=== PATIENT | female | born 1940 | race Caucasian/White ===

== ENCOUNTER → 2018-04-01 11:15 | Outpatient (CLI) | payer MEDICARE, BC, SELFPAY ==
--- NOTE | 2018-04-01 11:30 | MRI_ITS ---
STUDY: MRI LUMBAR SPINE WITHOUT CONTRAST REASON FOR EXAM: Female, 77 years old. LOW BACK AND BILAT LEG PAIN -- for years, fall 09/2017 , hx breast cancer. TECHNIQUE: Standardized fat and water weighted pulse sequences were obtained in the sagittal and axial planes. COMPARISON: X-ray dated October 12, 2017 FINDINGS: T11/T12: There is a moderate compression fracture at T12 with retropulsion resulting in mild central canal stenosis and minimal indentation of the ventral spinal cord. There is no foraminal stenosis. T12-L1: Normal endplates. Normal disc height, hydration and morphology. Normal bilateral facet joints. Normal central canal and bilateral lateral recesses. Normal bilateral intervertebral neural foramina. Normal lumbar lordosis. There is no substantial scoliosis. Normal conus medullaris that terminates at the L1 L1-2: Normal endplates. Normal disc height, hydration and morphology. Normal bilateral facet joints. Normal central canal and bilateral lateral recesses. Normal bilateral intervertebral neural foramina. L2-3: There is mild disc space narrowing and endplate spondylosis. There is mild disc bulge and facet arthropathy with mild central canal and mild bilateral foraminal stenosis. L3-4: There is moderate disc space narrowing and endplate spondylosis. There is extensive facet arthropathy with grade 1 anterolisthesis and disc uncovering with moderate central canal stenosis. There is mild right and moderate left foraminal stenosis. L4-5: There is mild disc space narrowing and anterior spondylosis. There is a minimal disc bulge and moderate facet arthropathy with mild central canal and mild bilateral foraminal stenosis. L5-S1: Normal endplates. Normal disc height, hydration and morphology. Normal central canal and bilateral lateral recesses. Normal bilateral intervertebral neural foramina. There is mild bilateral facet arthropathy Normal visualized sacral ala. Normal visualized paraspinous soft tissue structures. MRI/Spine Lumbar (Routine) IMPRESSION: Chronic moderate compression fracture at T12 with retropulsion and mild central canal stenosis. L3/L4: Degenerative grade 1 anterolisthesis with moderate central canal stenosis. Moderate left foraminal stenosis. Multilevel degenerative changes. Electronically Signed: Karen Evans MD at 8:53 EDT Tel , Service support ,
== END ==
PROVIDERS: Family Provider Internal Medicine; PCP Internal Medicine; Visit Provider Anesthesiology Pain Medicine
DX: M54.9 Dorsalgia, unspecified (principal); M79.604 Pain in right leg
CPT/HCPCS: 72148

== ENCOUNTER → 2018-06-01 09:25 | Outpatient (CLI) | payer MEDICARE, BC, SELFPAY ==
--- NOTE | 2018-06-01 09:29 | RAD_ITS ---
STUDY: X-RAY - THORACIC SPINE REASON FOR EXAM: Female, 77 years old. Mid back pain. History of fall September 2017 with T12 fracture and subsequent kyphoplasty TECHNIQUE: 2 view(s) of the thoracic spine were obtained. COMPARISON: 3 views of the thoracic spine October 12, 2017. FINDINGS: Normal kyphosis of the thoracic spine. There is no substantial scoliosis. Prior cement augmentation/kyphoplasty of the T12 vertebra is identified. There is minor contrast extension into left paravertebral venous structures. Otherwise, normal thoracic vertebrae and endplates. Normal disc space heights. There is no demonstrated acute fracture. The soft tissue structures are unremarkable. The patient has undergone prior median sternotomy. RAD/Thoracic Spine 2 Views IMPRESSION: Patient has undergone cement augmentation/kyphoplasty at T12 since previous exam. No demonstrated acute osseous abnormality of the thoracic spine. Electronically Signed: Eb Oneill MD at 19:13 EDT , Service support ,
== END ==
PROVIDERS: Family Provider Internal Medicine; PCP Internal Medicine; Visit Provider Anesthesiology Pain Medicine
DX: M54.6 Pain in thoracic spine (principal)
CPT/HCPCS: 72070

== ENCOUNTER 2018-12-25 17:18 | Inpatient (IN) | payer MEDICARE, BC, SELFPAY ==
[2018-12-25] VITALS (13 sets, daily range): BP systolic 125–211; BP diastolic 52–71; PULSE 60–96; RESP 13–26; TEMP 36.6–36.9; O2SAT 94–100; BMI 24.3; BMI 23.3
--- NOTE | 2018-12-25 17:27 | RAD_ITS ---
STUDY: X-RAY CHEST REASON FOR EXAM: Female, 78 years old. Altered mental status, stroke TECHNIQUE: AP COMPARISON: None. FINDINGS: Two lead cardiac conduction device is seen via the right subclavian vein with lead tips projecting over the right atrium and right ventricle, respectively. The lungs are clear and expanded. There is no demonstrated pleural abnormality. There is mild cardiac enlargement. Sternal wires and mediastinal surgical clips compatible with prior CABG. Normal visualized pulmonary arteries. Normal visualized aortic arch and descending thoracic aorta. Prior vertebral augmentation at T12. Normal visualized ribs, clavicles, and shoulders. There is no demonstrated abnormality of the visualized soft tissue structures of the upper abdomen. RAD/Chest 1 View IMPRESSION: Nonacute portable x-ray examination of the chest. Mild cardiomegaly. Electronically Signed: Rocky Lopez MD at 18:09 EST , Service support ,
--- NOTE | 2018-12-25 17:27 | EKG12_ITS ---
Test Reason : CVA Blood Pressure : / mmHG Vent. Rate : 060 BPM Atrial Rate : 060 BPM P-R Int : 204 ms QRS Dur : 148 ms QT Int : 478 ms P-R-T Axes : -25 -31 052 degrees QTc Int : 478 ms Atrial-paced rhythm Left axis deviation Left bundle branch block Abnormal ECG Confirmed by JEREMIAH MONTES, MEGAN ([id number]), visual effects editor CAMERON BANKS ([id number]) on 12/28/2018 2:16:05 PM Referred By: HARI Confirmed By:MEGAN DANIELS MD
--- NOTE | 2018-12-25 17:27 | CT_ITS ---
STUDY: CT BRAIN WITHOUT CONTRAST REASON FOR EXAM: Female, 78 years old. Weakness RADIATION DOSAGE (If Supplied By Facility): CTDIvol = ( 44.99 ) mGy, DLP = ( 745.49 ) mGycm TECHNIQUE: Transaxial CT imaging of the brain was performed without administration of intravenous contrast material. Individualized dose optimization techniques were used for this CT. COMPARISON: None. FINDINGS: Normal soft tissue structures. Normal calvarium. There is mild cerebral atrophy with widening of the extra-axial spaces and ventricular dilatation. There are areas of decreased attenuation within the white matter tracts of the supratentorial brain, consistent with microvascular disease changes. Normal basal ganglia and thalami. Normal brainstem. Normal cerebellum. There is no intracranial hemorrhage. There are no findings of an acute ischemic infarction. Normal visualized paranasal sinuses. CT/Brain/Head without Contrast IMPRESSION: 1. No acute intracranial hemorrhage or mass effect. 2. Central parenchymal volume loss. White matter changes that are nonspecific but most commonly associated with chronic small vessel ischemic disease. N.B. : The above information has been verbally conveyed by Rocky Lopez MD to Alejandro Shaw on 12/25/2018 17:42:19 (ET). Electronically Signed: Rocky Lopez MD at 17:47 EST , Service support ,
--- NOTE | 2018-12-25 17:31 | NURSING ---
[id number] STROKE ALERT CALLED
--- NOTE | 2018-12-25 17:32 | CT_ITS ---
STUDY: CTA OF THE BRAIN REASON FOR EXAM: Female, 78 years old. Altered mental status, stroke RADIATION DOSAGE (If Supplied By Facility): CTDIvol = ( 18.81 ) mGy, DLP = ( 1107.49 ) mGycm TECHNIQUE: CT angiography was performed with a multi-detector CT scanner. Data acquisition was obtained from the skull base through the vertex following intravenous administration of 100 ml of Isovue-370. MIP images were reconstructed from the axial data set. Post-processing of the angiographic images was performed, with multiplanar reformation and 3D reconstruction. Individualized dose optimization techniques were used for this CT. COMPARISON: None. FINDINGS: Normal bilateral petrous carotid arteries. Normal right cavernous carotid artery with a normal supraclinoid bifurcation. Normal left cavernous carotid artery with a normal supraclinoid bifurcation. Normal right A1 segments of the anterior cerebral artery. Normal left A1 segments of the anterior cerebral artery. Normal intact anterior communicating artery (ACOM). Normal bilateral A2 segments of the anterior cerebral arteries. Normal right M1 and M2 segments of the middle cerebral arteries, with a normal M1 bifurcation. Normal left M1 and M2 segments of the middle cerebral arteries, with a normal M1 bifurcation. There is non-visualization of the right posterior communicating artery (PCOM). There is non-visualization of the left posterior communicating artery (PCOM). Normal bilateral vertebral arteries. Normal basilar artery with a normal basilar bifurcation. The visualized bilateral superior cerebellar (SCA) arteries are normal. Normal bilateral P1, P2 and visualized P3 segments of the posterior cerebral arteries. There is no demonstrated aneurysm of the [place]. There is no demonstrated abnormality of the visualized brain. CT/CTA Head W/WO Contrast IMPRESSION: 1. No large vessel arterial occlusion. No aneurysm seen. Electronically Signed: Rocky Lopez MD at 18:33 EST , Service support ,
--- NOTE | 2018-12-25 17:32 | CT_ITS ---
STUDY: CTA NECK WITH CONTRAST REASON FOR EXAM: Female, 78 years old. Weakness, stroke protocol RADIATION DOSAGE (If Supplied By Facility): CTDIvol = ( ) mGy, DLP = ( ) mGycm TECHNIQUE: CT angiography with multi-detector data acquisition was performed from the aortic arch to the skull base following intravenous administration of 100ML ml of Isovue 370 contrast. MIP images were reconstructed from the axial data set. Post-processing of the angiographic images was performed, with multiplanar reformation and 3D reconstruction. Individualized dose optimization techniques were used for this CT. COMPARISON: None. FINDINGS: Exam is significantly degraded in the neck due to patient motion. Sternal wires are noted. AORTIC ARCH: Normal visualized aortic arch. Normal origins of the brachiocephalic, left common carotid, and left subclavian arteries. RIGHT CAROTID ARTERIES: Normal right common carotid artery (CCA). There is mild atherosclerotic plaque formation with minimal narrowing of the right carotid bulb. Normal visualized origin of the right internal carotid (ICA) artery without a hemodynamically significant stenosis. Normal visualized cervical portion of the right internal carotid artery. Normal origin of the right external carotid artery (ECA). LEFT CAROTID ARTERIES: Normal left common carotid artery (CCA). There is mild atherosclerotic plaque formation with minimal narrowing of the left carotid bulb. Normal visualized origin of the left internal carotid (ICA) artery without a hemodynamically significant stenosis. Normal visualized cervical portion of the left internal carotid artery. Normal origin of the left external carotid artery (ECA). VERTEBRAL ARTERIES: Normal bilateral vertebral arteries. CT/CTA Neck W/WO Contrast IMPRESSION: 1. Significantly limited exam due to patient motion artifact. 2. No hemodynamically significant carotid stenosis identified. Mild bilateral carotid bulb atherosclerosis (15% stenosis or less). N.B. : The above information has been verbally conveyed by Rocky Lopez MD to Alejandro Shaw on 12/25/2018 17:59:48 (ET). Electronically Signed: Rocky Lopez MD at 18:04 EST , Service support ,
[2018-12-25 18:02] LABS: Absolute Lymphocyte Count 1.33 X10^3/ul (0.83-4.51); Absolute Neutrophil Count 5.4 X10^3/uL (2.0-7.7); Basophil# 0.01 X10^3/uL; Basophil% 0.1 % (0-1); Eosinophil# 0.02 X10^3/uL; Eosinophils% 0.3 % (0-5); Hematocrit 36.3 % (37-47); Lymphocyte # 1.33 X10^3/ul (4.0); Lymphocyte % 17.9 % (19-41); Mean Corp Hgb Conc 35.8 g/gl (32-36); Mean Corpuscular Hgb 32.3 pg (27.0-32.0); Mean Corpuscular Volume 90.3 fL (81-99); Mean Platelet Vol. 9.5 fl (6.2-12.0); Monocyte# 0.65 X10^3/uL; Monocyte% 8.8 % (0-10); Neutrophil # 5.39 X10^3/uL (2.7-7.7); Neutrophil % 72.6 % (47-70); Platelet Count 213 K/mm3 (150-450); RBC Distribution Width CV 12.6 % (11.6-14.6); RBC Distribution Width SD 41.6 fl (35.1-43.9); Red Blood Count 4.02 M/mm3 (4.2-5.4); White Blood Count 7.4 K/mm3 (4.4-11.0)
[2018-12-25 18:03] LABS: POSITIVE COUNT NO; POSITIVE DIFFERENTIAL NO; POSITIVE MORPHOLOGY NO
[2018-12-25 18:07] LABS: International Normalized Ratio 1.1; Prothrombin Time (Protime)PT. 13.8 SECONDS (11.7-14.9)
[2018-12-25 18:08] LABS: Partial Thromboplast Time 31.5 Seconds (24.1-36.2)
[2018-12-25 18:22] LABS: Anion Gap 8 (5-15); BUN 18 mg/dL (7-18); BUN/Creat Ratio 23.9 RATIO (10-20); Chloride 98 mmol/L (98-107); Creatinine, Serum 0.75 mg/dL (0.55-1.02); EST Glomerular Filtration Rate 79 mL/min (>60); Est Glom Filt Rate - Afr Amer 95 mL/min (>60); Estimated Creatinine Clearance 46.89 ml/min; Glucose 106 mg/dL (74-106); Potassium 3.9 mmol/L (3.5-5.1); Sodium Level 131 mmol/L (136-145)
[2018-12-25 18:31] LABS: Bedside Glucose 101 mg/dL (70-110)
--- NOTE | 2018-12-25 19:56 | PCM.HP.STD ---
Problem List (1) Hyperlipidemia Status: Chronic (2) Status post placement of cardiac pacemaker Status: Chronic (3) Atrial fibrillation Status: Chronic (4) Status post aortic valve replacement Status: Chronic (5) Type 2 diabetes mellitus Status: Chronic (6) Migraine Status: Chronic (7) GERD (gastroesophageal reflux disease) Status: Chronic (8) HTN (hypertension) Status: Chronic History of Present Illness Date of Admission: 12/25/18 Chief Complaint: Headache, blurry vision, right upper extremity numbness, tingling and weakness. The patient is a 78 year old F with past medical history as mentioned above including history of chronic migraine presented to the emergency room because of headache, blurry vision, right upper extremity numbness, tingling and weakness. Her symptoms started all of a sudden around 2:53 PM today with sudden onset headache, on the right side, looked similar to the previous attacks of acute migraine, throbbing headache, associated with visual aura, blurry vision, relieved by Imitrex and without aggravating factors. Shortly after she had the attack of the migraine, she started complaining of right upper extremity numbness, tingling, involving the right forearm and right hand, associated with heavy sensation of the right upper extremity with minimal weakness. At this time, she denies any more headache or blurry vision apart from chronic blurry vision on the right eye but she mentioned that the heaviness and tingling of the right upper extremity is still there but slightly improved. Couple of days ago, her dose of fentanyl was increased from 25 mg p.o. daily to 50 mg p.o. daily because of hypotension. In the emergency department, her blood pressure slightly elevated, other vital signs were stable. Her routine blood work was remarkable for mild hyponatremia which is chronic, otherwise normal. His EKG revealed paced rhythm with LBBB which is chronic. Her troponin is negative. Chest x-ray showed no acute findings. CT scan brain showed no acute findings, official report is pending at this time. CTA of the head and neck revealed no evidence of hemodynamically significant vascular disease or stenosis. She is being admitted for right upper extremity paresthesia/weakness for probable TIA versus acute stroke or could be due to complex migraine. Past Medical History Past Medical History (Chronic Problems): Chronic Problems (Last Updated 04/05/18 @ 12:13 by Romana Ortiz MD) Hyperlipidemia (Chronic) Status post placement of cardiac pacemaker (Chronic) Atrial fibrillation (Chronic) Status post aortic valve replacement (Chronic) Type 2 diabetes mellitus (Chronic) Migraine (Chronic) GERD (gastroesophageal reflux disease) (Chronic) HTN (hypertension) (Chronic) Medical History: Medical History (Last Updated 04/05/18 @ 12:13 by Romana Ortiz MD) Ascending aortic aneurysm I71.2 Breast cancer C50.919 1983 Diabetes E11.9 Hypertension I10 Allergies procaine HCl [From Novocain] Allergy (Verified 12/25/18 17:19) Anaphylaxis passed out, throat swelling cetirizine Adverse Reaction (Verified 12/25/18 17:19) Other mental status change codeine Adverse Reaction (Verified 12/25/18 17:19) Vomiting gabapentin Adverse Reaction (Verified 12/25/18 17:19) Other hydrochlorothiazide Adverse Reaction (Verified 12/25/18 17:19) Other lisinopril Adverse Reaction (Verified 12/25/18 17:19) Other morphine Adverse Reaction (Verified 12/25/18 17:19) Vomiting pregabalin Adverse Reaction (Verified 12/25/18 17:19) Other dizzy Sulfa (Sulfonamide Antibiotics) Adverse Reaction (Verified 12/25/18 17:19) Other headache Home Medications: Ambulatory Orders Medication Instructions Recorded Alendronate Sodium [Fosamax] 70 mg PO Q7D@0700 10/03/17 Aspirin [Aspirin, Baby] 81 mg PO DAILY@0800 10/03/17 Atenolol [Tenormin (beta Ad)] 50 mg PO DAILY 10/03/17 Dicyclomine HCl [Bentyl] 10 mg PO 4X/DAY PRN PRN 10/03/17 Estradiol [Estrace Vaginal Cream] 1 dose VAGINAL PRN PRN 10/03/17 Losartan Potassium [Cozaar] 100 mg PO DAILY 10/03/17 Magnesium Oxide [Mag-Ox 400] 400 mg PO DAILY 10/03/17 Metformin HCl [Metformin HCl ER] 500 mg PO DAILY 10/03/17 Metoprolol Succinate 25 mg PO Q6H PRN PRN 10/03/17 Multivitamins,Therapeutic 1 tab PO DAILY 10/03/17 [Multivitamin] Nateglinide [Starlix] 60 mg PO TID 10/03/17 [place]-3 Fatty Acids [[place]-3] 1,000 mg PO BID 10/03/17 Oxybutynin [Ditropan] 5 mg PO DAILY 10/03/17 Pravastatin [Pravachol] 10 mg PO QHS 10/03/17 Sumatriptan Succinate [Imitrex] 50 mg PO .X1 PRN PRN 10/03/17 traMADol [Ultram (G)] 50 mg PO Q4H PRN PRN 10/03/17 amitriptyline 10 mg tablet 10 mg PO QDAY 04/05/18 Sotalol HCl [Sotalol] 120 mg PO 12/25/18 Surgical History: Surgical History (Last Updated 04/05/18 @ 11:16 by Jennifer Anderson) H/O aortic valve replacement Z95.2 H/O elbow surgery Z98.890 H/O left mastectomy Z90.12 breast cancer 1982 History of open heart surgery Z98.890 Hx of appendectomy Z90.49 S/P CODIE (total abdominal hysterectomy) Z90.710 femoral hernia repair Surgical History: hysterectomy - 1980, pacemaker implantation, - - Aortic valve replacement with bioprosthetic valve. Psychiatric History: No pertinent psych hx IT ARCHITECT History: No pertinent IT ARCHITECT history Lives: Spouse/ Significant Other Smoking Status: Never smoker Alcohol: None Drugs: None - *Family History Maternal Family History: Family History (Last Updated 04/05/18 @ 11:17 by Jennifer Anderson) Mother Diabetes Ovarian cancer Father Cancer Colon cancer Hypertension History Items: No pertinent history Paternal Family History: Family History (Last Updated 04/05/18 @ 11:17 by Jennifer Anderson) Mother Diabetes Ovarian cancer Father Cancer Colon cancer Hypertension History Items: No pertinent history Review of Systems Constitutional: Denies: Anorexia, Chills, Fever, Weakness Eyes: Reports: Blurred vision. Denies: Double vision, Drainage, Redness HEENT: Denies: Difficulty Hearing, Ear Pain, Eye Pain, Nasal Congestion, Sore Throat Cardiovascular: Denies: Chest Pain, Chest Pressure, Edema, Heaviness, Orthopnea, Paroxysmal Noc. Dyspnea, Syncope Respiratory: Denies: Cough, Pleuritic Pain, Shortness of Breath, Sputum production, Wheezing Gastrointestinal: Denies: Abdominal Pain, Constipation, Diarrhea, Nausea, Vomiting Genitourinary: Denies: Dysuria, Frequency, Hematuria Musculoskeletal: Denies: Arm Pain, Back Pain, Foot Pain Skin: Denies: Dryness, Rash Neurological: Reports: Blurred vision, Focal weakness, Headaches, Numbness, Tingling. Denies: Balance problems, Change in Speech, Slurred speech, Confusion Psychiatric: Denies: Anxiety, Depression Endocrine: Denies: Change in Body Habitus, Polydipsia VTE Information - Inpt Only VTE Present on Admission: No VTE Mechan Device Prophylaxis: None VTE Pharm Prophylaxis ordered?: Yes - Physical Exam General: Alert, Oriented x3, Cooperative, No apparent distress HEENT: Atraumatic, PERRLA, EOMI, Normocephalic Oral: Moist Mucosa, No Gingival or Mucosal Lesions/ Ulcerations Neck: Supple, No JVD, Negative Carotid Bruits, Trachea Midline, Thyroid Normal Size and Texture Lungs: Clear to auscultation, No rhonchi, No wheeze, No rales, Diminished Cardiovascular: Regular rate, Regular Rhythm, Normal S1, Normal S2, PMI Normal Abdomen: Bowel Sounds Present, Soft, Non Tender, Non-Distended, No Hepato-splenomegaly Extremities: No clubbing, No cyanosis, No edema Skin: No rashes, No breakdown Lymphatic: No Cervical, Supraclavicular, or Inguinal Adenopathy Neurological: Cranial nerves II-XII grossly intact, Motor Exam 5/5 strength throughout Psych/Mental Status: Normal Affect, Appropriate, Alert and oriented to time, place, person, mood and affect Vital Signs Temp Pulse Resp BP Pulse Ox 98.2 F 60 16 165/52 H 100 12/25/18 17:20 12/25/18 19:30 12/25/18 19:30 12/25/18 19:30 12/25/18 19:30 Oxygen Flow Rate (L/min) 2 Oxygen Delivery Method Room Air Weight: 165 lb Body Mass Index (BMI) 24.3 Finger Stick Blood Glucose 101 Laboratory Tests Past 24 Hrs 12/25/18 12/25/18 12/25/18 17:52 17:52 17:52 WBC 7.4 RBC 4.02 L Hgb 13.0 Hct 36.3 L MCV 90.3 MCH 32.3 H MCHC 35.8 RDW 12.6 RDW Differential 41.6 Plt Count 213 MPV 9.5 Immature Gran % (Auto) 0.300 Neut % (Auto) 72.6 H Lymph % (Auto) 17.9 L [place] % (Auto) 8.8 Eos % (Auto) 0.3 Baso % (Auto) 0.1 Absolute Neuts (auto) 5.4 Absolute Lymphs (auto) 1.33 Total Counted Not Reportable PT 13.8 INR 1.1 APTT 31.5 Sodium 131 L Potassium 3.9 Chloride 98 Carbon Dioxide 25.0 Anion Gap 8 BUN 18 Creatinine 0.75 Estim Creat Clear Calc 46.89 Est GFR (MDRD) Af Amer 95 Est GFR (MDRD) Non-Af 79 BUN/Creatinine Ratio 23.9 H Glucose 106 Calcium 8.0 L Troponin I < 0.015 POC Glucose 12/25/18 18:23 POC Glucose 101 Clinical Impression(s) from Imaging Studies Brain CT 12/25/18 17:27 IMPRESSION: 1. No acute intracranial hemorrhage or mass effect. 2. Central parenchymal volume loss. White matter changes that are nonspecific but most commonly associated with chronic small vessel ischemic disease. N.B. : The above information has been verbally conveyed by Rocky Lopez MD to Alejandro Shaw on 12/25/2018 17:42:19 (ET). Electronically Signed: Rocky Lopez MD at 17:47 EST , Service support , Chest X-Ray 12/25/18 17:27 IMPRESSION: Nonacute portable x-ray examination of the chest. Mild cardiomegaly. Electronically Signed: Rocky Lopez MD at 18:09 EST , Service support , Head CTA 12/25/18 17:32 IMPRESSION: 1. No large vessel arterial occlusion. No aneurysm seen. Electronically Signed: Rocky Lopez MD at 18:33 EST , Service support , Neck CTA 12/25/18 17:32 IMPRESSION: 1. Significantly limited exam due to patient motion artifact. 2. No hemodynamically significant carotid stenosis identified. Mild bilateral carotid bulb atherosclerosis (15% stenosis or less). N.B. : The above information has been verbally conveyed by Rocky Lopez MD to Alejadnro Shaw on 12/25/2018 17:59:48 (ET). Electronically Signed: Rocky Lopez MD at 18:04 EST , Service support , ADDENDUM: 12/25/18 181 IMPRESSION: 1. Significantly limited exam due to patient motion artifact. 2. No hemodynamically significant carotid stenosis identified. Mild bilateral carotid bulb atherosclerosis (15% stenosis or less). N.B. : The above information has been verbally conveyed by Rocky Lopez MD to Alejandro Shaw on 12/25/2018 17:59:48 (ET). Electronically Signed: Rocky Lopez MD at 18:04 EST , Service support , Assessment/Plan This is an 78 years old female patient presented to the emergency room because of headache with blurred vision in context of history of chronic migraine, followed by right upper extremity numbness, tingling and weakness and she is being admitted for evaluation. #1 right upper extremity paresthesia/weakness: Upon arrival to ER, her NIH stroke was 3 according to ER physician. When I saw the patient, she still have tingling of the right upper extremity but improved and her NIH stroke scale came down to 1. She has no focal deficit on exam. CT scan brain, CTA of the neck reviewed as above. EKG revealed paced rhythm. Blood pressure slightly elevated, other vital signs are stable. Plan: Admit to PCU for observation, cardiac monitoring, NIH stroke scale, MRI brain, 2D echocardiogram, continue aspirin and statins, neurology consult, IV fluids, Tylenol as needed, PT OT evaluation and treatment. 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 We would need to verify with her food service hotel [employer] office as well as with the company if we can do the MRI with the type of pacemaker that she has. #2 migraine/chronic: Patient states that she took Imitrex at home and her headache significantly improved. Plan to continue Imitrex as needed. #3 hypertension: Blood pressure elevated, dose of atenolol adjusted couple of days ago. Plan to continue atenolol, losartan, and sotalol. #4 chronic atrial fibrillation status post pacemaker: Rate is controlled, continue atenolol and sotalol for rate control, she is not on anticoagulation. #5 type 2 diabetes mellitus: ADA diet, Accu-Cheks, insulin sliding scale, hold metformin for now. #6 hyperlipidemia: Continue statins. #7 status post aortic valve replacement with bioprosthetic valve: Stable, 2D echocardiogram ordered. #8 DVT prophylaxis: Subcu Lovenox. This note was generated with [employer] dictation software. It may contain incorrect words, spelling, and punctuation that were not noted in checking the note before signing. Code Visit OBSV E&M: 32918 Initial observation care L3
--- NOTE | 2018-12-25 20:01 | HP.PCM_ITS ---
Problem List (1) Hyperlipidemia Status: Chronic (2) Status post placement of cardiac pacemaker Status: Chronic (3) Atrial fibrillation Status: Chronic (4) Status post aortic valve replacement Status: Chronic (5) Type 2 diabetes mellitus Status: Chronic (6) Migraine Status: Chronic (7) GERD (gastroesophageal reflux disease) Status: Chronic (8) HTN (hypertension) Status: Chronic History of Present Illness Date of Admission: 12/25/18 Chief Complaint: Headache, blurry vision, right upper extremity numbness, tingling and weakness. The patient is a 78 year old F with past medical history as mentioned above including history of chronic migraine presented to the emergency room because of headache, blurry vision, right upper extremity numbness, tingling and weakness. Her symptoms started all of a sudden around 2:53 PM today with sudden onset headache, on the right side, looked similar to the previous attacks of acute migraine, throbbing headache, associated with visual aura, blurry vision, relieved by Imitrex and without aggravating factors. Shortly after she had the attack of the migraine, she started complaining of right upper extremity numbness, tingling, involving the right forearm and right hand, associated with heavy sensation of the right upper extremity with minimal weakness. At this time, she denies any more headache or blurry vision apart from chronic blurry vision on the right eye but she mentioned that the heaviness and tingling of the right upper extremity is still there but slightly improved. Couple of days ago, her dose of fentanyl was increased from 25 mg p.o. daily to 50 mg p.o. daily because of hypotension. In the emergency department, her blood pressure slightly elevated, other vital signs were stable. Her routine blood work was remarkable for mild hyponatremia which is chronic, otherwise normal. His EKG revealed paced rhythm with LBBB which is chronic. Her troponin is negative. Chest x-ray showed no acute findings. CT scan brain showed no acute findings, official report is pending at this time. CTA of the head and neck revealed no evidence of hemodynamically significant vascular disease or stenosis. She is being admitted for right upper extremity paresthesia/weakness for probable TIA versus acute stroke or could be due to complex migraine. Past Medical History Past Medical History (Chronic Problems): Chronic Problems (Last Updated 04/05/18 @ 12:13 by Romana Ortiz MD) Hyperlipidemia (Chronic) Status post placement of cardiac pacemaker (Chronic) Atrial fibrillation (Chronic) Status post aortic valve replacement (Chronic) Type 2 diabetes mellitus (Chronic) Migraine (Chronic) GERD (gastroesophageal reflux disease) (Chronic) HTN (hypertension) (Chronic) Medical History: Medical History (Last Updated 04/05/18 @ 12:13 by Romana Ortiz MD) Ascending aortic aneurysm I71.2 Breast cancer C50.919 1983 Diabetes E11.9 Hypertension I10 Allergies procaine HCl [From Novocain] Allergy (Verified 12/25/18 17:19) Anaphylaxis passed out, throat swelling cetirizine Adverse Reaction (Verified 12/25/18 17:19) Other mental status change codeine Adverse Reaction (Verified 12/25/18 17:19) Vomiting gabapentin Adverse Reaction (Verified 12/25/18 17:19) Other hydrochlorothiazide Adverse Reaction (Verified 12/25/18 17:19) Other lisinopril Adverse Reaction (Verified 12/25/18 17:19) Other morphine Adverse Reaction (Verified 12/25/18 17:19) Vomiting pregabalin Adverse Reaction (Verified 12/25/18 17:19) Other dizzy Sulfa (Sulfonamide Antibiotics) Adverse Reaction (Verified 12/25/18 17:19) Other headache Home Medications: Ambulatory Orders Medication Instructions Recorded Alendronate Sodium [Fosamax] 70 mg PO Q7D@0700 10/03/17 Aspirin [Aspirin, Baby] 81 mg PO DAILY@0800 10/03/17 Atenolol [Tenormin (beta Ad)] 50 mg PO DAILY 10/03/17 Dicyclomine HCl [Bentyl] 10 mg PO 4X/DAY PRN PRN 10/03/17 Estradiol [Estrace Vaginal Cream] 1 dose VAGINAL PRN PRN 10/03/17 Losartan Potassium [Cozaar] 100 mg PO DAILY 10/03/17 Magnesium Oxide [Mag-Ox 400] 400 mg PO DAILY 10/03/17 Metformin HCl [Metformin HCl ER] 500 mg PO DAILY 10/03/17 Metoprolol Succinate 25 mg PO Q6H PRN PRN 10/03/17 Multivitamins,Therapeutic 1 tab PO DAILY 10/03/17 [Multivitamin] Nateglinide [Starlix] 60 mg PO TID 10/03/17 [place]-3 Fatty Acids [[place]-3] 1,000 mg PO BID 10/03/17 Oxybutynin [Ditropan] 5 mg PO DAILY 10/03/17 Pravastatin [Pravachol] 10 mg PO QHS 10/03/17 Sumatriptan Succinate [Imitrex] 50 mg PO .X1 PRN PRN 10/03/17 traMADol [Ultram (G)] 50 mg PO Q4H PRN PRN 10/03/17 amitriptyline 10 mg tablet 10 mg PO QDAY 04/05/18 Sotalol HCl [Sotalol] 120 mg PO 12/25/18 Surgical History: Surgical History (Last Updated 04/05/18 @ 11:16 by Jennifer Anderson) H/O aortic valve replacement Z95.2 H/O elbow surgery Z98.890 H/O left mastectomy Z90.12 breast cancer 1982 History of open heart surgery Z98.890 Hx of appendectomy Z90.49 S/P CODIE (total abdominal hysterectomy) Z90.710 femoral hernia repair Surgical History: hysterectomy - 1980, pacemaker implantation, - - Aortic valve replacement with bioprosthetic valve. Psychiatric History: No pertinent psych hx ASSESSMENT COUNSELOR History: No pertinent ASSESSMENT COUNSELOR history Lives: Spouse/ Significant Other Smoking Status: Never smoker Alcohol: None Drugs: None - *Family History Maternal Family History: Family History (Last Updated 04/05/18 @ 11:17 by Jennifer Anderson) Mother Diabetes Ovarian cancer Father Cancer Colon cancer Hypertension History Items: No pertinent history Paternal Family History: Family History (Last Updated 04/05/18 @ 11:17 by Jennifer Anderson) Mother Diabetes Ovarian cancer Father Cancer Colon cancer Hypertension History Items: No pertinent history Review of Systems Constitutional: Denies: Anorexia, Chills, Fever, Weakness Eyes: Reports: Blurred vision. Denies: Double vision, Drainage, Redness HEENT: Denies: Difficulty Hearing, Ear Pain, Eye Pain, Nasal Congestion, Sore Throat Cardiovascular: Denies: Chest Pain, Chest Pressure, Edema, Heaviness, Orthopnea, Paroxysmal Noc. Dyspnea, Syncope Respiratory: Denies: Cough, Pleuritic Pain, Shortness of Breath, Sputum production, Wheezing Gastrointestinal: Denies: Abdominal Pain, Constipation, Diarrhea, Nausea, Vomiting Genitourinary: Denies: Dysuria, Frequency, Hematuria Musculoskeletal: Denies: Arm Pain, Back Pain, Foot Pain Skin: Denies: Dryness, Rash Neurological: Reports: Blurred vision, Focal weakness, Headaches, Numbness, Tingling. Denies: Balance problems, Change in Speech, Slurred speech, Confusion Psychiatric: Denies: Anxiety, Depression Endocrine: Denies: Change in Body Habitus, Polydipsia VTE Information - Inpt Only VTE Present on Admission: No VTE Mechan Device Prophylaxis: None VTE Pharm Prophylaxis ordered?: Yes - Physical Exam General: Alert, Oriented x3, Cooperative, No apparent distress HEENT: Atraumatic, PERRLA, EOMI, Normocephalic Oral: Moist Mucosa, No Gingival or Mucosal Lesions/ Ulcerations Neck: Supple, No JVD, Negative Carotid Bruits, Trachea Midline, Thyroid Normal Size and Texture Lungs: Clear to auscultation, No rhonchi, No wheeze, No rales, Diminished Cardiovascular: Regular rate, Regular Rhythm, Normal S1, Normal S2, PMI Normal Abdomen: Bowel Sounds Present, Soft, Non Tender, Non-Distended, No Hepato- splenomegaly Extremities: No clubbing, No cyanosis, No edema Skin: No rashes, No breakdown Lymphatic: No Cervical, Supraclavicular, or Inguinal Adenopathy Neurological: Cranial nerves II-XII grossly intact, Motor Exam 5/5 strength throughout Psych/Mental Status: Normal Affect, Appropriate, Alert and oriented to time, place, person, mood and affect Vital Signs Temp Pulse Resp BP Pulse Ox 98.2 F 60 16 165/52 H 100 12/25/18 17:20 12/25/18 19:30 12/25/18 19:30 12/25/18 19:30 12/25/18 19:30 Oxygen Flow Rate (L/min) 2 Oxygen Delivery Method Room Air Weight: 165 lb Body Mass Index (BMI) 24.3 Finger Stick Blood Glucose 101 Laboratory Tests Past 24 Hrs 12/25/18 12/25/18 12/25/18 17:52 17:52 17:52 WBC 7.4 RBC 4.02 L Hgb 13.0 Hct 36.3 L MCV 90.3 MCH 32.3 H MCHC 35.8 RDW 12.6 RDW Differential 41.6 Plt Count 213 MPV 9.5 Immature Gran % (Auto) 0.300 Neut % (Auto) 72.6 H Lymph % (Auto) 17.9 L Grundy % (Auto) 8.8 Eos % (Auto) 0.3 Baso % (Auto) 0.1 Absolute Neuts (auto) 5.4 Absolute Lymphs (auto) 1.33 Total Counted Not Reportable PT 13.8 INR 1.1 APTT 31.5 Sodium 131 L Potassium 3.9 Chloride 98 Carbon Dioxide 25.0 Anion Gap 8 BUN 18 Creatinine 0.75 Estim Creat Clear Calc 46.89 Est GFR (MDRD) Af Amer 95 Est GFR (MDRD) Non-Af 79 BUN/Creatinine Ratio 23.9 H Glucose 106 Calcium 8.0 L Troponin I < 0.015 POC Glucose 12/25/18 18:23 POC Glucose 101 Clinical Impression(s) from Imaging Studies Brain CT 12/25/18 17:27 IMPRESSION: 1. No acute intracranial hemorrhage or mass effect. 2. Central parenchymal volume loss. White matter changes that are nonspecific but most commonly associated with chronic small vessel ischemic disease. N.B. : The above information has been verbally conveyed by Rocky Lopez MD to Alejandro Shaw on 12/25/2018 17:42:19 (ET). Electronically Signed: Rocky Lopez MD at 17:47 EST , Service support , Chest X-Ray 12/25/18 17:27 IMPRESSION: Nonacute portable x-ray examination of the chest. Mild cardiomegaly. Electronically Signed: Rocky Lopez MD at 18:09 EST , Service support , Head CTA 12/25/18 17:32 IMPRESSION: 1. No large vessel arterial occlusion. No aneurysm seen. Electronically Signed: Rocky Lopez MD at 18:33 EST , Service support , Neck CTA 12/25/18 17:32 IMPRESSION: 1. Significantly limited exam due to patient motion artifact. 2. No hemodynamically significant carotid stenosis identified. Mild bilateral carotid bulb atherosclerosis (15% stenosis or less). N.B. : The above information has been verbally conveyed by Rocky Lopez MD to Alejandro Shaw on 12/25/2018 17:59:48 (ET). Electronically Signed: Rocky Lopez MD at 18:04 EST , Service support , ADDENDUM: 12/25/18 181 IMPRESSION: 1. Significantly limited exam due to patient motion artifact. 2. No hemodynamically significant carotid stenosis identified. Mild bilateral carotid bulb atherosclerosis (15% stenosis or less). N.B. : The above information has been verbally conveyed by Rocky Lopez MD to Alejandro Shaw on 12/25/2018 17:59:48 (ET). Electronically Signed: Rocky Lopez MD at 18:04 EST , Service support , Assessment/Plan This is an 78 years old female patient presented to the emergency room because of headache with blurred vision in context of history of chronic migraine, followed by right upper extremity numbness, tingling and weakness and she is being admitted for evaluation. #1 right upper extremity paresthesia/weakness: Upon arrival to ER, her NIH stroke was 3 according to ER physician. When I saw the patient, she still have tingling of the right upper extremity but improved and her NIH stroke scale came down to 1. She has no focal deficit on exam. CT scan brain, CTA of the neck reviewed as above. EKG revealed paced rhythm. Blood pressure slightly elevated, other vital signs are stable. Plan: Admit to PCU for observation, cardiac monitoring, NIH stroke scale, MRI brain, 2D echocardiogram, continue aspirin and statins, neurology consult, IV fluids, Tylenol as needed, PT OT evaluation and treatment. Although patient does have pacemaker but she was told by her [employer] staff officer office that she can have MRI done. We would need to verify with her [employer] staff officer office as well as with the company if we can do the MRI with the type of pacemaker that she has. #2 migraine/chronic: Patient states that she took Imitrex at home and her headache significantly improved. Plan to continue Imitrex as needed. #3 hypertension: Blood pressure elevated, dose of atenolol adjusted couple of days ago. Plan to continue atenolol, losartan, and sotalol. #4 chronic atrial fibrillation status post pacemaker: Rate is controlled, continue atenolol and sotalol for rate control, she is not on anticoagulation. #5 type 2 diabetes mellitus: ADA diet, Accu-Cheks, insulin sliding scale, hold metformin for now. #6 hyperlipidemia: Continue statins. #7 status post aortic valve replacement with bioprosthetic valve: Stable, 2D echocardiogram ordered. #8 DVT prophylaxis: Subcu Lovenox. This note was generated with [employer] dictation software. It may contain incorrect words, spelling, and punctuation that were not noted in checking the note before signing. Code Visit OBSV E&M: 93154 Initial observation care L3
--- NOTE | 2018-12-25 20:53 | ECHOD_ITS ---
Reason For Study: TIA/CVA Procedure This was a 2D Doppler, Color Flow transthoracic echocardiogram. Exam performed portable in patient room. Left Ventricle Normal LV size. Mild concentric left ventricular hypertrophy. The estimated ejection fraction is 50 %. Stage 1 diastolic dysfunction. No regional wall motion abnormalities noted. Right Ventricle Normal RV size. ICD or pacer leads identified within the right ventricle. Normal systolic function. Atria Normal left atrium. Normal right atrium. Mitral Valve Normal mitral valve. Mild (1+) eccentric mitral valve insufficiency. Tricuspid Valve Normal tricuspid valve. Mild tricuspid valve insufficiency. Pulmonary artery systolic pressure is 30 mmHg. Aortic Valve Peak aortic valve gradient 48 mmHg. Mean aortic valve gradient 24 mmHg. Mild aortic stenosis. Mild (1+) eccentric aortic valve insufficiency. Bioprosthetic aortic valve. Pulmonic Valve Normal pulmonic valve. Great Vessels Mild to moderately dilated aortic root. The pulmonary artery is normal size. Normal inferior vena cava. Pericardium/Pleural No pericardial effusion. Medication Performed a rapid injection of agitated mix of 9 cc saline and 1cc air to assess for atrial septal defect. MMode/2D Measurements & Calculations LVIDd: 4.3 cm IVSd: 1.4 cm LVOT diam: 2.0 cm LVIDs: 3.0 cm LVPWd: 1.4 cm RVDd: 3.5 cm FS: 30.3 % LVOT area: 3.2 cm2 Ao root diam: 4.4 cm LAV(MOD-sp4): 39.4 ml EDV(MOD-sp4): 90.9 ml ESV(MOD-sp4): 52.2 ml EF(MOD-sp4): 42.5 % SV(MOD-sp4): 38.7 ml LA A4 area: 14.7 cm2 LA dimension(2D): 4.0 cm RA A4 area: 13.2 cm2 Time Measurements MV dec time: 0.28 sec Doppler Measurements & Calculations MV E max thad: 47.9 cm/sec Lat Peak E' Thad: 5.4 cm/sec Med Peak E' Thad: 3.5 cm/sec MV A max thad: 88.1 cm/sec E/E' lat: 9.0 E/E' med: 13.8 MV E/A: 0.54 Ao V2 max: 345.8 cm/sec AI max thad: 448.3 cm/sec LV V1 max: 119.4 cm/sec Ao max P.7 mmHg AI max P.6 mmHg LV V1 max P.7 mmHg Ao V2 mean: 228.9 cm/sec AI dec slope: 335.0 cm/sec2 LV V1 mean P.6 mmHg Ao mean P.9 mmHg AI P1/2t: 391.9 msec LV V1 mean: 90.7 cm/sec Ao V2 VTI: 69.7 cm LV V1 VTI: 25.7 cm FADY(I,D): 1.2 cm2 FADY(V,D): 1.1 cm2 SV(LVOT): 83.6 ml PA V2 max: 78.8 cm/sec TR max thad: 248.7 cm/sec TR max P.0 mmHg Interpretation Summary Normal LV size. Mild concentric left ventricular hypertrophy. The estimated ejection fraction is 50 %. Stage 1 diastolic dysfunction. Mild (1+) eccentric mitral valve insufficiency. Mild tricuspid valve insufficiency. Mean aortic valve gradient 24 mmHg. Mild (1+) eccentric aortic valve insufficiency. Ordering Physician: Rona Hickman Referring Physician: Terence Kaur M.D. Performed By: Precious Jamison, JAIRO, RVT
[2018-12-25] MEDS: Pravastatin 20 MG Tablet 10 MG PO (23:56)
--- NOTE | 2018-12-25 23:57 | ED.VISSUMM ---
- ER Visit Summary Date of Service: 12/25/18 Chief Complaint: Strokelike symptoms History of Present Illness: The patient is a 78 F presenting due to concern for strokelike symptoms. Patient has an underlying history of diabetes and hypertension and migraine headaches. Patient reports that she typically gets auras with her migraine headaches, they typically come on gradually but she had a more sudden onset of the visual aura today. It was not associated with a headache, but rather was associated with numbness of the right side of her face, right arm, and some weakness of the right arm. Patient denies any other associated symptoms such as speech difficulty or changes in her vision. She has chronically decreased vision in the right eye. Review of systems otherwise negative. Physical Examination: Vital signs notable blood pressure 211/62. Well-nourished female moist mucous membranes. Heart regular lungs clear. Abdomen soft. NIH stroke scale was 3. A score of 1 was given for visual, a score of 1 was given for the right arm, a score of 1 was given for right sided sensory deficit Test Results: CT brain unremarkable, CT angiogram head and neck was negative. EKG shows a paced rhythm with bundle-branch block and a rate of 60. CBC chemistry and coags and troponin found to be unremarkable. Emergency Department Course and Treatment: Patient presented due to strokelike symptoms. Nursing staff activated a stroke team upon the patient's arrival. Patient's NIH is only 3, and her symptoms actually seem more consistent with an atypical migraine and they do stroke. I do not feel that she is a candidate for TPA. However she was profoundly hypertensive she was given labetalol and had improvement of her hypertension. Patient's workup was negative as noted above, discussed with neurology who wishes to admit the patient for rule out stroke. Disposition: Admission Impression: 1. Right-sided paresthesia This note was generated with [employer] dictation software. It may contain incorrect words, spelling, and punctuation that were not noted in review of the chart prior to signing ED Disposition - Plan for ED Patient: Disposition: Acute Care [facility] Chief Complaint: Neuro S/Sx
[2018-12-25] MEDS: 0.9% Normal Saline 1,000 ML 75 ML IV (23:59)
[2018-12-25] MEDS: 0.9% NaCl Peripheral Flush Adult/Peds IV (23:59)
[2018-12-26] VITALS (14 sets, daily range): BP systolic 135–171; BP diastolic 56–77; PULSE 55–66; RESP 16–18; TEMP 36.3–37; O2SAT 94–99; BMI 23.3
--- NOTE | 2018-12-26 | ED.DCSUM_ITS ---
- ER Visit Summary Date of Service: 12/25/18 Chief Complaint: Strokelike symptoms History of Present Illness: The patient is a 78 F presenting due to concern for strokelike symptoms. Patient has an underlying history of diabetes and hypertension and migraine headaches. Patient reports that she typically gets auras with her migraine headaches, they typically come on gradually but she had a more sudden onset of the visual aura today. It was not associated with a headache, but rather was associated with numbness of the right side of her face, right arm, and some weakness of the right arm. Patient denies any other associated symptoms such as speech difficulty or changes in her vision. She has chronically decreased vision in the right eye. Review of systems otherwise negative. Physical Examination: Vital signs notable blood pressure 211/62. Well-nourished female moist mucous membranes. Heart regular lungs clear. Abdomen soft. NIH stroke scale was 3. A score of 1 was given for visual, a score of 1 was given for the right arm, a score of 1 was given for right sided sensory deficit Test Results: CT brain unremarkable, CT angiogram head and neck was negative. EKG shows a paced rhythm with bundle-branch block and a rate of 60. CBC chemistry and coags and troponin found to be unremarkable. Emergency Department Course and Treatment: Patient presented due to strokelike symptoms. Nursing staff activated a stroke team upon the patient's arrival. Patient's NIH is only 3, and her symptoms actually seem more consistent with an atypical migraine and they do stroke. I do not feel that she is a candidate for TPA. However she was profoundly hypertensive she was given labetalol and had improvement of her hypertension. Patient's workup was negative as noted above, discussed with neurology who wishes to admit the patient for rule out stroke. Disposition: Admission Impression: 1. Right-sided paresthesia This note was generated with [employer] dictation software. It may contain incorrect words, spelling, and punctuation that were not noted in review of the chart prior to signing ED Disposition - Plan for ED Patient: Disposition: Acute Care [facility] Chief Complaint: Neuro S/Sx
[2018-12-26 00:51] LABS: Bedside Glucose 143 mg/dL (70-110)
[2018-12-26] MEDS: Sotalol Hydrochloride 80 MG Tablet 120 MG PO ×3 (02:51→22:46)
[2018-12-26 06:57] LABS: Cholesterol 141 mg/dL (200); High Density Lipoprotein 64 mg/dL; Triglycerides 86 mg/dL; Very Low Density Lipoprotein 17 mg/dL (5-40)
[2018-12-26 07:21] LABS: Bedside Glucose 149 mg/dL (70-110)
[2018-12-26] MEDS: Tolterodine Tartrate 2 MG CAP.SA PO (09:30)
[2018-12-26] MEDS: Losartan Potassium 100 MG Tablet PO (09:30)
[2018-12-26] MEDS: Atenolol 50 MG Tablet PO (09:30)
[2018-12-26] MEDS: Magnesium Oxide 400 MG Tablet PO (09:30)
[2018-12-26] MEDS: Aspirin 81 MG TAB.CHEW PO (09:30)
[2018-12-26] MEDS: Enoxaparin 40 MG/0.4 ML Syringe SC (09:30)
[2018-12-26 11:36] LABS: Bedside Glucose 151 mg/dL (70-110)
--- NOTE | 2018-12-26 11:40 | PCM.CONS.GEN ---
Reason for Consult Date of Consultation: 12/26/18 Reason for Consultation: right hand weakness History of Present Illness: 78 yo female with history of migraine with aura yesterday had atypical visual aura resolved after 20minutes, then noted speech abnormality, right hand discoordination and right facial paresthesias. went to ems, who brought her to hospital. now she feels improved but not normal. migraines since 1962. reports she has felt dizzy intermittently over the past week. diagnosed remotely in [place] with migraine variant improved after menopause. reports migraine had been rare until 3 months ago, has had 6 for unclear reasons. imitrex helps. reports significant health issues over past 3 months including pacer. reports pacer mri compatible. day prior to headache had atenolol increased due to sbp 170. imitrex yesterday helped vision, no headache, but had language abnormality. Per admit note: The patient is a 78 year old F with past medical history as mentioned above including history of chronic migraine presented to the emergency room because of headache, blurry vision, right upper extremity numbness, tingling and weakness. Her symptoms started all of a sudden around 2:53 PM today with sudden onset headache, on the right side, looked similar to the previous attacks of acute migraine, throbbing headache, associated with visual aura, blurry vision, relieved by Imitrex and without aggravating factors. Shortly after she had the attack of the migraine, she started complaining of right upper extremity numbness, tingling, involving the right forearm and right hand, associated with heavy sensation of the right upper extremity with minimal weakness. At this time, she denies any more headache or blurry vision apart from chronic blurry vision on the right eye but she mentioned that the heaviness and tingling of the right upper extremity is still there but slightly improved. Couple of days ago, her dose of fentanyl was increased from 25 mg p.o. daily to 50 mg p.o. daily because of hypotension. In the emergency department, her blood pressure slightly elevated, other vital signs were stable. Her routine blood work was remarkable for mild hyponatremia which is chronic, otherwise normal. His EKG revealed paced rhythm with LBBB which is chronic. Her troponin is negative. Chest x-ray showed no acute findings. CT scan brain showed no acute findings, official report is pending at this time. CTA of the head and neck revealed no evidence of hemodynamically significant vascular disease or stenosis. She is being admitted for right upper extremity paresthesia/weakness for probable TIA versus acute stroke or could be due to complex migraine. Those Past Medical History Past Medical History (Chronic Problems): Chronic Problems (Last Updated 04/05/18 @ 12:13 by Romana Ortiz MD) Hyperlipidemia (Chronic) Status post placement of cardiac pacemaker (Chronic) Atrial fibrillation (Chronic) Status post aortic valve replacement (Chronic) Type 2 diabetes mellitus (Chronic) Migraine (Chronic) GERD (gastroesophageal reflux disease) (Chronic) HTN (hypertension) (Chronic) Medical History: Medical History (Last Updated 04/05/18 @ 12:13 by Romana Ortiz MD) Ascending aortic aneurysm I71.2 Breast cancer C50.919 1983 Diabetes E11.9 Hypertension I10 Allergies procaine HCl [From Novocain] Allergy (Verified 12/25/18 17:19) Anaphylaxis passed out, throat swelling cetirizine Adverse Reaction (Verified 12/25/18 17:19) Other mental status change codeine Adverse Reaction (Verified 12/25/18 17:19) Vomiting gabapentin Adverse Reaction (Verified 12/25/18 17:19) Other hydrochlorothiazide Adverse Reaction (Verified 12/25/18 17:19) Other lisinopril Adverse Reaction (Verified 12/25/18 17:19) Other morphine Adverse Reaction (Verified 12/25/18 17:19) Vomiting pregabalin Adverse Reaction (Verified 12/25/18 17:19) Other dizzy Sulfa (Sulfonamide Antibiotics) Adverse Reaction (Verified 12/25/18 17:19) Other headache Home Medications: Ambulatory Orders Medication Instructions Recorded Alendronate Sodium [Fosamax] 70 mg PO Q7D@0700 10/03/17 Aspirin [Aspirin, Baby] 81 mg PO DAILY@0800 10/03/17 Atenolol [Tenormin (beta Ad)] 50 mg PO BID 10/03/17 Dicyclomine HCl [Bentyl] 10 mg PO 4X/DAY PRN PRN 10/03/17 Estradiol [Estrace Vaginal Cream] 1 dose VAGINAL PRN PRN 10/03/17 Losartan Potassium [Cozaar] 100 mg PO DAILY 10/03/17 Magnesium Oxide [Mag-Ox 400] 400 mg PO DAILY 10/03/17 Metformin HCl [Metformin HCl ER] 500 mg PO DAILY 10/03/17 Multivitamins,Therapeutic 1 tab PO DAILY 10/03/17 [Multivitamin] Nateglinide [Starlix] 60 mg PO TID PRN 10/03/17 Deerfield-3 Fatty Acids [Deerfield-3] 1,000 mg PO BID 10/03/17 Oxybutynin [Ditropan] 5 mg PO DAILY 10/03/17 Pravastatin [Pravachol] 10 mg PO QHS 10/03/17 Sumatriptan Succinate [Imitrex] 50 mg PO .X1 PRN PRN 10/03/17 traMADol [Ultram (G)] 50 mg PO Q4H PRN PRN 10/03/17 amitriptyline 10 mg tablet 10 mg PO QDAY 04/05/18 Metoprolol Tartrate 25 mg PO PRN PRN 12/25/18 Sotalol HCl [Sotalol] 120 mg PO BID 12/25/18 Surgical History: Surgical History (Last Reviewed 12/26/18 @ 12:08 by Emery Burris MD) H/O aortic valve replacement Z95.2 H/O elbow surgery Z98.890 H/O left mastectomy Z90.12 breast cancer 1983 History of open heart surgery Z98.890 Hx of appendectomy Z90.49 S/P CODIE (total abdominal hysterectomy) Z90.710 femoral hernia repair Surgical History: hysterectomy - 1980, pacemaker implantation, - - Aortic valve replacement with bioprosthetic valve. 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 Lives: Spouse/ Significant Other Smoking Status: Never smoker Tobacco Use: Non-smoker Alcohol: None Drugs: None - *Family History Maternal Family History: Family History (Last Reviewed 12/26/18 @ 12:08 by Emery Burris MD) Mother Diabetes Ovarian cancer Father Cancer Colon cancer Hypertension History Items: No pertinent history Paternal Family History: Family History (Last Reviewed 12/26/18 @ 12:08 by Emery Burris MD) Mother Diabetes Ovarian cancer Father Cancer Colon cancer Hypertension History Items: No pertinent history Review of Systems Constitutional: Denies: Chills, Fever, Weight Change HEENT: Denies: Head Aches, Sinus Congestion, Sinus Drainage Cardiovascular: Denies: Chest Pain, Palpitations Respiratory: Denies: Cough, Shortness of breath at rest, Sputum production Gastrointestinal: Denies: Abdominal Pain, Nausea, Vomiting Genitourinary: Denies: Dysuria Musculoskeletal: Denies: Joint Pain, Joint Tenderness Skin: Denies: Rash, Wounds Neurological: Denies: Numbness, Tingling, Focal weakness Psychiatric: Denies: Anxiety, Depression, Homicidal Ideations, Suicidal Ideations Hematologic/ Lymphatic: Denies: Easy Bruising, Easy Bleeding - Physical Exam General: Alert, Oriented x3, Cooperative HEENT: Atraumatic, PERRLA, EOMI, Normocephalic Neck: Supple, No JVD, Negative Carotid Bruits Lungs: Clear to auscultation, Normal air movement Cardiovascular: Regular rate, No murmurs Abdomen: Bowel Sounds Present, Soft, Non Tender Extremities: No edema, Capillary Refill Less than 3 Seconds Skin: No rashes, No breakdown Musculoskeletal: No Tenderness to Palpation of Joints or Extremities Neurological: Cranial nerves II-XII grossly intact Psych/Mental Status: Normal Affect, Appropriate Vital Signs Temp Pulse Resp BP Pulse Ox 36.6 C 55 L 18 142/56 H 96 12/26/18 06:44 12/26/18 07:10 12/26/18 06:44 12/26/18 06:44 12/26/18 06:44 Oxygen Flow Rate (L/min) 2 Oxygen Delivery Method Room Air Weight: 59.7 kg Body Mass Index (BMI) 23.3 Finger Stick Blood Glucose 101 Intake and Output for Last 24 Hours 12/24/18 12/25/18 12/26/18 23:59 23:59 23:59 Intake Total 544 / 544 Balance 544 / 544 Laboratory Tests Past 24 Hrs 12/25/18 12/25/18 12/25/18 17:52 17:52 17:52 WBC 7.4 RBC 4.02 L Hgb 13.0 Hct 36.3 L MCV 90.3 MCH 32.3 H MCHC 35.8 RDW 12.6 RDW Differential 41.6 Plt Count 213 MPV 9.5 Immature Gran % (Auto) 0.300 Neut % (Auto) 72.6 H Lymph % (Auto) 17.9 L [place] % (Auto) 8.8 Eos % (Auto) 0.3 Baso % (Auto) 0.1 Absolute Neuts (auto) 5.4 Absolute Lymphs (auto) 1.33 Total Counted Not Reportable PT 13.8 INR 1.1 APTT 31.5 Sodium 131 L Potassium 3.9 Chloride 98 Carbon Dioxide 25.0 Anion Gap 8 BUN 18 Creatinine 0.75 Estim Creat Clear Calc 46.89 Est GFR (MDRD) Af Amer 95 Est GFR (MDRD) Non-Af 79 BUN/Creatinine Ratio 23.9 H Glucose 106 Calcium 8.0 L Troponin I < 0.015 Triglycerides Cholesterol LDL Cholesterol VLDL Cholesterol HDL Cholesterol 12/26/18 06:05 WBC RBC Hgb Hct MCV MCH MCHC RDW RDW Differential Plt Count MPV Immature Gran % (Auto) Neut % (Auto) Lymph % (Auto) [place] % (Auto) Eos % (Auto) Baso % (Auto) Absolute Neuts (auto) Absolute Lymphs (auto) Total Counted PT INR APTT Sodium Potassium Chloride Carbon Dioxide Anion Gap BUN Creatinine Estim Creat Clear Calc Est GFR (MDRD) Af Amer Est GFR (MDRD) Non-Af BUN/Creatinine Ratio Glucose Calcium Troponin I Triglycerides 86 Cholesterol 141 LDL Cholesterol 60 VLDL Cholesterol 17 HDL Cholesterol 64 POC Glucose 12/26/18 12/26/18 12/25/18 11:07 07:08 23:46 POC Glucose 151 H 149 H 143 H 12/25/18 18:[address] and CTA reviewed. No acute. There is movement artifact on the CTA but there does not appear to be any underlying significant hemodynamic stenosis Current Home Med List Medication Instructions Recorded Confirmed Type Alendronate Sodium [Fosamax] 70 mg PO Q7D@0700 10/03/17 12/25/18 History Aspirin [Aspirin, Baby] 81 mg PO DAILY@0800 10/03/17 12/25/18 History Atenolol [Tenormin (beta Ad)] 50 mg PO BID 10/03/17 12/25/18 History Dicyclomine HCl [Bentyl] 10 mg PO 4X/DAY PRN PRN 10/03/17 12/25/18 History Estradiol [Estrace Vaginal Cream] 1 dose VAGINAL PRN PRN 10/03/17 12/25/18 History Losartan Potassium [Cozaar] 100 mg PO DAILY 10/03/17 12/25/18 History Magnesium Oxide [Mag-Ox 400] 400 mg PO DAILY 10/03/17 12/25/18 History Metformin HCl [Metformin HCl ER] 500 mg PO DAILY 10/03/17 12/25/18 History Multivitamins,Therapeutic 1 tab PO DAILY 10/03/17 12/25/18 History [Multivitamin] Nateglinide [Starlix] 60 mg PO TID PRN 10/03/17 12/25/18 History Deerfield-3 Fatty Acids [Deerfield-3] 1,000 mg PO BID 10/03/17 12/25/18 History Oxybutynin [Ditropan] 5 mg PO DAILY 10/03/17 12/25/18 History Pravastatin [Pravachol] 10 mg PO QHS 10/03/17 12/25/18 History Sumatriptan Succinate [Imitrex] 50 mg PO .X1 PRN PRN 10/03/17 12/25/18 History traMADol [Ultram (G)] 50 mg PO Q4H PRN PRN 10/03/17 12/25/18 History amitriptyline 10 mg tablet 10 mg PO QDAY 04/05/18 12/25/18 History Metoprolol Tartrate 25 mg PO PRN PRN 12/25/18 12/25/18 History Sotalol HCl [Sotalol] 120 mg PO BID 12/25/18 12/25/18 History Current Medications Acetaminophen 1,000 mg 12/26/18 07:35 Tylenol PO Q8H PRN PRN HEADACHE Amitriptyline HCl 10 mg 12/26/18 22:00 Elavil PO DAILY@2200 [facility] Aspirin 81 mg 12/26/18 08:00 12/26/18 09:30 Aspirin, Baby PO 81 mg DAILY@0800 [facility] Administration Atenolol 50 mg 12/26/18 10:00 12/26/18 09:30 Tenormin (Beta Ad) PO 50 mg DAILY [facility] Administration Dicyclomine HCl 10 mg 12/25/18 20:53 Bentyl PO 4X/DAY PRN PRN Irritable Bowel Syndrome Enoxaparin Sodium 40 mg 12/26/18 10:00 12/26/18 09:30 Lovenox SC 40 mg DAILY@1000 [facility] Administration Insulin Human Lispro 0 unit 12/25/18 22:00 12/26/18 12:01 Humalog Kwikpen (Bkc) SC Not Given ACHS [facility] Protocol Losartan Potassium 100 mg 12/26/18 10:00 12/26/18 09:30 Cozaar PO 100 mg DAILY [facility] Administration Magnesium Oxide 400 mg 12/26/18 10:00 12/26/18 09:30 Mag-Ox 400 PO 400 mg DAILY [facility] Administration Metoprolol Tartrate 25 mg 12/25/18 20:53 Lopressor (Beta Ad) PO Q6H PRN PRN palpitations Nateglinide 60 mg 12/25/18 22:00 Starlix PO TID [facility] Pravastatin Sodium 10 mg 12/25/18 22:00 12/25/18 23:56 Pravachol PO 10 mg QHS [facility] Administration Sodium Chloride 5 - 15 ml 12/25/18 21:50 12/25/18 23:59 IV 10 ml UD PRN Administration SALINE FLUSH Sotalol HCl 120 mg 12/26/18 01:41 12/26/18 09:30 Betapace (G) PO 120 mg BID [facility] Administration Tolterodine Tartrate 2 mg 12/26/18 10:00 12/26/18 09:30 Detrol La PO 2 mg DAILY [facility] Administration Assessment/Plan suspect migraine, continue imitrex await mri continue imitrex prn elavil 10mg qhs dc if mri neg
--- NOTE | 2018-12-26 12:41 | PCM.PN.HOSP ---
Patient Problems: Active and Suspected Problems (Last Updated 04/05/18 @ 12:13 by Romana Ortiz MD) Migraine (Acute) Subjective: Headache resolved. Still with weakness on right. Vitals/I&O's: Vital Signs Temp Pulse Resp BP Pulse Ox 36.6 C 60 16 136/64 H 97 12/26/18 09:30 12/26/18 11:01 12/26/18 09:30 12/26/18 09:30 12/26/18 09:30 Oxygen Flow Rate (L/min) 2 Oxygen Delivery Method Room Air Weight: 59.7 kg Body Mass Index (BMI) 23.3 Finger Stick Blood Glucose 101 Intake and Output for Last 24 Hours 12/24/18 12/25/18 12/26/18 23:59 23:59 23:59 Intake Total 1049 / 1049 Balance 1049 / 1049 General: Alert, No apparent distress HEENT: Atraumatic, EOMI, Normocephalic Oral: Moist Mucosa, No Gingival or Mucosal Lesions/ Ulcerations Neck: No Nodes, Thyroid Normal Size and Texture Lungs: Clear to auscultation, Normal air movement, No rhonchi, No wheeze Cardiovascular: Regular rate, Regular Rhythm, Normal S1, Normal S2 Abdomen: Bowel Sounds Present, Soft, Non Tender, Non-Distended, No Hepato-splenomegaly Extremities: No edema, No Calf Tenderness Skin: No rashes, No breakdown Musculoskeletal: No Tenderness to Palpation of Joints or Extremities, No Muscle Wasting Neurological: Cranial nerves II-XII grossly intact, - - MS 5/5, but slightly diminshed on right as compared to left (pt right-handed) Psych/Mental Status: Normal Affect, Appropriate Laboratory Results 12/25/18 17:52: WBC 7.4, RBC 4.02 L, Hgb 13.0, Hct 36.3 L, MCV 90.3, MCH 32.3 H, MCHC 35.8, RDW 12.6, RDW Differential 41.6, Plt Count 213, MPV 9.5, Immature Gran % (Auto) 0.300, Neut % (Auto) 72.6 H, Lymph % (Auto) 17.9 L, [place] % (Auto) 8.8, Eos % (Auto) 0.3, Baso % (Auto) 0.1, Absolute Neuts (auto) 5.4, Absolute Lymphs (auto) 1.33, Total Counted Not Reportable 12/25/18 17:52: PT 13.8, INR 1.1, APTT 31.5 12/25/18 17:52: Sodium 131 L, Potassium 3.9, Chloride 98, Carbon Dioxide 25.0, Anion Gap 8, BUN 18, Creatinine 0.75, Estim Creat Clear Calc 46.89, Est GFR (MDRD) Af Amer 95, Est GFR (MDRD) Non-Af 79, BUN/Creatinine Ratio 23.9 H, Glucose 106, Calcium 8.0 L, Troponin I < 0.015 12/25/18 18:23: POC Glucose 101 12/25/18 23:46: POC Glucose 143 H 12/26/18 06:05: Triglycerides 86, Cholesterol 141, LDL Cholesterol 60, VLDL Cholesterol 17, HDL Cholesterol 64 12/26/18 07:08: POC Glucose 149 H 12/26/18 11:07: POC Glucose 151 H Current Medications Acetaminophen (Tylenol) 1,000 mg PO Q8H PRN PRN PRN Reason: HEADACHE Amitriptyline HCl (Elavil) 10 mg PO DAILY@2200 [facility] Aspirin (Aspirin, Baby) 81 mg PO DAILY@0800 [facility] Last Admin: 12/26/18 09:30 Dose: 81 mg Atenolol (Tenormin (Beta Ad)) 50 mg PO DAILY [facility] Last Admin: 12/26/18 09:30 Dose: 50 mg Dicyclomine HCl (Bentyl) 10 mg PO 4X/DAY PRN PRN PRN Reason: Irritable Bowel Syndrome Enoxaparin Sodium (Lovenox) 40 mg SC DAILY@1000 [facility] Last Admin: 12/26/18 09:30 Dose: 40 mg Insulin Human Lispro (Humalog Kwikpen (Bkc)) 0 unit SC [facility]; Protocol Last Admin: 12/26/18 12:01 Dose: Not Given Losartan Potassium (Cozaar) 100 mg PO DAILY [facility] Last Admin: 12/26/18 09:30 Dose: 100 mg Magnesium Oxide (Mag-Ox 400) 400 mg PO DAILY [facility] Last Admin: 12/26/18 09:30 Dose: 400 mg Metoprolol Tartrate (Lopressor (Beta Ad)) 25 mg PO Q6H PRN PRN PRN Reason: palpitations Nateglinide (Starlix) 60 mg PO TID [facility] Pravastatin Sodium (Pravachol) 10 mg PO QHS [facility] Last Admin: 12/25/18 23:56 Dose: 10 mg Sodium Chloride () 5 - 15 ml IV UD PRN PRN Reason: SALINE FLUSH Last Admin: 12/25/18 23:59 Dose: 10 ml Sotalol HCl (Betapace (G)) 120 mg PO BID [facility] Last Admin: 12/26/18 12:22 Dose: 120 mg Tolterodine Tartrate (Detrol La) 2 mg PO DAILY [facility] Last Admin: 12/26/18 09:30 Dose: 2 mg Medical Necessity - Tobacco Use Smoking Status: Never smoker Tobacco Use: Non-smoker Assessment/Plan All Active Problems (Last Updated 04/05/18 @ 12:13 by Romana Ortiz MD) Migraine (Acute) 1. Atypical migraine Patient, back in the 1960s was noted to have neurologic complaints with paresthesias and weakness but on the left side of her body. With the creation of Imitrex that seem to [place] there is neurologic symptoms but once patient went into menopause she stopped having migraines for period of time. Subsequently migraines came back but she was having more visual scotomata. This event had right-sided weakness and slurred speech which was atypical from previous migraines. Patient does have a pacemaker, which I reviewed it which is a [employer] L311, which is MRI approved. Discussed with charge nurse and a wrap will have to come to the hospital and put a specific settings in for the MRI for her to have that with her pacemaker. Given that there could be a possible stroke I am get a hold her Imitrex. If patient does have recurrent headache then would recommend Decadron. Neurology following. Continue amitriptyline 2. DVT prophylaxis with Lovenox Greater than 45 minutes of which greater than 50% of time was [id number], discussing with patient about the migraine even though they are different from the past. Though did state that we are going to rule out stroke with the MRI. Also reviewed the pacemaker with the patient and verify that it is MRI compatible. Code Visit Inpatient E&M: 79942 Subs Hosp L3
--- NOTE | 2018-12-26 12:45 | PN_ITS ---
Patient Problems: Active and Suspected Problems (Last Updated 04/05/18 @ 12:13 by Romana Ortiz MD) Migraine (Acute) Subjective: Headache resolved. Still with weakness on right. Vitals/I&O's: Vital Signs Temp Pulse Resp BP Pulse Ox 36.6 C 60 16 136/64 H 97 12/26/18 09:30 12/26/18 11:01 12/26/18 09:30 12/26/18 09:30 12/26/18 09:30 Oxygen Flow Rate (L/min) 2 Oxygen Delivery Method Room Air Weight: 59.7 kg Body Mass Index (BMI) 23.3 Finger Stick Blood Glucose 101 Intake and Output for Last 24 Hours 12/24/18 12/25/18 12/26/18 23:59 23:59 23:59 Intake Total 1049 / 1049 Balance 1049 / 1049 General: Alert, No apparent distress HEENT: Atraumatic, EOMI, Normocephalic Oral: Moist Mucosa, No Gingival or Mucosal Lesions/ Ulcerations Neck: No Nodes, Thyroid Normal Size and Texture Lungs: Clear to auscultation, Normal air movement, No rhonchi, No wheeze Cardiovascular: Regular rate, Regular Rhythm, Normal S1, Normal S2 Abdomen: Bowel Sounds Present, Soft, Non Tender, Non-Distended, No Hepato- splenomegaly Extremities: No edema, No Calf Tenderness Skin: No rashes, No breakdown Musculoskeletal: No Tenderness to Palpation of Joints or Extremities, No Muscle Wasting Neurological: Cranial nerves II-XII grossly intact, - - MS 5/5, but slightly diminshed on right as compared to left (pt right-handed) Psych/Mental Status: Normal Affect, Appropriate Laboratory Results 12/25/18 17:52: WBC 7.4, RBC 4.02 L, Hgb 13.0, Hct 36.3 L, MCV 90.3, MCH 32.3 H, MCHC 35.8, RDW 12.6, RDW Differential 41.6, Plt Count 213, MPV 9.5, Immature Gran % (Auto) 0.300, Neut % (Auto) 72.6 H, Lymph % (Auto) 17.9 L, [place] % (Auto) 8.8, Eos % (Auto) 0.3, Baso % (Auto) 0.1, Absolute Neuts (auto) 5.4, Absolute Lymphs (auto) 1.33, Total Counted Not Reportable 12/25/18 17:52: PT 13.8, INR 1.1, APTT 31.5 12/25/18 17:52: Sodium 131 L, Potassium 3.9, Chloride 98, Carbon Dioxide 25.0, Anion Gap 8, BUN 18, Creatinine 0.75, Estim Creat Clear Calc 46.89, Est GFR (MDRD) Af Amer 95, Est GFR (MDRD) Non-Af 79, BUN/Creatinine Ratio 23.9 H, Glucose 106, Calcium 8.0 L, Troponin I < 0.015 12/25/18 18:23: POC Glucose 101 12/25/18 23:46: POC Glucose 143 H 12/26/18 06:05: Triglycerides 86, Cholesterol 141, LDL Cholesterol 60, VLDL Cholesterol 17, HDL Cholesterol 64 12/26/18 07:08: POC Glucose 149 H 12/26/18 11:07: POC Glucose 151 H Current Medications Acetaminophen (Tylenol) 1,000 mg PO Q8H PRN PRN PRN Reason: HEADACHE Amitriptyline HCl (Elavil) 10 mg PO DAILY@2200 [facility] Aspirin (Aspirin, Baby) 81 mg PO DAILY@0800 [facility] Last Admin: 12/26/18 09:30 Dose: 81 mg Atenolol (Tenormin (Beta Ad)) 50 mg PO DAILY [facility] Last Admin: 12/26/18 09:30 Dose: 50 mg Dicyclomine HCl (Bentyl) 10 mg PO 4X/DAY PRN PRN PRN Reason: Irritable Bowel Syndrome Enoxaparin Sodium (Lovenox) 40 mg SC DAILY@1000 [facility] Last Admin: 12/26/18 09:30 Dose: 40 mg Insulin Human Lispro (Humalog Kwikpen (Bkc)) 0 unit SC [facility]; Protocol Last Admin: 12/26/18 12:01 Dose: Not Given Losartan Potassium (Cozaar) 100 mg PO DAILY [facility] Last Admin: 12/26/18 09:30 Dose: 100 mg Magnesium Oxide (Mag-Ox 400) 400 mg PO DAILY [facility] Last Admin: 12/26/18 09:30 Dose: 400 mg Metoprolol Tartrate (Lopressor (Beta Ad)) 25 mg PO Q6H PRN PRN PRN Reason: palpitations Nateglinide (Starlix) 60 mg PO TID [facility] Pravastatin Sodium (Pravachol) 10 mg PO QHS [facility] Last Admin: 12/25/18 23:56 Dose: 10 mg Sodium Chloride () 5 - 15 ml IV UD PRN PRN Reason: SALINE FLUSH Last Admin: 12/25/18 23:59 Dose: 10 ml Sotalol HCl (Betapace (G)) 120 mg PO BID [facility] Last Admin: 12/26/18 12:22 Dose: 120 mg Tolterodine Tartrate (Detrol La) 2 mg PO DAILY [facility] Last Admin: 12/26/18 09:30 Dose: 2 mg Medical Necessity - Tobacco Use Smoking Status: Never smoker Tobacco Use: Non-smoker Assessment/Plan All Active Problems (Last Updated 04/05/18 @ 12:13 by Romana Ortiz MD) Migraine (Acute) 1. Atypical migraine Patient, back in the 1960s was noted to have neurologic complaints with paresthesias and weakness but on the left side of her body. With the creation of Imitrex that seem to [place] there is neurologic symptoms but once patient went into menopause she stopped having migraines for period of time. Subsequently migraines came back but she was having more visual scotomata. This event had right-sided weakness and slurred speech which was atypical from previous migraines. Patient does have a pacemaker, which I reviewed it which is a [employer] L311, which is MRI approved. Discussed with charge nurse and a wrap will have to come to the hospital and put a specific settings in for the MRI for her to have that with her pacemaker. Given that there could be a possible stroke I am get a hold her Imitrex. If patient does have recurrent headache then would recommend Decadron. Neurology following. Continue amitriptyline 2. DVT prophylaxis with Lovenox Greater than 45 minutes of which greater than 50% of time was [id number], discussing with patient about the migraine even though they are different from the past. Though did state that we are going to rule out stroke with the MRI. Also reviewed the pacemaker with the patient and verify that it is MRI compatible. Code Visit Inpatient E&M: 51709 Subs Hosp L3
[2018-12-26 17:01] LABS: Bedside Glucose 173 mg/dL (70-110)
[2018-12-26 17:05] LABS: Bedside Glucose 141 mg/dL (70-110)
[2018-12-26] MEDS: Amitriptyline 10 MG Tablet PO (22:49)
[2018-12-26] MEDS: Pravastatin 20 MG Tablet 10 MG PO (22:52)
[2018-12-26 23:06] LABS: Bedside Glucose 109 mg/dL (70-110)
[2018-12-27] VITALS (8 sets, daily range): BP systolic 140–179; BP diastolic 57–88; PULSE 60–72; RESP 16; TEMP 36.4–37.1; O2SAT 95–98; BMI 23.3
[2018-12-27 07:15] LABS: Bedside Glucose 132 mg/dL (70-110)
[2018-12-27] MEDS: Aspirin 81 MG TAB.CHEW PO (08:12)
[2018-12-27] MEDS: Sotalol Hydrochloride 80 MG Tablet 120 MG PO (09:32)
[2018-12-27] MEDS: Losartan Potassium 100 MG Tablet PO (09:34)
[2018-12-27] MEDS: Tolterodine Tartrate 2 MG CAP.SA PO (09:34)
[2018-12-27] MEDS: Atenolol 50 MG Tablet PO (09:35)
[2018-12-27] MEDS: Enoxaparin 40 MG/0.4 ML Syringe SC (09:35)
[2018-12-27] MEDS: Magnesium Oxide 400 MG Tablet PO (09:35)
--- NOTE | 2018-12-27 10:55 | PN_ITS ---
Patient Problems: Active and Suspected Problems (Last Updated 04/05/18 @ 12:13 by Romana Ortiz MD) Migraine (Acute) Subjective: Patient with no acute events overnight per self and per nursing report. Patient headache has since resolved and no further right-sided paresthesias and weakness. Patient notes remote history of migraines in the past and states that this headache was similarly severe. Patient understands that plan is to obtain MRI of the brain following clearance per pacemaker interrogation as she does have an MRI compatible pacemaker. Allergy noted that if MRI is negative given resolution and suspected complex migraine with plan discharge to home on PRN Imitrex and initiation of Elavil nightly with follow-up with neurology outpatient. Patient denies fevers, chills, nausea, emesis, abdominal pain, chest pain or dyspnea. Objective: Physical Examination: General: awake, alert, oriented x 3 and cooperative, seated upright in bed in no apparent distress. Skin: normal color, turgor, no icterus, cyanosis. HEENT: AT/NC, EOMI, PERRLA with noted chronic decreased right eye vision with mild pupillary differences with the right eye approximately 1-2 mm larger than left eye, MMM. Lungs: CTA bilaterally, moderate effort, mild decrease BL bases, no rales, ronchi or wheezing. Heart: Regular rate and rhythm; no gallop, rub audible. Abdomen: soft, NTTP, ND, normal BS. Extremities: no cyanosis, clubbing, or edema. Neurological: patient awake, alert, oriented x 3; cognitive function intact; pupils equally reactive to light and accomodation noted chronic decreased right eye vision with mild pupillary differences with the right eye approximately 1-2 mm larger than left eye; cranial nerves II-XII grossly normal septum noted vision changes, moving all 4 extremities, no focal deficits, strength preserved, sensation intact resolution of right-sided paresthesias, negative Babinski, headache resolved with no phonophobia or photophobia. Psychiatric: affect appears normal, no acute evidence of depressive or anxiety feelings. Vitals/I&O's: Vital Signs Temp Pulse Resp BP Pulse Ox 98.2 F 72 16 179/88 H 96 12/27/18 09:42 12/27/18 10:41 12/27/18 09:42 12/27/18 09:42 12/27/18 09:42 Oxygen Flow Rate (L/min) 2 Oxygen Delivery Method Room Air Weight: 131 lb 9.855 oz Body Mass Index (BMI) 23.3 Finger Stick Blood Glucose 101 Intake and Output for Last 24 Hours 12/25/18 12/26/18 12/27/18 23:59 23:59 23:59 Intake Total 3899 / 5729 240 / 240 Balance 2729 / 2729 240 / 240 Laboratory Results 12/26/18 11:07: POC Glucose 151 H 12/26/18 16:07: POC Glucose 173 H 12/26/18 17:00: POC Glucose 141 H 12/26/18 22:40: POC Glucose 109 12/27/18 06:44: POC Glucose 132 H Current Medications Acetaminophen (Tylenol) 1,000 mg PO Q8H PRN PRN PRN Reason: HEADACHE Amitriptyline HCl (Elavil) 10 mg PO DAILY@2200 [facility] Last Admin: 12/26/18 22:49 Dose: 10 mg Aspirin (Aspirin, Baby) 81 mg PO DAILY@0800 [facility] Last Admin: 12/27/18 08:12 Dose: 81 mg Atenolol (Tenormin (Beta Ad)) 50 mg PO DAILY [facility] Last Admin: 12/27/18 09:35 Dose: 50 mg Dicyclomine HCl (Bentyl) 10 mg PO 4X/DAY PRN PRN PRN Reason: Irritable Bowel Syndrome Enoxaparin Sodium (Lovenox) 40 mg SC DAILY@1000 [facility] Last Admin: 12/27/18 09:35 Dose: 40 mg Insulin Human Lispro (Humalog Kwikpen (Bkc)) 0 unit SC [facility]; Protocol Last Admin: 12/27/18 08:10 Dose: Not Given Losartan Potassium (Cozaar) 100 mg PO DAILY [facility] Last Admin: 12/27/18 09:34 Dose: 100 mg Magnesium Oxide (Mag-Ox 400) 400 mg PO DAILY [facility] Last Admin: 12/27/18 09:35 Dose: 400 mg Metoprolol Tartrate (Lopressor (Beta Ad)) 25 mg PO Q6H PRN PRN PRN Reason: palpitations Pravastatin Sodium (Pravachol) 10 mg PO QHS [facility] Last Admin: 12/26/18 22:52 Dose: 10 mg Sodium Chloride () 5 - 15 ml IV UD PRN PRN Reason: SALINE FLUSH Last Admin: 12/25/18 23:59 Dose: 10 ml Sotalol HCl (Betapace (G)) 120 mg PO BID [facility] Last Admin: 12/27/18 09:32 Dose: 120 mg Tolterodine Tartrate (Detrol La) 2 mg PO DAILY [facility] Last Admin: 12/27/18 09:34 Dose: 2 mg Medical Necessity - Tobacco Use Smoking Status: Never smoker Tobacco Use: Non-smoker Assessment/Plan All Active Problems (Last Updated 04/05/18 @ 12:13 by Romana Ortiz MD) Migraine (Acute) The patient is an 78 y/o F w/ PMHx: Legally Blind R Eye, HTN, HLD, Chronic migraines, Valvular Heart Disease s/p AVR, Diabetes mellitus type II, Chronic Atrial Fibrillation s/p pacemaker, GERD who presents to the [facility] ED on 12/25/18 with history of severe right sided throbbing headache with associated visual aura, blurry vision with right-sided paresthesias as well as subjective weakness. (1) Acute Complex Migraine w/ R sided headache, Aura, R sided Paresthesias, Weakness: Admitted to PCU, CT head with no acute intracranial hemorrhage or mass-effect, central parenchymal volume loss, white matter changes nonspecific but commonly associate with chronic small vessel ischemic disease, CTA head with no large vessel arterial occlusion or aneurysm, CTA neck with no hemodynamically significant carotid stenosis identified with mild bilateral carotid bulb atherosclerosis although limited secondary to motion artifact, CXR with mild cardiomegaly with no acute cardia pulmonary findings. Neurology consulted, evaluated patient upon presentation with addition for MRI of the brain pending evaluation of patient pacemaker which is noted to be MRI compatible, if MRI is negative recommendation given clinical improvement for discharge to home on nightly Elavil and continued PRN Imitrex with follow-up outpatient with neurology. (2) Chronic atrial fibrillation: Status post pacemaker, continued on atenolol, metoprolol as needed, sotalol, not anticoagulated aside from aspirin therapy. (3) Hypertension: Continue home regimen including atenolol, losartan, PRN hy dralazine. (4) Hyperlipidemia: Continue home statin regimen. (5) Diabetes mellitus type II: Hold oral home regimen, ADA diet, accu checks w/ ISS. (6) Valvular heart disease: Status post AVR. (7) DVT prophylaxis: SCD, Lovenox. Code Visit Inpatient E&M: 64562 Subs Hosp L2
--- NOTE | 2018-12-27 11:33 | CASEMGMT ---
Face to Face with patient for initial transition planning/care coordination assessment. SID [place] introduced self and role at [facility], pt voices understanding and consents to assessment at this time. Pt is sitting up in bed in no distress at this time. Pt is A/Ox4 at this time and answers all questions appropriately at this time. Pt's is at bedside during assessment. Care providers, pharmacy, and demographics verified/updated at this time. PCP: Vincent Specialists: Angel, property assistant; Singh, cardio and Wilma EP, at [facility] vascular Preferred Pharmacy: [facility] Insurance: [facility] A/B, [place] Prescription Benefit: [place] Living Will/HPOA: Pt states does not have LW/HPOA but is interested in completing at this time. Corky SW aware and voices understanding. LNOK: Yousif Hui, ; Maddy Chauhan, daughter in law Living Arrangements: Pt states lives with in apt and has a flight of stairs to get to apartment. Pt states no concerns at home at this time. Pt states is independent with ADL's. Transportation: Pt states drives self and states no transportation concerns at this time. DME/HHC: Pt states has only has grab bars in shower and states no need for any further DME at this time. Pt states no hx of HHC or SNF in the past. Pt states no concerns with going home at time of discharge. Pt states she does not smoke or drink ETOH. Pt states no further concerns/needs at this time. CM to follow PT/OT evals and for any further discharge planning/needs. Advised pt to ask for CM if any further questions/concerns/needs arise, voices understanding. Plan: [place]
[2018-12-27 12:25] LABS: Bedside Glucose 207 mg/dL (70-110)
--- NOTE | 2018-12-27 14:39 | CASEMGMT ---
Completed Healthcare POA and Healthcare LW with patient. Copies made and given to patient as well as originals. A copy of each was also placed in patient's chart. Dahlia BAKER MSW
--- NOTE | 2018-12-27 15:32 | DCINST_ITS ---
- Discharge Diagnoses Current Active Problems: Current Active and Chronic Problems (Last Updated 04/05/18 @ 12:13 by Romana Ortiz MD) (1) Acute Complex Migraine w/ R sided headache, Aura, R sided Paresthesias, Weakness (2) Chronic atrial fibrillation (3) Hypertension (4) Hyperlipidemia (5) Diabetes mellitus type II (6) Valvular heart disease You will use the following diet at home:: Cardiac Your food should be the consistency of: Regular Your liquids should be the consistency of: Regular/Thin Discharge Activity: Return to Normal Activity May resume sexual activity in: No Restrictions Call your doctor if you observe: Fever of 101 or Higher, Inability to urinate, Inability to have a bowel movement, Shortness of breath, Dizziness, Fainting spells, Chest pain, Uncontrolled pain, - - Recurrent complex migraines Instructions: What Are Migraine and Tension Headaches?, Migraines and Cluster Headaches, Migraine Headache: Stages and Treatment, Preventing Migraine Headaches: Triggers, Preventing Migraine Headaches: Medications and Lifestyle Changes Allergies/Adverse Reactions: Allergies procaine HCl [From Novocain] Allergy (Verified 12/25/18 17:19) Anaphylaxis passed out, throat swelling cetirizine Adverse Reaction (Verified 12/25/18 17:19) Other mental status change codeine Adverse Reaction (Verified 12/25/18 17:19) Vomiting gabapentin Adverse Reaction (Verified 12/25/18 17:19) Other hydrochlorothiazide Adverse Reaction (Verified 12/25/18 17:19) Other lisinopril Adverse Reaction (Verified 12/25/18 17:19) Other morphine Adverse Reaction (Verified 12/25/18 17:19) Vomiting pregabalin Adverse Reaction (Verified 12/25/18 17:19) Other dizzy Sulfa (Sulfonamide Antibiotics) Adverse Reaction (Verified 12/25/18 17:19) Other headache Medications to take at Discharge Alendronate Sodium [Fosamax] 70 mg PO Q7D@0700 10/03/17 Aspirin [Aspirin, Baby] 81 mg PO DAILY@0800 10/03/17 Atenolol [Tenormin (beta wayne)] 50 mg PO BID 10/03/17 Dicyclomine HCl [Bentyl] 10 mg PO 4X/DAY PRN PRN 10/03/17 Estradiol [Estrace Vaginal Cream] 1 dose VAGINAL PRN PRN 10/03/17 Losartan Potassium [Cozaar] 100 mg PO DAILY 10/03/17 Magnesium Oxide [Mag-Ox 400] 400 mg PO DAILY 10/03/17 Metformin HCl [Metformin HCl ER] 500 mg PO DAILY 10/03/17 Multivitamins,Therapeutic [Multivitamin] 1 tab PO DAILY 10/03/17 Nateglinide [Starlix] 60 mg PO TID PRN 10/03/17 [place]-3 Fatty Acids [[place]-3] 1,000 mg PO BID 10/03/17 Oxybutynin [Ditropan] 5 mg PO DAILY 10/03/17 Pravastatin [Pravachol] 10 mg PO QHS 10/03/17 Sumatriptan Succinate [Imitrex] 50 mg PO .X1 PRN PRN 10/03/17 traMADol [Ultram] 50 mg PO Q4H PRN PRN 10/03/17 amitriptyline 10 mg tablet 10 mg PO QDAY 04/05/18 Metoprolol Tartrate 25 mg PO PRN PRN 12/25/18 Sotalol HCl [Sotalol] 120 mg PO BID 12/25/18 Primary Care Physician: Terence Kaur MD [Primary Care Provider] - Please follow up with your Primary Care Physician in: Follow-up within 3-5 days to review admission. Test Results: Test results from this visit will be discussed in further detail at your follow- up appointment, if applicable. Please Follow Up With: Bharat Mehta MD When: Follow-up within 2-4 weeks to establish, may see Neurology [employer]. Proposed Discharge Date: 12/27/18
--- NOTE | 2018-12-27 15:33 | DS.PCM_ITS ---
Discharge Date and Diagnosis - Problem List Patient Problems: Active and Suspected Problems (Last Updated 04/05/18 @ 12:13 by Romana Ortiz MD) Migraine (Acute) Date of Admission: 12/25/18 Date of Discharge: 12/27/18 - Primary Discharge Diagnosis Active and Suspected Problems (Last Updated 04/05/18 @ 12:13 by Romana Ortiz MD) (1) Acute Complex Migraine w/ R sided headache, Aura, R sided Paresthesias, Weakness (2) Chronic atrial fibrillation (3) Hypertension (4) Hyperlipidemia (5) Diabetes mellitus type II (6) Valvular heart disease - Secondary Discharge Diagnosis Chronic Problems (Last Updated 04/05/18 @ 12:13 by Romana Ortiz MD) Hyperlipidemia (Chronic) Status post placement of cardiac pacemaker (Chronic) Atrial fibrillation (Chronic) Status post aortic valve replacement (Chronic) Type 2 diabetes mellitus (Chronic) Migraine (Chronic) GERD (gastroesophageal reflux disease) (Chronic) HTN (hypertension) (Chronic) Hospital Course and Treatment Imaging Results: 12/27/18 20:53 Brain without Contrast [MRI] Urgent Neurology Dr. Burris, Dr. Mehta Operations: None Procedures: EKG Summary of Care Provided: The patient is an 78 y/o F w/ PMHx: Legally Blind R Eye, HTN, HLD, Chronic migraines, Valvular Heart Disease s/p AVR, Diabetes mellitus type II, Chronic Atrial Fibrillation s/p pacemaker, GERD who presented to the [facility] ED on 12/25/18 with history of severe right sided throbbing headache with associated visual aura, blurry vision with right-sided paresthesias as well as subjective weakness. Admitted to PCU, CT head with no acute intracranial hemorrhage or mass-effect, central parenchymal volume loss, white matter changes nonspecific but commonly associate with chronic small vessel ischemic disease, CTA head with no large vessel arterial occlusion or aneurysm, CTA neck with no hemodynamically significant carotid stenosis identified with mild bilateral carotid bulb atherosclerosis although limited secondary to motion artifact, CXR with mild cardiomegaly with no acute cardia pulmonary findings. Neurology consulted, evaluated patient upon presentation with addition for MRI of the brain pending evaluation of patient pacemaker which is noted to be MRI compatible. MRI brain obtained and negative for acute evidence of ischemia noted moderate atrophy and periventricular white matter ischemic changes only therefore patient given complete resolution of complex migraine discharged home on continue Elavil, PRN Imitrex with recommended PCP follow-up as well as follow-up with neurology outpatient. Patient Problems: Active and Suspected Problems (Last Updated 04/05/18 @ 12:13 by Romana Ortiz MD) Migraine (Acute) - Physical Exam Vital Signs Temp Pulse Resp BP Pulse Ox 98.2 F 72 16 179/88 H 96 12/27/18 09:42 12/27/18 10:41 12/27/18 09:42 12/27/18 09:42 12/27/18 09:42 Oxygen Flow Rate (L/min) 2 Oxygen Delivery Method Room Air Weight: 131 lb 9.855 oz Body Mass Index (BMI) 23.3 Finger Stick Blood Glucose 101 Intake and Output for Last 24 Hours 12/25/18 12/26/18 12/27/18 23:59 23:59 23:59 Intake Total 2729 / 2729 240 / 240 Balance 2729 / 2729 240 / 240 POC Glucose 12/27/18 12/27/18 12/26/18 11:41 06:44 22:40 POC Glucose 207 H 132 H 109 12/26/18 12/26/18 17:00 16:07 POC Glucose 141 H 173 H Discharge Activity: Return to Normal Activity May resume sexual activity in: No Restrictions Call your doctor if you observe: Fever of 101 or Higher, Inability to urinate, Inability to have a bowel movement, Shortness of breath, Dizziness, Fainting spells, Chest pain, Uncontrolled pain, - - Recurrent complex migraines Home Medications: Medications to take at Discharge Alendronate Sodium [Fosamax] 70 mg PO Q7D@0710/03/17 Aspirin [Aspirin, Baby] 81 mg PO DAILY@0800 10/03/17 Atenolol [Tenormin (beta wayne)] 50 mg PO BID 10/03/17 Dicyclomine HCl [Bentyl] 10 mg PO 4X/DAY PRN PRN 10/03/17 Estradiol [Estrace Vaginal Cream] 1 dose VAGINAL PRN PRN 10/03/17 Losartan Potassium [Cozaar] 100 mg PO DAILY 10/03/17 Magnesium Oxide [Mag-Ox 400] 400 mg PO DAILY 10/03/17 Metformin HCl [Metformin HCl ER] 500 mg PO DAILY 10/03/17 Multivitamins,Therapeutic [Multivitamin] 1 tab PO DAILY 10/03/17 Nateglinide [Starlix] 60 mg PO TID PRN 10/03/17 [place]-3 Fatty Acids [[place]-3] 1,000 mg PO BID 10/03/17 Oxybutynin [Ditropan] 5 mg PO DAILY 10/03/17 Pravastatin [Pravachol] 10 mg PO QHS 10/03/17 Sumatriptan Succinate [Imitrex] 50 mg PO .X1 PRN PRN 10/03/17 traMADol [Ultram] 50 mg PO Q4H PRN PRN 10/03/17 amitriptyline 10 mg tablet 10 mg PO QDAY 04/05/18 Metoprolol Tartrate 25 mg PO PRN PRN 12/25/18 Sotalol HCl [Sotalol] 120 mg PO BID 12/25/18 Primary Care Physician: Terence Kaur MD [Primary Care Provider] - Please follow up with your Primary Care Physician in: Follow-up within 3-5 days to review admission. Please Follow Up With: Bharat Mehta MD When: Follow-up within 2-4 weeks to establish, may see Neurology [facility] [employer]. Patient Instructions: What Are Migraine and Tension Headaches?, Migraines and Cluster Headaches, Migraine Headache: Stages and Treatment, Preventing Migraine Headaches: Triggers, Preventing Migraine Headaches: Medications and Lifestyle Changes Disposition: Home Minutes spent on discharge:: 35 Patient Condition:: Fair Medical Necessity - Tobacco Use Smoking Status: Never smoker Tobacco Use: Non-smoker Meaningful Use Info Meaningful Use Diagnoses (Choose all that apply): None applicable Code Visit Inpatient E&M: 62663 Disch Hosp
[2018-12-27 16:20] LABS: Bedside Glucose 185 mg/dL (70-110)
--- NOTE | 2018-12-27 20:53 | MRI_ITS ---
STUDY: MRI BRAIN WITHOUT CONTRAST REASON FOR EXAM: Female, 78 years old. Numbness and tingling TECHNIQUE: Standardized multiplanar fat and water weighted pulse sequences were obtained. COMPARISON: CT of the brain on December 25, 2018 FINDINGS: Moderate atrophy and periventricular white matter ischemic changes without evidence for acute infarct.. Chronic ischemic changes of the cerebellar hemispheres. Normal bilateral basal ganglia. Normal thalami. There is no extra-axial fluid accumulation. Normal flow voids within the major intracranial circulation suggesting patency by spin echo criteria. Normal sella turcica, pituitary gland, infundibular stalk, optic chiasm and hypothalamus. Normal tectal plate and pineal gland. Normal midbrain, and medulla. Normal cerebellum. Normal basal cisterns. Normal bilateral temporal bones. Normal bilateral internal auditory canals. Postsurgical changes of the orbits.. Normal visualized paranasal sinuses. Normal calvarium and skull base. Normal visualized soft tissue structures. Normal visualized upper cervical spine. MRI/Brain without Contrast IMPRESSION: Moderate atrophy and periventricular white matter ischemic change without evidence for acute infarct Electronically Signed: Vineet Carreno MD at 16:07 EST , Service support ,
--- NOTE | 2018-12-28 14:43 | CASEMGMT ---
[facility] [place] DC PHONE CALL DC DATE: 12/27/18 DC DISPOSITION: HOME LACE/STRATA: 08/02 Intro role of CM to patient via phone. Pt does not have questions re: prescriptions, f/u or instructions. Pt is well aware of her medications and has already spoken with her monkey trainer re: follow up and med changes. Pt stated she had excellent care and no care improvement suggestions were given. SID [place] did discuss keeping list of medications in her wallet as pt is on numerous medications. Pt states she does do this. Dawna PARKN RN ACM
== END 2018-12-27 15:34 | disposition home or self-care (01) | DRG 103 ==
LOC: ED 17:37 → PCU 20:24
PROVIDERS: Internal Medicine; Admitting Provider Hospitalist; Emergency Provider Emergency Medicine; Family Provider Internal Medicine; PCP Internal Medicine; Visit Provider Family Medicine
DX: G43.109 Migraine with aura, not intractable, without status migrainosus (principal); I48.2 Chronic atrial fibrillation; E78.5 Hyperlipidemia, unspecified; E11.9 Type 2 diabetes mellitus without complications; R20.2 Paresthesia of skin; R53.1 Weakness; K21.9 Gastro-esophageal reflux disease without esophagitis; Z95.0 Presence of cardiac pacemaker; Z95.2 Presence of prosthetic heart valve; Z79.84 Long term (current) use of oral hypoglycemic drugs
CPT/HCPCS: 36415; 70450; 70496; 70498; 70551; 71045; 80048; 80061; 82962; 84484; 85025; 85610; 85730; 93005; 93306; 97161; 97166; 97802; 99285; J7030; Q9967; A4216

== ENCOUNTER 2019-01-19 13:59 | Emergency (ER) | payer MEDICARE, BC, SELFPAY ==
[2019-01-19 13:59] VITALS: BMI 24.3
[2019-01-19 14:00] VITALS: BP 136/58; PULSE 60; RESP 16; TEMP 36.2; O2SAT 99; BMI 24.3
--- NOTE | 2019-01-19 14:19 | CT_ITS ---
STUDY: CT ABDOMEN AND PELVIS WITH CONTRAST REASON FOR EXAM: Female, 78 years old. 2 day history of mid abdominal pain. History of left breast carcinoma and mastectomy. RADIATION DOSAGE (If Supplied By Facility): CTDIvol = ( 15.45 ) mGy, DLP = ( 530.04 ) mGycm TECHNIQUE: Transaxial images were obtained from the dome of the diaphragm to the symphysis pubis without oral contrast. Isovue 300 100CC IV was administered. Sagittal and coronal images were reconstructed. Individualized dose optimization techniques were used for this CT. COMPARISON: Comparison is made with prior study dated January 06, 2014. FINDINGS: Mild degree of increased markings at the lung bases suggestive of scarring. Coronary artery calcification. Aortic valve replacement. There is decreased attenuation of the liver consistent with steatosis. Normal gallbladder and extrahepatic biliary system. Normal spleen. Normal pancreas. Normal bilateral adrenal glands. 1.2 cm cyst in the mid right pole. Stable left renal cyst. There is been no change. Normal visualized stomach. Normal small intestine. There is diverticulosis, with thickening of the colon wall, and pericolonic inflammation changes consistent with acute diverticulitis. The patient is status post appendectomy. There is diffuse atherosclerotic calcification of the abdominal aorta, without a demonstrated aneurysm. Normal inferior vena cava. Normal retroperitoneum. Normal urinary bladder. There is absence of the uterus consistent with a prior hysterectomy. Normal abdominal wall. Prior vertebroplasty and stable loss of height of the T12 vertebrae. CT/Abdomen/Pelvis W IV Cont ONLY IMPRESSION: Findings suggestive of mild degree of sigmoid diverticulitis with no evidence of a peridiverticular abscess. Stable bilateral renal cysts. Electronically Signed: Merlin Vallejo MD at 15:38 EST , Service support ,
--- NOTE | 2019-01-19 14:30 | ED.VISSUMM ---
- ER Visit Summary Date of Service: 01/19/19 Chief Complaint: Abdominal pain History of Present Illness: The patient is a 78 F who presents the emergency department for 24 hours of abdominal pain. The patient states that yesterday mid afternoon she began to have a generalized abdominal pain. States that she has developed some loose soft mucousy stools. She denies any bloating or blood in the stool. She saw her primary care physician today at 1300 hrs. and was referred to the emergency department. She notes any type of movement makes it worse. She denies any fevers. States she has a history of diverticulitis and had microperforation in the past and feels that this seems similar. She also has history of diabetes hypertension breast cancer and irritable bowel syndrome. She has had a cardiac ablation with pacemaker. He has also had a bioprosthetic aortic valve replacement that is due to be changed. Abdominal surgeries include appendectomy hysterectomy and femoral hernia. Physical Examination: Gen: Well-nourished well-developed Head: Normocephalic atraumatic Eyes: Perrl EOMI ENT: TMs clear no rhinorrhea moist mucous membranes Neck: Supple no lymphadenopathy no JVD nontender CVS: Regular rate rhythm no murmurs normal S1-S2 Respiratory: No distress clear to auscultation bilaterally chest nontender Abdomen: Soft usually tender to palpation with guarding and rebound. Normal bowel sounds no masses Back: Nontender Extremity: Nontender no edema Skin: Normal color no rash Neuro: alert orientated ?3 CN II-XII intact normal strength sensation reflexes gait cerebellar Psych: Normal affect normal mood Test Results: White count is normal. CT demonstrates sigmoid diverticulitis without perforation or abscess. Emergency Department Course and Treatment: Patient declined pain medication. I will write for Cipro and Flagyl. She is wishing to be treated as an outpatient. I gave return instructions and she notes understanding. Impression: 1. Acute sigmoid diverticulitis This note was generated with [employer] dictation software. It may contain incorrect words, spelling, and punctuation that were not noted in review of the chart prior to signing ED Disposition - Plan for ED Patient: Disposition: Home or Assisted Living Instructions: ED Diverticulitis Prescriptions: Metronidazole [Flagyl] 500 mg PO Q8H #21 tablet Ciprofloxacin [Cipro] 500 mg PO BID #14 tablet Referrals: Terence Kaur MD [Primary Care Provider] - 1 Week if not improving
[2019-01-19] MEDS: 0.9% Normal Saline 1,000 ML 125 ML IV (14:46)
[2019-01-19 14:53] LABS: Absolute Lymphocyte Count 1.54 X10^3/ul (0.83-4.51); Absolute Neutrophil Count 6.9 X10^3/uL (2.0-7.7); Basophil# 0.01 X10^3/uL; Basophil% 0.1 % (0-1); Eosinophil# 0.03 X10^3/uL; Eosinophils% 0.3 % (0-5); Hematocrit 42.2 % (37-47); Hemoglobin 14.7 g/dl (12.0-15.0); Lymphocyte # 1.54 X10^3/ul (4.0); Mean Corp Hgb Conc 34.8 g/gl (32-36); Mean Corpuscular Hgb 32.2 pg (27.0-32.0); Mean Corpuscular Volume 92.5 fL (81-99); Mean Platelet Vol. 9.2 fl (6.2-12.0); Monocyte# 1.18 X10^3/uL; Monocyte% 12.3 % (0-10); Neutrophil # 6.85 X10^3/uL (2.7-7.7); Neutrophil % 71.1 % (47-70); POSITIVE COUNT NO; POSITIVE DIFFERENTIAL NO; POSITIVE MORPHOLOGY NO; Platelet Count 232 K/mm3 (150-450); RBC Distribution Width CV 12.9 % (11.6-14.6); RBC Distribution Width SD 43.4 fl (35.1-43.9); Red Blood Count 4.56 M/mm3 (4.2-5.4); White Blood Count 9.6 K/mm3 (4.4-11.0)
[2019-01-19 15:06] LABS: AST(SGOT) 21 U/L (15-37); Alanine Aminotransfer ALT/SGPT 57 U/L (13-56); Albumin, Serum 3.7 g/dL (3.2-5.0); Alkaline Phosphatase 88 U/L (45-117); BUN 13 mg/dL (7-18); BUN/Creat Ratio 17.2 RATIO (10-20); Chloride 96 mmol/L (98-107); Creatinine, Serum 0.76 mg/dL (0.55-1.02); EST Glomerular Filtration Rate 78 mL/min (>60); Est Glom Filt Rate - Afr Amer 94 mL/min (>60); Estimated Creatinine Clearance 37.12 ml/min; Globulin 3.7 g/dL (2.2-4.2); Glucose 79 mg/dL (74-106); Lipase 120 U/L (73-393); Potassium 3.5 mmol/L (3.5-5.1); Protein, Total 7.4 g/dL (6.4-8.2); Sodium Level 130 mmol/L (136-145)
[2019-01-19 15:07] LABS: Anion Gap 8 (5-15)
[2019-01-19 15:17] LABS: Lactic Acid 0.8 mmol/L (0.4-2.0)
[2019-01-19 15:55] LABS: Mucous, Urine 0 SEEN /hpf (<or=2+); Red Blood Cells-Urine 0 SEEN /hpf (0-5)
[2019-01-19 15:59] LABS: Color, Urine Yellow (Yellow); Glucose, Dipstick Normal (Normal); Ketone-Dipstick Negative (Negative); Leukocyte Esterase-Dipstick 100 /ul (Negative); Nitrite-Dipstick Negative (Negative); Occult Blood-Urine Negative /ul (Negative); Protein-Dipstick Negative (Negative); Urine Bilirubin Dipstick Negative (Negative); Urine Clarity Clear (Clear); Urine Urobilinogen Normal (Normal)
[2019-01-19 16:02] VITALS: BP 140/54; PULSE 62; PULSE 67; RESP 18; O2SAT 97
[2019-01-19 16:06] LABS: Bacteria RARE /hpf (None Seen); Squamous Epithelial Cells - UA 0-5 SEEN /hpf (5-10); White Blood Cells 0-5 SEEN /hpf (0-5)
== END 2019-01-19 16:03 | disposition home or self-care (01) ==
PROVIDERS: Emergency Provider Emergency Medicine; Family Provider Internal Medicine; PCP Internal Medicine
DX: K57.32 Diverticulitis of large intestine without perforation or abscess without bleeding (principal); E11.9 Type 2 diabetes mellitus without complications; I10 Essential (primary) hypertension; Z85.3 Personal history of malignant neoplasm of breast; Z95.2 Presence of prosthetic heart valve; Z95.0 Presence of cardiac pacemaker; Z79.82 Long term (current) use of aspirin; Z79.891 Long term (current) use of opiate analgesic; Z79.899 Other long term (current) drug therapy
CPT/HCPCS: 74177; 80053; 81001; 83605; 83690; 85025; 96360; 99283; J7030; J7050; Q9967; A4216

== ENCOUNTER 2019-03-11 13:33 | Emergency (ER) | payer MEDICARE, BC, SELFPAY ==
[2019-03-11 13:33] VITALS: BP 149/72; PULSE 73; RESP 14; TEMP 36.7; O2SAT 97; BMI 23.9
--- NOTE | 2019-03-11 14:04 | CT_ITS ---
STUDY: CT ABDOMEN AND PELVIS WITH CONTRAST REASON FOR EXAM: Female, 78 years old. Pelvic pain, history of diverticulitis RADIATION DOSAGE (If Supplied By Facility): CTDIvol = ( 11.73 ) mGy, DLP = ( 654.83 ) mGycm TECHNIQUE: Transaxial images were obtained from the dome of the diaphragm to the symphysis pubis without oral contrast. 100ml IV/Oral Isovue 300 was administered. Sagittal and coronal images were reconstructed. Individualized dose optimization techniques were used for this CT. COMPARISON: CT abdomen and pelvis 01/19/2019. FINDINGS: The visualized lung bases are unremarkable. The heart is moderately enlarged.. Normal liver. Normal gallbladder and extrahepatic biliary system. Normal spleen. There are scattered pancreatic cysts measuring up to 8 mm the pancreatic body Normal bilateral adrenal glands. Normal right kidney. Normal left kidney. There is a very exophytic left renal lower pole cyst. Normal visualized stomach. Normal small intestine. There is sigmoid diverticulosis. There is a segment of sigmoid wall thickening and mild adjacent inflammation consistent with acute sigmoid diverticulitis. There is no definite perforation or abscess. No bowel obstruction. There is non-visualization of the appendix. There is diffuse atherosclerotic calcification of the abdominal aorta, without a demonstrated aneurysm. Normal inferior vena cava. Normal retroperitoneum. Normal urinary bladder. There is a stable, small right adnexal cyst measuring 2.1 cm. The uterus has been surgically removed. There are surgical clips in the right inguinal region. Normal osseous structures. CT/Abdomen/Pelvis WITH Contrast IMPRESSION: Sigmoid diverticulosis and sigmoid wall thickening with mild adjacent inflammation is consistent with acute sigmoid diverticulitis. No definite perforation or abscess. There are scattered pancreatic cysts measuring up to 8 mm. These may represent small pseudocysts, IPMN and/or cystic neoplasms. Moderate cardiomegaly. Electronically Signed: Alfredo Pritchett, at 16:20 EDT Tel , Service support ,
[2019-03-11 14:26] LABS: Absolute Lymphocyte Count 0.99 X10^3/ul (0.83-4.51); Absolute Neutrophil Count 6.9 X10^3/uL (2.0-7.7); Basophil# 0.02 X10^3/uL; Basophil% 0.2 % (0-1); Eosinophil# 0.07 X10^3/uL; Eosinophils% 0.8 % (0-5); Hematocrit 39.1 % (37-47); Hemoglobin 13.4 g/dl (12.0-15.0); Lymphocyte # 0.99 X10^3/ul (4.0); Lymphocyte % 11.3 % (19-41); Mean Corp Hgb Conc 34.3 g/gl (32-36); Mean Corpuscular Hgb 31.9 pg (27.0-32.0); Mean Corpuscular Volume 93.1 fL (81-99); Mean Platelet Vol. 9.6 fl (6.2-12.0); Monocyte# 0.76 X10^3/uL; Monocyte% 8.7 % (0-10); Neutrophil # 6.91 X10^3/uL (2.7-7.7); Neutrophil % 78.9 % (47-70); Platelet Count 159 K/mm3 (150-450); RBC Distribution Width CV 12.8 % (11.6-14.6); RBC Distribution Width SD 43.1 fl (35.1-43.9); White Blood Count 8.8 K/mm3 (4.4-11.0)
[2019-03-11 14:34] LABS: Anion Gap 5 (5-15); BUN 14 mg/dL (7-18); BUN/Creat Ratio 17.4 RATIO (10-20); Calcium,Total 8.5 mg/dL (8.5-10.1); Chloride 105 mmol/L (98-107); Creatinine, Serum 0.81 mg/dL (0.55-1.02); EST Glomerular Filtration Rate 73 mL/min (>60); Est Glom Filt Rate - Afr Amer 88 mL/min (>60); Estimated Creatinine Clearance 45.82 ml/min; Glucose 154 mg/dL (74-106); Potassium 3.9 mmol/L (3.5-5.1); Sodium Level 139 mmol/L (136-145)
[2019-03-11 14:48] LABS: POSITIVE COUNT NO; POSITIVE DIFFERENTIAL NO; POSITIVE MORPHOLOGY NO
[2019-03-11 15:32] LABS: Bacteria 0 SEEN /hpf (None Seen); Mucous, Urine 0 SEEN /hpf (<or=2+)
--- NOTE | 2019-03-11 15:37 | ED.VIS.GEN ---
History of Present Illness Chief Complaint: Abd Pain Narrative: 78-year-old female presents with lower abdominal pain that started gradually 2 days ago. She is nauseated but not vomiting. No diarrhea. Pain is moderate in severity. Worse with palpation. She describes it as an achy sensation. It feels similar to prior diverticulitis. Current severity is moderate. Her last episode was over 1 month ago. No recent antibiotics since then. - Past Medical History (1) Migraine Status: Acute (2) Atrial fibrillation Status: Chronic (3) GERD (gastroesophageal reflux disease) Status: Chronic (4) HTN (hypertension) Status: Chronic (5) Hyperlipidemia Status: Chronic (6) Migraine Status: Chronic (7) Status post aortic valve replacement Status: Chronic (8) Status post placement of cardiac pacemaker Status: Chronic (9) Type 2 diabetes mellitus Status: Chronic Past Medical History - Allergies and Home Meds Allergies/Adverse Reactions: Allergies procaine HCl [From Novocain] Allergy (Verified 03/11/19 13:36) Anaphylaxis passed out, throat swelling albuterol Adverse Reaction (Verified 03/11/19 13:36) Other TACHYCARDIA cetirizine Adverse Reaction (Verified 03/11/19 13:36) Other mental status change codeine Adverse Reaction (Verified 03/11/19 13:36) Vomiting gabapentin Adverse Reaction (Verified 03/11/19 13:36) Other hydrochlorothiazide Adverse Reaction (Verified 03/11/19 13:36) Other lisinopril Adverse Reaction (Verified 03/11/19 13:36) Other morphine Adverse Reaction (Verified 03/11/19 13:36) Vomiting pregabalin Adverse Reaction (Verified 03/11/19 13:36) Other dizzy Sulfa (Sulfonamide Antibiotics) Adverse Reaction (Verified 03/11/19 13:36) Other headache Primary Care Physician: Terence Kaur MD [Primary Care Provider] - Surgical History: hysterectomy - 1980, pacemaker implantation, - - Aortic valve replacement with bioprosthetic valve. Smoking Status: Never smoker - Family History Maternal Family History: Family History (Last Reviewed 12/26/18 @ 12:08 by Emery Burris MD) Mother Diabetes Ovarian cancer Father Cancer Colon cancer Hypertension Family History: Reports: No pertinent history Paternal Family History: Family History (Last Reviewed 12/26/18 @ 12:08 by Emery Burris MD) Mother Diabetes Ovarian cancer Father Cancer Colon cancer Hypertension Family History: Reports: No pertinent history Review of Systems All systems negative except as indicated General: Denies: Chills, Fever, Sweats Eyes: Denies: Visual changes - bilaterally, Diplopia ENT: Denies: Rhinorrhea, Sore throat Cardiovascular: Denies: Chest pain, Palpitations Respiratory: Denies: Dyspnea, Cough, Dyspnea on exertion Gastrointestinal: Reports: Abdominal pain. Denies: Nausea, Vomiting, Diarrhea, Melena, Hematochezia Genitourinary: Denies: Dysuria, Hematuria, Frequency Musculoskeletal: Denies: Back pain, Extremity Pain Skin: Denies: Rash, Wounds Neurological: Denies: Headache, Weakness, Numbness Physical Exam Vital Signs/Narrative: Vital Signs Temp Pulse Resp BP Pulse Ox 03/11/19 13:33 98.1 F 73 14 149/72 H 97 Inital Vital Signs reviewed: Yes General: Well nourished, Well developed, No Acute Distress Head: Normocephalic, Atraumatic Eyes: Perrl, EOMI ENT: Moist mucous membranes, No rhinorrhea Neck: Supple, Nontender Cardiovascular: Regular rate, Regular rhythm, No murmurs Respiratory: No distress, CTA bilaterally, Chest nontender Abdomen: Soft, Nontender, Nondistended, Normal bowel sounds Back: Nontender, Normal Inspection Extremities: Nontender, No edema Skin: Normal color, No rash Neurological: Alert, Oriented x3, Cranial nerves II-XII grossly intact, Normal Strength, Normal Sensation Psychological: Normal affect, Normal Mood Diagnostic/Tx/Re-eval - Medical Decision Making Labs are within normal limits. Urinalysis is pending. CT abdomen/pelvis was ordered and is still pending. Care will be turned over to the oncoming physician. ED Disposition - Plan for ED Patient: Referrals: Terence Kaur MD [Primary Care Provider] -
[2019-03-11 15:38] LABS: Color, Urine Yellow (Yellow); Glucose, Dipstick Normal (Normal); Ketone-Dipstick Negative (Negative); Leukocyte Esterase-Dipstick 25 /ul (Negative); Nitrite-Dipstick Negative (Negative); Occult Blood-Urine Negative /ul (Negative); Protein-Dipstick Negative (Negative); Urine Bilirubin Dipstick Negative (Negative); Urine Clarity Sl. Cloudy (Clear); Urine Urobilinogen Normal (Normal)
[2019-03-11 15:44] LABS: Transitional Epithelial - Ur 0-5 SEEN /hpf (0-5)
[2019-03-11 15:45] LABS: Red Blood Cells-Urine 0-5 SEEN /hpf (0-5)
[2019-03-11 15:46] LABS: Squamous Epithelial Cells - UA 5-10 SEEN /hpf (5-10); White Blood Cells 0-5 SEEN /hpf (0-5)
[2019-03-11 16:17] VITALS: BP 152/58; PULSE 57; RESP 17; O2SAT 97
--- NOTE | 2019-03-11 16:56 | ED.DCSUM_ITS ---
- ER Visit Summary Date of Service: 03/11/19 Chief Complaint: [] History of Present Illness: The patient is a 78 F [] Physical Examination: [] Test Results: [] Emergency Department Course and Treatment: [] Treatment Plan: [] Disposition: [] Impression: [] This note was generated with [employer] software. It may contain incorrect words, spelling, and punctuation that were not noted in review of the chart prior to signing ED Disposition - Plan for ED Patient: Disposition: Home or Assisted Living Diagnosis: Sigmoid diverticulitis Instructions: ED Diverticulitis Prescriptions: Ciprofloxacin [Cipro] 500 mg PO BID #20 tab Metronidazole [Flagyl] 500 mg PO Q6H #40 tab Referrals: Terence Kaur MD [Primary Care Provider] -
[2019-03-11 17:15] VITALS: BP 162/89; PULSE 70; RESP 15; O2SAT 100
== END 2019-03-11 17:16 | disposition home or self-care (01) ==
PROVIDERS: Emergency Provider Emergency Medicine; Family Provider Internal Medicine; PCP Internal Medicine
DX: K57.32 Diverticulitis of large intestine without perforation or abscess without bleeding (principal); K21.9 Gastro-esophageal reflux disease without esophagitis; I10 Essential (primary) hypertension; E11.9 Type 2 diabetes mellitus without complications; G43.909 Migraine, unspecified, not intractable, without status migrainosus; I48.91 Unspecified atrial fibrillation; E78.5 Hyperlipidemia, unspecified; Z95.0 Presence of cardiac pacemaker; Z79.84 Long term (current) use of oral hypoglycemic drugs; Z79.82 Long term (current) use of aspirin; Z79.899 Other long term (current) drug therapy
CPT/HCPCS: 74177; 80048; 81001; 85025; 87077; 87086; 87088; 96360; 96361; 99283; J7030; Q9967; A4216

== ENCOUNTER 2019-10-21 05:27 | Day surgery (SDC) | payer MEDICARE, BC, SELFPAY ==
--- NOTE | 2019-10-17 04:18 | HP_ITS ---
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 Is patient in pain?: No Allergies procaine HCl [From Novocain] Allergy (Verified 10/17/19 15:49) Anaphylaxis albuterol Adverse Reaction (Verified 10/17/19 15:49) Other cetirizine Adverse Reaction (Verified 10/17/19 15:49) Other codeine Adverse Reaction (Verified 10/17/19 15:49) Vomiting gabapentin Adverse Reaction (Verified 10/17/19 15:49) Other hydrochlorothiazide Adverse Reaction (Verified 10/17/19 15:49) Other lisinopril Adverse Reaction (Verified 10/17/19 15:49) Other morphine Adverse Reaction (Verified 10/17/19 15:49) Vomiting pregabalin Adverse Reaction (Verified 10/17/19 15:49) Other Sulfa (Sulfonamide Antibiotics) Adverse Reaction (Verified 10/17/19 15:49) Other Medications Alendronate Sodium [Fosamax] 70 mg PO SA 10/03/17 [History Confirmed 10/17/19] Aspirin [Aspirin, Baby] 81 mg PO DAILY@0800 10/03/17 [History Confirmed 10/17/19] Dicyclomine HCl [Bentyl] 10 mg PO 4X/DAY PRN PRN 10/03/17 [History Confirmed 10/17/19] Estradiol [Estrace Vaginal Cream] 1 dose VAGINAL LOVE PRN 10/03/17 [History Confirmed 10/17/19] Magnesium Oxide [Mag-Ox 400] 400 mg PO DAILY 10/03/17 [History Confirmed 10/17/19] Multivitamins,Therapeutic [Multivitamin] 1 tab PO DAILY 10/03/17 [History Confirmed 10/17/19] Nateglinide [Starlix] 60 mg PO TID PRN 10/03/17 [History Confirmed 10/17/19] Oxybutynin [Ditropan] 5 mg PO DAILY 10/03/17 [History Confirmed 10/17/19] Sumatriptan Succinate [Imitrex] 50 mg PO .X1 PRN PRN 10/03/17 [History Confirmed 10/17/19] traMADol [Ultram] 50 mg PO Q4H PRN PRN 10/03/17 [History Confirmed 10/17/19] amitriptyline 10 mg tablet 20 mg PO QHS 04/05/18 [History Confirmed 10/17/19] Sotalol HCl [Sotalol] 120 mg PO BID 12/25/18 [History Confirmed 10/17/19] Potassium Chloride [Klor-Con M20] 20 tab PO DAILY 01/19/19 [History Confirmed 10/17/19] Acetaminophen [Tylenol Extra Strength] 1,000 mg PO PRN PRN 03/11/19 [History Confirmed 10/17/19] Atenolol [Tenormin (beta wayne)] 100 mg PO DAILY 03/11/19 [History Confirmed 10/17/19] Losartan Potassium 100 mg PO DAILY 03/11/19 [History Confirmed 10/17/19] [place]-3 Fatty Acids/Fish Oil [Fish Oil 1,000 mg Capsule] 1,000 mg PO BID 03/11/19 [History Confirmed 10/17/19] Pravastatin Sodium 10 mg PO QHS 03/11/19 [History Confirmed 10/17/19] metFORMIN (XR) [Glucophage Xr] 500 mg PO DAILY 03/11/19 [History Confirmed 10/17/19] calcium carbonate 500 mg (1,250 mg)-vitamin D3 400 unit tablet 1 tab PO DAILY 10/17/19 [History Confirmed 10/17/19] furosemide 20 mg tablet 20 mg PO DAILY 10/17/19 [History Confirmed 10/17/19] pantoprazole 40 mg tablet,delayed release 40 mg PO DAILY 10/17/19 [History Confirmed 10/17/19] [facility] Medical History (Updated 10/17/19 @ 16:16 by Jorge Boudreaux MD) Diverticulitis large intestine (Acute) Family history of colon cancer in father (Acute) Ascending aortic aneurysm (Acute) Breast cancer (Acute) Diabetes (Acute) Hypertension (Chronic) Surgical History (Updated 10/17/19 @ 16:16 by Jorge Boudreaux MD) S/P TAVR (transcatheter aortic valve replacement) (Acute) H/O aortic valve replacement (Acute) H/O elbow surgery (Acute) H/O left mastectomy (Acute) History of open heart surgery (Acute) Hx of appendectomy (Acute) S/P CODIE (total abdominal hysterectomy) (Acute) femoral hernia repair (Acute) Family History (Updated 04/05/18 @ 11:17 by Jennifer Anderson) Mother Diabetes Ovarian cancer Father Cancer bladder thyroid Colon cancer Hypertension Social History (Updated 10/17/19 @ 16:18 by Jorge Boudreaux MD) Smoking Status: Never smoker alcohol intake: never substance use type: does not use caffeine: No what type of physical activity do you participate in: walking seatbelt use: always do you feel safe at home: Yes additional social history: Don- Retired Patient is retired HPI HPI HPI: TANISHA JULIAN, is a 79 F who presents to the office today for HPI HPI Surgical H&P: Yes HPI: TANISHA JULIAN is a 79 F who presents to the office today for surgical consultation regarding a surveillance colonoscopy. The patient has a family history with a father who of colon cancer. The patient's most recent colonoscopy was February 23, 2014 per myself. At that time she had a combined upper and lower endoscopy. The lower endoscopy showed sigmoid diverticulosis. Random colonic biopsies were unremarkable. The patient states that since 2013 she has had 3 separate episodes of diverticulitis. Her most recent CT of the abdomen and pelvis was done at the [facility] on March 11, 2019. There is a segment of sigmoid wall thickening and mild adjacent inflammation consistent with acute sigmoid W colitis. No perforation or abscess. The patient also at that time was shown to have scattered pancreatic cysts measuring up to 8 mm possibly small pseudocysts or IPM and this or cystic neoplasms. I will defer that particular finding to the patient's primary care physician Dr. Terence Kaur. Written copy of my note will be returned to him. Dating back to December 18, [address] scan of the chest abdomen and pelvis. 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 At that time she had diverticulosis without diverticulitis. She also had a CT scan done May 22, 2015 of the abdomen showing diverticulosis but no evidence of diverticulitis at that time. The patient currently underwent a course of antibiotics for her diverticulitis. April 2019 she had a successful TAVR at [facility] for valvular dysfunction. June 2019 her ejection fraction is 50 to 55% with a mean prosthetic valve gradient of 6 mm. She was on Plavix for 3 months that is been discontinued. ROS General General: Yes fatigue and breast cancer; no weight change, appetite, colon cancer or weakness HEENT HEENT: Yes eye surgery; no difficulty swallowing, eye injury, swollen glands or hoarseness Endo Endocrine: Yes diabetes mellitus; no thyroid disease, thyroid cancer, Hair loss, heat intolerance or cold intolerance Skin Skin: No rash or changing moles Breast Breast: No left breast lump, right breast lump, nipple discharge, breast pain, abnormal mammogram, abnormal US or breast enlargement Musc Musculoskeletal: Yes back problems and arthritis; no rheumatoid arthritis, gout or joint pain Cardio Cardiovascular: Yes murmur, pacemaker, heart disease, atrial fibrillation and high blood pressure; no heart attack, heart stent, palpitations, shortness of breat with exertion or chest pain Psych Psychiatric: No depression, anxiety or hearing voices Resp Respiratory: Yes shortness of breath, No sleep apnea, Yes cough, No COPD, Yes asthma, No emphysema, No wheezing Gastro Gastrointestinal: Yes abdominal pain, No nausea or vomiting, Yes diarrhea, Yes constipation, No blood in stool, No acid reflux, Yes hemorrhoids, No ulcers, No gallbladder problem, No black,tarry stools [place] Hematologic: No blood thinners, No blood disorders, No bleeding, No anemia, No blood clots Neuro Neurologic: No system reviewed and no additional complaints, except as docu, No as per HPI, No abnormal walking, No abnormal hearing, No abnormal movements, No abnormal speech, No behavioral changes, No burning sensations, No confusion, No seizure-like activity, No unsteadiness, No dizziness, No localized weakness, No frequent falls, No headache(s), No lack of coordination, No loss of vision, No memory loss, No numbness, No other visual disturbances, No radiating pain, No restless legs, No sensory deficit, No fainting, No tingling, No tremor(s), No weakness, No other Exam Const General: cooperative, comfortable, no acute distress Nutritional Appearance: underweight Orientation: alert, awake, oriented x3 HENMT Head: normal to inspection Chest Chest palpation & inspection: normal inspection of the chest Breast Palpation: No nipple discharge Resp Other: Slightly diminished breath sounds left base. Clear bilaterally. Cardio Rate: regular rate Rhythm: regular rhythm Heart Sounds: murmur Other: 2/6 systolic murmur with audible click GI Palpation: soft, no hepatosplenomegaly Auscultation: normal bowel sounds Skin General: no rashes or lesions noted Extrem General: no calf tenderness bilaterally Psych Affect: normal affect Assessment & Plan Problems 1. Family history of colon cancer in father Z80.0 2. Diverticulitis of large intestine without perforation or abscess without bleeding K57.32 3. S/P TAVR (transcatheter aortic valve replacement) Z95.2 Plan Recommended the patient that we proceed with a surveillance colonoscopy with possible biopsy or polypectomy as indicated. She is aware that she is at increased risk based upon her age and medical comorbidities. I will treat with IV ampicillin on the day of her procedure. We will utilize monitored anesthesia care. She has had an opportunity to ask and have questions answered. Regarding her previous CT findings of February 2019 regarding her pancreatic cyst she will follow-up with her primary care physician Dr. Terence Kaur. I appreciate the opportunity of assisting with her surgical care. We will schedule and proceed with endoscopy as noted. CC: Brenda Chaparro CNP and Dr. Terence Boudreaux M.D., F.A.C.S. Coding Level of Care Code Off vis,new,level 4 Diagnoses Family history of colon cancer in father Z80.0 Diverticulitis of large intestine without perforation or abscess without bleeding K57.32 ??Diverticulitis bleeding: without bleeding ??Diverticulitis complication: without perforation or abscess S/P TAVR (transcatheter aortic valve replacement) Z95.2 10/17/19 1618 <Electronically signed by Jorge persaud MD> Date _ Jorge Boudreaux MD I have re-examined the patient. There are no clinical changes since date of exam.
[2019-10-17 15:55] VITALS: BMI 23.9
[2019-10-21] VITALS (7 sets, daily range): BP systolic 116–147; BP diastolic 50–80; PULSE 60–84; RESP 16–18; TEMP 36.2–36.5; O2SAT 100; BMI 24.0
[2019-10-21] MEDS: Lactated Ringers 1,000 ML 100 ML IV (06:30)
[2019-10-21 06:31] LABS: Bedside Glucose 135 mg/dL (70-110)
--- NOTE | 2019-10-21 06:59 | OP.COLON_ITS ---
Patient Name: Sanaz Hui Procedure Date: 10/21/2019 6:12 AM Date of : 1940 Age: 79 Procedure: Colonoscopy Indications: Family history of colon cancer in a first-degree relative Providers: Jorge Boudreaux MD Referring MD: Terence Kaur Medicines: See the Anesthesia note for documentation of the administered medications Patient Profile: Last Colonoscopy: January 2014. Complications: No immediate complications. Procedure: Pre-Anesthesia Assessment: - Prior to the procedure, a History and Physical was performed, and patient medications and allergies were reviewed. The patient's tolerance of previous anesthesia was also reviewed. The risks and benefits of the procedure and the sedation options and risks were discussed with the patient. All questions were answered, and informed consent was obtained. Prior Anticoagulants: The patient has taken no previous anticoagulant or antiplatelet agents. ASA Grade Assessment: II - A patient with mild systemic disease. After reviewing the risks and benefits, the patient was deemed in satisfactory condition to undergo the procedure. After I obtained informed consent, the scope was passed under direct vision. Throughout the procedure, the patient's blood pressure, pulse, and oxygen saturations were monitored continuously. The Colonoscope was introduced through the anus and advanced to the cecum, identified by appendiceal orifice and ileocecal valve. The colonoscopy was performed without difficulty. The patient tolerated the procedure well. The quality of the bowel preparation was good. The ileocecal valve was photographed. Scope In: 6:37:16 AM Scope Withdrawal Time 0 hours 7 minutes 45 seconds Scope Out: 6:53:14 AM Total Procedure Duration Time 0 hours 15 minutes 58 seconds Findings: Hemorrhoids were found on perianal exam. Multiple diverticula were found in the sigmoid colon. The exam was otherwise without abnormality. Impression: - Hemorrhoids found on perianal exam. - Diverticulosis in the sigmoid colon. - The examination was otherwise normal. - No specimens collected. Recommendation: - Discharge patient to home. - Resume previous diet. - Continue present medications. - Repeat colonoscopy is not recommended due to current age (66 years or older) for screening purposes. Procedure Code(s): --- Professional --- 78440, Colonoscopy, flexible; diagnostic, including collection of specimen(s) by brushing or washing, when performed (separate procedure) Diagnosis Code(s): --- Professional --- K64.9, Unspecified hemorrhoids Z80.0, Family history of malignant neoplasm of digestive organs K57.30, Diverticulosis of large intestine without perforation or abscess without bleeding CPT copyright 2017 [employer]. All rights reserved. The codes documented in this report are preliminary and upon thread singer review may be revised to meet current compliance requirements. Jorge Boudreaux MD 10/21/2019 6:59:05 AM This report has been signed electronically. Number of Addenda: 0 Note Initiated On: 10/21/2019 6:12 AM
== END 2019-10-21 07:45 | disposition home or self-care (01) ==
LOC: EN 05:27 → AC 05:29
PROVIDERS: Family Provider Internal Medicine; PCP Internal Medicine; Referring Provider Internal Medicine; Visit Provider Surgery
PROC: 0DJD8ZZ Inspection of Lower Intestinal Tract, Via Natural or Artificial Opening Endoscopic (ICD-10-PCS; CPT 45378; principal; 2019-10-21 06:25)
DX: K57.30 Diverticulosis of large intestine without perforation or abscess without bleeding (principal); K64.9 Unspecified hemorrhoids; E11.9 Type 2 diabetes mellitus without complications; I10 Essential (primary) hypertension; Z85.3 Personal history of malignant neoplasm of breast; Z95.2 Presence of prosthetic heart valve; Z79.899 Other long term (current) drug therapy; Z79.82 Long term (current) use of aspirin; Z79.84 Long term (current) use of oral hypoglycemic drugs; Z80.0 Family history of malignant neoplasm of digestive organs
CPT/HCPCS: 45378; 82962; J7120; J2405

== ENCOUNTER → 2020-04-19 15:05 | Outpatient (CLI) | payer MEDICARE, BC, SELFPAY ==
[2019-10-21 05:54] VITALS: BMI 24.0
--- NOTE | 2020-04-19 15:09 | RAD_ITS ---
STUDY: X-RAY - LEFT SHOULDER REASON FOR EXAM: Female, 79 years old. CHRONIC SHOULDER PAIN, WORSE RECENTLY TECHNIQUE: 4 view(s) of the shoulder. COMPARISON: None. FINDINGS: Normal glenohumeral articulation. There is degenerative arthrosis of the acromioclavicular joint without inferior osseous spur formation. Normal acromion. Normal humeral head and visualized proximal humerus. The soft tissue structures are unremarkable. There is no demonstrated fracture. Normal visualized pulmonary apex. RAD/Shoulder min 2 Views IMPRESSION: No acute fracture or dislocation. Acromioclavicular osteoarthritis. Electronically Signed: Richar Valera MD at 17:02 EDT , Service support ,
== END ==
PROVIDERS: PCP Internal Medicine; Referring Provider Anesthesiology Pain Medicine; Visit Provider Anesthesiology Pain Medicine
DX: M25.512 Pain in left shoulder (principal)
CPT/HCPCS: 73030

== ENCOUNTER → 2021-05-01 11:27 | Outpatient (CLI) | payer MEDICARE, BC, SELFPAY ==
[2019-10-21 05:54] VITALS: BMI 24.0
--- NOTE | 2021-05-01 11:29 | RAD_ITS ---
STUDY: X-RAY - LEFT KNEE REASON FOR EXAM: Female, 80 years old. KNEE PAIN TECHNIQUE: 5 view(s) of the knee. COMPARISON: None. FINDINGS: Normal visualized distal femur. Normal visualized proximal tibia and fibula. Normal proximal tibiofibular articulation. Normal medial femorotibial compartment. Normal lateral femorotibial compartment. Normal patellofemoral articulation. There is no demonstrated joint effusion. The soft tissue structures are unremarkable. RAD/Knee 4 or More Views IMPRESSION: Normal x-ray examination of the knee. Electronically Signed: Rocky Lopez MD ([place]) at 14:45 EDT , Service support ,
--- NOTE | 2021-05-01 11:29 | RAD_ITS ---
STUDY: X-RAY - LEFT SHOULDER REASON FOR EXAM: Female, 80 years old. SHOULDER PAIN TECHNIQUE: 3 view(s) of the shoulder. COMPARISON: None. FINDINGS: There is mild degenerative arthrosis of the glenohumeral articulation. There is degenerative arthrosis of the acromioclavicular joint without inferior osseous spur formation. Normal acromion. Normal humeral head and visualized proximal humerus. The soft tissue structures are unremarkable. Sternal wires are present. Cardiac conduction device is partially visualized. Normal visualized pulmonary apex. RAD/Shoulder min 2 Views IMPRESSION: Glenohumeral and acromioclavicular joint arthrosis. Electronically Signed: Rocky Lopez MD ([place]) at 14:47 EDT , Service support ,
== END ==
PROVIDERS: PCP Internal Medicine; Referring Provider Anesthesiology Pain Medicine; Visit Provider Anesthesiology Pain Medicine
DX: M25.519 Pain in unspecified shoulder (principal); M25.569 Pain in unspecified knee
CPT/HCPCS: 73030; 73564

== ENCOUNTER 2022-03-20 13:55 | Emergency (ER) | payer MEDICARE, BC, SELFPAY ==
[2022-03-20 13:56] VITALS: BP 145/68; PULSE 61; RESP 16; TEMP 36.8; O2SAT 96; BMI 26.4
--- NOTE | 2022-03-20 14:25 | CT_ITS ---
STUDY: CT BRAIN WITHOUT CONTRAST REASON FOR EXAM: Female, 81 years old. Technologist Notes FELL OVER CEMENT CURB, ABRASIONS TO FACE, BUMP ON LT CHEEK, HTN, DB, AFIB, AORTIC VALVE REPLACED, HX-MIGRAINES, LT BREAST CA WITH MASTECTOMY 1983 NO fall TECHNIQUE: Transaxial CT imaging of the brain was performed without administration of intravenous contrast material. Individualized dose optimization techniques were used for this CT. COMPARISON: None FINDINGS: Normal calvarium. There is no underlying fracture. Soft tissue swelling of the left maxilla. There is mild cerebral atrophy with widening of the extra-axial spaces and ventricular dilatation. There are areas of decreased attenuation within the white matter tracts of the supratentorial brain, consistent with microvascular disease changes. Normal basal ganglia and thalami. Normal brainstem. Normal cerebellum. There is no intracranial hemorrhage. There are no findings of an acute ischemic infarction. Normal visualized paranasal sinuses. ASPECTS 10 CT/Brain/Head without Contrast IMPRESSION: There are no acute intracranial findings. There is no underlying fracture. Soft tissue swelling of the left maxilla. Electronically Signed: Chivo Hernandez MD at 15:28 EDT Reading Location ID and State: [facility] / [place] , Service support ,
--- NOTE | 2022-03-20 14:27 | CT_ITS ---
EXAM: CT MAXILLOFACIAL WITHOUT INTRAVENOUS CONTRAST CLINICAL INDICATION: fall Technologist Notes FELL OVER CEMENT CURB, ABRASIONS TO FACE, BUMP ON LT CHEEK, HTN, DB, AFIB, AORTIC VALVE REPLACED, HX-MIGRAINES, LT BREAST CA WITH MASTECTOMY 1983 NO TECHNIQUE: Helically acquired images were obtained of the face without intravenous contrast. This CT exam was performed using one or more of the following dose reduction techniques: automated exposure control, adjustment of the mA and/or kV according to patient size, and/or use of iterative reconstruction technique. This report was created using [employer] report [employer] technology. RADIATION DOSE: CTDIvol = 25.01 mGy, DLP = 486.12 mGy-cm COMPARISON: None. FINDINGS: BONES/JOINTS: There is no underlying fracture. Soft tissue swelling of the left maxilla. No discrete lytic or blastic abnormalities. SOFT TISSUES: See above. ORBITS: Unremarkable. Both globes are unremarkable. Extraocular muscles are normal. Retrobulbar fat appears unremarkable. SINUSES: Unremarkable as visualized. Clear. MASTOID AIR CELLS: Unremarkable as visualized. Clear. DENTAL: No acute findings. No periodontal osseous erosion. CT/Sinus/Facial Bone IMPRESSION: There is no underlying fracture. Soft tissue swelling of the left maxilla. Electronically Signed: Chivo Hernandez MD at 15:29 EDT ,
--- NOTE | 2022-03-20 14:29 | EDS_ITS ---
HPI <NIKOLE Logan - Last Filed: 03/20/22 16:36> History of Present Illness Chief Complaint: Fall Narrative Narrative: 81-year-old female with history of CAD, heart history, diabetes presents the emergency department after a mechanical fall. Patient was getting out of a parking lot, tripped over a parking spot divider landing on her left side. Patient does have pain to the right knee, patient has an abrasion to her left cheek, she denies any LOC, patient is currently only taking 91 mg aspirin. Patient did have 2 episodes of vomitus after the fall however she states this was from coughing having the wind knocked out of her and she just recently ea ting. Patient is alert and orient x4. Patient is amatory however does have pain worsening to the right knee. Patient also complains of pain in the left chest. Patient is able to recount the entire event. PFS <NIKOLE Logan - Last Filed: 03/20/22 16:36> [facility] Medical History (Updated 03/20/22 @ 22:[address] Jimmy Clark, DO) Ascending aortic aneurysm Atrophic vaginitis Breast cancer Cervicalgia Degeneration of lumbar or lumbosacral intervertebral disc Diabetes Diverticulitis large intestine Essential hypertension Essential tremor Family history of colon cancer in father Generalized osteoarthrosis, unspecified site Hypertension IBS (irritable bowel syndrome) Migraine with aura Other osteoporosis without current pathological fracture Overactive bladder PAC (premature atrial contraction) PVC (premature ventricular contraction) Type 2 diabetes mellitus without complication, without long-term current use of insulin Home Medications alendronate 70 mg PO SA 10/03/17 [History Last Taken 03/05/19] aspirin 81 mg PO DAILY@0800 10/03/17 [History Last Taken 03/10/19] dicyclomine 10 mg PO 4X/DAY PRN PRN 10/03/17 [History Last Taken 12/25/18] estradiol 1 dose VAGINAL LOVE PRN 10/03/17 [History Last Taken 03/06/19] magnesium oxide 400 mg PO DAILY 10/03/17 [History Last Taken 03/11/19] multivitamin with folic acid 1 tab PO DAILY 10/03/17 [History Last Taken 03/11/19] nateglinide 60 mg PO TID PRN 10/03/17 [History Last Taken 12/25/18] oxybutynin chloride 5 mg PO QHS 10/03/17 [History Last Taken 03/10/19] sumatriptan succinate 50 mg PO .X1 PRN PRN 10/03/17 [History Last Taken 03/05/19] tramadol 50 mg PO Q4H PRN PRN 10/03/17 [History Last Taken 03/07/19] amitriptyline 10 mg tablet 20 mg PO QHS 04/05/18 [History Last Taken 03/10/19] sotalol 120 mg PO BID 12/25/18 [History Last Taken 03/11/19] potassium chloride 20 tab PO DAILY 01/19/19 [History Last Taken 03/10/19] acetaminophen 1,000 mg PO PRN PRN 03/11/19 [History Last Taken 03/11/19] atenolol 100 mg PO DAILY 03/11/19 [History Last Taken 03/11/19] losartan 100 mg PO DAILY 03/11/19 [History Last Taken 03/11/19] metformin 500 mg PO QHS 03/11/19 [History Last Taken 03/10/19] omega-3 fatty acids-fish oil 1,000 mg PO BID 03/11/19 [History Last Taken 03/11/19] pravastatin 10 mg PO QHS 03/11/19 [History Last Taken 03/10/19] calcium carbonate 500 mg-vitamin D3 10 mcg (400 unit) tablet 1 tab PO DAILY 10/17/19 [History Last Taken Unknown] furosemide 20 mg tablet 20 mg PO DAILY 10/17/19 [History Last Taken Unknown] pantoprazole 40 mg tablet,delayed release 40 mg PO DAILY 10/17/19 [History Last Taken Unknown] albuterol sulfate 1 - 2 puff INHALATION Q6H PRN PRN 10/19/19 [History Last Taken Unknown] amlodipine 5 mg tablet 5 mg PO DAILY tab 05/24/21 [History Last Taken Unknown] metformin 500 mg tablet 500 mg PO .AM PRN tab 05/24/21 [History Last Taken Unknown] Allergy/AdvReac Type Severity Reaction Status Date / Time procaine HCl [From Novocain] Allergy Anaphylaxis Verified 02/26/22 13:09 albuterol AdvReac Tachycardia Verified 02/26/22 13:09 cetirizine AdvReac Other Verified 02/26/22 13:09 codeine AdvReac Vomiting Verified 02/26/22 13:09 gabapentin AdvReac Mental Verified 02/26/22 13:09 Status Change/Fatigue hydrochlorothiazide AdvReac Other Verified 02/26/22 13:09 lisinopril AdvReac Cough Verified 02/26/22 13:09 morphine AdvReac Vomiting Verified 02/26/22 13:09 pregabalin AdvReac Other Verified 02/26/22 13:09 Sulfa (Sulfonamide AdvReac Other Verified 02/26/22 13:09 Antibiotics) Family History Mother Diabetes Ovarian cancer Father Cancer bladder thyroid Colon cancer Hypertension Surgical History (Updated 10/17/19 @ 16:[address] Jorge Boudreaux MD) femoral hernia repair H/O aortic valve replacement H/O elbow surgery H/O left mastectomy History of open heart surgery Hx of appendectomy S/P CODIE (total abdominal hysterectomy) S/P TAVR (transcatheter aortic valve replacement) Social History (Updated 10/17/19 @ 16:[address] Jorge Boudreaux MD) Smoking Status: Never smoker alcohol intake: never substance use type: does not use caffeine: No what type of physical activity do you participate in: walking seatbelt use: always do you feel safe at home: Yes additional social history: Don- Retired Patient is retired ROS <NIKOLE Logan - Last Filed: 03/20/22 16:36> ROS ED ROS Narrative Constitutional: Negative for fever, chills, weight loss, weakness Eyes: Negative for vision loss, vision change, double vision ENT: Negative for any sore throat, ear pain, congestion. Patient has an abrasion to the left cheek Cardiovascular: Negative for any chest pain, tightness, palpitations, racing heartbeat Respiratory: Negative for any cough, sputum production, hemoptysis, shortness of breath, shortness of breath on exertion, orthopnea Gastrointestinal: Negative for any abdominal pain, nausea, vomiting, diarrhea, constipation, blood in stool, blood in vomit : Negative for any urinary frequency, incontinence, dysuria, retention, blood in urine Muscle skeletal: Negative for any muscle joint pain, stiffness, myalgias, arthralgias, neck pain, back pain. Positive type for pain to the left knee, right knee, left side chest wall Neurological: Negative for any headache, dizziness, syncope, numbness or tingling Skin: Negative for any rashes, lumps, itching, , lacerations. Abrasion to the left cheek Psychiatric: Negative for any depression, anxiety, stress, suicidal ideation, homicidal ideation Hematologic: Negative for any easy bruising, excessive bruising, easy bleeding Allergies: Negative for any eczema, hives, rash EXAM <NIKOLE Logan - Last Filed: 03/20/22 16:36> Physical Exam Narrative Exam Narrative: Vital signs reviewed. HEET: Head normocephalic atraumatic, TMs clear bilaterally. Posterior pharynx is clear, moist mucous membranes. Nares clear bilaterally. Neck: Supple with no lymphadenopathy or tenderness. No signs of meningismus, negative jolt sign. Pupils are equal round reactive to light. Negative for hematoma, septal hematoma. Patient does have a light abrasion to the left cheek, this is superficial. Cardiac: Regular rate and rhythm no murmurs gallops or rubs, equal peripheral pulses bilaterally. Respiratory: Lungs clear to auscultation bilaterally. Patient does have left- sided chest tenderness. Negative for any crepitus Abdomen: Soft, nontender, nondistended. No abdominal bruit or pulsatile masses. No hepatosplenomegaly Extremities: Patient does have bilateral knee swelling, ecchymosis. Right worse than the left. Patient does have intact extensor mechanisms bilaterally. Neuro: Cranial nerves II through XII intact, no focal neurological deficits. Skin: Clean dry and intact with no rash, purpura, petechiae, vesicles or pustules. Backslash flank: No CVA tenderness, no midline spinal tenderness, no deformity. Psych: Normal mood and affect. No SI, HI or acute psychosis. Const Vital Signs: 03/20/22 13:56 03/20/22 15:20 Temperature 98.2 F Temperature Source Oral Pulse Rate 61 Respiratory Rate 16 Respiratory Effort Normal Respiratory Depth Normal Respiratory Pattern Normal Blood Pressure 145/68 H Blood Pressure Mean 93 Pulse Ox 96 Oxygen Delivery Method Room Air Room Air Positive well nourished and well developed General Appearance ED: well developed <Dr. Jimmy Clark DO - Last Filed: 03/20/22 22:52> Physical Exam Const Vital Signs: 03/20/22 13:56 03/20/22 15:20 Temperature 98.2 F Temperature Source Oral Pulse Rate 61 Respiratory Rate 16 Respiratory Effort Normal Respiratory Depth Normal Respiratory Pattern Normal Blood Pressure 145/68 H Blood Pressure Mean 93 Pulse Ox 96 Oxygen Delivery Method Room Air Room Air [facility] <Etienne Cuello VINYL DIPPER-C - Last Filed: 03/20/22 16:36> [facility] Narrative Medical decision making narrative: Patient appears well, patient appears nontoxic, vital signs are stable. Patient presents the emergency department after a fall injuring her left face, bilateral knees, left ribs. Patient did receive a CT of the brain, this was negative for any acute findings. Patient did receive a CT of the maxillofacial bones, these were unremarkable for any acute process, negative CT scan of the cervical spine. Patient did receive x- rays of the right knee did show some soft tissue swelling of the patella however no acute fracture. Patient's left knee was negative for acute osseous abnorma lity. Patient is rib x-ray showed no acute findings in the chest or left ribs. Patient had all negative radiologic exams, patient was able to get up, walk on the department and feels stable for discharge. Patient will take her tramadol which she gets from pain management. Patient instructed to ice, elevate the right knee. Instructed to return for any worsening pain, fever chills nausea vomiting. Patient stable for discharge Radiography Diagnostic Testing: Clinical Impression(s) from Imaging Studies Brain CT 03/20/22 14:25 IMPRESSION: There are no acute intracranial findings. There is no underlying fracture. Soft tissue swelling of the left maxilla. Electronically Signed: Chivo Hernandez MD at 15:28 EDT , Facial/Sinus 03/20/22 14:27 IMPRESSION: There is no underlying fracture. Soft tissue swelling of the left maxilla. Electronically Signed: Chivo Hernandez MD at 15:29 EDT , Knee X-Ray 03/20/22 14:40 IMPRESSION: There are no acute findings. Electronically Signed: Chivo Hernandez MD at 15:10 EDT , Knee X-Ray 03/20/22 14:40 IMPRESSION: Soft tissue swelling of the patella. Electronically Signed: Chivo Hernandez MD at 15:11 EDT , Ribs w/Chest X-Ray 03/20/22 14:40 IMPRESSION: No acute findings in the chest or left ribs. Electronically Signed: Chivo Hernandez MD at 15:06 EDT , Cervical Spine CT 03/20/22 15:05 IMPRESSION: Degenerative changes of the cervical spine. There are no acute findings. Electronically Signed: Chivo Hernandez MD at 15:29 EDT , <Dr. Jimmy Clark, DO - Last Filed: 03/20/22 22:52> [facility] MDM Narrative Medical decision making narrative: Attending note: Patient seen and evaluated with in service education teacher. I perform my own [id number] evaluation. I agree with the plan of work-up. Mechanical fall parking lot today. Patient takes baby aspirin. Injury to the face. No loss of conscious. No neck pain. Left lower rib pain. Bilateral knee pain. Does not ambulate with any assistance. Exam GCS 15 contusion to left cheek. No trismus. Tender palpation left lower ribs with no crepitus or ecchymosis. Symmetric breath sounds. Negative logroll bilaterally. There is swelling bilateral knees right greater than left extensor mechanisms are all intact. Abrasion with no active bleeding. Trauma scan head face and neck were negative. Bilateral knee x-rays 4 views reviewed by myself and read by radiology shows no fracture or dislocation. Left rib series with PA chest obtained also reviewed by myself and read by radiology shows no fractures or pneumothorax. Patient has tramadol as at home through pain management. She has a walker to use if she needs to. Jc wrap to the right knee she was ambulated in department with no difficulties. Discharged with outpatient follow-up. Radiography Diagnostic Testing: Clinical Impression(s) from Imaging Studies Brain CT 03/20/22 14:25 IMPRESSION: There are no acute intracranial findings. There is no underlying fracture. Soft tissue swelling of the left maxilla. Electronically Signed: Chivo Hernandez MD at 15:28 EDT , Facial/Sinus 03/20/22 14:27 IMPRESSION: There is no underlying fracture. Soft tissue swelling of the left maxilla. Electronically Signed: Chivo Hernandez MD at 15:29 EDT , Knee X-Ray 03/20/22 14:40 IMPRESSION: There are no acute findings. Electronically Signed: Chivo Hernandez MD at 15:10 EDT , Knee X-Ray 03/20/22 14:40 IMPRESSION: Soft tissue swelling of the patella. Electronically Signed: Chivo Hernandez MD at 15:11 EDT , Ribs w/Chest X-Ray 03/20/22 14:40 IMPRESSION: No acute findings in the chest or left ribs. Electronically Signed: Chivo Hernandez MD at 15:06 EDT , Cervical Spine CT 03/20/22 15:05 IMPRESSION: Degenerative changes of the cervical spine. There are no acute findings. Electronically Signed: Chivo Hernandez MD at 15:29 EDT , Discharge Plan Triage Chief Complaint: Fall ED Midlevel Provider: Etienne Cuello ED Provider: Jimmy Clark Dx/Rx/DC Orders Clinical Impression: Fall, Closed head injury, Injury of knee, Contusion of rib, Contusion of face Instructions: ED Fall with Uncertain Cause, ED Head Injury (Adult), ED Knee Effusion, ED Contusion, Rib Prescriptions: No Action amitriptyline 10 mg tablet 20 mg PO QHS RF: 0 calcium carbonate-vitamin D3 [Calcium 500 With D] 500 mg(1,250mg) -400 unit tablet 1 tab PO DAILY RF: 0 furosemide 20 mg tablet 20 mg PO DAILY RF: 0 pantoprazole 40 mg tablet,delayed release (DR/EC) 40 mg PO DAILY RF: 0 amlodipine 5 mg tablet 5 mg PO DAILY RF: 0 metformin 500 mg tablet 500 mg PO .AM PRN (Reason: steroid injection) RF: 0 alendronate 70 MG tablet 70 mg PO SA RF: 0 sumatriptan succinate 50 MG tablet 50 mg PO .X1 PRN PRN (Reason: Headache) RF: 0 tramadol 50 MG tablet 50 mg PO Q4H PRN PRN (Reason: Pain) RF: 0 nateglinide 60 MG tablet 60 mg PO TID PRN (Reason: sugar) RF: 0 magnesium oxide 400 MG tablet 400 mg PO DAILY RF: 0 aspirin 81 MG tablet,chewable 81 mg PO DAILY@0800 RF: 0 estradiol 42.5 GM cream 1 dose VAGINAL LOVE PRN (Reason: vaginal dryness) RF: 0 oxybutynin chloride 5 MG tablet 5 mg PO QHS RF: 0 dicyclomine 10 MG capsule 10 mg PO 4X/DAY PRN PRN (Reason: Irritable Bowel Syndrome) RF: 0 multivitamin with folic acid 1 TABLET tablet 1 tab PO DAILY RF: 0 sotalol 120 MG tablet 120 mg PO BID RF: 0 potassium chloride 20 MEQ tablet,ER particles/crystals 20 tab PO DAILY RF: 0 acetaminophen 500 MG tablet 1,000 mg PO PRN PRN (Reason: Pain) RF: 0 atenolol 100 MG tablet 100 mg PO DAILY RF: 0 pravastatin 10 MG tablet 10 mg PO QHS RF: 0 losartan 100 MG tablet 100 mg PO DAILY RF: 0 metformin 500 MG tablet 500 mg PO QHS RF: 0 omega-3 fatty acids-fish oil 1 EACH capsule 1,000 mg PO BID RF: 0 albuterol sulfate 1 PUFF inhaler 1 - 2 puff inhalation Q6H PRN PRN (Reason: Sob &/Or Wheezing) RF: 0 Primary Care Provider: Terence Kaur Referrals: Terence Kaur MD [Primary Care Provider] - Activity Restrictions/Additional Instructions: Please perform deep breathing exercises, please use your pain medicine at home. Return for any worsening symptoms. Print Language: Yoruba Disposition Disposition: Home, Self Care Discharge Date/Time: 03/20/22 16:39
--- NOTE | 2022-03-20 14:40 | RAD_ITS ---
EXAM: XR LEFT RIBS AND AP CHEST, 3 OR MORE VIEWS CLINICAL INDICATION: fall Technologist Notes LEFT SIDED RIB PAIN S/P FALL TECHNIQUE: Frontal and oblique views of the left ribs and frontal view of the chest. This report was created using [employer] report generation technology. COMPARISON: None. FINDINGS: LUNGS AND PLEURAL SPACES: Unremarkable. No consolidation or edema. No pneumothorax. No effusion. HEART: Prosthetic heart valve. MEDIASTINUM: Central airways and mediastinal contour are unremarkable. BONES/JOINTS: Multiple median sternotomy wires are noted consistent for cardiac surgery. T12 kyphoplasty changes. No evidence of displaced rib fractures. TUBES, LINES AND DEVICES: There is a right -sided pacemaker battery pack. RAD/Ribs Uni Min 3V w/PA Chest IMPRESSION: No acute findings in the chest or left ribs. Electronically Signed: Chivo Hernandez MD at 15:06 EDT Reading Location ID and State: [facility] / [place] , Service support ,
--- NOTE | 2022-03-20 14:40 | RAD_ITS ---
STUDY: XR Knee Complete 4 Views or More 03/20/2022 3:10 PM REASON FOR EXAM: Female, 81 years old. PAIN Technologist Notes PAIN, STS, BRUISING TECHNIQUE: XR Knee Complete 4 Views or More RIGHT COMPARISON: None FINDINGS: Normal visualized distal femur. Normal visualized proximal tibia and fibula. Normal proximal tibiofibular articulation. Normal medial femorotibial compartment. Normal lateral femorotibial compartment. Normal patellofemoral articulation. Soft tissue swelling of the patella. RAD/Knee 4 or More Views IMPRESSION: Soft tissue swelling of the patella. Electronically Signed: Chivo Hernandez MD at 15:11 EDT Reading Location ID and State: [facility] / [place] , Service support ,
--- NOTE | 2022-03-20 14:40 | RAD_ITS ---
STUDY: XR Knee Complete 4 Views or More 03/20/2022 3:09 PM REASON FOR EXAM: Female, 81 years old. PAIN TECHNIQUE: XR Knee Complete 4 Views or More LEFT COMPARISON: None FINDINGS: Normal visualized distal femur. Normal visualized proximal tibia and fibula. Normal proximal tibiofibular articulation. There are atherosclerotic vascular calcifications. Normal medial femorotibial compartment. Normal lateral femorotibial compartment. Normal patellofemoral articulation. The soft tissue structures are unremarkable. RAD/Knee 4 or More Views IMPRESSION: There are no acute findings. Electronically Signed: Chivo Hernandez MD at 15:10 EDT ,
--- NOTE | 2022-03-20 15:05 | CT_ITS ---
EXAM: CT SPINE - CERVICAL WITHOUT IV REASON FOR EXAM: Female, 81 years old. NECK PAIN fall Individualized dose optimization techniques were used for this CT. TECHNIQUE: Multiplanar images were obtained of the cervical spine. IV contrast was not utilized. COMPARISON: None. FINDINGS: The vertebral bodies do maintain their height. The odontoid process is intact. There is no anterolisthesis or fracture. No pre-vertebral soft tissue swelling is seen. The intravertebral disc height is lost. There are scattered lymph nodes in the neck. There are degenerative changes of the osseous structures. There is bilateral facet arthropathy. There are scattered levels of foraminal stenosis. There are vascular calcifications. CT/Spine Cervical without Contras IMPRESSION: Degenerative changes of the cervical spine. There are no acute findings. Electronically Signed: Chivo Hernandez MD at 15:29 EDT ,
== END 2022-03-20 16:39 | disposition home or self-care (01) ==
PROVIDERS: Emergency Provider Emergency Medicine; PCP Internal Medicine; Visit Provider Emergency Medicine
DX: S09.90XA Unspecified injury of head, initial encounter (principal); S89.90XA Unspecified injury of unspecified lower leg, initial encounter; S20.219A Contusion of unspecified front wall of thorax, initial encounter; I25.10 Atherosclerotic heart disease of native coronary artery without angina pectoris; W19.XXXA Unspecified fall, initial encounter
CPT/HCPCS: 70450; 70486; 71101; 72125; 73564; 99284

== ENCOUNTER → 2022-04-21 | Outpatient (CLI) | payer OTHER, MEDICARE, BC, SELFPAY ==
[2022-04-21 14:33] LABS: Amphetamine Urine VISTA NEGATIVE (<1000 ng/mL); Barbiturate Urine VISTA NEGATIVE (< 200 ng/mL); Benzodiazepine Urine VISTA NEGATIVE (< 200 ng/mL); Cocaine Urine VISTA NEGATIVE (< 300 ng/mL); Ecstacy Urine VISTA NEGATIVE (< 500 ng/mL); Methadone Urine VISTA NEGATIVE (< 300 ng/mL); PCP Urine VISTA NEGATIVE (< 25 ng/mL); THC Urine VISTA NEGATIVE (< 50 ng/mL); Vista UDS pH Range 8
== END | disposition home or self-care (01) ==
PROVIDERS: PCP Internal Medicine; Referring Provider Anesthesiology Pain Medicine; Visit Provider Anesthesiology Pain Medicine
DX: F11.20 Opioid dependence, uncomplicated (principal)
CPT/HCPCS: 80307

== ENCOUNTER 2022-07-26 17:38 | Observation (INO) | payer MEDICARE, BC, SELFPAY ==
[2022-07-26 17:40] VITALS: BP 167/85; PULSE 60; RESP 13; TEMP 36.2; O2SAT 95; BMI 26.6
[2022-07-26 17:48] VITALS: BMI 26.6
--- NOTE | 2022-07-26 19:07 | EKG12_ITS ---
Test Reason : DYSRHYTHMIA Blood Pressure : / mmHG Vent. Rate : 060 BPM Atrial Rate : 060 BPM P-R Int : 234 ms QRS Dur : 154 ms QT Int : 488 ms P-R-T Axes : 000 -36 090 degrees QTc Int : 488 ms Atrial-paced rhythm with prolonged AV conduction Left axis deviation Left bundle branch block Abnormal ECG Confirmed by KODY MONTES, MIAH ([id number]), technical writer and editor ZEESHAN HOANG ([id number]) on 07/29/2022 7:52:44 AM Referred By: FABI Confirmed By:MIAH GATES MD
--- NOTE | 2022-07-26 19:07 | CT_ITS ---
STUDY: CT BRAIN WITHOUT CONTRAST REASON FOR EXAM: Female, 81 years old. Headache RADIATION DOSAGE (If Supplied By Facility): CTDIvol = ( 44.99 ) mGy, DLP = ( 796.11 ) mGycm TECHNIQUE: Transaxial CT imaging of the brain was performed without administration of intravenous contrast material. Individualized dose optimization techniques were used for this CT. COMPARISON: 03/20/2022 FINDINGS: Normal soft tissue structures. Normal calvarium. There is mild cerebral atrophy with widening of the extra-axial spaces and ventricular dilatation. There are areas of decreased attenuation within the white matter tracts of the supratentorial brain, consistent with microvascular disease changes. Normal basal ganglia and thalami. Normal brainstem. Normal cerebellum. There is no intracranial hemorrhage. There are no findings of an acute ischemic infarction. Normal visualized paranasal sinuses. CT/Brain/Head without Contrast IMPRESSION: Chronic involutional changes of the brain. Electronically Signed: Lefty Meraz MD at 20:32 EDT ,
--- NOTE | 2022-07-26 19:09 | ED.VIS.STROK ---
HPI History of Present Illness Chief Complaint: Neuro S/Sx Narrative Narrative: This is an 81-year-old female presenting with an episode where she states she could not speak and was having trouble moving both her arms. This occurred today at about 1500. Patient states she was folding towels when this occurred. She was standing on a stool when this occurred and she felt weak and slid down. She did not hit her head or losing consciousness. Patient states she had a migraine last Thursday and she had features of aura which she typically has. She states that she took an Imitrex and also started to have facial and left arm paresthesias. She also states she had difficulty speaking. She states that these eventually resolved. She saw her primary care physician this week who ordered an MRA and MRI for her. He started on Plavix. They state they cannot get this done until mid July. The patient followed up with her financial services education consultant who agreed with this work-up. She was told that if she had return of her symptoms that she should come to the ER out of concern for TIAs. She is presenting today because she presented this afternoon. She denies history of stroke or TIA. She does have history of aura with her migraines and she has a distant history of the paresthesias occurring with her migraines but she states she has not had these for a very long time. Now they seem to be more persistent. She still complains of a right-sided headache. Is not having oral currently. Not having trouble speaking or having any paresthesias at this time. [facility] Medical History Ascending aortic aneurysm Atrophic vaginitis Breast cancer Cervicalgia Degeneration of lumbar or lumbosacral intervertebral disc Diabetes Diverticulitis large intestine Essential hypertension Essential tremor Family history of colon cancer in father Generalized osteoarthrosis, unspecified site Hypertension IBS (irritable bowel syndrome) Migraine with aura Other osteoporosis without current pathological fracture Overactive bladder PAC (premature atrial contraction) PVC (premature ventricular contraction) Type 2 diabetes mellitus without complication, without long-term current use of insulin Home Medications alendronate 70 mg tablet 70 mg PO SA BONES 10/03/17 [History Last Taken 03/05/19] aspirin 81 mg chewable tablet 81 mg PO DAILY@0800 HEART HEALTH 10/03/17 [History Last Taken 03/10/19] dicyclomine 10 mg capsule 10 mg PO 4X/DAY PRN PRN Irritable Bowel Syndrome 10/03/17 [History Last Taken 12/25/18] estradiol 0.01% (0.1 mg/gram) vaginal cream 1 dose vaginal LOVE PRN vaginal dryness 10/03/17 [History Last Taken 03/06/19] magnesium oxide 400 mg (241.3 mg magnesium) tablet 400 mg PO DAILY SUPPLEMENT 10/03/17 [History Last Taken 03/11/19] multivitamin with folic acid 400 mcg tablet 1 tab PO DAILY SUPPLEMENT 10/03/17 [History Last Taken 03/11/19] nateglinide 60 mg tablet 60 mg PO TID PRN sugar 10/03/17 [History Last Taken 12/25/18] oxybutynin chloride 5 mg tablet 5 mg PO QHS BLADDER 10/03/17 [History Last Taken 03/10/19] sumatriptan succinate 50 mg tablet 50 mg PO .X1 PRN PRN Headache 10/03/17 [History Last Taken 03/05/19] tramadol 50 mg tablet 50 mg PO Q4H PRN PRN Pain 10/03/17 [History Last Taken 03/07/19] amitriptyline 10 mg tablet 20 mg PO QHS BP 04/05/18 [History Last Taken 03/10/19] sotalol 120 mg tablet 120 mg PO BID HEART 12/25/18 [History Last Taken 03/11/19] potassium chloride 20 mEq tablet,extended release(part/cryst) 20 tab PO DAILY POTASSIUM 01/19/19 [History Last Taken 03/10/19] acetaminophen 500 mg tablet 500 mg PO PRN PRN Pain 03/11/19 [History Last Taken 03/11/19] atenolol 100 mg tablet 100 mg PO DAILY HEART 03/11/19 [History Last Taken 03/11/19] losartan 100 mg tablet 50 mg PO DAILY BP 03/11/19 [History Last Taken 03/11/19] metformin 500 mg tablet,extended release 24 hr 500 mg PO QHS DM 03/11/19 [History Last Taken 03/10/19] omega-3 fatty acids-fish oil 340 mg-1,000 mg capsule 1,000 mg PO BID SUPPLEMENT 03/11/19 [History Last Taken 03/11/19] pravastatin 10 mg tablet 10 mg PO QHS CHOLESTEROL 03/11/19 [History Last Taken 03/10/19] calcium carbonate 500 mg-vitamin D3 10 mcg (400 unit) tablet (Calcium 500 With D) 1 tab PO DAILY 10/17/19 [History Last Taken Unknown] furosemide 20 mg tablet 20 mg PO DAILY 10/17/19 [History Last Taken Unknown] pantoprazole 40 mg tablet,delayed release 40 mg PO DAILY 10/17/19 [History Last Taken Unknown] metformin 500 mg tablet 500 mg PO .AM PRN steroid injection 05/24/21 [History Last Taken Unknown] clopidogrel 75 mg tablet (Plavix) 75 mg PO DAILY 07/26/22 [History Last Taken Unknown] hydrochlorothiazide 12.5 mg capsule 12.5 mg PO DAILY 07/26/22 [History Last Taken Unknown] Allergy/AdvReac Type Severity Reaction Status Date / Time procaine HCl [From Novocain] Allergy Anaphylaxis Verified 07/26/22 17:47 albuterol AdvReac Tachycardia Verified 07/26/22 17:47 cetirizine AdvReac Other Verified 07/26/22 17:47 codeine AdvReac Vomiting Verified 07/26/22 17:47 gabapentin AdvReac Mental Verified 07/26/22 17:47 Status Change/Fatigue hydrochlorothiazide AdvReac Other Verified 07/26/22 17:47 lisinopril AdvReac Cough Verified 07/26/22 17:47 morphine AdvReac Vomiting Verified 07/26/22 17:47 pregabalin AdvReac Other Verified 07/26/22 17:47 Sulfa (Sulfonamide AdvReac Other Verified 07/26/22 17:47 Antibiotics) Family History Mother Diabetes Ovarian cancer Father Cancer bladder thyroid Colon cancer Hypertension Surgical History femoral hernia repair H/O aortic valve replacement H/O elbow surgery H/O left mastectomy History of open heart surgery Hx of appendectomy S/P CODIE (total abdominal hysterectomy) S/P TAVR (transcatheter aortic valve replacement) Social History (Updated 07/26/22 @ 20:[address] Saranya Romero MD) household members: spouse Smoking Status: Never smoker alcohol intake: never substance use type: does not use caffeine: No what type of physical activity do you participate in: walking seatbelt use: always do you feel safe at home: Yes additional social history: Don- Retired Patient is retired ROS ROS ED Constitutional Constitutional ED: Denies chills or fever(s) Eyes Eyes: Reports other Details: Visual aura ENT ENT ED: Denies rhinorrhea or sore throat Cardiovascular Cardiovascular: Denies chest pain or palpitations Respiratory/Chest Respiratory/Chest: Denies cough or dyspnea Gastrointestinal Gastrointestinal: Denies abdominal pain Genitourinary Genitourinary ED: Denies dysuria or hematuria Musculoskeletal Musculoskeletal: Denies arthralgias or back pain Integumentary Denies abscess or Abrasions Neurologic Neurologic: Reports headache(s), paresthesias RUE and LUE and weakness Psychiatric Psychiatric: Denies anxiety or depression EXAM Physical Exam Const Vital Signs: 07/26/22 17:40 07/26/22 20:43 Temperature 97.2 F L Temperature Source Oral Pulse Rate 60 67 Respiratory Rate 13 24 H Blood Pressure 167/85 H Blood Pressure Mean 112 Pulse Ox 95 96 Oxygen Delivery Method Room Air Positive well nourished General Appearance ED: NAD HEENT Reports moist mucous membranes Eyes PERRL and EOMs intact bilaterally Neck no lymphadenopathy Chest Wall inspection of chest normal and palpation of chest normal Resp normal respiratory effort Auscultation: Negative for rales, rhonchi or wheezes Cardio Rate: regular rate GI normal to inspection, nondistended, normoactive bowel sounds Extremity General Extremety ED: Negative for deformity General Extremity: Negative for deformity Neuro oriented x3, CN's II-XII intact bilaterally and no sensory deficits noted Neuro Narrative: No focal neurologic deficits or lateralizing signs or symptoms. NIH stroke scale of 0. Sensorium / Orientation: alert Speech: speech normal Psych mental status grossly normal MDM MDM MDM Narrative Medical decision making narrative: 81-year-old female with history of complex migraines presenting with concern for possible TIA as her symptoms have been persistent. I think she will score is 0. She does report she was having difficulty moving her arms as well as having paresthesias both on her left arm and her right arm. She also states that she has a facial paresthesias. Is not present on exam. These are consistent with her previous symptoms of complex migraines but since they are persistent she was sent to the ER. She was treated for migraine with Reglan and Benadryl. CT of the brain was obtained and is negative for acute intracranial findings. Chest x-ray my interpretation shows no acute cardiopulmonary process and the radiologist agree. EKG on my interpretation shows atrial paced rhythm with a ventricular rate of 60 bpm without sign of ischemic change. CBC and BMP are unremarkable. High-sensitivity troponin is 8. Patient has had no neurologic findings since she has been in the ER. I spoke with the hospitalist to admit her for TIA. Impression: 1. TIA 2. History of complex migraine Lab Data Attestation: I reviewed the patient's lab results. Labs: Laboratory Results - last 24 hr 07/26/22 07/26/22 07/26/22 17:50 17:50 19:51 WBC 5.5 RBC 3.98 L Hgb 12.4 Hct 35.2 L MCV 88.4 MCH 31.2 MCHC 35.2 RDW Std Deviation 40.8 RDW Coeff of Celia 12.6 Plt Count 207 MPV 9.6 Immature Gran % (Auto) 0.200 Neut % (Auto) 59.3 Lymph % (Auto) 27.3 [place] % (Auto) 10.8 H Eos % (Auto) 2.0 Baso % (Auto) 0.4 Absolute Neuts (auto) 3.2 Absolute Lymphs (auto) 1.49 Nucleated RBC % 0 Sodium 130 L Potassium 3.8 Chloride 95 L Carbon Dioxide 26.0 Anion Gap 9 BUN 15 Creatinine 0.89 Estim Creat Clear Calc 39.62 Est GFR (MDRD) Af Amer 78 Est GFR (MDRD) Non-Af 64 BUN/Creatinine Ratio 16.9 Glucose 143 H Calcium 9.1 Troponin I High Sens 8 POC Glucose 170 H Radiography Diagnostic Testing: Clinical Impression(s) from Imaging Studies Brain CT 07/26/22 19:07 IMPRESSION: Chronic involutional changes of the brain. Electronically Signed: Lefty Meraz MD at 20:32 EDT , Chest X-Ray 07/26/22 19:18 IMPRESSION: No active disease. Electronically Signed: Lefty Meraz MD at 19:39 EDT , Discharge Plan Triage Chief Complaint: Neuro S/Sx ED Provider: Yousif Bergeron Dx/Rx/DC Orders Prescriptions: No Action amitriptyline 10 mg tablet 20 mg PO QHS calcium carbonate-vitamin D3 [Calcium 500 With D] 500 mg(1,250mg) -400 unit tablet 1 tab PO DAILY furosemide 20 mg tablet 20 mg PO DAILY pantoprazole 40 mg tablet,delayed release (DR/EC) 40 mg PO DAILY metformin 500 mg tablet 500 mg PO .AM PRN (Reason: steroid injection) Rx Instructions: Take 1 tablet PO daily with breakfast. Take for 2 weeks, in addition to PM dose, after steroid injection alendronate 70 MG tablet 70 mg PO SA sumatriptan succinate 50 MG tablet 50 mg PO .X1 PRN PRN (Reason: Headache) tramadol 50 MG tablet 50 mg PO Q4H PRN PRN (Reason: Pain) nateglinide 60 MG tablet 60 mg PO TID PRN (Reason: sugar) Rx Instructions: only take this when she gets a steroid neck injection--last injection 12/21/18 magnesium oxide 400 MG tablet 400 mg PO DAILY aspirin 81 MG tablet,chewable 81 mg PO DAILY@0800 estradiol 42.5 GM cream 1 dose VAGINAL LOVE PRN (Reason: vaginal dryness) oxybutynin chloride 5 MG tablet 5 mg PO QHS dicyclomine 10 MG capsule 10 mg PO 4X/DAY PRN PRN (Reason: Irritable Bowel Syndrome) multivitamin with folic acid 1 TABLET tablet 1 tab PO DAILY sotalol 120 MG tablet 120 mg PO BID potassium chloride 20 MEQ tablet,ER particles/crystals 20 tab PO DAILY acetaminophen 500 MG tablet 500 mg PO PRN PRN (Reason: Pain) atenolol 100 MG tablet 100 mg PO DAILY pravastatin 10 MG tablet 10 mg PO QHS losartan 100 MG tablet 50 mg PO DAILY metformin 500 MG tablet 500 mg PO QHS omega-3 fatty acids-fish oil 1 EACH capsule 1,000 mg PO BID clopidogrel [Plavix] 75 mg Tablet 75 mg PO DAILY hydrochlorothiazide 12.5 mg Capsule 12.5 mg PO DAILY Primary Care Provider: Terence Kaur Referrals: Terence Kaur MD [Primary Care Provider] -
--- NOTE | 2022-07-26 19:18 | RAD_ITS ---
STUDY: X-RAY CHEST REASON FOR EXAM: Female, 81 years old. Weakness TECHNIQUE: Single AP portable view of the chest. 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 Status post median sternotomy. The lungs are clear and expanded. There is no demonstrated pleural abnormality. Normal size heart. Normal mediastinum and era. Normal visualized pulmonary arteries. Normal visualized aortic arch and descending thoracic aorta. Normal visualized thoracic spine. Normal visualized ribs, clavicles, and shoulders. There is no demonstrated abnormality of the visualized soft tissue structures of the upper abdomen. RAD/Chest 1 View (Portable) IMPRESSION: No active disease. Electronically Signed: Lefty Meraz MD at 19:39 EDT ,
[2022-07-26 19:20] LABS: Absolute Lymphocyte Count 1.49 X10^3/uL (0.83-4.51); Absolute Neutrophil Count 3.2 X10^3/uL (2.0-7.7); Basophil# 0.02 X10^3/uL; Basophil% 0.4 % (0-1); Eosinophil# 0.11 X10^3/uL; Hematocrit 35.2 % (37-47); Hemoglobin 12.4 g/dL (12.0-15.0); Lymphocyte # 1.49 X10^3/ul (0.83-4.51); Lymphocyte % 27.3 % (19-41); Mean Corp Hgb Conc 35.2 g/dL (32-36); Mean Corpuscular Hgb 31.2 pg (27.0-32.0); Mean Corpuscular Volume 88.4 fL (81-99); Mean Platelet Vol. 9.6 fl (6.2-12.0); Monocyte# 0.59 X10^3/uL; Monocyte% 10.8 % (0-10); NRBC Flagged by Analyzer 0 % (0-5); Neutrophil # 3.23 X10^3/uL (2.7-7.7); Neutrophil % 59.3 % (47-70); Platelet Count 207 K/mm3 (150-450); RBC Distribution Width CV 12.6 % (11.6-14.6); RBC Distribution Width SD 40.8 fl (35.1-43.9); Red Blood Count 3.98 M/mm3 (4.2-5.4); White Blood Count 5.5 K/mm3 (4.4-11.0)
[2022-07-26] MEDS: Metoclopramide 10 MG/2 ML Vial IV (19:27)
[2022-07-26] MEDS: DiphenhydrAMINE 50 MG/ML Syringe 25 MG IV (19:27)
[2022-07-26 19:37] LABS: Anion Gap 9 (5-15); BUN 15 mg/dL (7-18); BUN/Creat Ratio 16.9 RATIO (10-20); Calcium,Total 9.1 mg/dL (8.5-10.1); Chloride 95 mmol/L (98-107); Creatinine, Serum 0.89 mg/dL (0.55-1.02); EST Glomerular Filtration Rate 64 mL/min (>60); Est Glom Filt Rate - Afr Amer 78 mL/min (>60); Estimated Creatinine Clearance 39.62 ml/min; Glucose 143 mg/dL (74-106); Potassium 3.8 mmol/L (3.5-5.1); Sodium Level 130 mmol/L (136-145); Troponin-I HS 8 pg/mL (3.0-54.0)
[2022-07-26 20:11] LABS: Bedside Glucose 170 mg/dL (74-106)
[2022-07-26 20:43] VITALS: PULSE 67; RESP 24; O2SAT 96
--- NOTE | 2022-07-26 20:51 | PCM.HP.STD ---
HPI - General General Date of Admission: 07/26/22 Date of Service: 07/26/22 Chief Complaint: Headache, paresthesias, BL UE weakness. HPI Narrative The patient is an 81 y/o F w/ PMHx: Chronic AF s/p pacemaker placement which is MRI compatible, Legally blind R eye, Hx AAA, Hx Breast CA s/p L mastectomy in remission, Diabetes mellitus type II, Valvular Heart Disease s/p TAVR, HTN, HLD, GERD, Hx migraine with aura, Essential tremor who presents to the [facility] ED on 07/26/22 with history of onset approximately 1500 on day of presentation episode of expressive aphasia as well as difficulty moving both upper extremities noted to of started while she was attempting to fold reportedly becoming very weak and sliding down with no specific fall nor any trauma to the head or loss of consciousness with most recent migraine reportedly the Thursday prior with aura similar to her usual with self administration of Imitrex at that time however she also reported that she did have left facial and left upper extremity paresthesias as well as some difficulty speaking which resolved prompting PCP evaluation with MRI brain and MRA head at that time with initiation on Plavix however unfortunately the images were not able to be done until mid July with recommendation to present to the ED if any recurrent symptoms. Patient does report as noted history of aura with her migraines and that she does have a distant history of paresthesias occurring with these but it has been remote since this is occurred. She does note an ongoing right-sided headache, notes it extends over her R eye with aching pressure sensation, rated 6/10 in severity without any light or sound sensitivity. Currently her expressive aphasia and paresthesias as well as upper extremity weakness seems to is resolved. Work-up in the ED included T97.2, heart rate 60, BP 167/85, respiratory rate 13, 95% on room air, CBC with WC 5.5, hemoglobin 12.4, platelet 207 without marked shift, BMP with sodium 130, chloride 95, glucose 143, troponin 8, chest x-ray with no acute cardiopulmonary findings, CT brain with chronic involutional changes with no acute intracranial findings, EKG paced without acute evidence of ischemia. In the ED patient administered Reglan 10 mg IV x1 as well as Benadryl 25 mg IV x1 given migraine history. [facility] Medical History Ascending aortic aneurysm Atrophic vaginitis Breast cancer Cervicalgia Degeneration of lumbar or lumbosacral intervertebral disc Diabetes Diverticulitis large intestine Essential hypertension Essential tremor Family history of colon cancer in father Generalized osteoarthrosis, unspecified site Hypertension IBS (irritable bowel syndrome) Migraine with aura Other osteoporosis without current pathological fracture Overactive bladder PAC (premature atrial contraction) PVC (premature ventricular contraction) Type 2 diabetes mellitus without complication, without long-term current use of insulin Home Medications alendronate 70 mg tablet 70 mg PO SA BONES 10/03/17 [History Last Taken 03/05/19] aspirin 81 mg chewable tablet 81 mg PO DAILY@0800 HEART HEALTH 10/03/17 [History Last Taken 03/10/19] dicyclomine 10 mg capsule 10 mg PO 4X/DAY PRN PRN Irritable Bowel Syndrome 10/03/17 [History Last Taken 12/25/18] estradiol 0.01% (0.1 mg/gram) vaginal cream 1 dose vaginal LOVE PRN vaginal dryness 10/03/17 [History Last Taken 03/06/19] magnesium oxide 400 mg (241.3 mg magnesium) tablet 400 mg PO DAILY SUPPLEMENT 10/03/17 [History Last Taken 03/11/19] multivitamin with folic acid 400 mcg tablet 1 tab PO DAILY SUPPLEMENT 10/03/17 [History Last Taken 03/11/19] nateglinide 60 mg tablet 60 mg PO TID PRN sugar 10/03/17 [History Last Taken 12/25/18] oxybutynin chloride 5 mg tablet 5 mg PO QHS BLADDER 10/03/17 [History Last Taken 03/10/19] sumatriptan succinate 50 mg tablet 50 mg PO .X1 PRN PRN Headache 10/03/17 [History Last Taken 03/05/19] tramadol 50 mg tablet 50 mg PO Q4H PRN PRN Pain 10/03/17 [History Last Taken 03/07/19] amitriptyline 10 mg tablet 20 mg PO QHS BP 04/05/18 [History Last Taken 03/10/19] sotalol 120 mg tablet 120 mg PO BID HEART 12/25/18 [History Last Taken 03/11/19] potassium chloride 20 mEq tablet,extended release(part/cryst) 20 tab PO DAILY POTASSIUM 01/19/19 [History Last Taken 03/10/19] acetaminophen 500 mg tablet 500 mg PO PRN PRN Pain 03/11/19 [History Last Taken 03/11/19] atenolol 100 mg tablet 100 mg PO DAILY HEART 03/11/19 [History Last Taken 03/11/19] losartan 100 mg tablet 50 mg PO DAILY BP 03/11/19 [History Last Taken 03/11/19] metformin 500 mg tablet,extended release 24 hr 500 mg PO QHS DM 03/11/19 [History Last Taken 03/10/19] omega-3 fatty acids-fish oil 340 mg-1,000 mg capsule 1,000 mg PO BID SUPPLEMENT 03/11/19 [History Last Taken 03/11/19] pravastatin 10 mg tablet 10 mg PO QHS CHOLESTEROL 03/11/19 [History Last Taken 03/10/19] calcium carbonate 500 mg-vitamin D3 10 mcg (400 unit) tablet (Calcium 500 With D) 1 tab PO DAILY 10/17/19 [History Last Taken Unknown] furosemide 20 mg tablet 20 mg PO DAILY 10/17/19 [History Last Taken Unknown] pantoprazole 40 mg tablet,delayed release 40 mg PO DAILY 10/17/19 [History Last Taken Unknown] metformin 500 mg tablet 500 mg PO .AM PRN steroid injection 05/24/21 [History Last Taken Unknown] clopidogrel 75 mg tablet (Plavix) 75 mg PO DAILY 07/26/22 [History Last Taken Unknown] hydrochlorothiazide 12.5 mg capsule 12.5 mg PO DAILY 07/26/22 [History Last Taken Unknown] Allergy/AdvReac Type Severity Reaction Status Date / Time procaine HCl [From Novocain] Allergy Anaphylaxis Verified 07/26/22 17:47 albuterol AdvReac Tachycardia Verified 07/26/22 17:47 cetirizine AdvReac Other Verified 07/26/22 17:47 codeine AdvReac Vomiting Verified 07/26/22 17:47 gabapentin AdvReac Mental Verified 07/26/22 17:47 Status Change/Fatigue hydrochlorothiazide AdvReac Other Verified 07/26/22 17:47 lisinopril AdvReac Cough Verified 07/26/22 17:47 morphine AdvReac Vomiting Verified 07/26/22 17:47 pregabalin AdvReac Other Verified 07/26/22 17:47 Sulfa (Sulfonamide AdvReac Other Verified 07/26/22 17:47 Antibiotics) Family History Mother Diabetes Ovarian cancer Father Cancer bladder thyroid Colon cancer Hypertension Surgical History femoral hernia repair H/O aortic valve replacement H/O elbow surgery H/O left mastectomy History of open heart surgery Hx of appendectomy S/P CODIE (total abdominal hysterectomy) S/P TAVR (transcatheter aortic valve replacement) Social History (Updated 07/26/22 @ 20:[address] Saranya Romero MD) household members: spouse Smoking Status: Never smoker alcohol intake: never substance use type: does not use caffeine: No what type of physical activity do you participate in: walking seatbelt use: always do you feel safe at home: Yes additional social history: Don- Retired Patient is retired ROS ROS Narrative Admission Review of Systems: CONSTITUTIONAL: No weight loss, fever, chills, + weakness or fatigue. HEENT: + headache, facial and extremity paresthesias. Eyes: No visual loss, blurred vision, double vision or yellow sclerae. Ears, Nose, Throat: No hearing loss, sneezing, congestion, runny nose or sore throat. SKIN: No rash or itching, lesions, wounds. CARDIOVASCULAR: No chest pain, chest pressure or chest discomfort, palpitations, edema, orthopnea, syncopal events. RESPIRATORY: No shortness of breath, cough or sputum, wheezing, hemoptysis. GASTROINTESTINAL: No anorexia, nausea, vomiting or diarrhea, abdominal pain, melena, BRBPR. GENITOURINARY: No dysuria, frequency, urgency or retention. NEUROLOGICAL: + headache, paresthesias, BL UE weakness, No dizziness, syncope, paralysis, ataxia, change in bowel or bladder control, seizure. MUSCULOSKELETAL: No muscle, back pain, joint pain or stiffness. HEMATOLOGIC: No anemia, bleeding or bruising. LYMPHATICS: No enlarged nodes. No history of splenectomy. PSYCHIATRIC: No history of depression or anxiety. ENDOCRINOLOGIC: No reports of sweating, cold or heat intolerance. No polyuria or polydipsia. ALLERGIES: No history of asthma, hives, eczema or rhinitis. Vital Signs Vital Signs Vital Signs: 07/26/22 17:40 07/26/22 20:43 Temperature 97.2 F L Temperature Source Oral Pulse Rate 60 67 Respiratory Rate 13 24 H Blood Pressure 167/85 H Blood Pressure Mean 112 Pulse Ox 95 96 Oxygen Delivery Method Room Air Weight Weight: 150 lb 2.157 oz Body Mass Index (BMI) 26.6 Results Lab / Micro Data Result Diagrams: 07/26/22 17:50 07/26/22 17:50 Labs: Laboratory Results - last 24 hr 07/26/22 17:50: WBC 5.5, RBC 3.98 L, Hgb 12.4, Hct 35.2 L, MCV 88.4, MCH 31.2, MCHC 35.2, RDW Std Deviation 40.8, RDW Coeff of Celia 12.6, Plt Count 207, MPV 9.6, Immature Gran % (Auto) 0.200, Neut % (Auto) 59.3, Lymph % (Auto) 27.3, [place] % (Auto) 10.8 H, Eos % (Auto) 2.0, Baso % (Auto) 0.4, Absolute Neuts (auto) 3.2, Absolute Lymphs (auto) 1.49, Nucleated RBC % 0 07/26/22 17:50: Sodium 130 L, Potassium 3.8, Chloride 95 L, Carbon Dioxide 26.0, Anion Gap 9, BUN 15, Creatinine 0.89, Estim Creat Clear Calc 39.62, Est GFR (MDRD) Af Amer 78, Est GFR (MDRD) Non-Af 64, BUN/Creatinine Ratio 16.9, Glucose 143 H, Calcium 9.1, Troponin I High Sens 8 07/26/22 19:51: POC Glucose 170 H Radiology Impression Brain CT 07/26/22 19:07 IMPRESSION: Chronic involutional changes of the brain. Electronically Signed: Lefty Meraz MD at 20:32 EDT , Chest X-Ray 07/26/22 19:18 IMPRESSION: No active disease. Electronically Signed: Lefty Meraz MD at 19:39 EDT , Assessment & Plan Assessment/Plan (1) TIA (transient ischemic attack): PLAN: Plan The patient is an 81 y/o F w/ PMHx: Chronic AF s/p pacemaker placement which is MRI compatible, Legally blind R eye, Hx AAA, Hx Breast CA s/p L mastectomy in remission, Diabetes mellitus type II, Valvular Heart Disease s/p TAVR, HTN, HLD, GERD, Hx migraine with aura, Essential tremor who presents to the [facility] ED on 07/26/22 with history of onset approximately 1500 on day of presentation episode of expressive aphasia as well as difficulty moving both upper extremities noted to of started while she was attempting to fold reportedly becoming very weak and sliding down with no specific fall nor any trauma to the head or loss of consciousness with most recent migraine reportedly the Thursday prior with aura similar to her usual with self administration of Imitrex at that time however she also reported that she did have left facial and left upper extremity paresthesias as well as some difficulty speaking which resolved prompting PCP evaluation with MRI brain and MRA head at that time with initiation on Plavix however unfortunately the images were not able to be done until mid July with recommendation to present to the ED if any recurrent symptoms. #1. Expressive aphasia, bilateral upper extremity weakness, paresthesias, headache concerning for possible TIA versus complex migraine with history of complex migraines with aura with prior episodes of paresthesias and weakness to the extremities: Will admit to PCU to be cautious, will obtain MRI Brain, MRA Head and carotid ultrasound, will defer repeat ECHO as performed 12/25/2018 with CVA/TIA evaluation at that time with similar presentation however at that time patient had right-sided paresthesias and weakness, PT/OT/Speech/Nutrition evaluation per protocol. Will allow permissive HTN given possible concern for TIA, maintain on asa/plavix, statin w/ AM FLP, fall precautions. If MRI of the brain is negative then would immediately broaden migraine regimen with toradol low dose scheduled regimen and administer imitrex; however, for now until MRI obtained will maintian on IV VPA 500mg Q6 hours, IV Decadron 4mg Q6 hours. She notes severe lethargy/confusion with gabapentin of note. Magnesium, TSH, FLP, hemoglobin A1c requested. Also requested neurology consultation. #2. Chronic AF: Noted in prior history, s/p pacemaker placement, temporarily holding hypertensive regimen as noted but will continue sotalol per discussion with patient, from current list of medications not on any chronic anticoagulation, but clarifying as do note prescription 01/15/2022 for Eliquis but did have ED evaluation 03/20/2022 with mechanical fall at that time and in the note it reports that she only takes aspirin 81 mg daily. She noted that her electronic bench technician in [facility] has taken her off the anticoagulation and she had only been on asa until recent PCP start of plavix with current symptom onset. Given history would certainly opt to restart but per discussion with patient would opt for neurology input per her preference. #3. Hypertension: We will maintain permissive hypertension pending work-up as noted above. #4. Hyperlipidemia: Continue home statin regimen. AM FLP. #5. History of breast cancer: Unclear specific type, status post left mastectomy, considered in remission. #6. Diabetes mellitus type II: Hold oral home regimen, hemoglobin A1c requested, nutrition consultation for education and teaching per stroke protocol, ADA diet, accu checks w/ ISS. #7. Valvular heart disease: Status post TAVR, 12/25/2018 echocardiogram with normal LV size, mild concentric LVH, EF 50%, stage I diastolic dysfunction, mild MVI, mild TVI, mean AV gradient 24 mmHg, mild AV insufficiency with evidence of bioprosthetic aortic valve specifically at that time performed secondary to TIA/CVA. #8. GERD: We will continue patient on PPI. #9. DVT prophylaxis: SCDs, lovenox as noted pending Neurology input for consideration restart eliquis. #10. CODE status: Patient HCPOA and living will is not set up but they do have the information and note intentions to perform these. Discussed CODE status at length including difference between FULL code, DNR-CCA and DNR-CC status. Following discussions about the differences in these status, requested Full Code status. Advanced Care Planning Face to Face Time: 16 minutes. Charges/Coding Visit Charges OBSV E&M: 41830 Initial observation care L3 Procedures Hospitalists Procedures: 81419 Advncd Care Plan 30 Min
[2022-07-26] MEDS: Aspirin 325 MG Tablet PO (20:56)
[2022-07-26 21:03] VITALS: BP 167/85; PULSE 60; RESP 15; TEMP 36.2; O2SAT 96
[2022-07-26 21:03] LABS: Magnesium 1.9 mg/dL (1.6-2.6)
--- NOTE | 2022-07-26 21:47 | TELEMED_ITS ---
[facility] Tele[facility] has confirmed receipt of a request for visit. This document confirms receipt of the order initiating the consult. To find the results of the consultation, please view the patient's reports for the scanned Telemed Consult.
[2022-07-26 21:48] VITALS: PULSE 60; BMI 25.8
[2022-07-26 22:00] VITALS: BP 173/73; PULSE 60; RESP 18; TEMP 36.6; O2SAT 98
[2022-07-26] MEDS: 0.9% Normal Saline 1,000 ML 100 ML IV (22:32)
[2022-07-26] MEDS: Sotalol Hydrochloride 80 MG Tablet 120 MG PO (22:33)
[2022-07-26] MEDS: Amitriptyline 10 MG Tablet 20 MG PO (22:34)
[2022-07-26] MEDS: Oxybutynin 5 MG Tablet PO (22:35)
[2022-07-26] MEDS: Pravastatin 20 MG Tablet 10 MG PO (22:35)
[2022-07-26] MEDS: dexAMETHasone 4 MG/ML Vial IV (22:36)
[2022-07-26] MEDS: 0.9% Saline Lock 10 ML Syringe IV (22:36)
[2022-07-26 22:50] LABS: Bedside Glucose 113 mg/dL (74-106)
[2022-07-26 23:00] VITALS: BP 167/61; PULSE 58; RESP 18; TEMP 36.5; O2SAT 98
[2022-07-27] VITALS (11 sets, daily range): BP systolic 126–170; BP diastolic 50–67; PULSE 60–77; RESP 16–20; TEMP 36.4–37.2; O2SAT 94–99; BMI 25.8
[2022-07-27 04:52] LABS: Absolute Lymphocyte Count 0.97 X10^3/uL (0.83-4.51); Absolute Neutrophil Count 2.9 X10^3/uL (2.0-7.7); Basophil# 0.01 X10^3/uL; Basophil% 0.3 % (0-1); Eosinophil# 0.01 X10^3/uL; Eosinophils% 0.3 % (0-5); Hematocrit 35.5 % (37-47); Hemoglobin 12.4 g/dL (12.0-15.0); Lymphocyte # 0.97 X10^3/ul (0.83-4.51); Lymphocyte % 24.4 % (19-41); Mean Corp Hgb Conc 34.9 g/dL (32-36); Mean Corpuscular Hgb 30.5 pg (27.0-32.0); Mean Corpuscular Volume 87.2 fL (81-99); Mean Platelet Vol. 9.5 fl (6.2-12.0); Monocyte% 2.5 % (0-10); NRBC Flagged by Analyzer 0 % (0-5); Neutrophil # 2.87 X10^3/uL (2.7-7.7); Neutrophil % 72.2 % (47-70); Platelet Count 170 K/mm3 (150-450); RBC Distribution Width CV 12.4 % (11.6-14.6); RBC Distribution Width SD 39.8 fl (35.1-43.9); Red Blood Count 4.07 M/mm3 (4.2-5.4)
[2022-07-27 05:32] LABS: ALB/GLOB Ratio 1.1 RATIO (0.9-2.4); AST(SGOT) 18 U/L (15-37); Alanine Aminotransfer ALT/SGPT 23 U/L (13-56); Albumin, Serum 3.1 g/dL (3.2-5.0); Alkaline Phosphatase 63 U/L (45-117); Anion Gap 9 (5-15); BUN 12 mg/dL (7-18); BUN/Creat Ratio 16.2 RATIO (10-20); Calcium,Total 8.3 mg/dL (8.5-10.1); Chloride 95 mmol/L (98-107); Cholesterol 148 mg/dL (200); Creatinine, Serum 0.74 mg/dL (0.55-1.02); EST Glomerular Filtration Rate 80 mL/min (>60); Est Glom Filt Rate - Afr Amer 96 mL/min (>60); Estimated Creatinine Clearance 35.26 ml/min; Globulin 2.9 g/dL (2.2-4.2); Glucose 171 mg/dL (74-106); High Density Lipoprotein 68 mg/dL; Potassium 3.7 mmol/L (3.5-5.1); Sodium Level 129 mmol/L (136-145); Thyroid Stim Hormone (TSH) 0.85 uIU/mL (0.358-3.74); Triglycerides 53 mg/dL; Very Low Density Lipoprotein 11 mg/dL (5-40)
--- NOTE | 2022-07-27 05:55 | CDU_ITS ---
Reason For Study: CVA Rt. Velocities/BP Lt. Velocities/BP Prox CCA 86/6 cm/sec. Prox CCA 89/5 cm/sec. Mid CCA 71/8 cm/sec. Mid CCA 78/8 cm/sec. Dist CCA 66/7 cm/sec. Dist CCA 58/8 cm/sec. Prox ICA 63/8 cm/sec. Prox ICA 71/10 cm/sec. Mid ICA 46/9 cm/sec. Mid ICA 117/16 cm/sec. Dist ICA 70/14 cm/sec. Dist ICA 61/10 cm/sec. Rt. ICA/CCA = 1.0. Lt. ICA/CCA = 1.5. Prox ECA 83 cm/sec. Prox ECA 75 cm/sec. Rt. Vert. 59/11 cm/sec. Lt. Vert. 50/7 cm/sec. Right Extracranial There is intimal thickening but no significant atherosclerotic plaque noted in the right common carotid artery. There is heterogeneous, smooth atherosclerotic plaque noted in the right internal carotid artery. The right internal carotid artery is very tortuous. There is no significant atherosclerotic plaque noted in the right external carotid artery. Antegrade flow is noted in the right vertebral artery. Left Extracranial There is heterogeneous, irregular atherosclerotic plaque noted in the left common carotid artery. There is heterogeneous, irregular atherosclerotic plaque noted in the left internal carotid artery. There is heterogeneous, irregular atherosclerotic plaque noted in the left external carotid artery. Antegrade flow is noted in the left vertebral artery. Procedure Carotid Duplex 36106. This is a Carotid Duplex examination using B-mode, color flow and specral Doppler. Exam performed portable in patient room. VL/Carotid Duplex Ultrasound Interpretation Summary Smooth plaque within the proximal right internal carotid artery with tortuosity noted and less than 50% stenosis. Less than 50% stenosis right external carotid artery Irregular calcific plaque with shadowing at the proximal left internal carotid artery with less than 50% stenosis Less than 50% stenosis left external carotid artery Patent and antegrade vertebral arteries bilaterally Ordering Physician: Saranya Romero Referring Physician: Terence Kaur Performed By: Ny Kumar, JAIRO, RVT
[2022-07-27] MEDS: dexAMETHasone 4 MG/ML Vial IV ×4 (06:10→23:44)
[2022-07-27] MEDS: Enoxaparin 40 MG/0.4 ML Syringe SC (06:10)
[2022-07-27 07:11] LABS: Bedside Glucose 155 mg/dL (74-106)
[2022-07-27] MEDS: Aspirin 81 MG TAB.CHEW PO (07:41)
[2022-07-27 08:17] LABS: Hemoglobin A1c 5.8 % (3.8-5.6)
[2022-07-27] MEDS: Sotalol Hydrochloride 80 MG Tablet 120 MG PO ×2 (09:18→21:23)
[2022-07-27] MEDS: Potassium Chloride Oral Tablet 20 MEQ PO (09:19)
[2022-07-27] MEDS: Clopidogrel Bisulfate 75 MG Tablet PO (09:20)
[2022-07-27] MEDS: Pantoprazole Sodium 40 MG Tablet PO (09:20)
[2022-07-27] MEDS: Acetaminophen 325 MG Tablet 650 MG PO ×2 (09:23→22:22)
--- NOTE | 2022-07-27 10:56 | PN.HOSP_ITS ---
Documented by User: Zakia Perez NP, GAME MODERATOR-C 07/27/22 11:13 Subjective Subjective Patient seen and examined. She reports return of headache, arm weakness with paresthesias which had previously resolved. Denies focal weakness. Denies vision or speech changes. Objective Data Objective Data Vital Signs: Vital Signs Temp Pulse Resp BP Pulse Ox O2 Del Method 97.5 F L 63 18 170/65 H 96 Room Air 07/27/22 07:00 07/27/22 07:00 07/27/22 07:00 07/27/22 07:00 07/27/22 07:38 07/27/22 07:38 Oxygen Delivery Method Room Air Weight: 145 lb 8.081 oz Body Mass Index (BMI) 25.8 Intake & Output: Intake and Output for Last 24 Hours 07/25/22 07/26/22 07/27/22 23:59 23:59 23:59 Intake Total 155 / 155 1155 / 1155 Output Total 0 / 0 Balance 155 / 155 1155 / 1155 Lab / Micro Data Result Diagrams: 07/27/22 04:10 07/27/22 04:10 Labs: Laboratory Results - last 24 hr 07/26/22 17:50: WBC 5.5, RBC 3.98 L, Hgb 12.4, Hct 35.2 L, MCV 88.4, MCH 31.2, MCHC 35.2, RDW Std Deviation 40.8, RDW Coeff of Celia 12.6, Plt Count 207, MPV 9.6, Immature Gran % (Auto) 0.200, Neut % (Auto) 59.3, Lymph % (Auto) 27.3, Harding % (Auto) 10.8 H, Eos % (Auto) 2.0, Baso % (Auto) 0.4, Absolute Neuts (auto) 3.2, Absolute Lymphs (auto) 1.49, Nucleated RBC % 0 07/26/22 17:50: Sodium 130 L, Potassium 3.8, Chloride 95 L, Carbon Dioxide 26.0, Anion Gap 9, BUN 15, Creatinine 0.89, Estim Creat Clear Calc 39.62, Est GFR (MDRD) Af Amer 78, Est GFR (MDRD) Non-Af 64, BUN/Creatinine Ratio 16.9, Glucose 143 H, Calcium 9.1, Troponin I High Sens 8 07/26/22 17:50: Magnesium 1.9 07/26/22 19:51: POC Glucose 170 H 07/26/22 22:31: POC Glucose 113 H 07/27/22 04:10: WBC 4.0 L, RBC 4.07 L, Hgb 12.4, Hct 35.5 L, MCV 87.2, MCH 30.5, MCHC 34.9, RDW Std Deviation 39.8, RDW Coeff of Celia 12.4, Plt Count 170, MPV 9.5, Immature Gran % (Auto) 0.300, Neut % (Auto) 72.2 H, Lymph % (Auto) 24.4, Harding % (Auto) 2.5, Eos % (Auto) 0.3, Baso % (Auto) 0.3, Absolute Neuts (auto) 2.9, Absolute Lymphs (auto) 0.97, Nucleated RBC % 0 07/27/22 04:10: Sodium 129 L, Potassium 3.7, Chloride 95 L, Carbon Dioxide 25.0, Anion Gap 9, BUN 12, Creatinine 0.74, Estim Creat Clear Calc 35.26, Est GFR (MDRD) Af Amer 96, Est GFR (MDRD) Non-Af 80, BUN/Creatinine Ratio 16.2, Glucose 171 H, Calcium 8.3 L, Total Bilirubin 0.60, AST 18, ALT 23, Alkaline Phosphatase 63, Total Protein 6.0 L, Albumin 3.1 L, Globulin 2.9, Albumin/Globulin Ratio 1.1, Triglycerides 53, Cholesterol 148, LDL Cholesterol 69, VLDL Cholesterol 11, HDL Cholesterol 68, TSH 0.85 07/27/22 04:10: Hemoglobin A1c 5.8 H 07/27/22 06:16: POC Glucose 155 H Radiography Diagnostic Testing: Radiology Impression Brain CT 07/26/22 19:07 IMPRESSION: Chronic involutional changes of the brain. Electronically Signed: Lefty Meraz MD at 20:32 EDT , Chest X-Ray 07/26/22 19:18 IMPRESSION: No active disease. Electronically Signed: Lefty Meraz MD at 19:39 EDT , Physical Exam Const alert and oriented x3 HEENT normocephalic and moist oral mucous membranes Eyes PERRL, EOMs intact bilaterally and conjunctivae normal Neck no lymphadenopathy Resp normal respiratory effort and clear to auscultation bilaterally Cardio regular rate, regular rhythm and no murmurs Peripheral Pulses: pulses 2+ throughout GI normal to inspection, nondistended, normoactive bowel sounds, non-tender and non-distended Extremity normal to inspection Skin no rashes or lesions noted Lesions: no lesions Rashes: no rashes Trauma: no lacerations or abrasions Neuro CN's II-XII intact bilaterally and deep tendon reflexes 2+ bilaterally Neuro Narrative: Mild left-sided weakness compared to right. Bilateral upper extremity ataxia. Left lower extremity sensory deficit. Psych mental status grossly normal and affect normal Assessment & Plan Assessment/Plan (1) TIA (transient ischemic attack): PLAN: Plan 1. TIA vs complex migraine-history of prior admissions with similar symptoms and following work-up, found to have complex migraine. MRI of brain, MRA of head and carotid ultrasound ordered. PT/OT/ST. Continue aspirin, statin, Plavix. Placed on valproic acid, Decadron for suspected migraine component. [facility] neurology consulted. 2. Paroxysmal atrial fibrillation-currently sinus rhythm. Continue sotalol. No longer on anticoagulation. Will obtain neurology input regarding resuming anticoagulation. 3. Hypertension-permissive secondary to #1. Resume if MRI negative. 4. Hyperlipidemia-continue statin. 5. Type 2 diabetes [id number] with sliding scale insulin. Hemoglobin A1c 5.8%. 6. Valvular heart disease-history of TAVR. 7. GERD-continue PPI. 8. History of breast cancer-status post left mastectomy. In remission. 9. Mild hyponatremia-possibly related to HCTZ which is on hold. Trend BMP. If further trends down, will obtain urine studies. DVT prophylaxis- Lovenox sc This patient was seen by NIKOLE Roberts under the supervision of Dr. Yuen. Documented by User: Dr. Geri Yuen DO 07/27/22 12:59 Subjective Subjective This patient was seen in conjunction with Zakia Perez NP. The following represents my independent history and for examination. Please see below for addendum the above. Patient reports that she is currently asymptomatic. She is had episodes like this previously all associated with a headache. She has multiple risk factors for stroke however with a history of atrial fibrillation and currently off anticoagulation secondary to falls. After admission she had a recurrent episode after complete resolution of her neurological symptoms that were associated with migraine. She is had migraines that seem to be hormonally induced initially when she was 16 years old and has had them on and off since. She is on Imitrex at home and states apically she is able to abort any severe headaches with this. She has a pacemaker for sick sinus syndrome and her MRI is currently on hold until radiology can clear her. Objective Data Lab / Micro Data Result Diagrams: 07/27/22 04:10 07/27/22 04:10 Physical Exam Const alert, oriented x3, no apparent distress, average body habitus, healthy appearing and well nourished Constitutional Narrative: Very pleasant older white female who appears younger than stated age, sitting up in bed, appears nontoxic with no current neurological symptoms, does complain of a slight headache at this time HEENT head/scalp atraumatic, moist oral mucous membranes and oropharynx normal HEENT Narrative: Dentition is good, Mallampati is 2, no thrush Eyes PERRL and EOMs intact bilaterally Resp normal respiratory effort, no retractions, no use of accessory muscles and clear to auscultation bilaterally Auscultation: Negative for crackles, rales, rhonchi or wheezes Cardio regular rate, regular rhythm, S1 normal heart sound, S2 normal heart sound, no murmurs, no rub, no gallops, no clicks and no JVD GI normal to inspection, nondistended, normoactive bowel sounds, soft to palpation and non-tender Extremity normal to inspection and no clubbing, cyanosis or edema Neuro oriented x3, CN's II-XII intact bilaterally, moves all extremities and no focal motor deficits Neuro Narrative: No current pronator drift, no ataxia noted the time of my evaluation, no right lower extremity weakness, no sensory deficits Speech: speech normal Psych affect normal Psych Narrative: Very pleasant and appropriately interactive Assessment & Plan Assessment/Plan (1) TIA (transient ischemic attack): PLAN: Plan Assessment: Expressive aphasia Right upper extremity/lower extremity weakness Right upper extremity paresthesias Paroxysmal atrial fibrillation Hyponatremia Osteoporosis Hypertension Hyperlipidemia-controlled [id number] hemoglobin A1c 5.8 Aortic valve disease-history of TAVR GERD History of breast cancer status postmastectomy now signed in Urinary incontinence History of migraines Plan: -Suspect migraine related neurological changes as each time her symptoms are associated with a headache with the neurological symptoms being prodromal -Multiple risk factors for stroke therefore so we will need to rule this out -MRI pending if negative no need to obtain echocardiogram if it is positive would obtain echocardiogram to rule out any thrombus -Neurology consultation is pending -Sodium is low but on HCTZ at home -Hold HCTZ and reevaluate sodium in a.m. -Continue home medications otherwise -Repeat lab in a.m. with BMP Charges/Coding Visit Charges Inpatient E&M: 15187 Subs Hosp L2
--- NOTE | 2022-07-27 11:00 | NURSING ---
This RN is taking over care at this time.
[2022-07-27] MEDS: Insulin Lispro 100 UNIT/ML INSULN.PEN SC ×3 (12:08→21:19)
[2022-07-27 12:35] LABS: Bedside Glucose 251 mg/dL (74-106)
[2022-07-27 16:45] LABS: Bedside Glucose 201 mg/dL (74-106)
[2022-07-27] MEDS: Pravastatin 20 MG Tablet 10 MG PO (21:21)
[2022-07-27] MEDS: Amitriptyline 10 MG Tablet 20 MG PO (21:21)
[2022-07-27] MEDS: Oxybutynin 5 MG Tablet PO (21:21)
[2022-07-27 22:21] LABS: Bedside Glucose 256 mg/dL (74-106)
[2022-07-27] MEDS: 0.9% Saline Lock 10 ML Syringe IV (23:45)
[2022-07-28] VITALS (16 sets, daily range): BP systolic 112–176; BP diastolic 54–77; PULSE 58–82; RESP 16–20; TEMP 36.1–36.7; O2SAT 96–100; BMI 25.8
[2022-07-28] MEDS: Enoxaparin 40 MG/0.4 ML Syringe SC (06:31)
[2022-07-28] MEDS: dexAMETHasone 4 MG/ML Vial IV ×2 (06:31→11:23)
[2022-07-28] MEDS: 0.9% Saline Lock 10 ML Syringe IV ×4 (06:31→22:03)
[2022-07-28] MEDS: Insulin Lispro 100 UNIT/ML INSULN.PEN SC ×4 (06:42→21:36)
[2022-07-28 07:09] LABS: Anion Gap 9 (5-15); BUN 11 mg/dL (7-18); BUN/Creat Ratio 16.6 RATIO (10-20); Calcium,Total 8.3 mg/dL (8.5-10.1); Chloride 94 mmol/L (98-107); Creatinine, Serum 0.66 mg/dL (0.55-1.02); EST Glomerular Filtration Rate 91 mL/min (>60); Est Glom Filt Rate - Afr Amer 110 mL/min (>60); Estimated Creatinine Clearance 35.26 ml/min; Glucose 183 mg/dL (74-106); Potassium 3.8 mmol/L (3.5-5.1); Sodium Level 126 mmol/L (136-145)
[2022-07-28 07:11] LABS: Bedside Glucose 173 mg/dL (74-106)
[2022-07-28] MEDS: Aspirin 81 MG TAB.CHEW PO (08:41)
[2022-07-28] MEDS: Potassium Chloride Oral Tablet 20 MEQ PO (08:41)
[2022-07-28] MEDS: Sotalol Hydrochloride 80 MG Tablet 120 MG PO ×2 (08:41→21:36)
[2022-07-28] MEDS: Pantoprazole Sodium 40 MG Tablet PO (08:42)
[2022-07-28] MEDS: Clopidogrel Bisulfate 75 MG Tablet PO (08:42)
--- NOTE | 2022-07-28 10:45 | CASEMGMT ---
This RN CM to room with URBANO form, explanation done-pt voices understanding, and signs URBANO form at this time. Pt provided MCR IP vs OBS booklet. Original URBANO to chart and copy to pt. Therapy does not recommend any further therapy at discharge and pt states no need for any OP or HHC therapy. Pt states she and are fairly active. Pt voices no further questions/concerns/needs. SStaten SID CM
[2022-07-28 11:50] LABS: Bedside Glucose 208 mg/dL (74-106)
--- NOTE | 2022-07-28 12:38 | PN.HOSP_ITS ---
Documented by User: Zakia Perez NP, TRACK HOE OPERATOR-C 07/28/22 13:02 Subjective Subjective Patient seen and examined. Denies ongoing neurologic symptoms. Denies focal deficits. Awaiting MRI, delayed due to obtaining clarification regarding pacemaker compatibility. Objective Data Objective Data Vital Signs: Vital Signs Temp Pulse Resp BP Pulse Ox O2 Del Method 97.3 F L 60 16 159/60 H 100 Room Air 07/28/22 08:40 07/28/22 08:40 07/28/22 08:40 07/28/22 08:40 07/28/22 08:40 07/28/22 08:45 Oxygen Delivery Method Room Air Weight: 149 lb 11.102 oz Body Mass Index (BMI) 25.8 Intake & Output: Intake and Output for Last 24 Hours 07/26/22 07/27/22 07/28/22 23:59 23:59 23:59 Intake Total 155 / 155 2425 / 2425 230 / 230 Output Total 0 / 0 Balance 155 / 155 2425 / 2425 230 / 230 Lab / Micro Data Result Diagrams: 07/27/22 04:10 07/28/22 06:08 Labs: Laboratory Results - last 24 hr 07/27/22 16:19: POC Glucose 201 H 07/27/22 21:18: POC Glucose 256 H 07/28/22 06:08: Sodium 126 L, Potassium 3.8, Chloride 94 L, Carbon Dioxide 23.0, Anion Gap 9, BUN 11, Creatinine 0.66, Estim Creat Clear Calc 35.26, Est GFR (MDRD) Af Amer 110, Est GFR (MDRD) Non-Af 91, BUN/Creatinine Ratio 16.6, Glucose 183 H, Calcium 8.3 L 07/28/22 06:41: POC Glucose 173 H 07/28/22 11:22: POC Glucose 208 H Radiography Diagnostic Testing: Radiology Impression Carotid Duplex 07/27/22 05:55 Interpretation Summary Smooth plaque within the proximal right internal carotid artery with tortuosity noted and less than 50% stenosis. Less than 50% stenosis right external carotid artery Irregular calcific plaque with shadowing at the proximal left internal carotid artery with less than 50% stenosis Less than 50% stenosis left external carotid artery Patent and antegrade vertebral arteries bilaterally Ordering Physician: Saranya Romero Referring Physician: Terence Kaur Performed By: Ny Kumar, JAIRO, RVT Physical Exam Const alert and oriented x3 HEENT normocephalic and moist oral mucous membranes Eyes PERRL, EOMs intact bilaterally and conjunctivae normal Neck no lymphadenopathy Resp normal respiratory effort and clear to auscultation bilaterally Cardio regular rate, regular rhythm and no murmurs Peripheral Pulses: pulses 2+ throughout GI normal to inspection, nondistended, normoactive bowel sounds, non-tender and non-distended Extremity normal to inspection Skin no rashes or lesions noted Lesions: no lesions Rashes: no rashes Trauma: no lacerations or abrasions Neuro CN's II-XII intact bilaterally, no focal motor deficits, no sensory deficits noted and deep tendon reflexes 2+ bilaterally Psych mental status grossly normal and affect normal Assessment & Plan Assessment/Plan (1) TIA (transient ischemic attack): (2) Migraine: PLAN: Plan 1. TIA vs complex migraine-history of prior admissions with similar symptoms and following work-up, found to have complex migraine.? MRI of brain, MRA of head pending.? Carotid ultrasound with less than 50% stenosis bilaterally. PT/OT/ST.? Continue aspirin, statin, Plavix.?[facility] neurology consulted. Awaiting clearance regarding pacemaker compatibility. 2.? Paroxysmal atrial fibrillation-currently sinus rhythm.? Continue sotalol.? No longer on anticoagulation.? Will obtain neurology input regarding resuming anticoagulation. 3. Hypertension-permissive secondary to #1.? Resume if MRI negative. 4. Hyperlipidemia-continue statin. 5. Type 2 diabetes [id number] with sliding scale insulin.? Hemoglobin A1c 5.8%. 6. Valvular heart disease-history of TAVR. 7. GERD-continue PPI. 8. History of breast cancer-status post left mastectomy.? In remission. 9.? Mild hyponatremia-possibly related to HCTZ which is on hold.? Trend BMP.? DVT prophylaxis- Lovenox sc This patient was seen by NIKOLE Roberts under the supervision of Dr. Sabillon. Time spent examining patient, reviewing data and subsequent management of care: 14 minutes Documented by User: Dr. Nelson Sabillon, 07/28/22 13:30 Objective Data Lab / Micro Data Result Diagrams: 07/27/22 04:10 07/28/22 06:08 Assessment & Plan Assessment/Plan (1) TIA (transient ischemic attack): (2) Migraine: Charges/Coding Addendum Addendum: Patient seen and examined independently. Data and vitals reviewed. I agree with the above note by the nurse practitioner. Patient states that her symptoms are completely resolved. Began with headache then visual aura in her left eye (patient's legally blind in her right eye) and she had numbness and then just balance issues at proceeded afterwards. Patient has had somatic complaints with previous migraines in the past but this was much more pronounced. Physical exam: Patient is no acute distress and afebrile. Head is atraumatic and normocephalic. Extraocular muscles are intact. Neurologic: Cranial nerves II through XII grossly intact muscle strength is 5-5 in upper and lower extremities bilaterally. Finger-nose is intact. Sensation grossly intact throughout. Heart rate regular rate and rhythm plus S1-S2 with a murmurs Rubs. Lungs Are Clear to Auscultation Bilaterally. Abdomen Is Soft Nontender Nondistended Normal Bowel Sounds with No Hepatosplenomegaly. Assessment and plan 1. Atypical complex migraine Versus TIA/CVA Work-up underway: Carotid duplex showed less than 50% stenosis. MRI of the brain and MRA of the head. Follow-up neurology input. Greater than 25 minutes spent reviewing data, documentation and discussing with the patient. Visit Charges OBSV E&M: 11824 Subsequent observation care L3
--- NOTE | 2022-07-28 15:00 | MRI_ITS ---
STUDY: MRA OF THE HEAD WITHOUT CONTRAST REASON FOR EXAM: Female, 81 years old. TIA versus complex migraine TECHNIQUE: 3-D [id number] (TOF) imaging was performed with MIPs. The study was performed unenhanced. COMPARISON: None. FINDINGS: Normal bilateral petrous carotid arteries. Normal right cavernous carotid artery with a normal supraclinoid bifurcation. Normal left cavernous carotid artery with a normal supraclinoid bifurcation. Diffuse narrowing of the right A1 segments of the anterior cerebral artery. Diffuse narrowing of the left A1 segments of the anterior cerebral artery. Anterior communicating artery not visualized consistent with normal variant). Normal bilateral A2 segments of the anterior cerebral arteries. Normal right M1 and M2 segments of the middle cerebral arteries, with a normal M1 bifurcation. Normal left M1 and M2 segments of the middle cerebral arteries, with a normal M1 bifurcation. Posterior communicating arteries aren''t visualized consistent with normal variant. Normal bilateral vertebral arteries. Normal basilar artery with a normal basilar bifurcation. The visualized bilateral superior cerebellar (SCA) arteries are normal. Normal bilateral P1, P2 and visualized P3 segments of the posterior cerebral arteries. There is no demonstrated aneurysm of the [place] of [place]. There is no major vessel occlusion or hemodynamically significant stenosis. MRI/MRA Head ONLY without Contrast IMPRESSION: Diffuse narrowing of the A1 segments of the right and left anterior cerebral arteries possibly representing normal variant. No other significant atherosclerotic disease. Electronically Signed: Vineet Carreno MD at 16:15 EDT ,
--- NOTE | 2022-07-28 15:20 | MRI_ITS ---
STUDY: MRI BRAIN WITHOUT CONTRAST REASON FOR EXAM: Female, 81 years old. TIA versus complex migraine TECHNIQUE: Standardized multiplanar fat and water weighted pulse sequences were obtained. COMPARISON: CT of the brain 07/26/2022 MRI of the brain 12/27/2018 FINDINGS: Mild atrophy and moderate periventricular white matter ischemic change without mass effect or restricted diffusion.. Normal bilateral basal ganglia. Normal thalami. There is no extra-axial fluid accumulation. Normal flow voids within the major intracranial circulation suggesting patency by spin echo criteria. Normal sella turcica, pituitary gland, infundibular stalk, optic chiasm and hypothalamus. Normal tectal plate and pineal gland. Normal midbrain, clair and medulla. Chronic ischemic changes in the cerebellar hemispheres bilaterally.. Normal basal cisterns. Normal bilateral temporal bones. Normal bilateral internal auditory canals. Postsurgical changes of the orbits.. Normal visualized paranasal sinuses. Normal calvarium and skull base. Normal visualized soft tissue structures. Normal visualized upper cervical spine. No significant change since prior exam MRI/Brain without Contrast IMPRESSION: Atrophy and moderate periventricular white matter ischemic changes without evidence for acute infarct. Mild chronic ischemic changes within the cerebral hemispheres. Electronically Signed: Vineet Carreno MD at 16:13 EDT ,
[2022-07-28 16:45] LABS: Bedside Glucose 256 mg/dL (74-106)
[2022-07-28] MEDS: Pravastatin 20 MG Tablet 10 MG PO (21:36)
[2022-07-28] MEDS: Amitriptyline 10 MG Tablet 20 MG PO (21:36)
[2022-07-28] MEDS: Oxybutynin 5 MG Tablet PO (21:36)
[2022-07-28] MEDS: hydrALAZINE 20 MG/ML Vial 5 MG IV (22:02)
[2022-07-28 22:26] LABS: Bedside Glucose 162 mg/dL (74-106)
[2022-07-29 03:00] VITALS: PULSE 60
[2022-07-29 03:10] VITALS: BP 142/59; PULSE 66; RESP 18; TEMP 36.9; O2SAT 97
[2022-07-29 04:43] LABS: Anion Gap 10 (5-15); BUN 13 mg/dL (7-18); BUN/Creat Ratio 22.8 RATIO (10-20); Calcium,Total 7.9 mg/dL (8.5-10.1); Chloride 92 mmol/L (98-107); Creatinine, Serum 0.57 mg/dL (0.55-1.02); EST Glomerular Filtration Rate 107 mL/min (>60); Est Glom Filt Rate - Afr Amer 130 mL/min (>60); Estimated Creatinine Clearance 34.64 ml/min; Glucose 139 mg/dL (74-106); Potassium 3.7 mmol/L (3.5-5.1); Sodium Level 125 mmol/L (136-145)
[2022-07-29] MEDS: Enoxaparin 40 MG/0.4 ML Syringe SC (05:26)
[2022-07-29 06:34] VITALS: PULSE 60
[2022-07-29 06:55] LABS: Bedside Glucose 136 mg/dL (74-106)
[2022-07-29 07:04] VITALS: O2SAT 95
[2022-07-29 08:29] VITALS: BMI 25.8
--- NOTE | 2022-07-29 08:54 | CASEMGMT ---
SW did not complete a PHQ 9 with patient as she did not have a Stroke or TIA. Dahlia Pickens INTERNET MARKETING MANAGER OLIVIA
[2022-07-29 09:52] VITALS: BP 118/58; PULSE 66; RESP 18; TEMP 36.4; O2SAT 100
[2022-07-29] MEDS: Sotalol Hydrochloride 80 MG Tablet 120 MG PO (09:55)
[2022-07-29] MEDS: Clopidogrel Bisulfate 75 MG Tablet PO (09:55)
[2022-07-29] MEDS: Pantoprazole Sodium 40 MG Tablet PO (09:56)
[2022-07-29] MEDS: Aspirin 81 MG TAB.CHEW PO (09:56)
[2022-07-29] MEDS: Potassium Chloride Oral Tablet 20 MEQ PO (09:56)
--- NOTE | 2022-07-29 10:54 | DCINST_ITS ---
Discharge Instructions Diet Discharge Diet: Low fat / Low cholesterol and Carb Control Diet Activity Discharge Activity: Return to Normal Activity Dressing / Incision Call your doctor if you observe: Numbness or Tingling, Shortness of breath, Dizziness and Chest pain Follow Up Care Test Results: Test results from this visit will be discussed in further detail at your follow- up appointment, if applicable. Discharge Plan Admission Admit Date/Time: 07/26/22 20:43 Primary Reason for Your Visit: Complex migraine Attending Provider: Nelson Sabillon Primary Care Provider: Terence Kaur Consulting Providers: Saranya Romero ; Geri Yuen Instructions Additional Instructions / Restrictions: Recommend repeat BMP within one week by PCP to check sodium level. Discharge Orders/Prescriptions Prescriptions: Continued amitriptyline 10 mg tablet 20 mg PO QHS calcium carbonate-vitamin D3 [Calcium 500 With D] 500 mg(1,250mg) -400 unit tablet 1 tab PO DAILY furosemide 20 mg tablet 20 mg PO DAILY pantoprazole 40 mg tablet,delayed release (DR/EC) 40 mg PO DAILY metformin 500 mg tablet 500 mg PO .AM PRN (Reason: steroid injection) Rx Instructions: Take 1 tablet PO daily with breakfast. Take for 2 weeks, in addition to PM dose, after steroid injection alendronate 70 MG tablet 70 mg PO SA sumatriptan succinate 50 MG tablet 50 mg PO .X1 PRN PRN (Reason: Headache) tramadol 50 MG tablet 50 mg PO Q4H PRN PRN (Reason: Pain) nateglinide 60 MG tablet 60 mg PO TID PRN (Reason: sugar) Rx Instructions: only take this when she gets a steroid neck injection--last injection 12/21/18 magnesium oxide 400 MG tablet 400 mg PO DAILY aspirin 81 MG tablet,chewable 81 mg PO DAILY@0800 estradiol 42.5 GM cream 1 dose VAGINAL LOVE PRN (Reason: vaginal dryness) oxybutynin chloride 5 MG tablet 5 mg PO QHS dicyclomine 10 MG capsule 10 mg PO 4X/DAY PRN PRN (Reason: Irritable Bowel Syndrome) multivitamin with folic acid 1 TABLET tablet 1 tab PO DAILY sotalol 120 MG tablet 120 mg PO BID potassium chloride 20 MEQ tablet,ER particles/crystals 20 tab PO DAILY acetaminophen 500 MG tablet 500 mg PO PRN PRN (Reason: Pain) atenolol 100 MG tablet 100 mg PO DAILY pravastatin 10 MG tablet 10 mg PO QHS losartan 100 MG tablet 50 mg PO DAILY metformin 500 MG tablet 500 mg PO QHS omega-3 fatty acids-fish oil 1 EACH capsule 1,000 mg PO BID Discontinued clopidogrel [Plavix] 75 mg Tablet 75 mg PO DAILY hydrochlorothiazide 12.5 mg Capsule 12.5 mg PO DAILY Referrals / Follow Up: Neurology, [facility] [Other] - See Referral Note (As scheduled 09/01/22) Cardiology, Primary [Other] - See Referral Note (2-4 weeks) Terence Kaur MD [Primary Care Provider] - In 1 Week Disposition Disposition (needs filled in before D/C Order can be placed): Home, Self Care
--- NOTE | 2022-07-29 11:06 | PCM.DC.SUM ---
Documented by User: Zakia Perez NP, [employer] MACHINE OPERATOR-C 07/29/22 11:15 Providers Date of Admission: 07/26/22 Date of Discharge: 07/29/22 Primary Care Physician: Dr. Terence Kaur MD Reason For Visit: TIA VERSUS COMPLEX MIGRAINE Diagnosis Discharge Diagnosis (1) TIA (transient ischemic attack): Status: Acute Code(s): G45.9 - Transient cerebral ischemic attack, unspecified (2) Migraine: Status: Chronic Code(s): G43.909 - Migraine, unspecified, not intractable, without status migrainosus Medications at Discharge Home Medications alendronate 70 mg tablet 70 mg PO SA BONES 10/03/17 aspirin 81 mg chewable tablet 81 mg PO DAILY@0800 HEART HEALTH 10/03/17 dicyclomine 10 mg capsule 10 mg PO 4X/DAY PRN PRN Irritable Bowel Syndrome 10/03/17 estradiol 0.01% (0.1 mg/gram) vaginal cream 1 dose vaginal LOVE PRN vaginal dryness 10/03/17 magnesium oxide 400 mg (241.3 mg magnesium) tablet 400 mg PO DAILY SUPPLEMENT 10/03/17 multivitamin with folic acid 400 mcg tablet 1 tab PO DAILY SUPPLEMENT 10/03/17 nateglinide 60 mg tablet 60 mg PO TID PRN sugar 10/03/17 oxybutynin chloride 5 mg tablet 5 mg PO QHS BLADDER 10/03/17 sumatriptan succinate 50 mg tablet 50 mg PO .X1 PRN PRN Headache 10/03/17 tramadol 50 mg tablet 50 mg PO Q4H PRN PRN Pain 10/03/17 amitriptyline 10 mg tablet 20 mg PO QHS BP 04/05/18 sotalol 120 mg tablet 120 mg PO BID HEART 12/25/18 potassium chloride 20 mEq tablet,extended release(part/cryst) 20 tab PO DAILY POTASSIUM 01/19/19 acetaminophen 500 mg tablet 500 mg PO PRN PRN Pain 03/11/19 atenolol 100 mg tablet 100 mg PO DAILY HEART 03/11/19 losartan 100 mg tablet 50 mg PO DAILY BP 03/11/19 metformin 500 mg tablet,extended release 24 hr 500 mg PO QHS DM 03/11/19 omega-3 fatty acids-fish oil 340 mg-1,000 mg capsule 1,000 mg PO BID SUPPLEMENT 03/11/19 pravastatin 10 mg tablet 10 mg PO QHS CHOLESTEROL 03/11/19 calcium carbonate 500 mg-vitamin D3 10 mcg (400 unit) tablet (Calcium 500 With D) 1 tab PO DAILY 10/17/19 furosemide 20 mg tablet 20 mg PO DAILY 10/17/19 pantoprazole 40 mg tablet,delayed release 40 mg PO DAILY 10/17/19 metformin 500 mg tablet 500 mg PO .AM PRN steroid injection 05/24/21 Hospital Course Operations None Procedures None Summary of Care Provided Hospital Course: Patient is an 82 year old female admitted 07/26/22 due to headache, paresthesias and upper extremity weakness. 1.Complex migraine-TIA/CVA ruled out. History of prior admissions with similar symptoms and following work-up, found to have complex migraine.? MRI of brain without acute infarct.? MRA of head demonstrates diffuse narrowing of the A1 segment of the right and left anterior cerebral arteries possibly representing normal variant. No other significant disease. Carotid ultrasound with less than 50% stenosis bilaterally.? Continue aspirin, statin. Plavix discontinued. Patient is on amitriptyline which is being titrated as outpatient for migraines as well as as needed Imitrex. She has upcoming appointment with [facility] neurology 09/01/2022 for ongoing evaluation. 2.? Paroxysmal atrial fibrillation-currently sinus rhythm.? Continue sotalol.? No longer on anticoagulation.? Recommend discussion with neurology and cardiology as outpatient. [id number] score 5. Ideally patient should be on anticoagulation however due to unknown reason why patient was taken off, will recommend further discussion with primary providers. 3. Hypertension-stable, continue home regimen. HCTZ discontinued due to hyponatremia. 4. Hyperlipidemia-continue statin. 5. Type 2 diabetes mellitus-continue home oral regimen. Hemoglobin A1c 5.8%. 6. Valvular heart disease-history of TAVR. 7. GERD-continue PPI. 8. History of breast cancer-status post left mastectomy.? In remission. 9.? Mild hyponatremia-likely related to HCTZ. HCTZ discontinued at discharge. Recommend repeat BMP by primary care provider within 1 week. Physical Exam Const alert and oriented x3 HEENT normocephalic and moist oral mucous membranes Eyes PERRL, EOMs intact bilaterally and conjunctivae normal Neck no lymphadenopathy Resp normal respiratory effort and clear to auscultation bilaterally Cardio regular rate, regular rhythm and no murmurs Peripheral Pulses: pulses 2+ throughout GI normal to inspection, nondistended, normoactive bowel sounds, non-tender and non-distended Extremity normal to inspection Skin no rashes or lesions noted Lesions: no lesions Rashes: no rashes Trauma: no lacerations or abrasions Neuro CN's II-XII intact bilaterally, no focal motor deficits, no sensory deficits noted and deep tendon reflexes 2+ bilaterally Psych mental status grossly normal and affect normal Patient seen and examined prior to discharge. Physical assessment as noted above. Patient is stable for discharge with follow up recommendations as noted above. This patient was seen by NIKOLE Roberts under the supervision of Dr. Sabillon. Time spent examining patient, reviewing data and subsequent management of care: 20 minutes Weight / BMI Weight Weight: 151 lb 7.321 oz Body Mass Index (BMI) 25.8 ABG / Lab / Microbiology Data Result Diagrams: 07/27/22 04:10 07/29/22 03:34 Laboratory: Laboratory Results - last 24 hr 07/28/22 11:22: POC Glucose 208 H 07/28/22 16:18: POC Glucose 256 H 07/28/22 21:34: POC Glucose 162 H 07/29/22 03:34: Sodium 125 L, Potassium 3.7, Chloride 92 L, Carbon Dioxide 23.0, Anion Gap 10, BUN 13, Creatinine 0.57, Estim Creat Clear Calc 34.64, Est GFR (MDRD) Af Amer 130, Est GFR (MDRD) Non-Af 107, BUN/Creatinine Ratio 22.8 H, Glucose 139 H, Calcium 7.9 L 07/29/22 06:34: POC Glucose 136 H Radiography Diagnostic Testing: Radiology Impression Head MRA 07/28/22 15:00 IMPRESSION: Diffuse narrowing of the A1 segments of the right and left anterior cerebral arteries possibly representing normal variant. No other significant atherosclerotic disease. Electronically Signed: Vineet Carreno MD at 16:15 EDT , Brain MRI 07/28/22 15:20 IMPRESSION: Atrophy and moderate periventricular white matter ischemic changes without evidence for acute infarct. Mild chronic ischemic changes within the cerebral hemispheres. Electronically Signed: Vineet Carreno MD at 16:13 EDT , D/C Instructions Discharge Diet: Low fat / Low cholesterol and Carb Control Diet Call your doctor if you observe: Numbness or Tingling, Shortness of breath, Dizziness and Chest pain Meaningful Use Info Meaningful Use Diagnoses (Choose all that apply): None applicable Discharge Plan Admission Admit Date/Time: 07/26/22 20:43 Primary Reason for Your Visit: Complex migraine Attending Provider: Nelson Sabillon Primary Care Provider: Terence Kaur Consulting Providers: Saranya Romero ; Geri Yuen Instructions Additional Instructions / Restrictions: Recommend repeat BMP within one week by PCP to check sodium level. Discharge Orders/Prescriptions Prescriptions: Continued amitriptyline 10 mg tablet 20 mg PO QHS calcium carbonate-vitamin D3 [Calcium 500 With D] 500 mg(1,250mg) -400 unit tablet 1 tab PO DAILY furosemide 20 mg tablet 20 mg PO DAILY pantoprazole 40 mg tablet,delayed release (DR/EC) 40 mg PO DAILY metformin 500 mg tablet 500 mg PO .AM PRN (Reason: steroid injection) Rx Instructions: Take 1 tablet PO daily with breakfast. Take for 2 weeks, in addition to PM dose, after steroid injection alendronate 70 MG tablet 70 mg PO SA sumatriptan succinate 50 MG tablet 50 mg PO .X1 PRN PRN (Reason: Headache) tramadol 50 MG tablet 50 mg PO Q4H PRN PRN (Reason: Pain) nateglinide 60 MG tablet 60 mg PO TID PRN (Reason: sugar) Rx Instructions: only take this when she gets a steroid neck injection--last injection 12/21/18 magnesium oxide 400 MG tablet 400 mg PO DAILY aspirin 81 MG tablet,chewable 81 mg PO DAILY@0800 estradiol 42.5 GM cream 1 dose VAGINAL LOVE PRN (Reason: vaginal dryness) oxybutynin chloride 5 MG tablet 5 mg PO QHS dicyclomine 10 MG capsule 10 mg PO 4X/DAY PRN PRN (Reason: Irritable Bowel Syndrome) multivitamin with folic acid 1 TABLET tablet 1 tab PO DAILY sotalol 120 MG tablet 120 mg PO BID potassium chloride 20 MEQ tablet,ER particles/crystals 20 tab PO DAILY acetaminophen 500 MG tablet 500 mg PO PRN PRN (Reason: Pain) atenolol 100 MG tablet 100 mg PO DAILY pravastatin 10 MG tablet 10 mg PO QHS losartan 100 MG tablet 50 mg PO DAILY metformin 500 MG tablet 500 mg PO QHS omega-3 fatty acids-fish oil 1 EACH capsule 1,000 mg PO BID Discontinued clopidogrel [Plavix] 75 mg Tablet 75 mg PO DAILY hydrochlorothiazide 12.5 mg Capsule 12.5 mg PO DAILY Referrals / Follow Up: Neurology, [facility] [Other] - See Referral Note (As scheduled 09/01/22) Cardiology, Primary [Other] - See Referral Note (2-4 weeks) Terence Kaur MD [Primary Care Provider] - In 1 Week Disposition Disposition (needs filled in before D/C Order can be placed): Home, Self Care Documented by User: Dr. Nelson Sabillon DO 07/29/22 14:02 Providers Date of Admission: 07/26/22 Reason For Visit: TIA VERSUS COMPLEX MIGRAINE Diagnosis Discharge Diagnosis (1) TIA (transient ischemic attack): Status: Acute Code(s): G45.9 - Transient cerebral ischemic attack, unspecified (2) Migraine: Status: Chronic Code(s): G43.909 - Migraine, unspecified, not intractable, without status migrainosus Medications at Discharge Home Medications alendronate 70 mg tablet 70 mg PO SA BONES 10/03/17 aspirin 81 mg chewable tablet 81 mg PO DAILY@0800 HEART HEALTH 10/03/17 dicyclomine 10 mg capsule 10 mg PO 4X/DAY PRN PRN Irritable Bowel Syndrome 10/03/17 estradiol 0.01% (0.1 mg/gram) vaginal cream 1 dose vaginal LOVE PRN vaginal dryness 10/03/17 magnesium oxide 400 mg (241.3 mg magnesium) tablet 400 mg PO DAILY SUPPLEMENT 10/03/17 multivitamin with folic acid 400 mcg tablet 1 tab PO DAILY SUPPLEMENT 10/03/17 nateglinide 60 mg tablet 60 mg PO TID PRN sugar 10/03/17 oxybutynin chloride 5 mg tablet 5 mg PO QHS BLADDER 10/03/17 sumatriptan succinate 50 mg tablet 50 mg PO .X1 PRN PRN Headache 10/03/17 tramadol 50 mg tablet 50 mg PO Q4H PRN PRN Pain 10/03/17 amitriptyline 10 mg tablet 20 mg PO QHS BP 04/05/18 sotalol 120 mg tablet 120 mg PO BID HEART 12/25/18 potassium chloride 20 mEq tablet,extended release(part/cryst) 20 tab PO DAILY POTASSIUM 01/19/19 acetaminophen 500 mg tablet 500 mg PO PRN PRN Pain 03/11/19 atenolol 100 mg tablet 100 mg PO DAILY HEART 03/11/19 losartan 100 mg tablet 50 mg PO DAILY BP 03/11/19 metformin 500 mg tablet,extended release 24 hr 500 mg PO QHS DM 03/11/19 omega-3 fatty acids-fish oil 340 mg-1,000 mg capsule 1,000 mg PO BID SUPPLEMENT 03/11/19 pravastatin 10 mg tablet 10 mg PO QHS CHOLESTEROL 03/11/19 calcium carbonate 500 mg-vitamin D3 10 mcg (400 unit) tablet (Calcium 500 With D) 1 tab PO DAILY 10/17/19 furosemide 20 mg tablet 20 mg PO DAILY 10/17/19 pantoprazole 40 mg tablet,delayed release 40 mg PO DAILY 10/17/19 metformin 500 mg tablet 500 mg PO .AM PRN steroid injection 05/24/21 ABG / Lab / Microbiology Data Result Diagrams: 07/27/22 04:10 07/29/22 03:34 Discharge Plan Admission Admit Date/Time: 07/26/22 20:43 Primary Reason for Your Visit: Complex migraine Attending Provider: Nelson Sabillon Primary Care Provider: Terence Kaur Consulting Providers: Saranya Romero ; Geri Yuen Instructions Additional Instructions / Restrictions: Recommend repeat BMP within one week by PCP to check sodium level. Discharge Orders/Prescriptions Prescriptions: Continued amitriptyline 10 mg tablet 20 mg PO QHS calcium carbonate-vitamin D3 [Calcium 500 With D] 500 mg(1,250mg) -400 unit tablet 1 tab PO DAILY furosemide 20 mg tablet 20 mg PO DAILY pantoprazole 40 mg tablet,delayed release (DR/EC) 40 mg PO DAILY metformin 500 mg tablet 500 mg PO .AM PRN (Reason: steroid injection) Rx Instructions: Take 1 tablet PO daily with breakfast. Take for 2 weeks, in addition to PM dose, after steroid injection alendronate 70 MG tablet 70 mg PO SA sumatriptan succinate 50 MG tablet 50 mg PO .X1 PRN PRN (Reason: Headache) tramadol 50 MG tablet 50 mg PO Q4H PRN PRN (Reason: Pain) nateglinide 60 MG tablet 60 mg PO TID PRN (Reason: sugar) Rx Instructions: only take this when she gets a steroid neck injection--last injection 12/21/18 magnesium oxide 400 MG tablet 400 mg PO DAILY aspirin 81 MG tablet,chewable 81 mg PO DAILY@0800 estradiol 42.5 GM cream 1 dose VAGINAL LOVE PRN (Reason: vaginal dryness) oxybutynin chloride 5 MG tablet 5 mg PO QHS dicyclomine 10 MG capsule 10 mg PO 4X/DAY PRN PRN (Reason: Irritable Bowel Syndrome) multivitamin with folic acid 1 TABLET tablet 1 tab PO DAILY sotalol 120 MG tablet 120 mg PO BID potassium chloride 20 MEQ tablet,ER particles/crystals 20 tab PO DAILY acetaminophen 500 MG tablet 500 mg PO PRN PRN (Reason: Pain) atenolol 100 MG tablet 100 mg PO DAILY pravastatin 10 MG tablet 10 mg PO QHS losartan 100 MG tablet 50 mg PO DAILY metformin 500 MG tablet 500 mg PO QHS omega-3 fatty acids-fish oil 1 EACH capsule 1,000 mg PO BID Discontinued clopidogrel [Plavix] 75 mg Tablet 75 mg PO DAILY hydrochlorothiazide 12.5 mg Capsule 12.5 mg PO DAILY Referrals / Follow Up: Neurology, [facility] [Other] - See Referral Note (As scheduled 09/01/22) Cardiology, Primary [Other] - See Referral Note (2-4 weeks) Terence Kaur MD [Primary Care Provider] - In 1 Week Disposition Disposition (needs filled in before D/C Order can be placed): Home, Self Care Charges/Coding Addendum Addendum: Greater than 25 minutes which greater than 50% of time was discussing with the patient and her at bedside. Patient seen and examined independently. Data and vitals reviewed. I agree with the above note by the nurse practitioner. This is an 82-year-old female presents with migraine and an aura and abnormal speech. Patient developed a right facial droop and a generalized weakness. Patient underwent a stroke work-up which was unremarkable. This appear to be a migraine variant. Patient on aspirin had been started on clopidogrel by her primary care doctor with another event that she had. Being that there is no evidence of this being a stroke, advised patient to discontinue the clopidogrel. Patient to follow-up with neurology next month. Patient may benefit from additional prophylactic medication but will defer that to neurology. Patient will be following up with neurology at [facility]. No acute stress and afebrile. No facial asymmetry. Muscle strength 5-5 in upper and lower extremities bilaterally. Visit Charges OBSV E&M: 44961 Observation care discharge
[2022-07-29] MEDS: Insulin Lispro 100 UNIT/ML INSULN.PEN SC (11:11)
[2022-07-29 11:31] LABS: Bedside Glucose 165 mg/dL (74-106)
[2022-07-29 12:09] VITALS: O2SAT 98
== END 2022-07-29 10:55 | disposition home or self-care (01) ==
LOC: ED 20:57 → PCU 21:19
PROVIDERS: Internal Medicine; Nurse Practitioner Family; Admitting Provider Family Medicine; Emergency Provider Student in an Organized Health Care Education/Training Program; PCP Internal Medicine
DX: G43.101 Migraine with aura, not intractable, with status migrainosus (principal); I48.0 Paroxysmal atrial fibrillation; E11.9 Type 2 diabetes mellitus without complications; M62.81 Muscle weakness (generalized); Z79.83 Long term (current) use of bisphosphonates; I10 Essential (primary) hypertension; Z95.0 Presence of cardiac pacemaker; R47.01 Aphasia; E87.1 Hypo-osmolality and hyponatremia; Z79.82 Long term (current) use of aspirin; E78.5 Hyperlipidemia, unspecified; Z79.84 Long term (current) use of oral hypoglycemic drugs; K21.9 Gastro-esophageal reflux disease without esophagitis; Z79.899 Other long term (current) drug therapy; Z79.02 Long term (current) use of antithrombotics/antiplatelets
CPT/HCPCS: 36415; 70450; 70544; 70551; 71045; 80048; 80053; 80061; 82962; 83036; 83735; 84443; 84484; 85025; 92610; 93005; 93880; 96361; 96365; 96366; 96372; 96375; 96376; 97162; 97165; 97530; 97535; 97802; 99218; 99285; J7030; J7040; A4216; G0378

== ENCOUNTER → 2022-11-06 | Outpatient (CLI) | payer MEDICARE, BC, SELFPAY ==
--- NOTE | 2022-11-06 13:26 | CT_ITS ---
STUDY: CT ABDOMEN AND PELVIS WITHOUT CONTRAST REASON FOR EXAM: Female, 82 years old. RENAL CYST. Hematuria. History of breast cancer. RADIATION DOSAGE (If Supplied By Facility): CTDIvol = ( 8.70 ) mGy, DLP = ( 391.02 ) mGycm TECHNIQUE: Transaxial images were obtained from the dome of the diaphragm to the symphysis pubis without oral contrast, and without intravenous contrast. Sagittal and coronal images were reconstructed. Individualized dose optimization techniques were used for this CT. COMPARISON: Comparison is made with prior study dated 03/11/2019. FINDINGS: The visualized lung bases are unremarkable. Prior CABG. Stent graft is seen in the descending aorta. A dual-chamber pacemaker is seen. Normal liver. Normal gallbladder and extrahepatic biliary system. Normal spleen. Stable 8 mm cyst in the body of the pancreas. Normal bilateral adrenal glands. Normal right kidney. Tiny nonobstructive left intrarenal calculi. There is a 1.2 cm hyperdense cyst in the lateral midportion of the left kidney. Normal visualized stomach. Normal small intestine. There are multiple colonic diverticula consistent with diverticulosis. The appendix is visualized and appears normal. There is diffuse atherosclerotic calcification of the abdominal aorta, without a demonstrated aneurysm. Normal inferior vena cava. Normal retroperitoneum. Normal urinary bladder. There is absence of the uterus consistent with a prior hysterectomy. There is a 2.5 cm x 2.8 cm cyst in the right adnexa. This is unchanged. Surgical clips are seen in the right inguinal region in keeping with prior hernia repair. Prior vertebroplasty of the T12 vertebrae. CT/Abdomen/Pelvis without Cont IMPRESSION: Stable examination. Electronically Signed: Merlin Vallejo MD at 14:52 EST ,
== END | disposition home or self-care (01) ==
LOC: CT 13:24
PROVIDERS: PCP Internal Medicine; Referring Provider Urology; Visit Provider Urology
DX: Q61.9 Cystic kidney disease, unspecified (principal); N20.0 Calculus of kidney; N83.209 Unspecified ovarian cyst, unspecified side
CPT/HCPCS: 74176

== ENCOUNTER → 2022-11-13 | Outpatient (CLI) | payer MEDICARE, BC, SELFPAY ==
--- NOTE | 2022-11-13 11:49 | RAD_ITS ---
STUDY: X-RAY - PELVIS AND RIGHT HIP REASON FOR EXAM: Female, 82 years old. Pain TECHNIQUE: 3 views of the pelvis and hip. COMPARISON: CT pelvis November 06, 2022 FINDINGS: There is a non-specific bowel gas pattern. Postoperative change overlying the right side of the pelvis at the superior pubic ramus. The visualized bilateral superficial femoral artery calcifications. Normal bilateral iliac wings, sacroiliac joints and visualized sacrum. Normal bilateral superior and inferior pubic rami. There are degenerative changes of the pubic symphysis with articular narrowing and sclerosis. Normal bilateral ischial tuberosities. There is minimal degenerative change in the hip joints. There is no visualized fracture. RAD/HIP, UNI W/ Pelvis 2-3 Views IMPRESSION: Degenerative change. No visualized acute fracture. Postoperative change right side of the pelvis. Electronically Signed: Evelyn Tidwell MD at 23:09 EST ,
== END | disposition home or self-care (01) ==
LOC: RAD 11:43
PROVIDERS: PCP Internal Medicine; Visit Provider Anesthesiology Pain Medicine
DX: M25.551 Pain in right hip (principal)
CPT/HCPCS: 73502

== ENCOUNTER 2022-11-27 14:02 | Emergency (ER) | payer MEDICARE, BC, SELFPAY ==
[2022-11-27 14:04] VITALS: BP 122/65; PULSE 60; RESP 16; TEMP 36; O2SAT 99; BMI 27.7
--- NOTE | 2022-11-27 14:56 | EKG12_ITS ---
Test Reason : Blood Pressure : / mmHG Vent. Rate : 060 BPM Atrial Rate : 060 BPM P-R Int : 218 ms QRS Dur : 148 ms QT Int : 474 ms P-R-T Axes : 000 -23 078 degrees QTc Int : 474 ms Atrial-paced rhythm with prolonged AV conduction Left bundle branch block Abnormal ECG Confirmed by KODY MONTES, MIAH ([id number]), copy editor ZEESHAN HOANG ([id number]) on 12/02/2022 12:59:46 PM Referred By: ARIANE Confirmed By:MIAH GATES MD
--- NOTE | 2022-11-27 15:29 | RAD_ITS ---
INDICATION: weakness EXAMINATION/TECHNIQUE: X-RAY - portable upright AP chest x-ray COMPARISON: 07/26/2022 FINDINGS: LINES/DEVICES: Stable transvenous pacemaker. LUNGS: No consolidation, edema or effusion. No pneumothorax. MEDIASTINUM AND CARDIOVASCULAR STRUCTURES: Stable cardiomegaly with aortic stent graft. BONES AND SOFT TISSUES: No acute changes. RAD/Chest 1 View (Portable) IMPRESSION: Cardiomegaly without radiographic evidence of acute cardiopulmonary disease. Electronically Signed: Papa Mackay MD at 15:57 EST ,
[2022-11-27] MEDS: 0.9% Normal Saline 1,000 ML 1000 ML IV (16:01)
[2022-11-27] MEDS: Ketorolac 15 MG/ML Vial IV (16:01)
[2022-11-27 16:03] LABS: Absolute Lymphocyte Count 0.73 X10^3/uL (0.83-4.51); Absolute Neutrophil Count 6.3 X10^3/uL (2.0-7.7); Basophil# 0.01 X10^3/uL; Basophil% 0.1 % (0-1); Eosinophil# 0.02 X10^3/uL; Eosinophils% 0.2 % (0-5); Hematocrit 36.2 % (37-47); Hemoglobin 12.2 g/dL (12.0-15.0); Lymphocyte # 0.73 X10^3/ul (0.83-4.51); Lymphocyte % 8.9 % (19-41); Mean Corp Hgb Conc 33.7 g/dL (32-36); Mean Corpuscular Volume 91.9 fL (81-99); Mean Platelet Vol. 8.8 fl (6.2-12.0); Monocyte# 1.03 X10^3/uL; Monocyte% 12.6 % (0-10); NRBC Flagged by Analyzer 0 % (0-5); Neutrophil # 6.33 X10^3/uL (2.7-7.7); Neutrophil % 77.6 % (47-70); Platelet Count 191 K/mm3 (150-450); RBC Distribution Width CV 12.5 % (11.6-14.6); RBC Distribution Width SD 41.7 fl (35.1-43.9); Red Blood Count 3.94 M/mm3 (4.2-5.4); White Blood Count 8.2 K/mm3 (4.4-11.0)
[2022-11-27 16:28] LABS: ALB/GLOB Ratio 0.9 RATIO (0.9-2.4); AST(SGOT) 14 U/L (15-37); Alanine Aminotransfer ALT/SGPT 23 U/L (13-56); Alkaline Phosphatase 57 U/L (45-117); Anion Gap 5 (5-15); BUN 14 mg/dL (7-18); BUN/Creat Ratio 14.8 RATIO (10-20); Calcium,Total 8.8 mg/dL (8.5-10.1); Chloride 97 mmol/L (98-107); Creatinine, Serum 0.94 mg/dL (0.55-1.02); EST Glomerular Filtration Rate 60 mL/min (>60); Est Glom Filt Rate - Afr Amer 73 mL/min (>60); Estimated Creatinine Clearance 35.24 ml/min; Globulin 3.3 g/dL (2.2-4.2); Glucose 189 mg/dL (74-106); Potassium 4.6 mmol/L (3.5-5.1); Protein, Total 6.3 g/dL (6.4-8.2); Sodium Level 129 mmol/L (136-145)
[2022-11-27 19:35] VITALS: BP 140/57; PULSE 57; RESP 19; O2SAT 98
--- NOTE | 2022-11-27 20:52 | EDS_ITS ---
HPI History of Present Illness Chief Complaint: Weakness Narrative Narrative: Patient presents with lightheadedness, weakness the past few days. She has a urinary tract infection was treated with amoxicillin however her PCP just ordered nitrofurantoin which she has not picked up yet. She has no fever or chills. She also has a headache which was gradual in onset, she sees a neurologist for these headaches and had similar to her prior headache. No neurological complaints [facility] Medical History Ascending aortic aneurysm Atrophic vaginitis Breast cancer Cervicalgia Chronic pain Degeneration of lumbar or lumbosacral intervertebral disc Diabetes Diverticulitis large intestine Essential hypertension Essential tremor Family history of colon cancer in father Generalized osteoarthrosis, unspecified site Hypertension IBS (irritable bowel syndrome) Migraine Migraine with aura Non-smoker Other osteoporosis without current pathological fracture Overactive bladder PAC (premature atrial contraction) Pacemaker PVC (premature ventricular contraction) Type 2 diabetes mellitus without complication, without long-term current use of insulin Home Medications alendronate 70 mg tablet 70 mg PO SA BONES 10/03/17 [History Last Taken 03/05/19] aspirin 81 mg chewable tablet 81 mg PO DAILY@0800 HEART HEALTH 10/03/17 [History Last Taken 03/10/19] dicyclomine 10 mg capsule 10 mg PO 4X/DAY PRN PRN Irritable Bowel Syndrome 10/03/17 [History Last Taken 12/25/18] estradiol 0.01% (0.1 mg/gram) vaginal cream 1 dose vaginal LOVE PRN vaginal dryness 10/03/17 [History Last Taken 03/06/19] magnesium oxide 400 mg (241.3 mg magnesium) tablet 400 mg PO DAILY SUPPLEMENT 10/03/17 [History Last Taken 03/11/19] multivitamin with folic acid 400 mcg tablet 1 tab PO DAILY SUPPLEMENT 10/03/17 [History Last Taken 03/11/19] nateglinide 60 mg tablet 60 mg PO TID PRN sugar 10/03/17 [History Last Taken 12/25/18] oxybutynin chloride 5 mg tablet 5 mg PO QHS BLADDER 10/03/17 [History Last Taken 03/10/19] sumatriptan succinate 50 mg tablet 50 mg PO .X1 PRN PRN Headache 10/03/17 [History Last Taken 03/05/19] tramadol 50 mg tablet 50 mg PO Q4H PRN PRN Pain 10/03/17 [History Last Taken 03/07/19] amitriptyline 10 mg tablet 20 mg PO QHS BP 04/05/18 [History Last Taken 03/10/19] sotalol 120 mg tablet 120 mg PO BID HEART 12/25/18 [History Last Taken 03/11/19] potassium chloride 20 mEq tablet,extended release(part/cryst) 20 tab PO DAILY POTASSIUM 01/19/19 [History Last Taken 03/10/19] acetaminophen 500 mg tablet 500 mg PO PRN PRN Pain 03/11/19 [History Last Taken 03/11/19] atenolol 100 mg tablet 100 mg PO DAILY HEART 03/11/19 [History Last Taken 03/11/19] losartan 100 mg tablet 50 mg PO DAILY BP 03/11/19 [History Last Taken 03/11/19] metformin 500 mg tablet,extended release 24 hr 500 mg PO QHS DM 03/11/19 [History Last Taken 03/10/19] omega-3 fatty acids-fish oil 340 mg-1,000 mg capsule 1,000 mg PO BID SUPPLEMENT 03/11/19 [History Last Taken 03/11/19] pravastatin 10 mg tablet 10 mg PO QHS CHOLESTEROL 03/11/19 [History Last Taken 03/10/19] calcium carbonate 500 mg-vitamin D3 10 mcg (400 unit) tablet (Calcium 500 With D) 1 tab PO DAILY 10/17/19 [History Last Taken Unknown] furosemide 20 mg tablet 20 mg PO DAILY 10/17/19 [History Last Taken Unknown] pantoprazole 40 mg tablet,delayed release 40 mg PO DAILY 10/17/19 [History Last Taken Unknown] metformin 500 mg tablet 500 mg PO .AM PRN steroid injection 05/24/21 [History Last Taken Unknown] Allergy/AdvReac Type Severity Reaction Status Date / Time procaine HCl [From Novocain] Allergy Anaphylaxis Verified 11/27/22 14:11 albuterol AdvReac Tachycardia Verified 11/27/22 14:11 cetirizine AdvReac Other Verified 11/27/22 14:11 codeine AdvReac Vomiting Verified 11/27/22 14:11 gabapentin AdvReac Mental Verified 11/27/22 14:11 Status Change/Fatigue hydrochlorothiazide AdvReac Other Verified 11/27/22 14:11 lisinopril AdvReac Cough Verified 11/27/22 14:11 morphine AdvReac Vomiting Verified 11/27/22 14:11 pregabalin AdvReac Other Verified 11/27/22 14:11 Sulfa (Sulfonamide AdvReac Other Verified 11/27/22 14:11 Antibiotics) Family History Mother Diabetes Ovarian cancer Father Cancer bladder thyroid Colon cancer Hypertension Surgical History femoral hernia repair H/O aortic valve replacement H/O elbow surgery H/O left mastectomy History of open heart surgery Hx of appendectomy S/P CODIE (total abdominal hysterectomy) S/P TAVR (transcatheter aortic valve replacement) Social History household members: spouse Smoking Status: Never smoker alcohol intake: never substance use type: does not use caffeine: No what type of physical activity do you participate in: walking seatbelt use: always do you feel safe at home: Yes additional social history: Don- Retired Patient is retired ROS ROS ED ROS Narrative Past medical history: Reviewed in [employer], includes hypertension, type 2 diabetes, status post aortic valve replacement, atrial fibrillation, hyperlipidemia, history of migraines, history of diverticulitis Medications: Reviewed Social history: Noncontributory Review of systems: All systems negative except as indicated General: No fever. She has lightheadedness Eyes: No visual changes ENT: No upper airway congestion, normal voice Neck: No neck pain Cardiovascular: No chest pain Respiratory: No shortness of breath or cough Gastrointestinal: No abdominal pain, nausea vomiting or diarrhea Genitourinary: Some dysuria Musculoskeletal: Denies myalgias no difficulty with ambulation Skin: No rash Neurological: No memory loss, confusion or any focal weakness. Gradual onset of headache as in HPI Psych: No recent behavioral changes Hematologic: No easy bleeding or easy bruising EXAM Physical Exam Narrative Exam Narrative: Physical exam General: Patient appears relatively comfortable. Head: Normocephalic, Atraumatic Eyes: Conjunctiva not pale ENT: Slightly dry mucous membranes Neck: Supple, Nontender, No lymphadenopathy Cardiovascular: Regular rate, Regular rhythm Respiratory: No distress, CTA bilaterally Abdomen: Soft, Nontender, Nondistended Back: Nontender, Normal Inspection. Negative for: CVA tenderness Extremities: Nontender, No edema Skin: Normal color, No rash Neurological: Alert, Normal Strength, Normal Sensation Psychological: Normal affect Const Vital Signs: 11/27/22 14:04 11/27/22 14:15 11/27/22 19:35 Temperature 96.8 F L Temperature Source Temporal Pulse Rate 60 57 L Respiratory Rate 16 19 H Respiratory Effort Normal Respiratory Pattern Normal Blood Pressure 122/65 H 140/57 H Blood Pressure Mean 84 84 Pulse Ox 99 98 Oxygen Delivery Method Room Air Room Air MDM MDM MDM Narrative Medical decision making narrative: Is an unremarkable work-up. She appears well. She is significantly improved a fter IV fluids. I will give her IV Rocephin in the ED for her UTI and she can fill up her prescription in the morning. Changes she is to return. Lab Data Labs: Laboratory Results - last 24 hr 11/27/22 11/27/22 15:52 15:52 WBC 8.2 RBC 3.94 L Hgb 12.2 Hct 36.2 L MCV 91.9 MCH 31.0 MCHC 33.7 RDW Std Deviation 41.7 RDW Coeff of Celia 12.5 Plt Count 191 MPV 8.8 Immature Gran % (Auto) 0.600 Neut % (Auto) 77.6 H Lymph % (Auto) 8.9 L [place] % (Auto) 12.6 H Eos % (Auto) 0.2 Baso % (Auto) 0.1 Absolute Neuts (auto) 6.3 Absolute Lymphs (auto) 0.73 L Nucleated RBC % 0 Sodium 129 L Potassium 4.6 Chloride 97 L Carbon Dioxide 27.0 Anion Gap 5 BUN 14 Creatinine 0.94 Estim Creat Clear Calc 35.24 Est GFR (MDRD) Af Amer 73 Est GFR (MDRD) Non-Af 60 BUN/Creatinine Ratio 14.8 Glucose 189 H Calcium 8.8 Total Bilirubin 0.60 AST 14 L ALT 23 Alkaline Phosphatase 57 Total Protein 6.3 L Albumin 3.0 L Globulin 3.3 Albumin/Globulin Ratio 0.9 Radiography Diagnostic Testing: Clinical Impression(s) from Imaging Studies Chest X-Ray 11/27/22 15:29 IMPRESSION: Cardiomegaly without radiographic evidence of acute cardiopulmonary disease. Electronically Signed: Papa Mackay MD at 15:57 EST Reading Location ID and State: [facility] / [place] Tel , Service support , Chest x-ray read by me and radiologist is normal Discharge Plan Triage Chief Complaint: Weakness ED Provider: Etienne Diaz Dx/Rx/DC Orders Clinical Impression: Acute dehydration, Acute UTI, Headache Instructions: UTIs Understanding, Dehydration Prescriptions: No Action amitriptyline 10 mg tablet 20 mg PO QHS calcium carbonate-vitamin D3 [Calcium 500 With D] 500 mg(1,250mg) -400 unit tablet 1 tab PO DAILY furosemide 20 mg tablet 20 mg PO DAILY pantoprazole 40 mg tablet,delayed release (DR/EC) 40 mg PO DAILY metformin 500 mg tablet 500 mg PO .AM PRN (Reason: steroid injection) Rx Instructions: Take 1 tablet PO daily with breakfast. Take for 2 weeks, in addition to PM dose, after steroid injection alendronate 70 MG tablet 70 mg PO SA sumatriptan succinate 50 MG tablet 50 mg PO .X1 PRN PRN (Reason: Headache) tramadol 50 MG tablet 50 mg PO Q4H PRN PRN (Reason: Pain) nateglinide 60 MG tablet 60 mg PO TID PRN (Reason: sugar) Rx Instructions: only take this when she gets a steroid neck injection--last injection 12/21/18 magnesium oxide 400 MG tablet 400 mg PO DAILY aspirin 81 MG tablet,chewable 81 mg PO DAILY@0800 estradiol 42.5 GM cream 1 dose VAGINAL LOVE PRN (Reason: vaginal dryness) oxybutynin chloride 5 MG tablet 5 mg PO QHS dicyclomine 10 MG capsule 10 mg PO 4X/DAY PRN PRN (Reason: Irritable Bowel Syndrome) multivitamin with folic acid 1 TABLET tablet 1 tab PO DAILY sotalol 120 MG tablet 120 mg PO BID potassium chloride 20 MEQ tablet,ER particles/crystals 20 tab PO DAILY acetaminophen 500 MG tablet 500 mg PO PRN PRN (Reason: Pain) atenolol 100 MG tablet 100 mg PO DAILY pravastatin 10 MG tablet 10 mg PO QHS losartan 100 MG tablet 50 mg PO DAILY metformin 500 MG tablet 500 mg PO QHS omega-3 fatty acids-fish oil 1 EACH capsule 1,000 mg PO BID Primary Care Provider: Terence Kaur Referrals: Terence Kaur MD [Primary Care Provider] - 3-5 Days Disposition Disposition: Home, Self Care
[2022-11-27] MEDS: Ceftriaxone 1 GM/50 ML BAG IV (21:01)
== END 2022-11-27 22:01 | disposition home or self-care (01) ==
PROVIDERS: Emergency Provider Emergency Medicine; PCP Internal Medicine; Visit Provider Emergency Medicine
DX: N39.0 Urinary tract infection, site not specified (principal); I48.91 Unspecified atrial fibrillation; E11.9 Type 2 diabetes mellitus without complications; E86.0 Dehydration; E78.5 Hyperlipidemia, unspecified; R51.9 Headache, unspecified; I10 Essential (primary) hypertension; Z95.2 Presence of prosthetic heart valve; Z87.19 Personal history of other diseases of the digestive system
CPT/HCPCS: 71045; 80053; 85025; 93005; 96361; 96365; 96375; 99285; A4216

== ENCOUNTER 2023-03-13 12:50 | Emergency (ER) | payer MEDICARE, BC, SELFPAY ==
[2023-03-13 12:51] VITALS: BP 116/60; PULSE 60; RESP 18; TEMP 35.5; O2SAT 97; BMI 27.5
--- NOTE | 2023-03-13 13:43 | US_ITS ---
STUDY: ABDOMINAL ULTRASOUND - RIGHT UPPER QUADRANT REASON FOR VISIT: Female, 82 years old. ABDOMEN PAIN PAIN abd x 1 day TECHNIQUE: Ultrasound evaluation of the right upper quadrant was performed with real-time and static staples-scale imaging. TECHNICAL QUALITY: Adequate. COMPARISON: ct 12.07.21 FINDINGS: Liver: There is normal echogenicity of the liver. The bile ducts are within normal limits. There is hepatic color flow. The direction of portal flow is hepatopetal. There is no demonstrated mass lesion. Gallbladder: Normal distended gallbladder. The gallbladder wall measures 1.8 mm. There is a negative sonographic Jacobo''s sign. There is no pericholecystic fluid. There are no gallstones. Common Bile Duct (C.B.D.): It is not seen. There is too much overlying bowel gas. Pancreas: Normal size of the head, body of the pancreas. There is normal echogenicity of the pancreas. There is demonstrated 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 Right Kidney: Normal size of the right kidney. The right kidney measures 9.3 cm. . Normal renal cortex. There is no demonstrated renal mass or cyst. There is no right hydronephrosis. Aorta: It is not visualized. There is too much overlying bowel gas. . US/Gallbladder IMPRESSION: There is demonstrated 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 ACR White Paper guidelines (Jose, et al. JACR 2017; 14(7):911-923) suggest a contrast-enhanced, pancreas-protocol abdominal CT or MR in 2 years. Electronically Signed: Chivo Hernandez MD at 15:03 EDT ,
--- NOTE | 2023-03-13 13:44 | ED.VIS.GI ---
HPI HPI - GI History of Present Illness Chief Complaint: Abd Pain Informant: patient Abdominal Pain/Flank Pain Onset: Today (5 hours or so) Context: Sudden Onset Timing: Continuous and Waxes and wanes Quality: Aching and Sharp Location: Diffuse (Radiating into the right mid-upper back) Current Severity: Mild Maximum Severity: Severe Nausea/Vomiting/Emesis GI Symptom: Positive for Nausea; Negative for Vomiting Diarrhea/Melena/Hematochezia GI Symptom: Negative for Diarrhea, Melena or Hematochezia Associated Symptoms Associated Symptoms: Negative for Dysuria, Frequency or Hematuria Narrative Narrative: 82-year-old female started having severe abdominal pain this morning, she states it feels like it is all over. Radiating into the right upper mid back a little. Somewhat colicky, not as bad right now, but it seemed to start fairly suddenly after she woke up. She had not had anything to eat yet, the last meal she had was last night. After the pain started, she tried to eat part of a muffin, she only had a couple bites and it made her feel nauseated so she did not need anything else. She denies any fevers, chills, shortness of breath, cough, urinary symptoms, changes in bowel movements. No recent abdominal surgeries, she did have a remote appendectomy, hysterectomy, femoral herniorrhaphy, and she has been admitted in the past for diverticulitis with microperforation it was treated with antibiotics nonoperatively. [facility] Medical History Ascending aortic aneurysm Atrophic vaginitis Breast cancer Cervicalgia Chronic pain Degeneration of lumbar or lumbosacral intervertebral disc Diabetes Diverticulitis large intestine Essential hypertension Essential tremor Family history of colon cancer in father Generalized osteoarthrosis, unspecified site Hypertension IBS (irritable bowel syndrome) Migraine Migraine with aura Non-smoker Other osteoporosis without current pathological fracture Overactive bladder PAC (premature atrial contraction) Pacemaker PVC (premature ventricular contraction) Type 2 diabetes mellitus without complication, without long-term current use of insulin Home Medications alendronate 70 mg tablet 70 mg PO SA BONES 10/03/17 [History Last Taken 03/05/19] aspirin 81 mg chewable tablet 81 mg PO DAILY@0800 HEART HEALTH 10/03/17 [History Last Taken 03/10/19] dicyclomine 10 mg capsule 10 mg PO 4X/DAY PRN PRN Irritable Bowel Syndrome 10/03/17 [History Last Taken 12/25/18] estradiol 0.01% (0.1 mg/gram) vaginal cream 1 dose vaginal LOVE PRN vaginal dryness 10/03/17 [History Last Taken 03/06/19] magnesium oxide 400 mg (241.3 mg magnesium) tablet 400 mg PO DAILY SUPPLEMENT 10/03/17 [History Last Taken 03/11/19] multivitamin with folic acid 400 mcg tablet 1 tab PO DAILY SUPPLEMENT 10/03/17 [History Last Taken 03/11/19] nateglinide 60 mg tablet 60 mg PO TID PRN sugar 10/03/17 [History Last Taken 12/25/18] oxybutynin chloride 5 mg tablet 5 mg PO QHS BLADDER 10/03/17 [History Last Taken 03/10/19] sumatriptan succinate 50 mg tablet 50 mg PO .X1 PRN PRN Headache 10/03/17 [History Last Taken 03/05/19] tramadol 50 mg tablet 50 mg PO Q4H PRN PRN Pain 10/03/17 [History Last Taken 03/07/19] amitriptyline 10 mg tablet 20 mg PO QHS BP 04/05/18 [History Last Taken 03/10/19] sotalol 120 mg tablet 120 mg PO BID HEART 12/25/18 [History Last Taken 03/11/19] potassium chloride 20 mEq tablet,extended release(part/cryst) 20 tab PO DAILY POTASSIUM 01/19/19 [History Last Taken 03/10/19] acetaminophen 500 mg tablet 500 mg PO PRN PRN Pain 03/11/19 [History Last Taken 03/11/19] atenolol 100 mg tablet 100 mg PO DAILY HEART 03/11/19 [History Last Taken 03/11/19] losartan 100 mg tablet 50 mg PO DAILY BP 03/11/19 [History Last Taken 03/11/19] metformin 500 mg tablet,extended release 24 hr 500 mg PO QHS DM 03/11/19 [History Last Taken 03/10/19] omega-3 fatty acids-fish oil 340 mg-1,000 mg capsule 1,000 mg PO BID SUPPLEMENT 03/11/19 [History Last Taken 03/11/19] pravastatin 10 mg tablet 10 mg PO QHS CHOLESTEROL 03/11/19 [History Last Taken 03/10/19] calcium carbonate 500 mg-vitamin D3 10 mcg (400 unit) tablet (Calcium 500 With D) 1 tab PO DAILY 10/17/19 [History Last Taken Unknown] furosemide 20 mg tablet 20 mg PO DAILY 10/17/19 [History Last Taken Unknown] metformin 500 mg tablet 500 mg PO .AM PRN steroid injection 05/24/21 [History Last Taken Unknown] pantoprazole 40 mg tablet,delayed release 40 mg PO BID 2 weeks #28 tabs 03/13/23 [Rx Last Taken Unknown] sucralfate 1 gram tablet (Carafate) 1 g PO TID #30 tabs 03/13/23 [Rx Last Taken Unknown] Allergy/AdvReac Type Severity Reaction Status Date / Time procaine HCl [From Novocain] Allergy Anaphylaxis Verified 03/13/23 12:51 albuterol AdvReac Tachycardia Verified 03/13/23 12:51 cetirizine AdvReac Other Verified 03/13/23 12:51 codeine AdvReac Vomiting Verified 03/13/23 12:51 gabapentin AdvReac Mental Verified 03/13/23 12:51 Status Change/Fatigue hydrochlorothiazide AdvReac Other Verified 03/13/23 12:51 lisinopril AdvReac Cough Verified 03/13/23 12:51 morphine AdvReac Vomiting Verified 03/13/23 12:51 pregabalin AdvReac Other Verified 03/13/23 12:51 Sulfa (Sulfonamide AdvReac Other Verified 03/13/23 12:51 Antibiotics) Family History Mother Diabetes Ovarian cancer Father Cancer bladder thyroid Colon cancer Hypertension Surgical History femoral hernia repair H/O aortic valve replacement H/O elbow surgery H/O left mastectomy History of open heart surgery Hx of appendectomy S/P CODIE (total abdominal hysterectomy) S/P TAVR (transcatheter aortic valve replacement) Social History household members: spouse Smoking Status: Never smoker alcohol intake: never substance use type: does not use caffeine: No what type of physical activity do you participate in: walking seatbelt use: always do you feel safe at home: Yes additional social history: Don- Retired Patient is retired ROS ROS ED Constitutional Constitutional ED: Denies chills or fever(s) Eyes Eyes: Denies change in vision or diplopia ENT ENT ED: Denies rhinorrhea or sore throat Cardiovascular Cardiovascular: Denies chest pain or palpitations Respiratory/Chest Respiratory/Chest: Denies cough or dyspnea Gastrointestinal Gastrointestinal: Reports abdominal pain and nausea; Denies diarrhea, hematochezia, melena or vomiting Genitourinary Genitourinary ED: Denies dysuria or hematuria Musculoskeletal Musculoskeletal: Reports back pain; Denies neck pain Integumentary Denies abscess or rash Neurologic Neurologic: Denies headache(s), paresthesias or weakness Psychiatric Psychiatric: Denies anxiety or suicidal thoughts EXAM Physical Exam Const Vital Signs: 03/13/23 12:51 Temperature 95.9 F L Temperature Source Temporal Pulse Rate 60 Respiratory Rate 18 Blood Pressure 116/60 Blood Pressure Mean 78 Pulse Ox 97 Oxygen Delivery Method Room Air Positive well nourished and well developed General Appearance ED: well developed and NAD HEENT Reports moist mucous membranes normocephalic and atraumatic Eyes PERRL and EOMs intact bilaterally Neck full ROM and supple Resp normal respiratory effort and clear to auscultation bilaterally Cardio regular rate, regular rhythm and no murmurs GI non-distended GI Narrative: Moderate-severe tenderness right upper quadrant and epigastrium. Otherwise abdomen benign. No pulsatile mass. Positive Jacobo. Auscultation: normoactive bowel sounds Palpation: soft Back/Spine no CVA tenderness General Back: other FROM Extremity normal to inspection General Extremety ED: Negative for edema, pulses abnormal or tenderness General Extremity: Negative for edema or pulses abnormal Neuro oriented x3, CN's II-XII intact bilaterally and no sensory deficits noted Sensorium / Orientation: awake and alert Motor Exam: strength 5/5 throughout Psych mental status grossly normal and thought process normal Skin no rashes or lesions noted and no wounds MDM MDM MDM Narrative Medical decision making narrative: Although the history is not exactly classic, she has many features of her history and exam that are suspicious for biliary colic. Therefore the initial imaging I chose was an ultrasound of the right upper quadrant in addition to labs, I offered her analgesics but she declined, and she was given IV fluids with Zofran. She has no leukocytosis, she does have hyponatremia at 126, she is not especially symptomatic from that and when I discussed with her she states she has chronic issues with low sodium, as is evident looking back at her old labs. Her LFTs and lipase are normal. Ultrasound images are reviewed, agree with radiology that it appears normal with no stones. They did note a pancreatic cyst, this was evident on her abdomen CT in October as well. On reevaluation patient is having increasing pain and holding her right mid abdomen. She can walk but hurts to straighten up. She is excepting my offer for pain medication now, and I am sending her for CT with IV contrast. I reviewed the images, as well as the radiologist report, which I agree with. It basically shows gastritis nothing else acute. There are some other incidental findings, cysts in the ovary, kidney, and pancreas which the patient was already aware of all of that. Given that she ate something this morning after the pain started and she quickly felt worse, this is all consistent with gastritis. 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 I will double this for the next 2 weeks, give her prescription for Carafate 1 g 3 times daily for the next 10 days, we discussed reasons to return specially hematemesis or rectal bleeding/melena, and follow-up. Refer to GI as well. She is comfortable with that plan and answered all questions at the bedside. Additionally, discussed with the patient regarding urinary infections, she has had them in the past and she has had urine symptoms with those in the past. She has seen urology Dr. Wong. She has no urinary symptoms now with this, she urinated here in the ER but we did not capture it, so I do not think we need to wait for urinalysis. Lab Data Attestation: I reviewed the patient's lab results. Labs: Laboratory Results - last 24 hr 03/13/23 03/13/23 13:45 13:45 WBC 6.4 RBC 4.06 L Hgb 12.9 Hct 37.8 MCV 93.1 MCH 31.8 MCHC 34.1 RDW Std Deviation 41.4 RDW Coeff of Celia 12.1 Plt Count 203 MPV 9.0 Immature Gran % (Auto) 0.500 Neut % (Auto) 70.2 H Lymph % (Auto) 16.5 L Henry % (Auto) 10.7 H Eos % (Auto) 1.6 Baso % (Auto) 0.5 Absolute Neuts (auto) 4.5 Absolute Lymphs (auto) 1.05 Nucleated RBC % 0 Sodium 126 L Potassium 4.7 Chloride 95 L Carbon Dioxide 25.0 Anion Gap 6 BUN 16 Creatinine 0.83 Estim Creat Clear Calc 39.91 Est GFR (MDRD) Af Amer 84 Est GFR (MDRD) Non-Af 69 BUN/Creatinine Ratio 19.2 Glucose 184 H Calcium 9.0 Total Bilirubin 0.50 AST 24 ALT 33 Alkaline Phosphatase 73 Total Protein 6.0 L Albumin 3.2 Globulin 2.8 Albumin/Globulin Ratio 1.1 Lipase 30 Radiography Diagnostic Testing: Clinical Impression(s) from Imaging Studies Gallbladder Ultrasound 03/13/23 13:43 IMPRESSION: There is demonstrated 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 ACR White Paper guidelines (Jose, et al. JACR 2017; 14(7):911-923) suggest a contrast-enhanced, pancreas-protocol abdominal CT or MR in 2 years. Electronically Signed: Chivo Hernandez MD at 15:03 EDT , Abdomen/Pelvis CT 03/13/23 15:22 IMPRESSION: (NOT LISTED IN ORDER OF SIGNIFICANCE) Gastritis. Other findings as above. Electronically Signed: Chivo Hernandez MD at 16:48 EDT , Discharge Plan Triage Chief Complaint: Abd Pain ED Provider: Teofilo Colon Dx/Rx/DC Orders Clinical Impression: Acute gastritis without bleeding Instructions: ED Gastritis (Adult) Prescriptions: New sucralfate [Carafate] 1 gram tablet 1 g PO TID Qty: 30 0RF Continued amitriptyline 10 mg tablet 20 mg PO QHS calcium carbonate-vitamin D3 [Calcium 500 With D] 500 mg(1,250mg) -400 unit tablet 1 tab PO DAILY furosemide 20 mg tablet 20 mg PO DAILY metformin 500 mg tablet 500 mg PO .AM PRN (Reason: steroid injection) Rx Instructions: Take 1 tablet PO daily with breakfast. Take for 2 weeks, in addition to PM dose, after steroid injection alendronate 70 MG tablet 70 mg PO SA sumatriptan succinate 50 MG tablet 50 mg PO .X1 PRN PRN (Reason: Headache) tramadol 50 MG tablet 50 mg PO Q4H PRN PRN (Reason: Pain) nateglinide 60 MG tablet 60 mg PO TID PRN (Reason: sugar) Rx Instructions: only take this when she gets a steroid neck injection--last injection 12/21/18 magnesium oxide 400 MG tablet 400 mg PO DAILY aspirin 81 MG tablet,chewable 81 mg PO DAILY@0800 estradiol 42.5 GM cream 1 dose VAGINAL LOVE PRN (Reason: vaginal dryness) oxybutynin chloride 5 MG tablet 5 mg PO QHS dicyclomine 10 MG capsule 10 mg PO 4X/DAY PRN PRN (Reason: Irritable Bowel Syndrome) multivitamin with folic acid 1 TABLET tablet 1 tab PO DAILY sotalol 120 MG tablet 120 mg PO BID potassium chloride 20 MEQ tablet,ER particles/crystals 20 tab PO DAILY acetaminophen 500 MG tablet 500 mg PO PRN PRN (Reason: Pain) atenolol 100 MG tablet 100 mg PO DAILY pravastatin 10 MG tablet 10 mg PO QHS losartan 100 MG tablet 50 mg PO DAILY metformin 500 MG tablet 500 mg PO QHS omega-3 fatty acids-fish oil 1 EACH capsule 1,000 mg PO BID Changed pantoprazole 40 mg tablet,delayed release (DR/EC) 40 mg PO BID 14 Days Qty: 28 0RF Primary Care Provider: Terence Kaur Referrals: Friend,DO Frederic [Med Staff - Active Staff] - (call for appt; you can always cancel if your symptoms resolve in the future) Terence Kaur MD [Primary Care Provider] - 1 Week if not improving Disposition Disposition: Home, Self Care
[2023-03-13] MEDS: Ondansetron 4 MG/2 ML Vial IV (13:49)
[2023-03-13] MEDS: 0.9% Normal Saline 1,000 ML 125 ML IV (13:49)
[2023-03-13 14:04] LABS: Absolute Lymphocyte Count 1.05 X10^3/uL (0.83-4.51); Absolute Neutrophil Count 4.5 X10^3/uL (2.0-7.7); Basophil# 0.03 X10^3/uL; Basophil% 0.5 % (0-1); Eosinophils% 1.6 % (0-5); Hematocrit 37.8 % (37-47); Hemoglobin 12.9 g/dL (12.0-15.0); Lymphocyte # 1.05 X10^3/ul (0.83-4.51); Lymphocyte % 16.5 % (19-41); Mean Corp Hgb Conc 34.1 g/dL (32-36); Mean Corpuscular Hgb 31.8 pg (27.0-32.0); Mean Corpuscular Volume 93.1 fL (81-99); Monocyte# 0.68 X10^3/uL; Monocyte% 10.7 % (0-10); NRBC Flagged by Analyzer 0 % (0-5); Neutrophil # 4.49 X10^3/uL (2.7-7.7); Neutrophil % 70.2 % (47-70); Platelet Count 203 K/mm3 (150-450); RBC Distribution Width CV 12.1 % (11.6-14.6); RBC Distribution Width SD 41.4 fl (35.1-43.9); Red Blood Count 4.06 M/mm3 (4.2-5.4); White Blood Count 6.4 K/mm3 (4.4-11.0)
[2023-03-13 14:18] LABS: ALB/GLOB Ratio 1.1 RATIO (0.9-2.4); AST(SGOT) 24 U/L (15-37); Alanine Aminotransfer ALT/SGPT 33 U/L (13-56); Albumin, Serum 3.2 g/dL (3.2-5.0); Alkaline Phosphatase 73 U/L (45-117); Anion Gap 6 (5-15); BUN 16 mg/dL (7-18); BUN/Creat Ratio 19.2 RATIO (10-20); Chloride 95 mmol/L (98-107); Creatinine, Serum 0.83 mg/dL (0.55-1.02); EST Glomerular Filtration Rate 69 mL/min (>60); Est Glom Filt Rate - Afr Amer 84 mL/min (>60); Estimated Creatinine Clearance 39.91 ml/min; Globulin 2.8 g/dL (2.2-4.2); Glucose 184 mg/dL (74-106); Lipase 30 U/L (13-75); Potassium 4.7 mmol/L (3.5-5.1); Sodium Level 126 mmol/L (136-145)
--- NOTE | 2023-03-13 15:22 | CT_ITS ---
STUDY: CT Abdomen And Pelvis W/ Contrast Injection 03/13/2023 4:29 PM REASON FOR EXAM: Female, 82 years old. Abdominal pain right sided abd pain/tend, neg GB u/s Individualized dose optimization techniques were used for this CT. COMPARISON: 11.06.22. TECHNIQUE: CT Abdomen And Pelvis W/ Contrast Injection IV 100mL Isovue-300 FINDINGS: There are atherosclerotic calcifications of visualized coronary arteries. Enlarged heart. Median sternotomy wires. Aortic stent graft. Normal liver. Normal gallbladder and extrahepatic biliary system. Normal spleen. Normal pancreas. Normal bilateral adrenal glands. There are hypodensities in the right kidney. These are consistent for cysts. No follow up required. 11mm hyperdense lesion of the lateral left kidney. ACR White Paper guidelines (Herts, et al. JACR 2018; 15(2):264-273) suggest no follow-up is necessary. Focal wall thickening of the antrum of stomach. This can suggest a gastritis. Normal small intestine. There are multiple colonic diverticula consistent with diverticulosis. There is non-visualization of the appendix. There are calcifications of the abdominal aorta. This is consistent for atherosclerotic disease. There is NO abdominal aortic aneurysm. Vascular workup can be obtained based on clinical correlation. Normal inferior vena cava. Subcentimeter mesenteric lymph nodes. Normal urinary bladder. There is absence of the uterus consistent with a prior hysterectomy. 27mm right ovary cyst. ACR White Paper guidelines (Kennedy, et. al. JACR 2020;17(2):248-254) suggest no follow-up is necessary. There is an umbilical hernia containing fat. There are diffuse degenerative changes of the visualized lumbar spine. T12 kyphoplasty changes. CT/Abdomen/Pelvis W IV Cont ONLY IMPRESSION: (NOT LISTED IN ORDER OF SIGNIFICANCE) Gastritis. Other findings as above. Electronically Signed: Chivo Hernandez MD at 16:48 EDT ,
[2023-03-13] MEDS: Morphine 2 MG/ML Syringe IV ×2 (15:46→16:31)
[2023-03-13 17:21] VITALS: PULSE 61; O2SAT 96
[2023-03-13] MEDS: Mag Hydrox/Al Hydrox/Simeth 30 ML UDC PO (17:23)
[2023-03-13] MEDS: Dicyclomine 10 MG Capsule PO (17:23)
[2023-03-13] MEDS: Sucralfate 1 GM Tablet PO (17:23)
[2023-03-13] MEDS: Pantoprazole Sodium 40 MG Tablet PO (17:23)
== END 2023-03-13 17:31 | disposition home or self-care (01) ==
PROVIDERS: Emergency Provider Emergency Medicine; PCP Internal Medicine; Visit Provider Emergency Medicine
DX: K29.00 Acute gastritis without bleeding (principal); Z95.0 Presence of cardiac pacemaker
CPT/HCPCS: 74177; 76705; 80053; 83690; 85025; 96374; 96375; 96376; 99285; J7030; Q9967; A4216; J2405

== ENCOUNTER 2023-06-17 13:03 | Observation (INO) | payer MEDICARE, BC, SELFPAY ==
[2023-06-17] VITALS (13 sets, daily range): BP systolic 148–197; BP diastolic 59–99; PULSE 60–72; RESP 14–18; TEMP 35.6–37.1; O2SAT 91–99; BMI 29.5; BMI 27.7
--- NOTE | 2023-06-17 13:10 | NURSING ---
STROKE ALERT CALLED
--- NOTE | 2023-06-17 13:11 | RAD_ITS ---
INDICATION: Neuro deficit, acute, stroke suspected EXAMINATION/TECHNIQUE: X-RAY - XR Chest 1 View FINDINGS: LINES/DEVICES: A right-sided pacemaker is noted. LUNGS: No consolidation, edema or effusion. No pneumothorax. MEDIASTINUM AND CARDIOVASCULAR STRUCTURES: Cardiac silhouette not enlarged. Central airways and mediastinal contour are unremarkable. BONES AND SOFT TISSUES: Unremarkable. RAD/Chest 1 View IMPRESSION: No radiographic evidence of acute cardiopulmonary disease. Electronically Signed: Ron Powers, at 14:42 EDT ,
--- NOTE | 2023-06-17 13:11 | CT_ITS ---
We are attempting to reach an attending provider to discuss findings. An addendum with communication details will be sent when the communication is complete. INDICATION: Neuro deficit, acute, stroke suspected EXAMINATION: CT BRAIN - CT Head Stroke Protocol W/O Contrast Injection TECHNIQUE: Multiple axial images were obtained of the head without intravenous contrast. A radiation dose optimization technique was used for this scan. IV Contrast dosage and agent: None. RADIATION DOSAGE (If Supplied By Facility): CTDIvol = ( ) mGy, DLP = ( 855.03 ) mGycm COMPARISON: FINDINGS: BRAIN PARENCHYMA: There is moderate periventricular and subcortical white matter lucency. No intra- or extra-axial hemorrhage. No evidence of acute infarct. No intracranial mass or mass effect. There is preservation of the staples/white matter interface. Posterior fossa structures are unremarkable. CSF SPACES: Appropriate for age. No hydrocephalus. Basal cisterns are patent. CALVARIUM, SKULL BASE, PARANASAL SINUSES AND MASTOID AIR CELLS: Clear. No discrete lytic or blastic abnormalities. ORBITS: Both globes, extraocular muscles, optic nerves and retrobulbar fat appear unremarkable. CT/STROKE Brain/Head without Cont IMPRESSION: Small vessel ischemic changes. Otherwise unremarkable CT brain. Electronically Signed: Ron Powers, at 13:46 EDT ,
--- NOTE | 2023-06-17 13:13 | CT_ITS ---
INDICATION: left sided sensory deficit EXAMINATION: CT BRAIN WITH CONTRAST TECHNIQUE: Noncontrast axial images were obtained of the brain. Subsequently, routine carotid CT angiogram protocol was performed without and with IV contrast. In addition, images were obtained of the [place] of [place]. NASCET criteria using the distal ICAs for comparison were used for evaluation of stenoses. 3D reconstructions were reviewed. A radiation dose optimization technique was used for this scan. IV Contrast dosage and agent: FINDINGS: --CT BRAIN: BRAIN PARENCHYMA: No intra- or extra-axial hemorrhage. No evidence of acute infarct. No intracranial mass or mass effect. There is preservation of the staples/white matter interface. There is moderate periventricular and subcortical white matter lucency. Posterior fossa structures are unremarkable. CSF SPACES: Appropriate for age. No hydrocephalus. Basal cisterns are patent. CALVARIUM, SKULL BASE, PARANASAL SINUSES AND MASTOID AIR CELLS: Clear. No discrete lytic or blastic abnormalities. --CTA NECK: AORTIC ARCH AND BRANCHES: Normal anatomy, patent. RIGHT CCA: No occlusion, significant stenosis or dissection. RIGHT ICA: No occlusion, significant stenosis or dissection. LEFT CCA: No occlusion, significant stenosis or dissection. LEFT ICA: No occlusion, significant stenosis or dissection. RIGHT VERTEBRAL ARTERY: No occlusion, significant stenosis or dissection. LEFT VERTEBRAL ARTERY: No occlusion, significant stenosis or dissection. NECK SOFT TISSUES: Unremarkable. --CTA HEAD: --Anterior circulation: ICAs: No significant stenosis at the intracranial/visualized segments. ACAs: No significant stenosis at the visualized segments. ACOM: Present. MCAs: No significant stenosis at the visualized segments. --Posterior circulation: PCOMs: Not present metal bumper: No significant stenosis at the visualized segments. BASILAR ARTERY: No significant stenosis. VERTEBRAL ARTERIES: No significant stenosis at the intradural/visualized segments. No evidence of large intracranial aneurysm, narrowing or vascular malformation. CT/CTA Head AND Neck W/ Contrast IMPRESSION: Small vessel ischemic changes. Otherwise unremarkable CT Brain, CTA Carotid, and CTA Brain. N.B. : The above Results were Read Back by Ron Powers to Mike Marin DO, and understanding confirmed on 06/17/2023 13:52:00 (ET). Electronically Signed: Ron Powers, at 13:53 EDT ,
--- NOTE | 2023-06-17 13:13 | EDS_ITS ---
HPI History of Present Illness Chief Complaint: Stroke Alert [facility] Medical History (Updated 06/17/23 @ 14:[address] Mike Marin, DO) Ascending aortic aneurysm Atrophic vaginitis Breast cancer Cervicalgia Chronic pain Degeneration of lumbar or lumbosacral intervertebral disc Diabetes Diverticulitis large intestine Essential hypertension Essential tremor Family history of colon cancer in father Gastritis Generalized osteoarthrosis, unspecified site Hypertension IBS (irritable bowel syndrome) Migraine Migraine with aura Near syncope Non-smoker Other osteoporosis without current pathological fracture Overactive bladder PAC (premature atrial contraction) Pacemaker PVC (premature ventricular contraction) Type 2 diabetes mellitus without complication, without long-term current use of insulin Home Medications alendronate 70 mg tablet 70 mg PO SA BONES 10/03/17 [History Last Taken 03/05/19] aspirin 81 mg chewable tablet 81 mg PO DAILY@0800 HEART HEALTH 10/03/17 [History Last Taken 03/10/19] dicyclomine 10 mg capsule 10 mg PO 4X/DAY PRN PRN Irritable Bowel Syndrome 10/03/17 [History Last Taken 12/25/18] estradiol 0.01% (0.1 mg/gram) vaginal cream 1 dose vaginal LOVE PRN vaginal dryness 10/03/17 [History Last Taken 03/06/19] magnesium oxide 400 mg (241.3 mg magnesium) tablet 400 mg PO DAILY SUPPLEMENT 10/03/17 [History Last Taken 03/11/19] multivitamin with folic acid 400 mcg tablet 1 tab PO DAILY SUPPLEMENT 10/03/17 [History Last Taken 03/11/19] oxybutynin chloride 5 mg tablet 5 mg PO QHS BLADDER 10/03/17 [History Last Taken 03/10/19] sumatriptan succinate 50 mg tablet 50 mg PO .X1 PRN PRN Headache 10/03/17 [H istory Last Taken 03/05/19] tramadol 50 mg tablet 50 mg PO Q4H PRN PRN Pain 10/03/17 [History Last Taken 03/07/19] amitriptyline 10 mg tablet 20 mg PO QHS BP 04/05/18 [History Last Taken 03/10/19] sotalol 120 mg tablet 120 mg PO BID HEART 12/25/18 [History Last Taken 03/11/19] potassium chloride 20 mEq tablet,extended release(part/cryst) 20 tab PO DAILY POTASSIUM 01/19/19 [History Last Taken 03/10/19] acetaminophen 500 mg tablet 500 mg PO PRN PRN Pain 03/11/19 [History Last Taken 03/11/19] losartan 100 mg tablet 50 mg PO DAILY BP 03/11/19 [History Last Taken 03/11/19] metformin 500 mg tablet,extended release 24 hr 500 mg PO BID DM 03/11/19 [History Last Taken 03/10/19] omega-3 fatty acids-fish oil 340 mg-1,000 mg capsule 1,000 mg PO DAILY SUPPLEMENT 03/11/19 [History Last Taken 03/11/19] pravastatin 10 mg tablet 10 mg PO QHS CHOLESTEROL 03/11/19 [History Last Taken 03/10/19] calcium carbonate 500 mg-vitamin D3 10 mcg (400 unit) tablet (Calcium 500 With D) 1 tab PO DAILY 10/17/19 [History Last Taken Unknown] furosemide 20 mg tablet 20 mg PO DAILY 10/17/19 [History Last Taken Unknown] atenolol 50 mg tablet 50 mg PO DAILY 03/23/23 [History Last Taken Unknown] meclizine 12.5 mg tablet 12.5 mg PO TID PRN dizziness or vertigo 03/23/23 [History Last Taken Unknown] Allergy/AdvReac Type Severity Reaction Status Date / Time procaine HCl [From Novocain] Allergy Anaphylaxis Verified 06/17/23 15:15 albuterol AdvReac Tachycardia Verified 06/17/23 15:15 cetirizine AdvReac Other Verified 06/17/23 15:15 codeine AdvReac Vomiting Verified 06/17/23 15:15 gabapentin AdvReac Mental Verified 06/17/23 13:15 Status Change/Fatigue hydrochlorothiazide AdvReac Other Verified 06/17/23 15:15 lisinopril AdvReac Cough Verified 06/17/23 15:15 morphine AdvReac Vomiting Verified 06/17/23 15:15 pregabalin AdvReac Other Verified 06/17/23 15:15 Sulfa (Sulfonamide AdvReac Other Verified 06/17/23 15:15 Antibiotics) Family History (Reviewed 04/24/23 @ 16:11 by Brissa Tyson FIRE EXTINGUISHER SPRINKLER INSPECTOR, FIRE EXTINGUISHER SPRINKLER INSPECTOR-C) Mother Diabetes Ovarian cancer Father Cancer bladder thyroid Colon cancer Hypertension Surgical History femoral hernia repair H/O aortic valve replacement H/O elbow surgery H/O left mastectomy History of open heart surgery Hx of appendectomy S/P CODIE (total abdominal hysterectomy) S/P TAVR (transcatheter aortic valve replacement) Social History (Reviewed 04/24/23 @ 16:11 by Brissa Tyson FIRE EXTINGUISHER SPRINKLER INSPECTOR, FIRE EXTINGUISHER SPRINKLER INSPECTOR-C) household members: spouse Smoking Status: Never smoker alcohol intake: never substance use type: does not use caffeine: No what type of physical activity do you participate in: walking seatbelt use: always do you feel safe at home: Yes additional social history: Don- Retired Patient is retired EXAM Physical Exam Const Vital Signs: 06/17/23 13:04 06/17/23 13:06 06/17/23 13:11 Temperature 98 F 97.5 F L Temperature Source Temporal Temporal Pulse Rate 60 60 60 Respiratory Rate 16 18 16 Blood Pressure 187/78 H 174/73 H 174/99 H Blood Pressure Mean 114 106 124 Pulse Ox 99 97 98 Oxygen Delivery Method Room Air Room Air Room Air 06/17/23 13:39 06/17/23 14:09 06/17/23 14:30 Temperature 96.1 F L 97.5 F L Temperature Source Temporal Temporal Pulse Rate 62 60 60 Respiratory Rate 15 18 15 Blood Pressure 173/88 H 185/91 H 185/75 H Blood Pressure Mean 116 122 111 Pulse Ox 97 96 95 Oxygen Delivery Method Room Air Room Air Room Air 06/17/23 15:04 06/17/23 15:00 Temperature 96.5 F L Temperature Source Temporal Pulse Rate 61 60 Respiratory Rate 18 14 Blood Pressure 185/75 H 185/75 H Blood Pressure Mean 111 111 Pulse Ox 96 97 Oxygen Delivery Method Room Air Room Air [facility] Narrative Medical decision making narrative: HISTORY OF PRESENT ILLNESS: 82-year-old female presents with cute onset of left-sided sensory changes. Last known well was 11:50 AM on 06/17/2023. She does not take blood thinners. She denies history of stroke. Denies any chest pain or palpitations. States symptoms are constant, severe without alleviating factors. REVIEW OF SYSTEMS: Pertinent positives: Left-sided sensory changes Pertinent negatives: Head trauma PHYSICAL EXAM: Nursing triage notes reviewed, Vital signs reviewed Constitutional: please see mdm HENT: MMM Eyes: Pupils equal round and reactive to light, Extraocular muscles intact Neck: No stridor, no JVD, full neck ROM Lungs: Clear to auscultation, No wheezing or rales. No increased work of breathing, no conversational dyspnea, no accessory muscle use, no nasal flaring. No respiratory distress noted Heart: Regular rate and rhythm, No murmurs, No rubs and No gallops, 2+ distal pulses (radial, femoral, posterior tibial) in all extremities Abdomen: Soft, there is no tenderness, rigidity, rebound or guarding, no obvious peritoneal signs, no palpable pulsatile abdominal masses, no auscultated abdominal bruit : No CVAT Extremities: No edema Neuro: Patient is alert and oriented x3, no cranial nerve deficits, left upper extremity drift, decree sensation left upper and lower extremity, NIH of 2 Skin: No rash or lesions noted MEDICAL DECISION MAKING: Chief Complaint: Left-sided sensory deficits External records reviewed: Seen and June 2022 for TIA was complex migraine. MRI at this time shows atrophy and moderate periventricular white matter ischemic changes not evidence of acute infarct, mild chronic ischemic changes in the cerebral hemisphere Factors affecting care: Type 2 diabetes, hypertension, atrial fibrillation status post TAVR Social determinants of health: Elderly History obtained from others: The patient's Consults: Stroke neurology ALL IMAGES (IF OBTAINED) HAVE BEEN PERSONALLY REVIEWED AND INTERPRETED BY MYSELF. MDM Narrative: Patient was initially hypertensive otherwise hemodynamically stable. NIH of 2. Given onset within the 4 and half hour TNK window code stroke or stroke alert was initiated. Patient was taken immediately to CT scan to get a CT of her brain without contrast as well as a CT of the head neck I considered the following differential diagnosis: CVA, TIA, complex migraine, seizure, ICH I obtained a broad lab and imaging work-up to further elucidate the etiology of the patient's complaints. CT scan of the head, CTA showed no evidence of large vessel occlusion, no evidence of LVO. Per stroke neurology recommendations no TNK was recommended at this time. Given patient's acute onset of left-sided sensory changes, left upper extremity drift with NIH of 2 she be admitted for MRI, risk factor modification and further neuro evaluation. discussed with DR. Graham. The patient and/or family, caregivers express understanding. The patient and/or family, caregivers agrees with the plan. Shared decision making: I will have a discussion with the patient and or visitors regarding risk/benefits of further testing or admission. They will be made aware of of the risk/benefits inherent in this decision they will be given the opportunity to voice understanding. Total critical care time today provided was at least 0 minutes. This excludes separately billable procedures. Critical care time (if documented) is secondary to the patient having high probability of clinically significant/life threatening deterioration in the patient's condition which required my urgent intervention. Lab Data Attestation: I reviewed the patient's lab results. Labs: Laboratory Results - last 24 hr 06/17/23 06/17/23 13:10 13:15 WBC 5.3 RBC 4.32 Hgb 13.7 Hct 39.6 MCV 91.7 MCH 31.7 MCHC 34.6 RDW Std Deviation 41.1 RDW Coeff of Celia 12.3 Plt Count 194 MPV 9.2 Immature Gran % (Auto) 0.200 Neut % (Auto) 55.9 Lymph % (Auto) 30.1 Linn % (Auto) 11.7 H Eos % (Auto) 1.5 Baso % (Auto) 0.6 Absolute Neuts (auto) 3.0 Absolute Lymphs (auto) 1.59 Nucleated RBC % 0 PT 12.4 INR 0.9 APTT 32.7 Sodium 132 L Potassium 4.0 Chloride 97 L Carbon Dioxide 29.0 Anion Gap 6 BUN 16 Creatinine 0.89 Estim Creat Clear Calc 37.22 Est GFR (MDRD) Af Amer 77 Est GFR (MDRD) Non-Af 64 BUN/Creatinine Ratio 18.0 Glucose 125 H Calcium 9.3 Troponin I High Sens 8 POC Glucose 129 H Radiography Chest X-Ray - ED: Read by ED Physician Diagnostic Testing: Clinical Impression(s) from Imaging Studies Brain CT 06/17/23 13:11 IMPRESSION: Small vessel ischemic changes. Otherwise unremarkable CT brain. Electronically Signed: Ron Powers, at 13:46 EDT Reading Location ID and State: [facility] / [place] Tel , Service support , ADDENDUM: 06/17/23 1400 IMPRESSION: Small vessel ischemic changes. Otherwise unremarkable CT brain. N.B. : The above Results were Read Back by Ron Powers to Tomas Mckeon DO, and understanding confirmed on 06/17/2023 13:53:46 (ET). Electronically Signed: Ron Powers, at 13:46 EDT , Chest X-Ray 06/17/23 13:11 IMPRESSION: No radiographic evidence of acute cardiopulmonary disease. Electronically Signed: Ron Priya, at 14:42 EDT Reading Location ID and State: [facility] / [place] Tel , Service support , Head/Neck CTA 06/17/23 13:13 IMPRESSION: Small vessel ischemic changes. Otherwise unremarkable CT Brain, CTA Carotid, and CTA Brain. N.B. : The above Results were Read Back by Ron Powers to Mike Marin DO, and understanding confirmed on 06/17/2023 13:52:00 (ET). Electronically Signed: Ron Priya, at 13:53 EDT Reading Location ID and State: [facility] / [place] Tel , Service support , ADDENDUM: 06/17/23 1400 IMPRESSION: Small vessel ischemic changes. Otherwise unremarkable CT Brain, CTA Carotid, and CTA Brain. N.B. : The above Results were Read Back by Ron Powers to Mike Marin DO, and understanding confirmed on 06/17/2023 13:52:00 (ET). Electronically Signed: Ron Priya, at 13:53 EDT , ADDENDUM: 06/17/23 1415 IMPRESSION: Small vessel ischemic changes. Otherwise unremarkable CT Brain, CTA Carotid, and CTA Brain. N.B. : The above Results were Read Back by Ron Powers to Mike Marin, DO, and understanding confirmed on 06/17/2023 14:08:57 (ET). Electronically Signed: Ron Priya, at 13:53 EDT Reading Location ID and State: [facility] / [place] Tel , Service support , ADDENDUM: 06/17/23 1418 IMPRESSION: Small vessel ischemic changes. Otherwise unremarkable CT Brain, CTA Carotid, and CTA Brain. N.B. : The above Results were Read Back by Ron mcfarland , AA, and understanding confirmed on 06/17/2023 14:11:26 (ET). Electronically Signed: Ron Powers, at 13:53 EDT Reading Location ID and State: [facility] / [place] Tel , Service support , ADDENDUM: 06/17/23 1422 IMPRESSION: Small vessel ischemic changes. Otherwise unremarkable CT Brain, CTA Carotid, and CTA Brain. N.B. : The above Results were Read Back by Ron Powers to Mike Marin, DO, and understanding confirmed on 06/17/2023 14:15:23 (ET). Electronically Signed: Ron Powers, at 13:53 EDT Reading Location ID and State: [facility] / [place] Tel , Service support , I have personally reviewed the patient's chest x-ray. Chest x-ray is unremarkable for pulmonary edema, pneumothorax, pneumonia or focal cardiopulmonary abnormality. Discharge Plan Dx/Rx/DC Orders Clinical Impression: Left-sided sensory deficit present Disposition Disposition: Acute Care Hospital [facility] Discharge Date/Time: 06/17/23 15:10
[2023-06-17 13:18] LABS: Absolute Lymphocyte Count 1.59 X10^3/uL (0.83-4.51); Basophil# 0.03 X10^3/uL; Basophil% 0.6 % (0-1); Eosinophil# 0.08 X10^3/uL; Eosinophils% 1.5 % (0-5); Hematocrit 39.6 % (37-47); Hemoglobin 13.7 g/dL (12.0-15.0); Lymphocyte # 1.59 X10^3/ul (0.83-4.51); Lymphocyte % 30.1 % (19-41); Mean Corp Hgb Conc 34.6 g/dL (32-36); Mean Corpuscular Hgb 31.7 pg (27.0-32.0); Mean Corpuscular Volume 91.7 fL (81-99); Mean Platelet Vol. 9.2 fl (6.2-12.0); Monocyte# 0.62 X10^3/uL; Monocyte% 11.7 % (0-10); NRBC Flagged by Analyzer 0 % (0-5); Neutrophil # 2.96 X10^3/uL (2.7-7.7); Neutrophil % 55.9 % (47-70); Platelet Count 194 K/mm3 (150-450); RBC Distribution Width CV 12.3 % (11.6-14.6); RBC Distribution Width SD 41.1 fl (35.1-43.9); Red Blood Count 4.32 M/mm3 (4.2-5.4); White Blood Count 5.3 K/mm3 (4.4-11.0)
[2023-06-17 13:26] LABS: International Normalized Ratio 0.9; Prothrombin Time (Protime)PT. 12.4 SECONDS (11.7-14.9)
[2023-06-17 13:27] LABS: Partial Thromboplast Time 32.7 Seconds (24.1-36.2)
[2023-06-17 13:34] LABS: Anion Gap 6 (5-15); BUN 16 mg/dL (7-18); Calcium,Total 9.3 mg/dL (8.5-10.1); Chloride 97 mmol/L (98-107); Creatinine, Serum 0.89 mg/dL (0.55-1.02); EST Glomerular Filtration Rate 64 mL/min (>60); Est Glom Filt Rate - Afr Amer 77 mL/min (>60); Estimated Creatinine Clearance 37.22 ml/min; Glucose 125 mg/dL (74-106); Sodium Level 132 mmol/L (136-145); Troponin-I HS 8 pg/mL (3.0-54.0)
[2023-06-17 13:42] LABS: Bedside Glucose 129 mg/dL (74-106)
--- NOTE | 2023-06-17 13:47 | ED.RN ---
OK PER DR. MICHAEL FOR PT TO TAKE OWN SUMATRIPTAN 50 MG MEDICATION FOR MIGRAINE.
[2023-06-17] MEDS: Metoclopramide 10 MG/2 ML Vial 5 MG IV (13:57)
[2023-06-17] MEDS: Acetaminophen 325 MG Tablet PO (13:57)
--- NOTE | 2023-06-17 14:12 | CM.ED ---
Social Work SW introduced self and role to patient. SW provided support to patient and spouse. Rhonda Figueroa HOTEL RECREATIONAL FACILITIES MANAGER, PLUG MACHINE OPERATOR
--- NOTE | 2023-06-17 14:29 | CHAPLAIN ---
Type of Pastoral Visit ___ Initial Visit ___ Follow-up Visit ___ On-call Visit ___ General Patient Visit ___ Spiritual Assessment ___ Family Conference ___ Bereavement _x__ Rapid Response ___ Code Blue ___ Other (describe below) Pastoral Care Referral From ___ Patient ___ Family ___ Nurse ___ Physician ___ Offal Trimmer ___ Blood Bank Business Manager _x__ Other (describe below) Sacrament/Intervention _x__ Active listening ___ Anointing ___ Rastafari ___ Bereavement ___ Communion ___ Amee exploration ___ ___ Life review ___ Prayer ___ Reconciliation ___ Sacrament of Sick _x__ Supportive presence ___ Wedding ___ Other (describe below) Pastoral Comments responded to stroke alert; patient was in CT; spouse was in room; offer of support and presence to the spouse; talked about pt health and recent appointments for pt; spouse concerned about upcoming appointments for pt; other family members live near by; spouse declines further needs
--- NOTE | 2023-06-17 14:51 | NURSING ---
PCU OBS OLEGHE LEFT SIDED WEAKNESS
--- NOTE | 2023-06-17 18:19 | HP.PCM_ITS ---
[facility] - General General Date of Admission: 06/17/23 Date of Service: 06/17/23 Chief Complaint: Left-sided numbness HPI Narrative TANISHA JULIAN, is a 82 F with a history of complex migraine with aura, persistent atrial fibrillation on antiarrhythmic therapy with sotalol, hypertension, type 2 diabetes and status post TAVR as well. Patient presents to the emergency department with 1 day history of left-sided numbness that appears to be waxing and waning. Patient also experiencing auras described as visual scotomas. States the symptoms are similar to her prior complex migraine episodes except that this time around she does not have any headache. Has occasional dysarthria and difficulty with mentation and some difficulty with coordination. She denies any chest pain or shortness of breath. Denies any nausea vomiting. [facility] Medical History Ascending aortic aneurysm Asthma Atrophic vaginitis Breast cancer Cervicalgia Chronic pain Degeneration of lumbar or lumbosacral intervertebral disc Diabetes Diverticulitis large intestine Essential hypertension Essential tremor Family history of colon cancer in father Gastritis Generalized osteoarthrosis, unspecified site Hypertension IBS (irritable bowel syndrome) Migraine Migraine with aura Near syncope Non-smoker Osteoporosis Other osteoporosis without current pathological fracture Overactive bladder PAC (premature atrial contraction) Pacemaker PVC (premature ventricular contraction) Stroke/cerebrovascular accident Type 2 diabetes mellitus without complication, without long-term current use of insulin Home Medications alendronate 70 mg tablet 70 mg PO SA BONES 10/03/17 [History Last Taken 03/05/19] aspirin 81 mg chewable tablet 81 mg PO DAILY@0800 HEART HEALTH 10/03/17 [History Last Taken 03/10/19] dicyclomine 10 mg capsule 10 mg PO 4X/DAY PRN PRN Irritable Bowel Syndrome 10/03/17 [History Last Taken 12/25/18] estradiol 0.01% (0.1 mg/gram) vaginal cream 1 dose vaginal LOVE PRN vaginal dryness 10/03/17 [History Last Taken 03/06/19] magnesium oxide 400 mg (241.3 mg magnesium) tablet 400 mg PO DAILY SUPPLEMENT 10/03/17 [History Last Taken 03/11/19] multivitamin with folic acid 400 mcg tablet 1 tab PO DAILY SUPPLEMENT 10/03/17 [History Last Taken 03/11/19] oxybutynin chloride 5 mg tablet 5 mg PO QHS BLADDER 10/03/17 [History Last Taken 03/10/19] sumatriptan succinate 50 mg tablet 50 mg PO .X1 PRN PRN Headache 10/03/17 [History Last Taken 03/05/19] tramadol 50 mg tablet 50 mg PO Q4H PRN PRN Pain 10/03/17 [History Last Taken 03/07/19] amitriptyline 10 mg tablet 20 mg PO QHS BP 04/05/18 [History Last Taken 02/28 12/18] sotalol 120 mg tablet 120 mg PO BID HEART 12/25/18 [History Last Taken 03/11/19] potassium chloride 20 mEq tablet,extended release(part/cryst) 20 tab PO DAILY POTASSIUM 01/19/19 [History Last Taken 03/10/19] acetaminophen 500 mg tablet 500 mg PO PRN PRN Pain 03/11/19 [History Last Taken 03/11/19] losartan 100 mg tablet 50 mg PO DAILY BP 03/11/19 [History Last Taken 03/11/19] metformin 500 mg tablet,extended release 24 hr 500 mg PO BID DM 03/11/19 [History Last Taken 03/10/19] omega-3 fatty acids-fish oil 340 mg-1,000 mg capsule 1,000 mg PO DAILY SUPPLEMENT 03/11/19 [History Last Taken 03/11/19] pravastatin 10 mg tablet 10 mg PO QHS CHOLESTEROL 03/11/19 [History Last Taken 03/10/19] calcium carbonate 500 mg-vitamin D3 10 mcg (400 unit) tablet (Calcium 500 With D) 1 tab PO DAILY 10/17/19 [History Last Taken Unknown] furosemide 20 mg tablet 20 mg PO DAILY 10/17/19 [History Last Taken Unknown] atenolol 50 mg tablet 50 mg PO DAILY 03/23/23 [History Last Taken Unknown] meclizine 12.5 mg tablet 12.5 mg PO TID PRN dizziness or vertigo 03/23/23 [History Last Taken Unknown] Allergy/AdvReac Type Severity Reaction Status Date / Time procaine HCl [From Novocain] Allergy Anaphylaxis Verified 06/17/23 15:15 albuterol AdvReac Tachycardia Verified 06/17/23 15:15 cetirizine AdvReac Other Verified 06/17/23 15:15 codeine AdvReac Vomiting Verified 06/17/23 15:15 gabapentin AdvReac Mental Verified 06/17/23 13:15 Status Change/Fatigue hydrochlorothiazide AdvReac Other Verified 06/17/23 15:15 lisinopril AdvReac Cough Verified 06/17/23 15:15 morphine AdvReac Vomiting Verified 06/17/23 15:15 pregabalin AdvReac Other Verified 06/17/23 15:15 Sulfa (Sulfonamide AdvReac Other Verified 06/17/23 15:15 Antibiotics) Family History Mother Diabetes Ovarian cancer Father Cancer bladder thyroid Colon cancer Hypertension Surgical History femoral hernia repair H/O aortic valve replacement H/O elbow surgery H/O left mastectomy History of open heart surgery Hx of appendectomy S/P CODIE (total abdominal hysterectomy) S/P TAVR (transcatheter aortic valve replacement) Social History household members: spouse Smoking Status: Never smoker alcohol intake: never substance use type: does not use caffeine: No what type of physical activity do you participate in: walking seatbelt use: always do you feel safe at home: Yes additional social history: Don- Retired Patient is retired ROS ROS Narrative Denies any chest pain or shortness of breath. All other systems reviewed and essentially negative as above in the body of the history. Vital Signs Vital Signs Vital Signs: 06/17/23 13:04 06/17/23 13:06 06/17/23 13:11 Temperature 36.6 C 36.4 C L Temperature Source Temporal Temporal Pulse Rate 60 60 60 Respiratory Rate 16 18 16 Blood Pressure 187/78 H 174/73 H 174/99 H Blood Pressure Mean 114 106 124 Blood Pressure Source Blood Pressure Position Blood Pressure Location Pulse Ox 99 97 98 Oxygen Delivery Method Room Air Room Air Room Air 06/17/23 13:39 06/17/23 14:09 06/17/23 14:30 Temperature 35.6 C L 36.4 C L Temperature Source Temporal Temporal Pulse Rate 62 60 60 Respiratory Rate 15 18 15 Blood Pressure 173/88 H 185/91 H 185/75 H Blood Pressure Mean 116 122 111 Blood Pressure Source Blood Pressure Position Blood Pressure Location Pulse Ox 97 96 95 Oxygen Delivery Method Room Air Room Air Room Air 06/17/23 15:04 06/17/23 15:00 06/17/23 15:33 Temperature 35.8 C L 36.6 C Temperature Source Temporal Oral Pulse Rate 61 60 63 Respiratory Rate 18 14 14 Blood Pressure 185/75 H 185/75 H 197/83 H Blood Pressure Mean 111 111 121 Blood Pressure Source Monitor Blood Pressure Position Semi-Fowlers Blood Pressure Location Right Arm Pulse Ox 96 97 96 Oxygen Delivery Method Room Air Room Air Room Air 06/17/23 16:12 06/17/23 15:20 Temperature 36.4 C L Temperature Source Oral Pulse Rate 61 Respiratory Rate 16 Blood Pressure 172/70 H Blood Pressure Mean 104 Blood Pressure Source Monitor Blood Pressure Position Supine Blood Pressure Location Right Arm Pulse Ox 95 91 Oxygen Delivery Method Room Air Room Air Weight Weight: 68.8 kg Body Mass Index (BMI) 27.7 Physical Exam Narrative General exam. Elderly man, depressed appearing, anxious appearing but not in any obvious distress HEENT. Oral mucosa moist no pallor or jaundice Neck. Neck is supple Heart. First and second heart sounds with no murmurs Lungs. Clear to auscultation. Extremities. No pedal edema Abdomen. 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 Conscious alert oriented x3. Speech is fluent however towards the end of the encounter there was some mild dysarthria. Reduced sensation on the left side of her face and body. Power appears to be 5 out of 5 in all extremities. Results Medical Records Data Attestation: I reviewed the patient's medical records Lab / Micro Data Attestation: I reviewed the patient's lab results. 06/17/23 13:10 06/17/23 13:10 Labs: Laboratory Results - last 24 hr 06/17/23 13:10: WBC 5.3, RBC 4.32, Hgb 13.7, Hct 39.6, MCV 91.7, MCH 31.7, MCHC 34.6, RDW Std Deviation 41.1, RDW Coeff of Celia 12.3, Plt Count 194, MPV 9.2, Immature Gran % (Auto) 0.200, Neut % (Auto) 55.9, Lymph % (Auto) 30.1, Grayson % (Auto) 11.7 H, Eos % (Auto) 1.5, Baso % (Auto) 0.6, Absolute Neuts (auto) 3.0, Absolute Lymphs (auto) 1.59, Nucleated RBC % 0, PT 12.4, INR 0.9, APTT 32.7, Sodium 132 L, Potassium 4.0, Chloride 97 L, Carbon Dioxide 29.0, Anion Gap 6, BUN 16, Creatinine 0.89, Estim Creat Clear Calc 37.22, Est GFR (MDRD) Af Amer 77, Est GFR (MDRD) Non-Af 64, BUN/Creatinine Ratio 18.0, Glucose 125 H, Calcium 9.3, Troponin I High Sens 8 06/17/23 13:15: POC Glucose 129 H Radiology Impression Brain CT 06/17/23 13:11 IMPRESSION: Small vessel ischemic changes. Otherwise unremarkable CT brain. Electronically Signed: Ron Powers, at 13:46 EDT Reading Location ID and State: [address] [place] [address] Tel , Service support , ADDENDUM: 06/17/23 1400 IMPRESSION: Small vessel ischemic changes. Otherwise unremarkable CT brain. N.B. : The above Results were Read Back by Ron Powers to Tomas Mckeon DO, and understanding confirmed on 06/17/2023 13:53:46 (ET). Electronically Signed: Ron Powers, at 13:46 EDT Reading Location ID and State: [facility] / [place] Tel , Service support , Chest X-Ray 06/17/23 13:11 IMPRESSION: No radiographic evidence of acute cardiopulmonary disease. Electronically Signed: Ron Powers, at 14:42 EDT Reading Location ID and State: [facility] / [place] Tel , Service support , Head/Neck CTA 06/17/23 13:13 IMPRESSION: Small vessel ischemic changes. Otherwise unremarkable CT Brain, CTA Carotid, and CTA Brain. N.B. : The above Results were Read Back by Ron Powers to Mike Marin DO, and understanding confirmed on 06/17/2023 13:52:00 (ET). Electronically Signed: Ron Powers, at 13:53 EDT , ADDENDUM: 06/17/23 1400 IMPRESSION: Small vessel ischemic changes. Otherwise unremarkable CT Brain, CTA Carotid, and CTA Brain. N.B. : The above Results were Read Back by Ron Powers to Mike Marin DO, and understanding confirmed on 06/17/2023 13:52:00 (ET). Electronically Signed: Ron Powers, at 13:53 EDT Reading Location ID and State: [facility] / [place] Tel , Service support , ADDENDUM: 06/17/23 1415 IMPRESSION: Small vessel ischemic changes. Otherwise unremarkable CT Brain, CTA Carotid, and CTA Brain. N.B. : The above Results were Read Back by Ron Powers to Mike Marin DO, and understanding confirmed on 06/17/2023 14:08:57 (ET). Electronically Signed: Ron Powers, at 13:53 EDT , ADDENDUM: 06/17/23 1418 IMPRESSION: Small vessel ischemic changes. Otherwise unremarkable CT Brain, CTA Carotid, and CTA Brain. N.B. : The above Results were Read Back by Ron Powers to DAMION, and understanding confirmed on 06/17/2023 14:11:26 (ET). Electronically Signed: Ron Powers, at 13:53 EDT , ADDENDUM: 06/17/23 1422 IMPRESSION: Small vessel ischemic changes. Otherwise unremarkable CT Brain, CTA Carotid, and CTA Brain. N.B. : The above Results were Read Back by Ron Powers to Mike Marin DO, and understanding confirmed on 06/17/2023 14:15:23 (ET). Electronically Signed: Ron Powers, at 13:53 EDT , Assessment & Plan Assessment/Plan (1) Basilar migraine: PLAN: Plan Assessment and plan 1. Waxing and waning left-sided luc-hypoesthesia with intermittent dysarthria and scotomas. Most likely patient is having 1 of a complex migraine episodes. Appears to resemble a basilar type migraine. Nonetheless we will also need to rule out stroke. Thankfully patient's pacemaker is MRI compatible. CT angiogram has been done and did not show any large vessel occlusion. Will order MRI of the brain. Neurology consultation afterwards. Supportive care. Permissive hypertension for now. Keep on telemetry. Placed on stroke care path. 2. Persistent atrial fibrillation. Rate and rhythm controlled with sotalol. Not on anticoagulation. Her employee health nurse. We will maintain a slow and defer this to them. Continue sotalol. 3. Type 2 diabetes. Continue current antidiabetic regimen. 4. Hypertension. Permissive hypertension for now given suspicion of stroke. Resume antihypertensives in the next 24 to 48 hours or as soon as stroke definitively ruled out. Charges/Coding Visit Charges Inpatient E&M: 49046 Init Hosp L3
[2023-06-17 21:27] LABS: Bedside Glucose 69 mg/dL (74-106)
[2023-06-17] MEDS: Amitriptyline 10 MG Tablet 20 MG PO (22:36)
[2023-06-17] MEDS: Pravastatin 20 MG Tablet 10 MG PO (22:36)
[2023-06-17] MEDS: Sotalol Hydrochloride 80 MG Tablet 120 MG PO (22:37)
[2023-06-17] MEDS: Oxybutynin 5 MG Tablet PO (22:37)
[2023-06-17] MEDS: Acetaminophen 325 MG Tablet 650 MG PO (22:41)
[2023-06-18] VITALS (8 sets, daily range): BP systolic 133–164; BP diastolic 49–71; PULSE 59–74; RESP 14–18; TEMP 36.6–36.7; O2SAT 94–98; BMI 27.7
[2023-06-18 00:09] LABS: Bedside Glucose 166 mg/dL (74-106)
[2023-06-18 06:56] LABS: Bedside Glucose 116 mg/dL (74-106)
[2023-06-18 06:58] LABS: Cholesterol 137 mg/dL (200); High Density Lipoprotein 66 mg/dL; Triglycerides 67 mg/dL; Very Low Density Lipoprotein 13 mg/dL (5-40)
--- NOTE | 2023-06-18 09:00 | MRI_ITS ---
HISTORY: Stroke vs complex migraine. TECHNIQUE: Multiplanar and multisequence MR images of the brain were obtained without contrast. 301 images. COMPARISON: CT prior day. FINDINGS: BRAIN PARENCHYMA: Multiple foci and small zones of increased T2 FLAIR signal in the bilateral cerebral white matter. Old lacunar infarct in the right siddiqui radiata. No abnormal focus of restricted diffusion. No acute intracranial hemorrhage identified. CSF SPACES: Moderate generalized volume loss. No significant midline shift or other mass effect.No extra-axial fluid collection. VASCULAR SYSTEM: Major intracranial flow voids are maintained. PARANASAL SINUSES AND MASTOID AIR CELLS: No significant air fluid levels. ORBITS: Bilateral lens resections and right staphyloma. MRI/Brain without Contrast IMPRESSION: No evidence for acute infarct. Moderate chronic involutional and white matter changes. Electronically Signed: Lily Chung MD at 13:57 EDT ,
[2023-06-18] MEDS: Sotalol Hydrochloride 80 MG Tablet 120 MG PO (10:33)
[2023-06-18] MEDS: Aspirin 81 MG TAB.CHEW PO (10:33)
[2023-06-18] MEDS: Magnesium Chloride 64 MG Delay Rel.Tablet 128 MG PO (10:34)
[2023-06-18 14:09] LABS: Bedside Glucose 85 mg/dL (74-106)
--- NOTE | 2023-06-18 14:22 | DCINST_ITS ---
Discharge Instructions Diet Discharge Diet: 1800 Calorie Control Diet Activity Discharge Activity: Return to Normal Activity Weight Bearing Status: Full weight bearing Follow Up Care Test Results: Test results from this visit will be discussed in further detail at your follow- up appointment, if applicable. Discharge Plan Admission Admit Date/Time: 06/17/23 15:17 Primary Reason for Your Visit: Left-sided paresthesias Attending Provider: Cain Malagon Primary Care Provider: Terence Kaur Consulting Providers: Jeremías Graham Discharge Orders/Prescriptions Prescriptions: No Action amitriptyline 10 mg tablet 20 mg PO QHS calcium carbonate-vitamin D3 [Calcium 500 With D] 500 mg(1,250mg) -400 unit tablet 1 tab PO DAILY furosemide 20 mg tablet 20 mg PO DAILY meclizine 12.5 mg tablet 12.5 mg PO TID PRN (Reason: dizziness or vertigo) atenolol 50 mg tablet 50 mg PO DAILY alendronate 70 MG tablet 70 mg PO SA sumatriptan succinate 50 MG tablet 50 mg PO .X1 PRN PRN (Reason: Headache) tramadol 50 MG tablet 50 mg PO Q4H PRN PRN (Reason: Pain) magnesium oxide 400 MG tablet 400 mg PO DAILY aspirin 81 MG tablet,chewable 81 mg PO DAILY@0800 estradiol 42.5 GM cream 1 dose VAGINAL LOVE PRN (Reason: vaginal dryness) oxybutynin chloride 5 MG tablet 5 mg PO QHS dicyclomine 10 MG capsule 10 mg PO 4X/DAY PRN PRN (Reason: Irritable Bowel Syndrome) multivitamin with folic acid 1 TABLET tablet 1 tab PO DAILY sotalol 120 MG tablet 120 mg PO BID potassium chloride 20 MEQ tablet,ER particles/crystals 20 tab PO DAILY acetaminophen 500 MG tablet 500 mg PO PRN PRN (Reason: Pain) pravastatin 10 MG tablet 10 mg PO QHS losartan 100 MG tablet 50 mg PO DAILY metformin 500 MG tablet 500 mg PO BID omega-3 fatty acids-fish oil 1 EACH capsule 1,000 mg PO DAILY Referrals / Follow Up: Terence Kaur MD [Primary Care Provider] - Within 2 Weeks Disposition Discharge Orders: Discharge Patient (Routine); Ordered 06/18/23 Ordered By: Dr. Cain Malagon
--- NOTE | 2023-06-18 14:26 | DS.PCM_ITS ---
Providers Date of Admission: 06/17/23 Date of Discharge: 06/18/23 Primary Care Physician: Dr. Terence Kaur MD Reason For Visit: LEFT SIDED WEAKNESS Diagnosis Discharge Diagnosis (1) Basilar migraine: Status: Acute Code(s): G43.109 - Migraine with aura, not intractable, without status migrainosus Plan Final diagnosis: #1 atypical migraine with left-sided weakness #2 type 2 diabetes #3 essential hypertension #4 paroxysmal atrial fibrillation #5 hyperlipidemia Medications at Discharge Home Medications alendronate 70 mg tablet 70 mg PO SA BONES 10/03/17 aspirin 81 mg chewable tablet 81 mg PO DAILY@0800 [facility] 10/03/17 dicyclomine 10 mg capsule 10 mg PO 4X/DAY PRN PRN Irritable Bowel Syndrome 10/03/17 estradiol 0.01% (0.1 mg/gram) vaginal cream 1 dose vaginal LOVE PRN vaginal dryness 10/03/17 magnesium oxide 400 mg (241.3 mg magnesium) tablet 400 mg PO DAILY SUPPLEMENT 10/03/17 multivitamin with folic acid 400 mcg tablet 1 tab PO DAILY SUPPLEMENT 10/03/17 oxybutynin chloride 5 mg tablet 5 mg PO QHS BLADDER 10/03/17 sumatriptan succinate 50 mg tablet 50 mg PO .X1 PRN PRN Headache 10/03/17 tramadol 50 mg tablet 50 mg PO Q4H PRN PRN Pain 10/03/17 amitriptyline 10 mg tablet 20 mg PO QHS BP 04/05/18 sotalol 120 mg tablet 120 mg PO BID HEART 12/25/18 potassium chloride 20 mEq tablet,extended release(part/cryst) 20 tab PO DAILY POTASSIUM 01/19/19 acetaminophen 500 mg tablet 500 mg PO PRN PRN Pain 03/11/19 losartan 100 mg tablet 50 mg PO DAILY BP 03/11/19 metformin 500 mg tablet,extended release 24 hr 500 mg PO BID DM 03/11/19 omega-3 fatty acids-fish oil 340 mg-1,000 mg capsule 1,000 mg PO DAILY SUPPLEMENT 03/11/19 pravastatin 10 mg tablet 10 mg PO QHS CHOLESTEROL 03/11/19 calcium carbonate 500 mg-vitamin D3 10 mcg (400 unit) tablet (Calcium 500 With D) 1 tab PO DAILY supplement 10/17/19 furosemide 20 mg tablet 20 mg PO DAILY diuretic 10/17/19 atenolol 50 mg tablet 50 mg PO DAILY blood pressure 03/23/23 meclizine 12.5 mg tablet 12.5 mg PO TID PRN dizziness or vertigo 03/23/23 Hospital Course Operations None Procedures None Summary of Care Provided Minutes Spent on Discharge: 31 Hospital Course: This 82-year-old white female was seen in the emergency room at [facility] with a chief complaint of left-sided numbness and tingling including the left side of the face, she denied any left-sided weakness, she did complain of some visual disturbances. Patient has a history of complex migraine cephalgia in the past. A stroke alert was called, patient's NIH score was 2, patient went to CT scan and had a CT of the brain performed as well as a CTA of the head and neck, these imaging studies were unremarkable. Per stroke teleneurology, no tenecteplase was recommended. Patient was placed in observat ion status on PCU, an MRI was obtained the next day which showed no evidence of stroke, patient's symptoms had resolved during her hospitalization, patient told this examiner that after she had the initial symptoms this admission, she developed a headache while hospitalized. Patient does take migraine medications at home on an as-needed basis. She does see a neurologist for her migraines. On 06/18/2023, patient was seen and examined: On examination she appeared in good health and spirits, she does not appear to be in any distress. Vital signs as documented. Skin warm and dry and without overt rashes. Neck without JVD, thyroid appears normal, trachea is midline, neck is supple. Lungs clear, normal air movement was noted. Heart exam notable for regular rhythm, normal sounds and absence of murmurs, rubs or gallops. Abdomen unremarkable and without evidence of organomegaly, masses, or abdominal aortic enlargement, bowel sounds are present in all 4 quadrants, no abdominal tenderness was noted. Extremities nonedematous, no cyanosis was noted, no clubbing was noted. Neuro: Cranial nerves II through XII are grossly intact, no focal motor deficits were noted, sensation to light touch and pinprick is intact, motor exam 5/5 throughout. Psych: Patient is alert and oriented x3, she does not appear anxious or depressed, she does not appear agitated. Patient appears stable for discharge home on 06/18/2023. Weight / BMI Weight Weight: 68.8 kg Body Mass Index (BMI) 27.7 ABG / Lab / Microbiology Data 06/17/23 13:10 06/17/23 13:10 Laboratory: Laboratory Results - last 24 hr 06/17/23 16:53: POC Glucose 69 L 06/17/23 22:17: POC Glucose 166 H 06/18/23 05:35: Triglycerides 67, Cholesterol 137, LDL Cholesterol 58, VLDL Cho lesterol 13, HDL Cholesterol 66 06/18/23 06:37: POC Glucose 116 H 06/18/23 13:45: POC Glucose 85 Radiography Diagnostic Testing: Radiology Impression Chest X-Ray 06/17/23 13:11 IMPRESSION: No radiographic evidence of acute cardiopulmonary disease. Electronically Signed: Ron Powers, at 14:42 EDT , Brain MRI 06/18/23 09:00 IMPRESSION: No evidence for acute infarct. Moderate chronic involutional and white matter changes. Electronically Signed: Lily Chung MD at 13:57 EDT , D/C Instructions Discharge Diet: 1800 Calorie Control Diet Weight Bearing Status: Full weight bearing Meaningful Use Info Meaningful Use Diagnoses (Choose all that apply): None applicable Discharge Plan Admission Admit Date/Time: 06/17/23 15:17 Primary Reason for Your Visit: Left-sided paresthesias Attending Provider: Cain Malagon Primary Care Provider: Terence Kaur Consulting Providers: Jeremías Graham Discharge Orders/Prescriptions Prescriptions: No Action amitriptyline 10 mg tablet 20 mg PO QHS calcium carbonate-vitamin D3 [Calcium 500 With D] 500 mg(1,250mg) -400 unit tablet 1 tab PO DAILY furosemide 20 mg tablet 20 mg PO DAILY meclizine 12.5 mg tablet 12.5 mg PO TID PRN (Reason: dizziness or vertigo) atenolol 50 mg tablet 50 mg PO DAILY alendronate 70 MG tablet 70 mg PO SA sumatriptan succinate 50 MG tablet 50 mg PO .X1 PRN PRN (Reason: Headache) tramadol 50 MG tablet 50 mg PO Q4H PRN PRN (Reason: Pain) magnesium oxide 400 MG tablet 400 mg PO DAILY aspirin 81 MG tablet,chewable 81 mg PO DAILY@0800 estradiol 42.5 GM cream 1 dose VAGINAL LOVE PRN (Reason: vaginal dryness) oxybutynin chloride 5 MG tablet 5 mg PO QHS dicyclomine 10 MG capsule 10 mg PO 4X/DAY PRN PRN (Reason: Irritable Bowel Syndrome) multivitamin with folic acid 1 TABLET tablet 1 tab PO DAILY sotalol 120 MG tablet 120 mg PO BID potassium chloride 20 MEQ tablet,ER particles/crystals 20 tab PO DAILY acetaminophen 500 MG tablet 500 mg PO PRN PRN (Reason: Pain) pravastatin 10 MG tablet 10 mg PO QHS losartan 100 MG tablet 50 mg PO DAILY metformin 500 MG tablet 500 mg PO BID omega-3 fatty acids-fish oil 1 EACH capsule 1,000 mg PO DAILY Referrals / Follow Up: Terence Kaur MD [Primary Care Provider] - Within 2 Weeks Disposition Disposition (needs filled in before D/C Order can be placed): Home, Self Care Charges/Coding Visit Charges Inpatient E&M: 55296 Disch Hosp >30min
--- NOTE | 2023-06-18 15:40 | CASEMGMT ---
SID MONTANA in to discuss needs at discharge. Patient states she would like [facility] at discharge, states that he will take script and get prescription filled, SID MONTANA provided information for [facility] and [facility]. SID MONTANA reviewed therapy and recommendation for outpatient therapy. Patient states she would prefer outpatient therapy at and will schedule on her own. SID MONTANA received scripts for [facility] and outpatient therapy and provide to patient. Patient and had no further questions or concerns at this time.
== END 2023-06-18 14:24 | disposition home or self-care (01) ==
LOC: ED 14:50 → PCU 15:15
PROVIDERS: Admitting Provider Internal Medicine; Emergency Provider Emergency Medicine; PCP Internal Medicine; Visit Provider Internal Medicine
DX: G43.109 Migraine with aura, not intractable, without status migrainosus (principal); I48.0 Paroxysmal atrial fibrillation; E11.9 Type 2 diabetes mellitus without complications; Z79.84 Long term (current) use of oral hypoglycemic drugs; R53.1 Weakness; R47.1 Dysarthria and anarthria; I10 Essential (primary) hypertension; G89.29 Other chronic pain; Z79.82 Long term (current) use of aspirin; Z79.83 Long term (current) use of bisphosphonates; E78.5 Hyperlipidemia, unspecified; Z79.899 Other long term (current) drug therapy; Z95.2 Presence of prosthetic heart valve
CPT/HCPCS: 36415; 70450; 70496; 70498; 70551; 71045; 80048; 80061; 82962; 84484; 85025; 85610; 85730; 93005; 94762; 96374; 97162; 97166; 99221; 99285; J7030; Q9967; G0378

== ENCOUNTER 2023-09-28 00:48 | Observation (INO) | payer MEDICARE, BC, SELFPAY ==
[2023-09-28] VITALS (11 sets, daily range): BP systolic 116–191; BP diastolic 55–90; PULSE 60–73; RESP 14–16; TEMP 36.1–36.6; O2SAT 94–99; BMI 27.8; BMI 27.9
--- NOTE | 2023-09-28 00:52 | RAD_ITS ---
STUDY: X-RAY CHEST REASON FOR EXAM: Female, 83 years old. Neuro deficit, acute, stroke suspected TECHNIQUE: Single AP portable view of the chest. COMPARISON: 06/17/2023. FINDINGS: There is a right-sided pacemaker in place. The lungs are clear and expanded. There is no demonstrated pleural abnormality. Normal size heart. Midline sternotomy wires noted. Normal mediastinum and era. Normal visualized pulmonary arteries. There is atherosclerotic calcification of the aortic arch with tortuosity. There are diffuse degenerative changes of the visualized thoracic spine. Vertebroplasty of the lower thoracic spine seen, stable. Diffuse osteopenia. Normal visualized ribs, clavicles, and shoulders. There is no demonstrated abnormality of the visualized soft tissue structures of the upper abdomen. RAD/Chest 1 View IMPRESSION: No acute cardiopulmonary disease. Electronically Signed: Arlette Bernal MD at 2:16 EDT ,
--- NOTE | 2023-09-28 00:52 | CT_ITS ---
We are attempting to reach an attending provider to discuss findings. An addendum with communication details will be sent when the communication is complete. INDICATION: Neuro deficit, acute, stroke suspected EXAMINATION: CT BRAIN - CT Head Stroke Protocol W/O Contrast Injection TECHNIQUE: Multiple axial images were obtained of the head without intravenous contrast. A radiation dose optimization technique was used for this scan. IV Contrast dosage and agent: None. COMPARISON: Non-. FINDINGS: BRAIN PARENCHYMA: No intra- or extra-axial hemorrhage. No evidence of acute infarct. No intracranial mass or mass effect. Decreased attenuation within the deep white matter compatible with microangiopathic disease. Posterior fossa structures are unremarkable. CSF SPACES: Mild generalized brain atrophy. Nonpecific ventriculomegaly. Basal cisterns are patent. CALVARIUM, SKULL BASE, PARANASAL SINUSES AND MASTOID AIR CELLS: Clear. No discrete lytic or blastic abnormalities. ORBITS: Both globes, extraocular muscles, optic nerves and retrobulbar fat appear unremarkable. CT/STROKE Brain/Head without Cont IMPRESSION: Chronic changes as described with no acute intracranial hemorrhage or space-occupying lesion. Electronically Signed: Arlette Bernal MD at 1:14 EDT ,
--- NOTE | 2023-09-28 00:52 | CT_ITS ---
We are attempting to reach an attending provider to discuss findings. An addendum with communication details will be sent when the communication is complete. STUDY: CTA HEAD AND NECK WITH CONTRAST REASON FOR EXAM: Female, 83 years old. Neuro deficit, acute, stroke suspected RADIATION DOSAGE (If Supplied By Facility): CTDIvol = ( 20.63 ) mGy, DLP = ( 568.64 ) mGycm TECHNIQUE: CT angiography was performed with a multi-detector CT scanner. Data acquisition was obtained from the skull base through the vertex following intravenous administration of IV 100mL Isovue-370. MIP images were reconstructed from the axial data set. Post-processing of the angiographic images was performed, with multiplanar reformation and 3D reconstruction. Individualized dose optimization techniques were used for this CT. COMPARISON: No relevant priors. FINDINGS: Normal bilateral petrous carotid arteries. There is calcified plaque formation of the right cavernous carotid artery, without a cross-sectional luminal stenosis. There is calcified plaque formation of the left cavernous carotid artery, without a cross-sectional luminal stenosis. Normal right A1 segments of the anterior cerebral artery. Normal left A1 segments of the anterior cerebral artery. Normal intact anterior communicating artery (ACOM). Normal bilateral A2 segments of the anterior cerebral arteries. Normal right M1 and M2 segments of the middle cerebral arteries, with a normal M1 bifurcation. Normal left M1 and M2 segments of the middle cerebral arteries, with a normal M1 bifurcation. Normal right posterior communicating artery (PCOM). Normal left posterior communicating artery (PCOM). Normal bilateral vertebral arteries. Normal basilar artery with a normal basilar bifurcation. The visualized bilateral superior cerebellar (SCA) arteries are normal. Normal bilateral P1, P2 and visualized P3 segments of the posterior cerebral arteries. There is no demonstrated aneurysm of the [place]. There is no demonstrated abnormality of the visualized brain. AORTIC ARCH: There is atherosclerotic calcific plaque formation of the aortic arch and great vessels arising from the aortic arch, without a hemodynamically significant stenosis. There is a normal origin of the brachiocephalic, left common carotid, and left subclavian arteries. RIGHT CAROTID ARTERIES: Normal right common carotid artery (CCA). Normal right common carotid bulb. There is mild atherosclerotic plaque formation of the origin of the right internal carotid artery with no stenosis. Normal visualized cervical portion of the right internal carotid artery. Normal origin of the right external carotid artery (ECA). LEFT CAROTID ARTERIES: Normal left common carotid artery (CCA). There is mild atherosclerotic plaque formation with minimal narrowing of the left carotid bulb. There is mild atherosclerotic plaque formation of the origin of the left internal carotid artery with no stenosis. Normal visualized cervical portion of the left internal carotid artery. Normal origin of the left external carotid artery (ECA). VERTEBRAL ARTERIES: Normal bilateral vertebral arteries. CT/STROKE CTA Head AND Neck W/Con IMPRESSION: Negative CT angiogram of the head and neck with no significant stenosis, occlusion or dissection. No intracranial aneurysm seen. Electronically Signed: Arlette Bernal MD at 1:29 EDT ,
--- NOTE | 2023-09-28 00:52 | EKG12_ITS ---
Test Reason : STROKE Blood Pressure : / mmHG Vent. Rate : 060 BPM Atrial Rate : 060 BPM P-R Int : 222 ms QRS Dur : 156 ms QT Int : 526 ms P-R-T Axes : 000 -25 058 degrees QTc Int : 526 ms Atrial-paced rhythm with prolonged AV conduction Left bundle branch block Abnormal ECG Confirmed by JEREMIAH MONTES, MEGAN ([id number]), online editor ANGUS GRIGGS ([id number]) on 09/29/2023 11:59:01 AM Referred By: Confirmed By:MEGAN DANIELS MD
--- NOTE | 2023-09-28 00:53 | ED.VIS.STROK ---
HPI History of Present Illness Chief Complaint: Stroke Alert Narrative Narrative: Patient presents with left arm left leg weakness facial droop as well as dysarthria for 1 to 2 hours, noticed symptoms about an hour. Ambulance was called. No prior strokes. Patient is not anticoagulated. [facility] Medical History Ascending aortic aneurysm Asthma Atrophic vaginitis Breast cancer Cervicalgia Chronic pain Degeneration of lumbar or lumbosacral intervertebral disc Diabetes Diverticulitis large intestine Essential hypertension Essential tremor Family history of colon cancer in father Gastritis Generalized osteoarthrosis, unspecified site Hypertension IBS (irritable bowel syndrome) Migraine Migraine with aura Near syncope Non-smoker Osteoporosis Other osteoporosis without current pathological fracture Overactive bladder PAC (premature atrial contraction) Pacemaker PVC (premature ventricular contraction) Stroke/cerebrovascular accident Type 2 diabetes mellitus without complication, without long-term current use of insulin Home Medications alendronate 70 mg tablet 70 mg PO SA BONES 10/03/17 [History Last Taken 03/05/19] aspirin 81 mg chewable tablet 81 mg PO DAILY@0800 HEART HEALTH 10/03/17 [History Last Taken 03/10/19] dicyclomine 10 mg capsule 10 mg PO 4X/DAY PRN PRN Irritable Bowel Syndrome 10/03/17 [History Last Taken 12/25/18] estradiol 0.01% (0.1 mg/gram) vaginal cream 1 dose vaginal LOVE PRN vaginal dryness 10/03/17 [History Last Taken 03/06/19] magnesium oxide 400 mg (241.3 mg magnesium) tablet 400 mg PO DAILY SUPPLEMENT 10/03/17 [History Last Taken 03/11/19] multivitamin with folic acid 400 mcg tablet 1 tab PO DAILY SUPPLEMENT 10/03/17 [History Last Taken 03/11/19] oxybutynin chloride 5 mg tablet 5 mg PO QHS BLADDER 10/03/17 [History Last Taken 03/10/19] sumatriptan succinate 50 mg tablet 50 mg PO .X1 PRN PRN Headache 10/03/17 [History Last Taken 03/05/19] tramadol 50 mg tablet 50 mg PO Q4H PRN PRN Pain 10/03/17 [History Last Taken 03/07/19] amitriptyline 10 mg tablet 20 mg PO QHS BP 04/05/18 [History Last Taken 03/10/19] sotalol 120 mg tablet 120 mg PO BID HEART 12/25/18 [History Last Taken 03/11/19] potassium chloride 20 mEq tablet,extended release(part/cryst) 20 tab PO DAILY POTASSIUM 01/19/19 [History Last Taken 03/10/19] acetaminophen 500 mg tablet 500 mg PO PRN PRN Pain 03/11/19 [History Last Taken 03/11/19] losartan 100 mg tablet 50 mg PO DAILY BP 03/11/19 [History Last Taken 03/11/19] metformin 500 mg tablet,extended release 24 hr 500 mg PO BID DM 03/11/19 [History Last Taken 03/10/19] omega-3 fatty acids-fish oil 340 mg-1,000 mg capsule 1,000 mg PO DAILY SUPPLEMENT 03/11/19 [History Last Taken 03/11/19] pravastatin 10 mg tablet 10 mg PO QHS CHOLESTEROL 03/11/19 [History Last Taken 03/10/19] calcium carbonate 500 mg-vitamin D3 10 mcg (400 unit) tablet (Calcium 500 With D) 1 tab PO DAILY supplement 10/17/19 [History Last Taken Unknown] furosemide 20 mg tablet 20 mg PO DAILY diuretic 10/17/19 [History Last Taken Unknown] atenolol 50 mg tablet 50 mg PO DAILY blood pressure 03/23/23 [History Last Taken Unknown] meclizine 12.5 mg tablet 12.5 mg PO TID PRN dizziness or vertigo 03/23/23 [History Last Taken Unknown] Allergy/AdvReac Type Severity Reaction Status Date / Time procaine HCl [From Novocain] Allergy Anaphylaxis Verified 09/28/23 01:28 albuterol AdvReac Tachycardia Verified 09/28/23 01:28 cetirizine AdvReac Other Verified 09/28/23 01:28 codeine AdvReac Vomiting Verified 09/28/23 01:28 gabapentin AdvReac Mental Verified 09/28/23 01:28 Status Change/Fatigue hydrochlorothiazide AdvReac Other Verified 09/28/23 01:28 lisinopril AdvReac Cough Verified 09/28/23 01:28 morphine AdvReac Vomiting Verified 09/28/23 01:28 pregabalin AdvReac Other Verified 09/28/23 01:28 Sulfa (Sulfonamide AdvReac Other Verified 09/28/23 01:28 Antibiotics) Family History Mother Diabetes Ovarian cancer Father Cancer bladder thyroid Colon cancer Hypertension Surgical History femoral hernia repair H/O aortic valve replacement H/O elbow surgery H/O left mastectomy History of open heart surgery Hx of appendectomy S/P CODIE (total abdominal hysterectomy) S/P TAVR (transcatheter aortic valve replacement) Social History household members: spouse Smoking Status: Never smoker alcohol intake: never substance use type: does not use caffeine: No what type of physical activity do you participate in: walking seatbelt use: always do you feel safe at home: Yes additional social history: Don- Retired Patient is retired ROS ROS ED ROS Narrative Past medical history: Reviewed Medications: Reviewed Social history: Noncontributory Review of systems: General: No fever Eyes: No visual changes ENT: No upper airway congestion, normal voice Neck: No neck pain Cardiovascular: No chest pain Respiratory: No shortness of breath or cough Gastrointestinal: No abdominal pain, nausea vomiting or diarrhea Genitourinary: No dysuria Musculoskeletal: Denies myalgias no difficulty with ambulation Skin: No rash Neurological: As in HPI Psych: No recent behavioral changes Hematologic: No easy bleeding or easy bruising EXAM Physical Exam Narrative Exam Narrative: Physical exam General: Well nourished, Well developed, No Acute Distress Head: Normocephalic, Atraumatic Eyes: Conjunctiva not pale ENT: Moist mucous membranes Neck: Supple, Nontender, No lymphadenopathy Cardiovascular: Regular rate, Regular rhythm Respiratory: No distress, CTA bilaterally Abdomen: Soft, Nontender, Nondistended Back: Nontender, Normal Inspection. Negative for: CVA tenderness Extremities: Nontender, No edema Skin: Normal color, No rash Neurological: See NIH stroke scale Const Vital Signs: 09/28/23 01:12 09/28/23 00:52 09/28/23 01:17 Temperature 97.5 F L Temperature Source Temporal Pulse Rate 60 61 Respiratory Rate 14 16 Blood Pressure 178/69 H 188/70 H Blood Pressure Mean 105 109 Pulse Ox 95 95 96 Oxygen Delivery Method Room Air Room Air Room Air 09/28/23 01:44 Temperature Temperature Source Pulse Rate Respiratory Rate Blood Pressure 188/90 H Blood Pressure Mean 122 Pulse Ox Oxygen Delivery Method NIHSS NIHSS Initial: 1a Level of Consciousness: 0 1b LOC Questions (Score 2 if aphasic/stupor): 0 1c LOC Commands (Only score 1st attempt): 0 2 Best Gaze (If aphasic, use reflexive mvmts.): 0 3 Visual: 0 4 Facial Palsy: 1 5 Motor Arm Right (UN = amputation/fusion): 0 5 Motor Arm Left: 1 6 Motor Leg Right: 0 6 Motor Leg Left: 2 7 Limb ataxia (Only + if out of proportion): 0 8 Sensory (Aphasia/stupor=0 or 1, coma=2): 0 9 Best Language: 0 10 Dysarthria (mute, coma=2, intubated=UN): 1 11 Extinction and Inattention (only scored if +): 0 Total Score: 5 MDM MDM MDM Narrative Medical decision making narrative: Patient's work-up is unremarkable. Her symptoms did improve after CT, her facial droop is now gone, she still has some slight weakness in her left arm, she still has some slight dysarthria. She has normal strength in her left leg. I discussed with neurology, patient will be admitted, if she resolves she may not need an MRI stroke neurologist. She did have a migraine prior to it and she took Imitrex and her migraine improved and then she woke up with the weakness thus her symptoms may be related to migraines. She had a recent MRI that I reviewed in May of this year. She has no chest pain or shortness of breath. Troponins are slightly elevated and will need to be checked otherwise she will be admitted Lab Data Labs: Laboratory Results - last 24 hr 09/28/23 00:55 WBC 5.1 RBC 4.11 L Hgb 13.0 Hct 39.3 MCV 95.6 MCH 31.6 MCHC 33.1 RDW Std Deviation 43.9 RDW Coeff of Celia 12.6 Plt Count 179 MPV 9.0 Immature Gran % (Auto) 0.200 Neut % (Auto) 55.3 Lymph % (Auto) 28.2 [place] % (Auto) 13.3 H Eos % (Auto) 2.4 Baso % (Auto) 0.6 Absolute Neuts (auto) 2.8 Absolute Lymphs (auto) 1.44 Nucleated RBC % 0 PT 12.6 INR 1.0 APTT 32.2 Sodium 136 Potassium 4.1 Chloride 103 Carbon Dioxide 28.0 Anion Gap 5 BUN 12 Creatinine 0.77 Estim Creat Clear Calc 35.52 Est GFR (MDRD) Af Amer 92 Est GFR (MDRD) Non-Af 76 BUN/Creatinine Ratio 15.6 Glucose 104 Calcium 9.1 Troponin I High Sens 58 H Radiography Diagnostic Testing: Clinical Impression(s) from Imaging Studies Brain CT 09/28/23 00:52 IMPRESSION: Chronic changes as described with no acute intracranial hemorrhage or space-occupying lesion. Electronically Signed: Arlette Bernal MD at 1:14 EDT Reading Location ID and State: [id number] / [employer] , Service support , ADDENDUM: 09/28/23 0123 IMPRESSION: Chronic changes as described with no acute intracranial hemorrhage or space-occupying lesion. N.B. : The above Results were Read Back by Arlette Bernal MD to Etienne Diaz MD, and understanding confirmed on 09/28/2023 01:16:49 (ET). Electronically Signed: Arlette Bernal MD at 1:14 EDT Reading Location ID and State: [id number] / [employer] , Service support , Head/Neck CTA 09/28/23 00:52 IMPRESSION: Negative CT angiogram of the head and neck with no significant stenosis, occlusion or dissection. No intracranial aneurysm seen. Electronically Signed: Arlette Bernal MD at 1:29 EDT Reading Location ID and State: [id number] / [employer] , Service support , ADDENDUM: 09/28/23 0136 IMPRESSION: Negative CT angiogram of the head and neck with no significant stenosis, occlusion or dissection. No intracranial aneurysm seen. N.B. : The above Results were Read Back by Arlette Bernal MD to Etienne Diaz MD, and understanding confirmed on 09/28/2023 01:30:04 (ET). Electronically Signed: Arlette Bernal MD at 1:29 EDT , Stroke Documentation Questions Stroke Team Activated: Yes Discharge Plan Triage Chief Complaint: Stroke Alert ED Provider: Etienne Diaz Dx/Rx/DC Orders Clinical Impression: Dysarthria, Migraine, Left-sided weakness Prescriptions: No Action amitriptyline 10 mg tablet 20 mg PO QHS calcium carbonate-vitamin D3 [Calcium 500 With D] 500 mg(1,250mg) -400 unit tablet 1 tab PO DAILY furosemide 20 mg tablet 20 mg PO DAILY meclizine 12.5 mg tablet 12.5 mg PO TID PRN (Reason: dizziness or vertigo) atenolol 50 mg tablet 50 mg PO DAILY alendronate 70 MG tablet 70 mg PO SA sumatriptan succinate 50 MG tablet 50 mg PO .X1 PRN PRN (Reason: Headache) tramadol 50 MG tablet 50 mg PO Q4H PRN PRN (Reason: Pain) magnesium oxide 400 MG tablet 400 mg PO DAILY aspirin 81 MG tablet,chewable 81 mg PO DAILY@0800 estradiol 42.5 GM cream 1 dose VAGINAL LOVE PRN (Reason: vaginal dryness) oxybutynin chloride 5 MG tablet 5 mg PO QHS dicyclomine 10 MG capsule 10 mg PO 4X/DAY PRN PRN (Reason: Irritable Bowel Syndrome) multivitamin with folic acid 1 TABLET tablet 1 tab PO DAILY sotalol 120 MG tablet 120 mg PO BID potassium chloride 20 MEQ tablet,ER particles/crystals 20 tab PO DAILY acetaminophen 500 MG tablet 500 mg PO PRN PRN (Reason: Pain) pravastatin 10 MG tablet 10 mg PO QHS losartan 100 MG tablet 50 mg PO DAILY metformin 500 MG tablet 500 mg PO BID omega-3 fatty acids-fish oil 1 EACH capsule 1,000 mg PO DAILY Primary Care Provider: Terence Kaur Referrals: Terence aKur MD [Primary Care Provider] - Disposition Disposition: Acute Care Hospital [facility]
[2023-09-28 01:05] LABS: Absolute Lymphocyte Count 1.44 X10^3/uL (0.83-4.51); Absolute Neutrophil Count 2.8 X10^3/uL (2.0-7.7); Basophil# 0.03 X10^3/uL; Basophil% 0.6 % (0-1); Eosinophil# 0.12 X10^3/uL; Eosinophils% 2.4 % (0-5); Hematocrit 39.3 % (37-47); Lymphocyte # 1.44 X10^3/ul (0.83-4.51); Lymphocyte % 28.2 % (19-41); Mean Corp Hgb Conc 33.1 g/dL (32-36); Mean Corpuscular Hgb 31.6 pg (27.0-32.0); Mean Corpuscular Volume 95.6 fL (81-99); Monocyte# 0.68 X10^3/uL; Monocyte% 13.3 % (0-10); NRBC Flagged by Analyzer 0 % (0-5); Neutrophil # 2.82 X10^3/uL (2.7-7.7); Neutrophil % 55.3 % (47-70); Platelet Count 179 K/mm3 (150-450); RBC Distribution Width CV 12.6 % (11.6-14.6); RBC Distribution Width SD 43.9 fl (35.1-43.9); Red Blood Count 4.11 M/mm3 (4.2-5.4); White Blood Count 5.1 K/mm3 (4.4-11.0)
[2023-09-28 01:11] LABS: Partial Thromboplast Time 32.2 Seconds (24.1-36.2); Prothrombin Time (Protime)PT. 12.6 SECONDS (11.7-14.9)
[2023-09-28 01:25] LABS: Anion Gap 5 (5-15); BUN 12 mg/dL (7-18); BUN/Creat Ratio 15.6 RATIO (10-20); Calcium,Total 9.1 mg/dL (8.5-10.1); Chloride 103 mmol/L (98-107); Creatinine, Serum 0.77 mg/dL (0.55-1.02); EST Glomerular Filtration Rate 76 mL/min (>60); Est Glom Filt Rate - Afr Amer 92 mL/min (>60); Estimated Creatinine Clearance 35.52 ml/min; Glucose 104 mg/dL (74-106); Potassium 4.1 mmol/L (3.5-5.1); Sodium Level 136 mmol/L (136-145); Troponin-I HS 58 pg/mL (3.0-54.0)
--- NOTE | 2023-09-28 01:25 | ED.RN ---
Pt returns from CT and all symptoms have resolved. NIH went from [address] Diaz made aware
--- NOTE | 2023-09-28 01:27 | ED.RN ---
[facility] neurologist on robot in the room assessing patient.
--- NOTE | 2023-09-28 01:55 | HP.PCM.HOS_ITS ---
HPI - General General Date of Admission: 09/28/23 Date of Service: 09/28/23 Chief Complaint: stroke-like symptoms HPI Narrative TANISHA JULIAN, is a 83 F with a significant history of atrial fibrillation; benign pacemaker; migraine with aura who presents to the emergency department with strokelike symptoms the patient thinks it is related to her migraine. Her strokelike symptoms started about 2 and a half hours prior to presentation. Her strokelike symptoms was preceded by a right-sided parieto- occipital headache. Her headache was also preceded by a visual aura that is consistent with her history of chronic migraine. Per patient's significant other who was at the bedside, patient's strokelike symptoms included left-sided weakness; left facial droop; confusion; and slurry speech. Emergency department doctor noted a strokelike symptoms which improved while at the ED. Patient was evaluated at the ED by a telemetry neurologist. [facility] Medical History Ascending aortic aneurysm Asthma Atrophic vaginitis Breast cancer Cervicalgia Chronic pain Degeneration of lumbar or lumbosacral intervertebral disc Diabetes Diverticulitis large intestine Essential hypertension Essential tremor Family history of colon cancer in father Gastritis Generalized osteoarthrosis, unspecified site Hypertension IBS (irritable bowel syndrome) Migraine Migraine with aura Near syncope Non-smoker Osteoporosis Other osteoporosis without current pathological fracture Overactive bladder PAC (premature atrial contraction) Pacemaker PVC (premature ventricular contraction) Stroke/cerebrovascular accident Type 2 diabetes mellitus without complication, without long-term current use of insulin Home Medications alendronate 70 mg tablet 70 mg PO SA BONES 10/03/17 [History Last Taken 03/05/19] aspirin 81 mg chewable tablet 81 mg PO DAILY@[address] [facility] 10/03/17 [History Last Taken 03/10/19] dicyclomine 10 mg capsule 10 mg PO 4X/DAY PRN PRN Irritable Bowel Syndrome 10/03/17 [History Last Taken 12/25/18] estradiol 0.01% (0.1 mg/gram) vaginal cream 1 dose vaginal LOVE PRN vaginal dryness 10/03/17 [History Last Taken 03/06/19] magnesium oxide 400 mg (241.3 mg magnesium) tablet 400 mg PO DAILY SUPPLEMENT 10/03/17 [History Last Taken 03/11/19] multivitamin with folic acid 400 mcg tablet 1 tab PO DAILY SUPPLEMENT 10/03/17 [History Last Taken 03/11/19] oxybutynin chloride 5 mg tablet 5 mg PO QHS BLADDER 10/03/17 [History Last Taken 03/10/19] sumatriptan succinate 50 mg tablet 50 mg PO .X1 PRN PRN Headache 10/03/17 [History Last Taken 03/05/19] tramadol 50 mg tablet 50 mg PO Q4H PRN PRN Pain 10/03/17 [History Last Taken 03/07/19] amitriptyline 10 mg tablet 20 mg PO QHS BP 04/05/18 [History Last Taken 03/10/19] sotalol 120 mg tablet 120 mg PO BID HEART 12/25/18 [History Last Taken 03/11/19] potassium chloride 20 mEq tablet,extended release(part/cryst) 20 tab PO DAILY POTASSIUM 01/19/19 [History Last Taken 03/10/19] acetaminophen 500 mg tablet 500 mg PO PRN PRN Pain 03/11/19 [History Last Taken 03/11/19] losartan 100 mg tablet 50 mg PO BID BP 03/11/19 [History Last Taken 03/11/19] metformin 500 mg tablet,extended release 24 hr 500 mg PO BID DM 03/11/19 [History Last Taken 03/10/19] omega-3 fatty acids-fish oil 340 mg-1,000 mg capsule 1,000 mg PO DAILY SUPPLEMENT 03/11/19 [History Last Taken 03/11/19] pravastatin 10 mg tablet 10 mg PO QHS CHOLESTEROL 03/11/19 [History Last Taken 03/10/19] calcium carbonate 500 mg-vitamin D3 10 mcg (400 unit) tablet (Calcium 500 With D) 1 tab PO DAILY supplement 10/17/19 [History Last Taken Unknown] atenolol 50 mg tablet 50 mg PO DAILY blood pressure 03/23/23 [History Last Taken Unknown] meclizine 12.5 mg tablet 12.5 mg PO TID PRN dizziness or vertigo 03/23/23 [History Last Taken Unknown] nateglinide 60 mg tablet 60 mg PO TID PRN HIGH BLOOD SUGAR 09/28/23 [History Last Taken Unknown] pantoprazole 40 mg tablet,delayed release See Rx Instructions PO .COMPLEX 09/28/23 [History Last Taken Unknown] spironolactone 25 mg tablet 25 mg PO DAILY 09/28/23 [History Last Taken Unknown] Allergy/AdvReac Type Severity Reaction Status Date / Time procaine HCl [From Novocain] Allergy Anaphylaxis Verified 09/28/23 01:28 albuterol AdvReac Tachycardia Verified 09/28/23 01:28 cetirizine AdvReac Other Verified 09/28/23 01:28 codeine AdvReac Vomiting Verified 09/28/23 01:28 gabapentin AdvReac Mental Verified 09/28/23 01:28 Status Change/Fatigue hydrochlorothiazide AdvReac Other Verified 09/28/23 01:28 lisinopril AdvReac Cough Verified 09/28/23 01:28 morphine AdvReac Vomiting Verified 09/28/23 01:28 pregabalin AdvReac Other Verified 09/28/23 01:28 Sulfa (Sulfonamide AdvReac Other Verified 09/28/23 01:28 Antibiotics) Family History Mother Diabetes Ovarian cancer Father Cancer bladder thyroid Colon cancer Hypertension Surgical History femoral hernia repair H/O aortic valve replacement H/O elbow surgery H/O left mastectomy History of open heart surgery Hx of appendectomy S/P CODIE (total abdominal hysterectomy) S/P TAVR (transcatheter aortic valve replacement) Social History household members: spouse Smoking Status: Never smoker alcohol intake: never substance use type: does not use caffeine: No what type of physical activity do you participate in: walking seatbelt use: always do you feel safe at home: Yes additional social history: Don- Retired Patient is retired ROS ROS Narrative Pertinent positives and pertinent negatives as noted in HPI. All other systems were reviewed and are negative Vital Signs Vital Signs Vital Signs: 09/28/23 01:12 09/28/23 00:52 09/28/23 01:17 Temperature 97.5 F L Temperature Source Temporal Pulse Rate 60 61 Respiratory Rate 14 16 Blood Pressure 178/69 H 188/70 H Blood Pressure Mean 105 109 Pulse Ox 95 95 96 Oxygen Delivery Method Room Air Room Air Room Air 09/28/23 01:44 Temperature Temperature Source Pulse Rate Respiratory Rate Blood Pressure 188/90 H Blood Pressure Mean 122 Pulse Ox Oxygen Delivery Method Weight Weight: 73.5 kg Body Mass Index (BMI) 27.8 Physical Exam Narrative Physical exam: General: Well-nourished, well-developed. Head: Normocephalic, atraumatic, no tenderness Eyes: Vision is grossly intact. EOMI ENT, no trauma, moist mucous membranes, no rhinorrhea Neck: Nontender, No thyromegaly. CVS: Regular rate and rhythm. S1-S2 present. No murmur, gallop or rub. Respiratory : clear to auscultation bilaterally, chest wall nontender Abdomen: Soft, nontender, nondistended, normal bowel sounds, no masses : Deferred Back: Nontender, no CVA tenderness. Extremities: Nontender full range of motion, no trauma Skin: Normal color, no trauma, abrasions Neuro: Alert, oriented, cranial nerves II through XII grossly intact. With some apraxia. No dysmetria with [id number] test or [id number] test. Not hyperreflexive deep tendon reflexes of the knee or elbow. 5 out of 5 upper and lower extremity strength bilateral throughout. Mild facial droop on the left side. Psychiatry: Normal mood. Normal affect. Not depressed. Not anxious. Results Lab / Micro Data 09/28/23 00:55 09/28/23 00:55 Labs: Laboratory Results - last 24 hr 09/28/23 00:55: WBC 5.1, RBC 4.11 L, Hgb 13.0, Hct 39.3, MCV 95.6, MCH 31.6, MCHC 33.1, RDW Std Deviation 43.9, RDW Coeff of Celia 12.6, Plt Count 179, MPV 9.0, Immature Gran % (Auto) 0.200, Neut % (Auto) 55.3, Lymph % (Auto) 28.2, [place] % (Auto) 13.3 H, Eos % (Auto) 2.4, Baso % (Auto) 0.6, Absolute Neuts (auto) 2.8, Absolute Lymphs (auto) 1.44, Nucleated RBC % 0, PT 12.6, INR 1.0, APTT 32.2, Sodium 136, Potassium 4.1, Chloride 103, Carbon Dioxide 28.0, Anion Gap 5, BUN 12, Creatinine 0.77, Estim Creat Clear Calc 35.52, Est GFR (MDRD) Af Amer 92, Est GFR (MDRD) Non-Af 76, BUN/Creatinine Ratio 15.6, Glucose 104, Calcium 9.1, Troponin I High Sens 58 H Radiology Impression Brain CT 09/28/23 00:52 IMPRESSION: Chronic changes as described with no acute intracranial hemorrhage or space-occupying lesion. Electronically Signed: Arlette Bernal MD at 1:14 EDT Reading Location ID and State: [id number] / [place] , Service support , ADDENDUM: 09/28/23 0123 IMPRESSION: Chronic changes as described with no acute intracranial hemorrhage or space-occupying lesion. N.B. : The above Results were Read Back by Arlette Bernal MD to Etienne Diaz MD, and understanding confirmed on 09/28/2023 01:16:49 (ET). Electronically Signed: Arlette Bernal MD at 1:14 EDT Reading Location ID and State: [id number] / [place] , Service support , Head/Neck CTA 09/28/23 00:52 IMPRESSION: Negative CT angiogram of the head and neck with no significant stenosis, occlusion or dissection. No intracranial aneurysm seen. Electronically Signed: Arlette Bernal MD at 1:29 EDT Reading Location ID and State: [employer] / [place] , Service support , ADDENDUM: 09/28/23 0136 IMPRESSION: Negative CT angiogram of the head and neck with no significant stenosis, occlusion or dissection. No intracranial aneurysm seen. N.B. : The above Results were Read Back by Arlette Bernal MD to Etienne Diaz MD, and understanding confirmed on 09/28/2023 01:30:04 (ET). Electronically Signed: Arlette Bernal MD at 1:29 EDT , Assessment & Plan Assessment/Plan (1) Stroke-like symptoms: (2) Migraine: QUALIFIERS: Migraine type: chronic migraine (15 or more days per month) with aura Status migrainosus presence: without status migrainosus Intractability: not intractable Qualified Code(s): G43.E09 - Chronic migraine with aura, not intractable, without status migrainosus (3) Hypercoagulable state due to atrial fibrillation: QUALIFIERS: Atrial fibrillation type: unspecified chronic Qualified Code(s): D68.69 - Other thrombophilia; I48.20 - Chronic atrial fibrillation, unspecified PLAN: Plan Strokelike symptoms symptoms Serial NINDS NIH Scale ordered Impression of head CT by radiology: Chronic changes Upon my personal head CT image interpretation: I agree with radiologist interpretation. Head/neck CTA with no hemodynamically significant stenosis Lipid profile and A1c ordered. Physical therapy, occupational therapy and speech therapy to work with patient. N.p.o. until bedside swallow eval. Daily aspirin and home pravastatin continued.. Permissive hypertension. Control blood pressure with labetalol for systolic blood pressure of more than 220 or diastolic blood pressure of more than 120. Per discussion with emergency department doctor and telestroke neurologist patient should be observed and if her symptoms completely improved she would not need an MRI. However if her symptoms does not completely improve then she may need an MRI. Will hold off echocardiogram at this time too Elevated Troponin Chest x-ray with no acute cardiopulmonary disease. Patient with no chest pain. Likely demand ischemia. Trend. Diabetes mellitus Euglycemic on presentation. Hold metformin. Nateglinide continued. Atrial fibrillation with pacemaker/hypercoagulable state due to A-fib Patient is paced on the monitor. Stable. Hold sotalol since it can affect blood pressures. DVT prophylaxis: SCDs ordered Time spent in the patient's overall evaluation,decision-making process, review of diagnostic data, adjustment of management, discussion with other providers, nursing and ancillary staff involved in patient's care documentation, 65 minutes. Charges/Coding Visit Charges Inpatient E&M: 93158 Init Hosp L3
[2023-09-28 04:10] LABS: Troponin-I HS 58 pg/mL (3.0-54.0)
[2023-09-28] MEDS: Pantoprazole Sodium 40 MG Tablet PO (06:03)
[2023-09-28 06:44] LABS: Absolute Lymphocyte Count 1.45 X10^3/uL (0.83-4.51); Absolute Neutrophil Count 2.8 X10^3/uL (2.0-7.7); Basophil# 0.02 X10^3/uL; Basophil% 0.4 % (0-1); Eosinophil# 0.09 X10^3/uL; Eosinophils% 1.8 % (0-5); Hematocrit 37.7 % (37-47); Hemoglobin 12.7 g/dL (12.0-15.0); Lymphocyte # 1.45 X10^3/ul (0.83-4.51); Lymphocyte % 29.5 % (19-41); Mean Corp Hgb Conc 33.7 g/dL (32-36); Mean Corpuscular Hgb 31.8 pg (27.0-32.0); Mean Corpuscular Volume 94.3 fL (81-99); Mean Platelet Vol. 9.1 fl (6.2-12.0); Monocyte# 0.53 X10^3/uL; Monocyte% 10.8 % (0-10); NRBC Flagged by Analyzer 0 % (0-5); Neutrophil # 2.81 X10^3/uL (2.7-7.7); Neutrophil % 57.3 % (47-70); Platelet Count 188 K/mm3 (150-450); RBC Distribution Width CV 12.4 % (11.6-14.6); RBC Distribution Width SD 43.2 fl (35.1-43.9); White Blood Count 4.9 K/mm3 (4.4-11.0)
[2023-09-28 06:55] LABS: Bedside Glucose 112 mg/dL (74-106)
[2023-09-28 07:03] LABS: Anion Gap 5 (5-15); BUN 10 mg/dL (7-18); BUN/Creat Ratio 13.8 RATIO (10-20); Calcium,Total 8.9 mg/dL (8.5-10.1); Chloride 104 mmol/L (98-107); Cholesterol 143 mg/dL (200); Creatinine, Serum 0.73 mg/dL (0.55-1.02); EST Glomerular Filtration Rate 81 mL/min (>60); Est Glom Filt Rate - Afr Amer 98 mL/min (>60); Estimated Creatinine Clearance 32.53 ml/min; Glucose 141 mg/dL (74-106); High Density Lipoprotein 75 mg/dL; Potassium 3.7 mmol/L (3.5-5.1); Sodium Level 135 mmol/L (136-145); Triglycerides 63 mg/dL; Troponin-I HS 46 pg/mL (3.0-54.0); Very Low Density Lipoprotein 13 mg/dL (5-40)
[2023-09-28 08:31] LABS: Bedside Glucose 82 mg/dL (74-106)
[2023-09-28] MEDS: Omega-3 Acid Ethyl Esters 1 GM Capsule PO (08:34)
[2023-09-28] MEDS: Calcium Carb/Vitamin D 1 TABLET Tablet PO (08:34)
[2023-09-28] MEDS: Magnesium Chloride 64 MG Delay Rel.Tablet 128 MG PO (08:34)
[2023-09-28] MEDS: Potassium Chloride Oral Tablet 20 MEQ PO (08:34)
[2023-09-28] MEDS: Multivitamins,Therapeutic Tablet 1 TABLET PO (08:34)
[2023-09-28] MEDS: Aspirin 81 MG TAB.CHEW PO (08:34)
[2023-09-28 10:19] LABS: Hemoglobin A1c 5.5 % (3.8-5.6)
--- NOTE | 2023-09-28 10:52 | CASEMGMT ---
Social Work Pt completed PHQ-9 w/pt. Pt scored a 3. 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 She is feeling badly she can't do the books right now. Overall though, pt is not feeling down. Pt does report having less energy, which seems to be more related to her medical issues at present. No resources needed at this time. MATTHEW Dominguez
--- NOTE | 2023-09-28 14:19 | DCINST_ITS ---
Discharge Instructions Diet Discharge Diet: Low fat / Low cholesterol and Carb Control Diet Activity Discharge Activity: Return to Normal Activity Dressing / Incision Call your doctor if you observe: Fever of 101 or Higher, Shortness of breath, Dizziness, Fainting spells, Swelling in the ankles, Chest pain and Increased palpitations (irregular heartbeat) Follow Up Care Test Results: Test results from this visit will be discussed in further detail at your follow- up appointment, if applicable. Discharge Plan Admission Admit Date/Time: 09/28/23 02:01 Attending Provider: Robert Martin Primary Care Provider: Terence Kaur Consulting Providers: Isaias Willams Discharge Orders/Prescriptions Prescriptions: Continued amitriptyline 10 mg tablet 20 mg PO QHS calcium carbonate-vitamin D3 [Calcium 500 With D] 500 mg(1,250mg) -400 unit tablet 1 tab PO DAILY meclizine 12.5 mg tablet 12.5 mg PO TID PRN (Reason: dizziness or vertigo) atenolol 50 mg tablet 50 mg PO DAILY alendronate 70 MG tablet 70 mg PO SA sumatriptan succinate 50 MG tablet 50 mg PO .X1 PRN PRN (Reason: Headache) tramadol 50 MG tablet 50 mg PO Q4H PRN PRN (Reason: Pain) magnesium oxide 400 MG tablet 400 mg PO DAILY aspirin 81 MG tablet,chewable 81 mg PO DAILY@0800 estradiol 42.5 GM cream 1 dose VAGINAL LOVE PRN (Reason: vaginal dryness) oxybutynin chloride 5 MG tablet 5 mg PO QHS dicyclomine 10 MG capsule 10 mg PO 4X/DAY PRN PRN (Reason: Irritable Bowel Syndrome) multivitamin with folic acid 1 TABLET tablet 1 tab PO DAILY sotalol 120 MG tablet 120 mg PO BID potassium chloride 20 MEQ tablet,ER particles/crystals 20 tab PO DAILY acetaminophen 500 MG tablet 500 mg PO PRN PRN (Reason: Pain) pravastatin 10 MG tablet 10 mg PO QHS losartan 100 MG tablet 50 mg PO BID metformin 500 MG tablet 500 mg PO BID omega-3 fatty acids-fish oil 1 EACH capsule 1,000 mg PO DAILY pantoprazole 40 mg tablet,delayed release (DR/EC) See Rx Instructions PO .COMPLEX Patient Comments: TAKE 1 TABLET BY MOUTH ONCE DAILY BEFORE BREAKFAST, TAKE ON AN EMPTY STOMACH AND 1/2 HOUR BEFORE MEAL. Rx Instructions: orally; TAKE 1 TABLET BY MOUTH ONCE DAILY BEFORE BREAKFAST, TAKE ON AN EMPTY STOMACH AND 1/2 HOUR BEFORE MEAL. nateglinide 60 mg tablet 60 mg PO TID PRN (Reason: HIGH BLOOD SUGAR ) Rx Instructions: give before meal(s) spironolactone 25 mg tablet 25 mg PO DAILY Patient Comments: TAKE 1 TABLET BY MOUTH ONCE DAILY Referrals / Follow Up: Terence Kaur MD [Primary Care Provider] - 10/02/23 Disposition Disposition (needs filled in before D/C Order can be placed): Home, Self Care
--- NOTE | 2023-09-28 14:21 | PCM.DC.SUM ---
Providers Date of Admission: 09/28/23 Primary Care Physician: Dr. Terence Kaur MD Reason For Visit: STROKE LIKE SYMPTOMS Diagnosis Discharge Diagnosis (1) Stroke-like symptoms: Status: Acute Code(s): R29.90 - Unspecified symptoms and signs involving the nervous system (2) Migraine: Status: Acute Code(s): G43.909 - Migraine, unspecified, not intractable, without status migrainosus Qualifiers: Migraine type: chronic migraine (15 or more days per month) with aura Status migrainosus presence: without status migrainosus Intractability: not intractable Qualified Code(s): G43.E09 - Chronic migraine with aura, not intractable, without status migrainosus (3) Hypercoagulable state due to atrial fibrillation: Status: Acute Code(s): D68.69 - Other thrombophilia; I48.91 - Unspecified atrial fibrillation Qualifiers: Atrial fibrillation type: unspecified chronic Qualified Code(s): D68.69 - Other thrombophilia; I48.20 - Chronic atrial fibrillation, unspecified Medications at Discharge Home Medications alendronate 70 mg tablet 70 mg PO SA BONES 10/03/17 aspirin 81 mg chewable tablet 81 mg PO DAILY@0800 HEART [facility] 10/03/17 dicyclomine 10 mg capsule 10 mg PO 4X/DAY PRN PRN Irritable Bowel Syndrome 10/03/17 estradiol 0.01% (0.1 mg/gram) vaginal cream 1 dose vaginal LOVE PRN vaginal dryness 10/03/17 magnesium oxide 400 mg (241.3 mg magnesium) tablet 400 mg PO DAILY SUPPLEMENT 10/03/17 multivitamin with folic acid 400 mcg tablet 1 tab PO DAILY SUPPLEMENT 10/03/17 oxybutynin chloride 5 mg tablet 5 mg PO QHS BLADDER 10/03/17 sumatriptan succinate 50 mg tablet 50 mg PO .X1 PRN PRN Headache 10/03/17 tramadol 50 mg tablet 50 mg PO Q4H PRN PRN Pain 10/03/17 amitriptyline 10 mg tablet 20 mg PO QHS BP 04/05/18 sotalol 120 mg tablet 120 mg PO BID HEART 12/25/18 potassium chloride 20 mEq tablet,extended release(part/cryst) 20 tab PO DAILY POTASSIUM 01/19/19 acetaminophen 500 mg tablet 500 mg PO PRN PRN Pain 03/11/19 losartan 100 mg tablet 50 mg PO BID BP 03/11/19 metformin 500 mg tablet,extended release 24 hr 500 mg PO BID DM 03/11/19 omega-3 fatty acids-fish oil 340 mg-1,000 mg capsule 1,000 mg PO DAILY SUPPLEMENT 03/11/19 pravastatin 10 mg tablet 10 mg PO QHS CHOLESTEROL 03/11/19 calcium carbonate 500 mg-vitamin D3 10 mcg (400 unit) tablet (Calcium 500 With D) 1 tab PO DAILY supplement 10/17/19 atenolol 50 mg tablet 50 mg PO DAILY blood pressure 03/23/23 meclizine 12.5 mg tablet 12.5 mg PO TID PRN dizziness or vertigo 03/23/23 nateglinide 60 mg tablet 60 mg PO TID PRN HIGH BLOOD SUGAR 09/28/23 pantoprazole 40 mg tablet,delayed release See Rx Instructions PO .COMPLEX 09/28/23 spironolactone 25 mg tablet 25 mg PO DAILY 09/28/23 Hospital Course Operations None Procedures None Summary of Care Provided Minutes Spent on Discharge: 35 Hospital Course: Per HPI: TANISHA JULIAN, is a 83 F with a significant history of atrial fibrillation; benign pacemaker; migraine with aura who presents to the emergency department with strokelike symptoms the patient thinks it is related to her migraine. Her strokelike symptoms started about 2 and a half hours prior to presentation. Her strokelike symptoms was preceded by a right-sided parieto- occipital headache. Her headache was also preceded by a visual aura that is consistent with her history of chronic migraine. Per patient's significant other who was at the bedside, patient's strokelike symptoms included left-sided weakness; left facial droop; confusion; and slurry speech. Emergency department doctor noted a strokelike symptoms which improved while at the ED. Patient was evaluated at the ED by a telemetry neurologist. Hospital Course: 1. Strokelike symptoms after migraine?83-year-old female whose had migraines since the fifth grade, states that she was having a monthly until menopause and then over the last year and a half or so she started having neurologic symptoms after her migraine it does not happen all the time but after most of her migraine she develops left-sided weakness as well as slurred speech. This time was little bit longer lasting but she says that it was also more intense migraine than she has had previously. She does follow-up with the headache specialist at the [facility], [place] and has an outpatient neurologist. Based on evaluation by [facility] neurology, since her symptoms have resolved no MRI was obtained, she did recently have an echo back in May she was not repeated either. She states that she feels completely back to normal and so I discussed with her and her the plan for discharge today they both expressed understanding of the risk benefits of going home and would like to go home today. 2. Her other chronic medical history was evaluated and all of her home medications were continued where appropriate Physical Exam Narrative General: Alert, Oriented x3, Cooperative, No apparent distress HEENT: Atraumatic, PERRLA, EOMI, Normocephalic Oral: Moist Mucosa Neck: Supple, No JVD Lungs: Diminished, Normal air movement, No rhonchi, No wheeze, No rales Cardiovascular: Regular rate, Regular Rhythm, Normal S1, Normal S2, No murmurs Abdomen: Soft, Non Tender, Non-Distended, No Hepato-splenomegaly Extremities: No edema, Capillary Refill Less than 3 Seconds Skin: No rashes, No breakdown Musculoskeletal: No Tenderness to Palpation of Joints or Extremities Neurological: Cranial nerves II-XII grossly intact, Motor Exam 5/5 strength throughout, Sensory exam intact to light touch and pain Psych/Mental Status: Normal Affect, Appropriate Weight / BMI Weight Weight: 152 lb 12.485 oz Body Mass Index (BMI) 27.9 ABG / Lab / Microbiology Data 09/28/23 06:32 09/28/23 06:32 Laboratory: Laboratory Results - last 24 hr 09/28/23 00:49: POC Glucose 82 09/28/23 00:55: WBC 5.1, RBC 4.11 L, Hgb 13.0, Hct 39.3, MCV 95.6, MCH 31.6, MCHC 33.1, RDW Std Deviation 43.9, RDW Coeff of Celia 12.6, Plt Count 179, MPV 9.0, Immature Gran % (Auto) 0.200, Neut % (Auto) 55.3, Lymph % (Auto) 28.2, Eagle % (Auto) 13.3 H, Eos % (Auto) 2.4, Baso % (Auto) 0.6, Absolute Neuts (auto) 2.8, Absolute Lymphs (auto) 1.44, Nucleated RBC % 0, PT 12.6, INR 1.0, APTT 32.2, Sodium 136, Potassium 4.1, Chloride 103, Carbon Dioxide 28.0, Anion Gap 5, BUN 12, Creatinine 0.77, Estim Creat Clear Calc 35.52, Est GFR (MDRD) Af Amer 92, Est GFR (MDRD) Non-Af 76, BUN/Creatinine Ratio 15.6, Glucose 104, Calcium 9.1, Troponin I High Sens 58 H 09/28/23 03:27: Troponin I High Sens 58 H 09/28/23 06:16: POC Glucose 112 H 09/28/23 06:32: WBC 4.9, RBC 4.00 L, Hgb 12.7, Hct 37.7, MCV 94.3, MCH 31.8, MCHC 33.7, RDW Std Deviation 43.2, RDW Coeff of Celia 12.4, Plt Count 188, MPV 9.1, Immature Gran % (Auto) 0.200, Neut % (Auto) 57.3, Lymph % (Auto) 29.5, Eagle % (Auto) 10.8 H, Eos % (Auto) 1.8, Baso % (Auto) 0.4, Absolute Neuts (auto) 2.8, Absolute Lymphs (auto) 1.45, Nucleated RBC % 0, Sodium 135 L, Potassium 3.7, Chloride 104, Carbon Dioxide 26.0, Anion Gap 5, BUN 10, Creatinine 0.73, Estim Creat Clear Calc 32.53, Est GFR (MDRD) Af Amer 98, Est GFR (MDRD) Non-Af 81, BUN/Creatinine Ratio 13.8, Glucose 141 H, Hemoglobin A1c 5.5, Calcium 8.9, Troponin I High Sens 46, Triglycerides 63, Cholesterol 143, LDL Cholesterol 55, VLDL Cholesterol 13, HDL Cholesterol 75 Radiography Diagnostic Testing: Radiology Impression Brain CT 09/28/23 00:52 IMPRESSION: Chronic changes as described with no acute intracranial hemorrhage or space-occupying lesion. Electronically Signed: Arlette Bernal MD at 1:14 EDT , ADDENDUM: 09/28/23 0123 IMPRESSION: Chronic changes as described with no acute intracranial hemorrhage or space-occupying lesion. N.B. : The above Results were Read Back by Arlette Bernal MD to Etienne Diaz MD, and understanding confirmed on 09/28/2023 01:16:49 (ET). Electronically Signed: Arlette Bernal MD at 1:14 EDT Reading Location ID and State: [facility] [employer] [facility] [employer] , Service support , Chest X-Ray 09/28/23 00:52 IMPRESSION: No acute cardiopulmonary disease. Electronically Signed: Arlette Bernal MD at 2:16 EDT Reading Location ID and State: [facility] [employer] [facility] [employer] , Service support , Head/Neck CTA 09/28/23 00:52 IMPRESSION: Negative CT angiogram of the head and neck with no significant stenosis, occlusion or dissection. No intracranial aneurysm seen. Electronically Signed: Areltte Bernal MD at 1:29 EDT Reading Location ID and State: [facility] [employer] [facility] [employer] , Service support , ADDENDUM: 09/28/23 0136 IMPRESSION: Negative CT angiogram of the head and neck with no significant stenosis, occlusion or dissection. No intracranial aneurysm seen. N.B. : The above Results were Read Back by Arlette Bernal MD to Etienne Diaz MD, and understanding confirmed on 09/28/2023 01:30:04 (ET). Electronically Signed: Arlette Bernal MD at 1:29 EDT Reading Location ID and State: [id number] / [facility] , Service support , D/C Instructions Discharge Diet: Low fat / Low cholesterol and Carb Control Diet Call your doctor if you observe: Fever of 101 or Higher, Shortness of breath, Dizziness, Fainting spells, Swelling in the ankles, Chest pain and Increased palpitations (irregular heartbeat) Meaningful Use Info Meaningful Use Diagnoses (Choose all that apply): None applicable Discharge Plan Admission Admit Date/Time: 09/28/23 02:01 Attending Provider: Robert Martin Primary Care Provider: Terence Kaur Consulting Providers: Isaias Willams Discharge Orders/Prescriptions Prescriptions: Continued amitriptyline 10 mg tablet 20 mg PO QHS calcium carbonate-vitamin D3 [Calcium 500 With D] 500 mg(1,250mg) -400 unit tablet 1 tab PO DAILY meclizine 12.5 mg tablet 12.5 mg PO TID PRN (Reason: dizziness or vertigo) atenolol 50 mg tablet 50 mg PO DAILY alendronate 70 MG tablet 70 mg PO SA sumatriptan succinate 50 MG tablet 50 mg PO .X1 PRN PRN (Reason: Headache) tramadol 50 MG tablet 50 mg PO Q4H PRN PRN (Reason: Pain) magnesium oxide 400 MG tablet 400 mg PO DAILY aspirin 81 MG tablet,chewable 81 mg PO DAILY@0800 estradiol 42.5 GM cream 1 dose VAGINAL LOVE PRN (Reason: vaginal dryness) oxybutynin chloride 5 MG tablet 5 mg PO QHS dicyclomine 10 MG capsule 10 mg PO 4X/DAY PRN PRN (Reason: Irritable Bowel Syndrome) multivitamin with folic acid 1 TABLET tablet 1 tab PO DAILY sotalol 120 MG tablet 120 mg PO BID potassium chloride 20 MEQ tablet,ER particles/crystals 20 tab PO DAILY acetaminophen 500 MG tablet 500 mg PO PRN PRN (Reason: Pain) pravastatin 10 MG tablet 10 mg PO QHS losartan 100 MG tablet 50 mg PO BID metformin 500 MG tablet 500 mg PO BID omega-3 fatty acids-fish oil 1 EACH capsule 1,000 mg PO DAILY pantoprazole 40 mg tablet,delayed release (DR/EC) See Rx Instructions PO .COMPLEX Patient Comments: TAKE 1 TABLET BY MOUTH ONCE DAILY BEFORE BREAKFAST, TAKE ON AN EMPTY STOMACH AND 1/2 HOUR BEFORE MEAL. Rx Instructions: orally; TAKE 1 TABLET BY MOUTH ONCE DAILY BEFORE BREAKFAST, TAKE ON AN EMPTY STOMACH AND 1/2 HOUR BEFORE MEAL. nateglinide 60 mg tablet 60 mg PO TID PRN (Reason: HIGH BLOOD SUGAR ) Rx Instructions: give before meal(s) spironolactone 25 mg tablet 25 mg PO DAILY Patient Comments: TAKE 1 TABLET BY MOUTH ONCE DAILY Referrals / Follow Up: Terence Kaur MD [Primary Care Provider] - 10/02/23 Disposition Disposition (needs filled in before D/C Order can be placed): Home, Self Care Charges/Coding Visit Charges Inpatient E&M: 06098 Disch Hosp >30min
--- NOTE | 2023-09-28 14:50 | PHA.DC.MR.R ---
Pharmacy ID Med Reconciliation Pharmacy Service has performed discharge medication reconciliation for this patient. The patient's discharge medication list was reviewed for discrepancies and discrepancies were resolved. Medications at Discharge Home Medications alendronate 70 mg tablet 70 mg PO SA BONES 10/03/17 aspirin 81 mg chewable tablet 81 mg PO DAILY@0800 [facility] 10/03/17 dicyclomine 10 mg capsule 10 mg PO 4X/DAY PRN PRN Irritable Bowel Syndrome 10/03/17 estradiol 0.01% (0.1 mg/gram) vaginal cream 1 dose vaginal LOVE PRN vaginal dryness 10/03/17 magnesium oxide 400 mg (241.3 mg magnesium) tablet 400 mg PO DAILY SUPPLEMENT 10/03/17 multivitamin with folic acid 400 mcg tablet 1 tab PO DAILY SUPPLEMENT 10/03/17 oxybutynin chloride 5 mg tablet 5 mg PO QHS BLADDER 10/03/17 sumatriptan succinate 50 mg tablet 50 mg PO .X1 PRN PRN Headache 10/03/17 tramadol 50 mg tablet 50 mg PO Q4H PRN PRN Pain 10/03/17 amitriptyline 10 mg tablet 20 mg PO QHS BP 04/05/18 sotalol 120 mg tablet 120 mg PO BID HEART 12/25/18 potassium chloride 20 mEq tablet,extended release(part/cryst) 20 tab PO DAILY POTASSIUM 01/19/19 acetaminophen 500 mg tablet 500 mg PO PRN PRN Pain 03/11/19 losartan 100 mg tablet 50 mg PO BID BP 03/11/19 metformin 500 mg tablet,extended release 24 hr 500 mg PO BID DM 03/11/19 omega-3 fatty acids-fish oil 340 mg-1,000 mg capsule 1,000 mg PO DAILY SUPPLEMENT 03/11/19 pravastatin 10 mg tablet 10 mg PO QHS CHOLESTEROL 03/11/19 calcium carbonate 500 mg-vitamin D3 10 mcg (400 unit) tablet (Calcium 500 With D) 1 tab PO DAILY supplement 10/17/19 atenolol 50 mg tablet 50 mg PO DAILY blood pressure 03/23/23 meclizine 12.5 mg tablet 12.5 mg PO TID PRN dizziness or vertigo 03/23/23 nateglinide 60 mg tablet 60 mg PO TID PRN HIGH BLOOD SUGAR 09/28/23 pantoprazole 40 mg tablet,delayed release See Rx Instructions PO .COMPLEX 09/28/23 spironolactone 25 mg tablet 25 mg PO DAILY 09/28/23
--- NOTE | 2023-09-28 14:57 | CASEMGMT ---
Patient has order for discharge. ST recommending outpatient ST, script received. RN CM in to discuss needs at discharge. Patient and provided script for outpatient ST and [facility] information. Patient will schedule appt on her own. Patient had no further questions or concerns at this time.
== END 2023-09-28 14:21 | disposition home or self-care (01) ==
LOC: ED 02:05 → PCU 03:01
PROVIDERS: Admitting Provider Hospitalist; Emergency Provider Emergency Medicine; PCP Internal Medicine; Visit Provider Family Medicine
DX: I48.20 Chronic atrial fibrillation, unspecified (principal); D68.59 Other primary thrombophilia; E11.9 Type 2 diabetes mellitus without complications; I10 Essential (primary) hypertension; R41.0 Disorientation, unspecified; G89.29 Other chronic pain; Z79.83 Long term (current) use of bisphosphonates; G43.E09 Chronic migraine with aura, not intractable, without status migrainosus; R47.81 Slurred speech; Z79.82 Long term (current) use of aspirin; R47.1 Dysarthria and anarthria; R29.810 Facial weakness; Z79.84 Long term (current) use of oral hypoglycemic drugs; Z79.899 Other long term (current) drug therapy; Z95.0 Presence of cardiac pacemaker; R53.1 Weakness; Z95.2 Presence of prosthetic heart valve; Z23 Encounter for immunization
CPT/HCPCS: 36415; 70450; 70496; 70498; 71045; 80048; 80061; 82962; 83036; 84484; 85025; 85610; 85730; 90471; 92523; 93005; 94762; 97162; 97166; 99221; 99285; Q9967; A4216; G0378

== ENCOUNTER 2023-09-28 18:57 | Observation (INO) | payer MEDICARE, BC, SELFPAY ==
[2023-09-28] VITALS (7 sets, daily range): BP systolic 156–198; BP diastolic 69–98; PULSE 60–75; RESP 13–20; TEMP 36.2–36.4; O2SAT 96–98; BMI 29.7; BMI 27.7
--- NOTE | 2023-09-28 19:18 | EKG12_ITS ---
Test Reason : STROKE ALERT Blood Pressure : / mmHG Vent. Rate : 060 BPM Atrial Rate : 060 BPM P-R Int : 208 ms QRS Dur : 150 ms QT Int : 480 ms P-R-T Axes : 132 -30 072 degrees QTc Int : 480 ms Atrial-paced rhythm Left axis deviation Left bundle branch block Abnormal ECG Confirmed by JEREMIAH MONTES, MEGAN ([id number]), assistant film editor ALONDRA GARZA ([id number]) on 09/30/2023 6:52:11 AM Referred By: SEVERIANO Confirmed By:MEGAN DANIELS MD
--- NOTE | 2023-09-28 19:19 | ED.VIS.STROK ---
HPI History of Present Illness Chief Complaint: Neuro S/Sx Informant: patient Onset/Context/Timing Onset: Today Narrative Narrative: Patient presents with speech difficulties and left-sided weakness. Patient was admitted to the hospital early this morning with similar symptoms after having a migraine headache. Her symptoms spontaneously resolved and she did not have an MRI. She was discharged home this afternoon. Around 5:30 PM states she started talking gibberish again. She could not identify her or her son. She had left-sided weakness but not completely flaccid. In route to the hospital her asked her where she was and she could not speak. At this time her symptoms are improving but not completely resolved. She states this time she did not have a migraine prior to the onset of her symptoms. [facility] Medical History Ascending aortic aneurysm Asthma Atrophic vaginitis Breast cancer Cervicalgia Chronic pain Degeneration of lumbar or lumbosacral intervertebral disc Diabetes Diverticulitis large intestine Essential hypertension Essential tremor Family history of colon cancer in father Gastritis Generalized osteoarthrosis, unspecified site Hypertension IBS (irritable bowel syndrome) Migraine Migraine with aura Near syncope Non-smoker Osteoporosis Other osteoporosis without current pathological fracture Overactive bladder PAC (premature atrial contraction) Pacemaker PVC (premature ventricular contraction) Stroke/cerebrovascular accident Type 2 diabetes mellitus without complication, without long-term current use of insulin Home Medications alendronate 70 mg tablet 70 mg PO SA BONES 10/03/17 [History Last Taken 03/05/19] aspirin 81 mg chewable tablet 81 mg PO DAILY@0800 HEART HEALTH 10/03/17 [History Last Taken 03/10/19] dicyclomine 10 mg capsule 10 mg PO 4X/DAY PRN PRN Irritable Bowel Syndrome 10/03/17 [History Last Taken 12/25/18] estradiol 0.01% (0.1 mg/gram) vaginal cream 1 dose vaginal LOVE PRN vaginal dryness 10/03/17 [History Last Taken 03/06/19] magnesium oxide 400 mg (241.3 mg magnesium) tablet 400 mg PO DAILY SUPPLEMENT 10/03/17 [History Last Taken 03/11/19] multivitamin with folic acid 400 mcg tablet 1 tab PO DAILY SUPPLEMENT 10/03/17 [History Last Taken 03/11/19] oxybutynin chloride 5 mg tablet 5 mg PO QHS BLADDER 10/03/17 [History Last Taken 03/10/19] sumatriptan succinate 50 mg tablet 50 mg PO .X1 PRN PRN Headache 10/03/17 [History Last Taken 03/05/19] tramadol 50 mg tablet 50 mg PO Q4H PRN PRN Pain 10/03/17 [History Last Taken 03/07/19] amitriptyline 10 mg tablet 20 mg PO QHS BP 04/05/18 [History Last Taken 03/10/19] sotalol 120 mg tablet 120 mg PO BID HEART 12/25/18 [History Last Taken 03/11/19] potassium chloride 20 mEq tablet,extended release(part/cryst) 20 tab PO DAILY POTASSIUM 01/19/19 [History Last Taken 03/10/19] acetaminophen 500 mg tablet 500 mg PO PRN PRN Pain 03/11/19 [History Last Taken 03/11/19] losartan 100 mg tablet 50 mg PO BID BP 03/11/19 [History Last Taken 03/11/19] metformin 500 mg tablet,extended release 24 hr 500 mg PO BID DM 03/11/19 [History Last Taken 03/10/19] omega-3 fatty acids-fish oil 340 mg-1,000 mg capsule 1,000 mg PO DAILY SUPPLEMENT 03/11/19 [History Last Taken 03/11/19] pravastatin 10 mg tablet 10 mg PO QHS CHOLESTEROL 03/11/19 [History Last Taken 03/10/19] calcium carbonate 500 mg-vitamin D3 10 mcg (400 unit) tablet (Calcium 500 With D) 1 tab PO DAILY supplement 10/17/19 [History Last Taken Unknown] atenolol 50 mg tablet 50 mg PO DAILY blood pressure 03/23/23 [History Last Taken Unknown] meclizine 12.5 mg tablet 12.5 mg PO TID PRN dizziness or vertigo 03/23/23 [History Last Taken Unknown] nateglinide 60 mg tablet 60 mg PO TID PRN HIGH BLOOD SUGAR 09/28/23 [History Last Taken Unknown] pantoprazole 40 mg tablet,delayed release See Rx Instructions PO .COMPLEX 09/28/23 [History Last Taken Unknown] spironolactone 25 mg tablet 25 mg PO DAILY 09/28/23 [History Last Taken Unknown] Allergy/AdvReac Type Severity Reaction Status Date / Time procaine HCl [From Novocain] Allergy Anaphylaxis Verified 09/28/23 19:02 albuterol AdvReac Tachycardia Verified 09/28/23 19:02 cetirizine AdvReac Other Verified 09/28/23 19:02 codeine AdvReac Vomiting Verified 09/28/23 19:02 gabapentin AdvReac Mental Verified 09/28/23 19:02 Status Change/Fatigue hydrochlorothiazide AdvReac Other Verified 09/28/23 19:02 lisinopril AdvReac Cough Verified 09/28/23 19:02 morphine AdvReac Vomiting Verified 09/28/23 19:02 pregabalin AdvReac Other Verified 09/28/23 19:02 Sulfa (Sulfonamide AdvReac Other Verified 09/28/23 19:02 Antibiotics) Family History Mother Diabetes Ovarian cancer Father Cancer bladder thyroid Colon cancer Hypertension Surgical History femoral hernia repair H/O aortic valve replacement H/O elbow surgery H/O left mastectomy History of open heart surgery Hx of appendectomy S/P CODIE (total abdominal hysterectomy) S/P TAVR (transcatheter aortic valve replacement) Social History household members: spouse Smoking Status: Never smoker alcohol intake: never substance use type: does not use caffeine: No what type of physical activity do you participate in: walking seatbelt use: always do you feel safe at home: Yes additional social history: Don- Retired Patient is retired ROS ROS ED Constitutional Constitutional ED: Denies chills or fever(s) Eyes Eyes: Denies discharge from eye(s) ENT ENT ED: Denies discharge from eye(s), rhinorrhea or sore throat Cardiovascular Cardiovascular: Denies chest pain or palpitations Respiratory/Chest Respiratory/Chest: Denies cough or dyspnea Gastrointestinal Gastrointestinal: Denies abdominal pain, nausea or vomiting Genitourinary Genitourinary ED: Denies dysuria Musculoskeletal Musculoskeletal: Denies back pain or extremity pain Integumentary Denies Abrasions or rash Neurologic Neurologic: Reports weakness and other Details: Speech difficulty ; Denies headache(s) Psychiatric Psychiatric: Denies anxiety or depression Endocrine Endocrinology: Denies polydipsia or polyuria Allergic/Immunologic Allergic/Immunologic ED: Denies lip swelling or urticaria EXAM Physical Exam Const Vital Signs: 09/28/23 18:58 09/28/23 19:15 09/28/23 19:25 Temperature 97.2 F L Temperature Source Temporal Pulse Rate 60 64 Respiratory Rate 17 16 Blood Pressure 170/95 H Blood Pressure Mean 120 Pulse Ox 97 98 Oxygen Delivery Method Room Air Room Air Room Air 09/28/23 19:30 09/28/23 20:00 09/28/23 20:30 Temperature Temperature Source Pulse Rate 60 75 60 Respiratory Rate 14 20 H 15 Blood Pressure 156/69 H 163/98 H 180/83 H Blood Pressure Mean 98 119 115 Pulse Ox 96 96 96 Oxygen Delivery Method Room Air Room Air Room Air Positive well nourished and well developed General Appearance ED: well developed Eyes EOMs intact bilaterally Neck no lymphadenopathy Chest Wall inspection of chest normal and palpation of chest normal Resp normal respiratory effort and clear to auscultation bilaterally Cardio Rate: regular rate Rhythm: regular rhythm Heart Sounds: murmur GI normal to inspection, nondistended, normoactive bowel sounds Extremity normal to inspection Neuro oriented x3 Neuro Narrative: See NIH stroke scale Psych mental status grossly normal Skin no wounds NIHSS NIHSS Initial: 1a Level of Consciousness: 0 1b LOC Questions (Score 2 if aphasic/stupor): 0 1c LOC Commands (Only score 1st attempt): 0 2 Best Gaze (If aphasic, use reflexive mvmts.): 0 3 Visual: 0 4 Facial Palsy: 1 5 Motor Arm Right (UN = amputation/fusion): 0 5 Motor Arm Left: 0 6 Motor Leg Right: 0 6 Motor Leg Left: 0 7 Limb ataxia (Only + if out of proportion): 0 8 Sensory (Aphasia/stupor=0 or 1, coma=2): 0 9 Best Language: 1 10 Dysarthria (mute, coma=2, intubated=UN): 0 11 Extinction and Inattention (only scored if +): 0 Total Score: 2 MDM MDM MDM Narrative Medical decision making narrative: Nursing staff states on arrival there NIH stroke score was 6. At this time she is definitely improving but her NIH score is still 2 with expressive aphasia and mild facial droop. In light of this stroke alert was called. Labwork obtained to evaluate for leukocytosis, anemia, and electrolyte derangement. EKG obtained to evaluate for cardiac arrhythmia/ischemia. CT of the head obtained. History & Record Review Discussion w/independent historian: Patient, Family and Significant other Additional record(s) reviewed:: Prior inpatient record, Prior ED visit and Prior labs Lab Data Attestation: I reviewed the patient's lab results. Labs: Laboratory Results - last 24 hr 09/28/23 09/28/23 19:07 19:08 WBC 6.2 RBC 4.11 L Hgb 13.2 Hct 39.4 MCV 95.9 MCH 32.1 H MCHC 33.5 RDW Std Deviation 44.2 H RDW Coeff of Celia 12.5 Plt Count 211 MPV 9.5 Immature Gran % (Auto) 0.300 Neut % (Auto) 60.8 Lymph % (Auto) 25.2 Louisa % (Auto) 11.4 H Eos % (Auto) 1.8 Baso % (Auto) 0.5 Absolute Neuts (auto) 3.7 Absolute Lymphs (auto) 1.55 Nucleated RBC % 0 PT 13.0 INR 1.0 APTT 32.0 Sodium 135 L Potassium 4.2 Chloride 102 Carbon Dioxide 29.0 Anion Gap 4 L BUN 10 Creatinine 0.80 Estim Creat Clear Calc 44.40 Est GFR (MDRD) Af Amer 88 Est GFR (MDRD) Non-Af 73 BUN/Creatinine Ratio 12.5 Glucose 133 H Calcium 9.0 Troponin I High Sens 29 POC Glucose 108 H Radiography Chest X-Ray - ED: 1 View, Read by ED Physician and Chronic Changes Diagnostic Testing: Clinical Impression(s) from Imaging Studies Brain CT 09/28/23 19:20 IMPRESSION: Volume loss with chronic white matter changes. No acute intracranial findings. Electronically Signed: Papa Mackay MD at 19:38 EDT , ADDENDUM: 09/28/23 1950 IMPRESSION: Volume loss with chronic white matter changes. No acute intracranial findings. N.B. : The above Results were Read Back by Papa Mackay MD to Niyah Saldivar MD, and understanding confirmed on 09/28/2023 19:44:25 (ET). Electronically Signed: Papa Mackay MD at 19:38 EDT , Chest X-Ray 09/28/23 19:45 IMPRESSION: No change from prior study. Electronically Signed: Ap Hirsch MD at 20:24 EDT , EKG Initial EKG: Attestation: I personally reviewed and interpreted this EKG as follows: Interpretation: - (Atrial paced rhythm at 60. Left bundle branch block. No significant change when compared to prior EKG.) Treatment and Re-Evaluation Narrative: The patient initially reported that she did not have a migraine tonight with her symptoms. Nursing staff had an NIH of 6 on arrival. By the time IV entered the room her NIH score was 2. CT scan of the head reveals chronic changes with no acute change from study earlier today. When [facility] neurologist beamed in and examined the patient he had her NIH score is 0. Lab work is unremarkable. Troponin is normal at 29. Portable chest x-ray per my interpretation reveals chronic changes with no focal infiltrate. I spoke with the neurologist from [facility]. She just had a CTA done earlier today and this did not need to be repeated. He did recommend keeping her for an MRI this time as she was just discharged with a similar episode. Patient now states that she may have had a headache this afternoon also but she is unsure. I speak with the hospitalist regarding observation for MRI. Discharge Plan Triage Chief Complaint: Neuro S/Sx ED Provider: Niyah Saldivar Dx/Rx/DC Orders Clinical Impression: Brain TIA Prescriptions: No Action amitriptyline 10 mg tablet 20 mg PO QHS calcium carbonate-vitamin D3 [Calcium 500 With D] 500 mg(1,250mg) -400 unit tablet 1 tab PO DAILY meclizine 12.5 mg tablet 12.5 mg PO TID PRN (Reason: dizziness or vertigo) atenolol 50 mg tablet 50 mg PO DAILY alendronate 70 MG tablet 70 mg PO SA sumatriptan succinate 50 MG tablet 50 mg PO .X1 PRN PRN (Reason: Headache) tramadol 50 MG tablet 50 mg PO Q4H PRN PRN (Reason: Pain) magnesium oxide 400 MG tablet 400 mg PO DAILY aspirin 81 MG tablet,chewable 81 mg PO DAILY@0800 estradiol 42.5 GM cream 1 dose VAGINAL LOVE PRN (Reason: vaginal dryness) oxybutynin chloride 5 MG tablet 5 mg PO QHS dicyclomine 10 MG capsule 10 mg PO 4X/DAY PRN PRN (Reason: Irritable Bowel Syndrome) multivitamin with folic acid 1 TABLET tablet 1 tab PO DAILY sotalol 120 MG tablet 120 mg PO BID potassium chloride 20 MEQ tablet,ER particles/crystals 20 tab PO DAILY acetaminophen 500 MG tablet 500 mg PO PRN PRN (Reason: Pain) pravastatin 10 MG tablet 10 mg PO QHS losartan 100 MG tablet 50 mg PO BID metformin 500 MG tablet 500 mg PO BID omega-3 fatty acids-fish oil 1 EACH capsule 1,000 mg PO DAILY pantoprazole 40 mg tablet,delayed release (DR/EC) See Rx Instructions PO .COMPLEX Patient Comments: TAKE 1 TABLET BY MOUTH ONCE DAILY BEFORE BREAKFAST, TAKE ON AN EMPTY STOMACH AND 1/2 HOUR BEFORE MEAL. Rx Instructions: orally; TAKE 1 TABLET BY MOUTH ONCE DAILY BEFORE BREAKFAST, TAKE ON AN EMPTY STOMACH AND 1/2 HOUR BEFORE MEAL. nateglinide 60 mg tablet 60 mg PO TID PRN (Reason: HIGH BLOOD SUGAR ) Rx Instructions: give before meal(s) spironolactone 25 mg tablet 25 mg PO DAILY Patient Comments: TAKE 1 TABLET BY MOUTH ONCE DAILY Primary Care Provider: Terence Kaur Referrals: Terence Kaur MD [Primary Care Provider] - Disposition Disposition: Acute Care [facility]
--- NOTE | 2023-09-28 19:20 | CT_ITS ---
We are attempting to reach an attending provider to discuss findings. An addendum with communication details will be sent when the communication is complete. INDICATION: Neuro deficit, acute, stroke suspected EXAMINATION: CT BRAIN - CT Head or Brain W/O Contrast Injection TECHNIQUE: Multiple axial images were obtained of the head without intravenous contrast. A radiation dose optimization technique was used for this scan. IV Contrast dosage and agent: None. COMPARISON: 09/28/2023 at 12:57 AM FINDINGS: BRAIN PARENCHYMA: No intra- or extra-axial hemorrhage. No evidence of acute infarct. No intracranial mass or mass effect. Posterior fossa structures are unremarkable. Stable volume loss with low attenuation of the periventricular white matter typical of chronic small vessel disease. CSF SPACES: Stable. No hydrocephalus. Basal cisterns are patent. CALVARIUM, SKULL BASE, PARANASAL SINUSES AND MASTOID AIR CELLS: Clear. No discrete lytic or blastic abnormalities. CT/STROKE Brain/Head without Cont IMPRESSION: Volume loss with chronic white matter changes. No acute intracranial findings. Electronically Signed: Papa Mackay MD at 19:38 EDT ,
[2023-09-28 19:25] LABS: Bedside Glucose 108 mg/dL (74-106)
[2023-09-28 19:45] LABS: Absolute Lymphocyte Count 1.55 X10^3/uL (0.83-4.51); Absolute Neutrophil Count 3.7 X10^3/uL (2.0-7.7); Basophil# 0.03 X10^3/uL; Basophil% 0.5 % (0-1); Eosinophil# 0.11 X10^3/uL; Eosinophils% 1.8 % (0-5); Hematocrit 39.4 % (37-47); Hemoglobin 13.2 g/dL (12.0-15.0); Lymphocyte # 1.55 X10^3/ul (0.83-4.51); Lymphocyte % 25.2 % (19-41); Mean Corp Hgb Conc 33.5 g/dL (32-36); Mean Corpuscular Hgb 32.1 pg (27.0-32.0); Mean Corpuscular Volume 95.9 fL (81-99); Mean Platelet Vol. 9.5 fl (6.2-12.0); Monocyte% 11.4 % (0-10); NRBC Flagged by Analyzer 0 % (0-5); Neutrophil # 3.74 X10^3/uL (2.7-7.7); Neutrophil % 60.8 % (47-70); Platelet Count 211 K/mm3 (150-450); RBC Distribution Width CV 12.5 % (11.6-14.6); RBC Distribution Width SD 44.2 fl (35.1-43.9); Red Blood Count 4.11 M/mm3 (4.2-5.4); White Blood Count 6.2 K/mm3 (4.4-11.0)
--- NOTE | 2023-09-28 19:45 | RAD_ITS ---
INDICATION: Neuro deficit, acute, stroke suspected EXAMINATION/TECHNIQUE: X-RAY - XR Chest 1 View COMPARISON: 09/28/2023. FINDINGS: The lungs are unchanged. The cardiomediastinal silhouette is stable. No pleural effusion or pneumothorax. The osseous structures are unchanged. RAD/Chest 1 View IMPRESSION: No change from prior study. Electronically Signed: Ap Hirsch MD at 20:24 EDT ,
[2023-09-28 19:58] LABS: Anion Gap 4 (5-15); BUN 10 mg/dL (7-18); BUN/Creat Ratio 12.5 RATIO (10-20); Chloride 102 mmol/L (98-107); EST Glomerular Filtration Rate 73 mL/min (>60); Est Glom Filt Rate - Afr Amer 88 mL/min (>60); Glucose 133 mg/dL (74-106); Potassium 4.2 mmol/L (3.5-5.1); Sodium Level 135 mmol/L (136-145); Troponin-I HS 29 pg/mL (3.0-54.0)
--- NOTE | 2023-09-28 21:07 | HP.PCM_ITS ---
HPI - General General Date of Admission: 09/28/23 Date of Service: 09/28/23 Chief Complaint: Stroke symptoms HPI Narrative TANISHA JULIAN, is a 83 F who presents to the emergency room after having been discharged earlier this morning for migraine headache with neurologic symptoms that resolved and now neurologic symptoms had recurred. Onset of recurrence was approximately 5:30 PM when she began speaking in gibberish with left-sided weakness and facial droop. Upon arrival to the emergency room she had initial NIH score of 8 and a stroke team was called. CT angiogram and CT of the head were negative for acute hemorrhage or significant stenosis. Laboratory studies were unremarkable and by the time telemetry neurology stroke evaluation was done her NIH score had returned to normal at 0. She currently denies any chest pain, shortness of breath fevers or chills or headache or other neurologic findings. She will be admitted for observation for MRI to be done in the morning. She does have an appointment tomorrow afternoon at 3:00 with her neurologist for migraine treatment with Botox injections. [facility] Medical History Ascending aortic aneurysm Asthma Atrophic vaginitis Breast cancer Cervicalgia Chronic pain Degeneration of lumbar or lumbosacral intervertebral disc Diabetes Diverticulitis large intestine Essential hypertension Essential tremor Family history of colon cancer in father Gastritis Generalized osteoarthrosis, unspecified site Hypertension IBS (irritable bowel syndrome) Migraine Migraine with aura Near syncope Non-smoker Osteoporosis Other osteoporosis without current pathological fracture Overactive bladder PAC (premature atrial contraction) Pacemaker PVC (premature ventricular contraction) Stroke/cerebrovascular accident Type 2 diabetes mellitus without complication, without long-term current use of insulin Home Medications alendronate 70 mg tablet 70 mg PO SA BONES 10/03/17 [History Last Taken 03/05/19] aspirin 81 mg chewable tablet 81 mg PO DAILY@0800 HEART HEALTH 10/03/17 [History Last Taken 03/10/19] dicyclomine 10 mg capsule 10 mg PO 4X/DAY PRN PRN Irritable Bowel Syndrome 10/03/17 [History Last Taken 12/25/18] estradiol 0.01% (0.1 mg/gram) vaginal cream 1 dose vaginal LOVE PRN vaginal dryness 10/03/17 [History Last Taken 03/06/19] magnesium oxide 400 mg (241.3 mg magnesium) tablet 400 mg PO DAILY SUPPLEMENT 10/03/17 [History Last Taken 03/11/19] multivitamin with folic acid 400 mcg tablet 1 tab PO DAILY SUPPLEMENT 10/03/17 [History Last Taken 03/11/19] oxybutynin chloride 5 mg tablet 5 mg PO QHS BLADDER 10/03/17 [History Last Taken 03/10/19] sumatriptan succinate 50 mg tablet 50 mg PO .X1 PRN PRN Headache 10/03/17 [History Last Taken 03/05/19] tramadol 50 mg tablet 50 mg PO Q4H PRN PRN Pain 10/03/17 [History Last Taken 0 03/07/19] amitriptyline 10 mg tablet 20 mg PO QHS BP 04/05/18 [History Last Taken 03/10/19] sotalol 120 mg tablet 120 mg PO BID HEART 12/25/18 [History Last Taken 03/11/19] potassium chloride 20 mEq tablet,extended release(part/cryst) 20 tab PO DAILY POTASSIUM 01/19/19 [History Last Taken 03/10/19] acetaminophen 500 mg tablet 500 mg PO PRN PRN Pain 03/11/19 [History Last Taken 03/11/19] losartan 100 mg tablet 50 mg PO BID BP 03/11/19 [History Last Taken 03/11/19] metformin 500 mg tablet,extended release 24 hr 500 mg PO BID DM 03/11/19 [History Last Taken 03/10/19] omega-3 fatty acids-fish oil 340 mg-1,000 mg capsule 1,000 mg PO DAILY SUPPLEMENT 03/11/19 [History Last Taken 03/11/19] pravastatin 10 mg tablet 10 mg PO QHS CHOLESTEROL 03/11/19 [History Last Taken 03/10/19] calcium carbonate 500 mg-vitamin D3 10 mcg (400 unit) tablet (Calcium 500 With D) 1 tab PO DAILY supplement 10/17/19 [History Last Taken Unknown] atenolol 50 mg tablet 50 mg PO DAILY blood pressure 03/23/23 [History Last Taken Unknown] meclizine 12.5 mg tablet 12.5 mg PO TID PRN dizziness or vertigo 03/23/23 [History Last Taken Unknown] nateglinide 60 mg tablet 60 mg PO TID PRN HIGH BLOOD SUGAR 09/28/23 [History Last Taken Unknown] Allergy/AdvReac Type Severity Reaction Status Date / Time procaine HCl [From Novocain] Allergy Anaphylaxis Verified 09/28/23 19:02 albuterol AdvReac Tachycardia Verified 09/28/23 19:02 cetirizine AdvReac Other Verified 09/28/23 19:02 codeine AdvReac Vomiting Verified 09/28/23 19:02 gabapentin AdvReac Mental Verified 09/28/23 19:02 Status Change/Fatigue hydrochlorothiazide AdvReac Other Verified 09/28/23 19:02 lisinopril AdvReac Cough Verified 09/28/23 19:02 morphine AdvReac Vomiting Verified 09/28/23 19:02 pregabalin AdvReac Other Verified 09/28/23 19:02 Sulfa (Sulfonamide AdvReac Other Verified 09/28/23 19:02 Antibiotics) Family History Mother Diabetes Ovarian cancer Father Cancer bladder thyroid Colon cancer Hypertension Surgical History femoral hernia repair H/O aortic valve replacement H/O elbow surgery H/O left mastectomy History of open heart surgery Hx of appendectomy S/P CODIE (total abdominal hysterectomy) S/P TAVR (transcatheter aortic valve replacement) Social History household members: spouse Smoking Status: Never smoker alcohol intake: never substance use type: does not use caffeine: No what type of physical activity do you participate in: walking seatbelt use: always do you feel safe at home: Yes additional social history: Don- Retired Patient is retired ROS Constitutional Constitutional: Denies chills or fever(s) Eyes Eyes: Denies change in vision ENT HEENT: Denies dysphagia Cardiovascular Cardiovascular: Denies edema Respiratory/Chest Respiratory/Chest: Denies cough Gastrointestinal Gastrointestinal: Denies abdominal pain Genitourinary Genitourinary: Denies dysuria Musculoskeletal Musculoskeletal: Denies back pain Integumentary Integumentary: Denies rash Neurologic Neurologic: Denies abnormal speech, confusion, dizziness, focal weakness, numbness or weakness Psychiatric Psychiatric: Denies anxiety or depression Vital Signs Vital Signs Vital Signs: 09/28/23 18:58 09/28/23 19:15 09/28/23 19:25 Temperature 97.2 F L Temperature Source Temporal Pulse Rate 60 64 Respiratory Rate 17 16 Blood Pressure 170/95 H Blood Pressure Mean 120 Pulse Ox 97 98 Oxygen Delivery Method Room Air Room Air Room Air 09/28/23 19:30 09/28/23 20:00 09/28/23 20:30 Temperature Temperature Source Pulse Rate 60 75 60 Respiratory Rate 14 20 H 15 Blood Pressure 156/69 H 163/98 H 180/83 H Blood Pressure Mean 98 119 115 Pulse Ox 96 96 96 Oxygen Delivery Method Room Air Room Air Room Air 09/28/23 21:00 Temperature 97.5 F L Temperature Source Pulse Rate 60 Respiratory Rate 18 Blood Pressure 161/71 H Blood Pressure Mean 101 Pulse Ox 97 Oxygen Delivery Method Weight Weight: 173 lb 1.006 oz Body Mass Index (BMI) 29.7 Physical Exam Const alert, oriented x3 and no apparent distress General Appearance: cooperative and well developed HEENT normocephalic and head/scalp atraumatic Eyes PERRL and EOMs intact bilaterally Neck no lymphadenopathy Lymph Lymphatic: no lymphadenopathy noted Resp normal respiratory effort, normal air movement and clear to auscultation bilaterally Cardio regular rhythm, S1 normal heart sound and S2 normal heart sound Heart Sounds: murmur systolic GI normal to inspection, nondistended, normoactive bowel sounds Extremity normal capillary refill, no clubbing, cyanosis or edema and no calf tenderness Skin General Skin Exam: no breakdown and turgor normal Neuro CN's II-XII intact bilaterally, no focal motor deficits and no sensory deficits noted Speech: speech normal Motor Exam: strength 5/5 throughout Psych thought process normal and affect normal Appearance: appropriate Results Lab / Micro Data 09/28/23 19:08 09/28/23 19:08 Labs: Laboratory Results - last 24 hr 09/28/23 19:07: POC Glucose 108 H 09/28/23 19:08: WBC 6.2, RBC 4.11 L, Hgb 13.2, Hct 39.4, MCV 95.9, MCH 32.1 H, MCHC 33.5, RDW Std Deviation 44.2 H, RDW Coeff of Celia 12.5, Plt Count 211, MPV 9.5, Immature Gran % (Auto) 0.300, Neut % (Auto) 60.8, Lymph % (Auto) 25.2, Wake % (Auto) 11.4 H, Eos % (Auto) 1.8, Baso % (Auto) 0.5, Absolute Neuts (auto) 3.7, Absolute Lymphs (auto) 1.55, Nucleated RBC % 0, PT 13.0, INR 1.0, APTT 32.0, Sodium 135 L, Potassium 4.2, Chloride 102, Carbon Dioxide 29.0, Anion Gap 4 L, BUN 10, Creatinine 0.80, Estim Creat Clear Calc 44.40, Est GFR (MDRD) Af Amer 88, Est GFR (MDRD) Non-Af 73, BUN/Creatinine Ratio 12.5, Glucose 133 H, Calcium 9.0, Troponin I High Sens [address] 09/28/23 19:20 IMPRESSION: Volume loss with chronic white matter changes. No acute intracranial findings. Electronically Signed: Papa Mackay MD at 19:38 EDT , ADDENDUM: 09/28/23 1950 IMPRESSION: Volume loss with chronic white matter changes. No acute intracranial findings. N.B. : The above Results were Read Back by Papa Mackay MD to Niyah Saldivar MD, and understanding confirmed on 09/28/2023 19:44:25 (ET). Electronically Signed: Papa Mackay MD at 19:38 EDT , Chest X-Ray 09/28/23 19:45 IMPRESSION: No change from prior study. Electronically Signed: Ap Hirsch MD at 20:24 EDT , Assessment & Plan Assessment/Plan (1) Brain TIA: (2) Type 2 diabetes mellitus: (3) GERD (gastroesophageal reflux disease): (4) HTN (hypertension): (5) S/P TAVR (transcatheter aortic valve replacement): PLAN: Plan 1. Transient ischemic attack?admit patient to progressive care unit, neurologic evaluations every 4 hours and MRI of the brain in the morning per teleneurology recommendations 2. DVT prophylaxis?low molecular weight heparin 3. Type 2 diabetes?controlled, continue routine home medications 4. GERD?continue PPI 5. Hypertension?controlled, continue routine home medications Charges/Coding Visit Charges OBSV E&M: 21613 Observ/hosp same date L2
[2023-09-28] MEDS: Amitriptyline 10 MG Tablet 20 MG PO (22:27)
[2023-09-28] MEDS: Pravastatin 20 MG Tablet 10 MG PO (22:27)
[2023-09-28] MEDS: Sotalol Hydrochloride 80 MG Tablet 120 MG PO (22:27)
[2023-09-28] MEDS: Oxybutynin 5 MG Tablet PO (22:27)
[2023-09-28] MEDS: Losartan Potassium 50 MG Tablet PO (22:41)
[2023-09-29 01:30] VITALS: BP 175/61; PULSE 63; RESP 20; TEMP 36.9; O2SAT 97
[2023-09-29 03:56] LABS: Anion Gap 8 (5-15); BUN 8 mg/dL (7-18); BUN/Creat Ratio 11.5 RATIO (10-20); Calcium,Total 8.7 mg/dL (8.5-10.1); Chloride 106 mmol/L (98-107); Cholesterol 150 mg/dL (200); EST Glomerular Filtration Rate 85 mL/min (>60); Est Glom Filt Rate - Afr Amer 103 mL/min (>60); Estimated Creatinine Clearance 32.53 ml/min; Glucose 158 mg/dL (74-106); High Density Lipoprotein 71 mg/dL; Potassium 3.8 mmol/L (3.5-5.1); Sodium Level 133 mmol/L (136-145); Triglycerides 87 mg/dL; Very Low Density Lipoprotein 17 mg/dL (5-40)
[2023-09-29 05:30] VITALS: BP 167/72; PULSE 60; RESP 13; TEMP 36.9; O2SAT 95
--- NOTE | 2023-09-29 07:20 | PCM.PN.HOSP ---
Reason for Visit Reason for Visit: Diagnoses Type 2 diabetes mellitus without complications (09/28/23) Transient cerebral ischemic attack, unspecified (09/28/23) Essential (primary) hypertension (09/28/23) Gastro-esophageal reflux disease without esophagitis (09/28/23) Presence of prosthetic heart valve (09/28/23) Subjective Subjective No further headache. Left-sided weakness and speech have returned to normal. Patient has similar presentation yesterday but also months ago. Symptoms began with scotoma and then migraine and then these neurologic symptoms. Patient was to see neurology to have a Botox injection today but was in the hospital Objective Data Objective Data Vital Signs: Vital Signs Temp Pulse Resp BP Pulse Ox O2 Del Method 36.9 C 60 13 167/72 H 95 Room Air 09/29/23 05:30 09/29/23 05:30 09/29/23 05:30 09/29/23 05:30 09/29/23 05:30 09/29/23 05:30 Oxygen Delivery Method Room Air Weight: 68.8 kg Body Mass Index (BMI) 27.7 Intake & Output: Intake and Output for Last 24 Hours 09/27/23 09/28/23 09/29/23 23:59 23:59 23:59 Intake Total 200 / 200 Balance 200 / 200 Lab / Micro Data 09/28/23 19:08 09/29/23 02:50 Labs: Laboratory Results - last 24 hr 09/28/23 19:07: POC Glucose 108 H 09/28/23 19:08: WBC 6.2, RBC 4.11 L, Hgb 13.2, Hct 39.4, MCV 95.9, MCH 32.1 H, MCHC 33.5, RDW Std Deviation 44.2 H, RDW Coeff of Celia 12.5, Plt Count 211, MPV 9.5, Immature Gran % (Auto) 0.300, Neut % (Auto) 60.8, Lymph % (Auto) 25.2, [place]ry % (Auto) 11.4 H, Eos % (Auto) 1.8, Baso % (Auto) 0.5, Absolute Neuts (auto) 3.7, Absolute Lymphs (auto) 1.55, Nucleated RBC % 0, PT 13.0, INR 1.0, APTT 32.0, Sodium 135 L, Potassium 4.2, Chloride 102, Carbon Dioxide 29.0, Anion Gap 4 L, BUN 10, Creatinine 0.80, Estim Creat Clear Calc 44.40, Est GFR (MDRD) Af Amer 88, Est GFR (MDRD) Non-Af 73, BUN/Creatinine Ratio 12.5, Glucose 133 H, Calcium 9.0, Troponin I High Sens 29 09/29/23 02:50: Sodium 133 L, Potassium 3.8, Chloride 106, Carbon Dioxide 19.0 L, Anion Gap 8, BUN 8, Creatinine 0.70, Estim Creat Clear Calc 32.53, Est GFR (MDRD) Af Amer 103, Est GFR (MDRD) Non-Af 85, BUN/Creatinine Ratio 11.5, Glucose 158 H, Calcium 8.7, Triglycerides 87, Cholesterol 150, LDL Cholesterol 62, VLDL Cholesterol 17, HDL Cholesterol 71 Radiography Diagnostic Testing: Radiology Impression Brain CT 09/28/23 19:20 IMPRESSION: Volume loss with chronic white matter changes. No acute intracranial findings. Electronically Signed: Papa Mackay MD at 19:38 EDT , ADDENDUM: 09/28/23 1950 IMPRESSION: Volume loss with chronic white matter changes. No acute intracranial findings. N.B. : The above Results were Read Back by Papa Mackay MD to Niyah Saldivar MD, and understanding confirmed on 09/28/2023 19:44:25 (ET). Electronically Signed: Papa Mackay MD at 19:38 EDT , Chest X-Ray 09/28/23 19:45 IMPRESSION: No change from prior study. Electronically Signed: Ap Hirsch MD at 20:24 EDT , Physical Exam Const alert and no apparent distress HEENT head/scalp atraumatic Neuro oriented x3 and no focal motor deficits Sensorium / Orientation: awake and alert Assessment & Plan Assessment/Plan (1) Left-sided weakness: PLAN: associated with garbled speech. Similar in presentation with last admission, yesterday. Given recurrent nature, chronic h/o migraine, would consult SOC/Access teleneurology Patient has had this for recurrent symptoms for her when she gets her migraines. Proceed with scotoma, migraine and then neurologic symptoms. Symptoms resolved spontaneously. Patient was to see Dr. Amaro of the migraine [place] at [facility]. Patient has been started on Nurtec for her migraines. I did not recommend her having an MRI as my suspicion for seeing anything new compared to prior MRIs would be extremely low and that she has no further neurologic symptoms at this time. PLAN: Plan Chronic conditions: DM2: hold metformin until 5 days post contrast administration. SSI GERD: continue PPI HTN: continue losartan, atenolol VTE prophylaxis: enoxaparin
--- NOTE | 2023-09-29 07:26 | ECHOD_ITS ---
Version 2 Reason For Study: TIA/CVA Procedure This was a 2D Doppler, Color Flow transthoracic echocardiogram. Exam performed portable in ICU/CCU. Left Ventricle Normal LV size. Moderate concentric left ventricular hypertrophy. Left ventricular systolic function is normal. The estimated ejection fraction is 55 %. No regional wall motion abnormalities noted. Right Ventricle Normal RV size. ICD or pacer leads identified within the right ventricle. Normal systolic function. Atria The left atrium is moderately enlarged. Normal right atrium. Bubble contrast study negative for right to left interatrial shunt. Mitral Valve Normal mitral valve. Tricuspid Valve Normal tricuspid valve. Mild (1+) tricuspid valve insufficiency. Pulmonary artery systolic pressure is 45 mmHg. Aortic Valve Normal aortic valve. Pulmonic Valve Normal pulmonic valve. Great Vessels Normal aortic root. The pulmonary artery is normal size. Normal inferior vena cava. Pericardium/Pleural No pericardial effusion. Medication Performed a rapid injection of agitated mix of 9 cc saline and 1cc air to assess for atrial septal defect. MMode/2D Measurements & Calculations LVIDd: 3.9 cm IVSd: 1.5 cm LVOT diam: 1.9 cm LVIDs: 2.9 cm LVPWd: 1.5 cm RVDd: 2.8 cm FS: 27.6 % LVOT area: 2.9 cm2 LAV(MOD-bp): 68.7 ml LVAd ap4: 28.3 cm2 SV(MOD-sp4): 51.1 ml LAV(MOD-bp) Indexed: 40.4 ml/m2 LVLd ap4: 7.0 cm LAV(MOD-sp2): 54.9 ml EDV(MOD-sp4): 94.9 ml LAV(MOD-sp4): 85.2 ml EDV(sp4-el): 97.6 ml LVAs ap4: 18.3 cm2 LVLs ap4: 6.5 cm ESV(MOD-sp4): 43.8 ml ESV(sp4-el): 43.5 ml EF(MOD-sp4): 53.8 % EF(sp4-el): 55.4 % SV(sp4-el): 54.1 ml LA A4 area: 25.5 cm2 LA dimension(2D): 4.0 cm RA A4 area: 18.8 cm2 Time Measurements MV dec time: 0.17 sec Doppler Measurements & Calculations MV E max thad: 80.3 cm/sec Lat Peak E' Thad: 10.2 cm/sec Med Peak E' Thad: 5.3 cm/sec MV A max thad: 80.1 cm/sec E/E' lat: 7.9 E/E' med: 15.2 MV E/A: 1.0 MV V2 max: 91.3 cm/sec MV dec slope: 488.3 cm/sec2 Ao V2 max: 162.4 cm/sec MV max P.3 mmHg Ao max P.6 mmHg MV V2 mean: 54.6 cm/sec Ao V2 mean: 116.2 cm/sec MV mean P.4 mmHg Ao mean P.1 mmHg MV V2 VTI: 32.5 cm Ao V2 VTI: 35.3 cm MVA(VTI): 2.5 cm2 AV (velocity ratio): 0.78 FADY(I,D): 2.3 cm2 FAYD(V,D): 2.4 cm2 LV V1 max: 134.9 cm/sec SV(LVOT): 80.4 ml PA V2 max: 94.4 cm/sec LV V1 max P.3 mmHg PA V2 mean: 63.4 cm/sec LV V1 mean P.0 mmHg LV V1 mean: 93.3 cm/sec LV V1 VTI: 27.6 cm TR max thad: 312.7 cm/sec TR max P.1 mmHg ECHO/Echo Complete Interpretation Summary Normal LV size. Left ventricular systolic function is normal. The estimated ejection fraction is 55 %. ICD or pacer leads identified within the right ventricle. Moderate concentric left ventricular hypertrophy. Pulmonary artery systolic pressure is 45 mmHg. Bubble contrast study negative for right to left interatrial shunt. Ordering Physician: Nelson Sabillon Referring Physician: Terence Kaur M.D. Performed By: Tanesha Zaldivar RCS
[2023-09-29 08:04] VITALS: BP 175/72; PULSE 61; RESP 12; TEMP 36.9; O2SAT 96
[2023-09-29] MEDS: Calcium Carb/Vitamin D 1 TABLET Tablet PO (08:12)
[2023-09-29] MEDS: Multivitamins,Therapeutic Tablet 1 TABLET PO (08:12)
[2023-09-29] MEDS: Aspirin 81 MG TAB.CHEW PO (08:12)
[2023-09-29] MEDS: Potassium Chloride Oral Tablet 20 MEQ PO (08:12)
[2023-09-29] MEDS: Magnesium Chloride 64 MG Delay Rel.Tablet 128 MG PO (08:12)
[2023-09-29] MEDS: Omega-3 Acid Ethyl Esters 1 GM Capsule PO (08:12)
[2023-09-29 09:02] LABS: Bedside Glucose 117 mg/dL (74-106)
[2023-09-29] MEDS: Enoxaparin 40 MG/0.4 ML Syringe SC (10:33)
[2023-09-29] MEDS: Insulin Lispro 100 UNIT/ML INSULN.PEN SC (11:49)
[2023-09-29 12:04] LABS: Bedside Glucose 177 mg/dL (74-106)
--- NOTE | 2023-09-29 14:09 | DS.PCM_ITS ---
Providers Date of Admission: 09/28/23 Primary Care Physician: Dr. Terence Kaur MD Reason For Visit: NEURO/WEAKNESS Diagnosis Discharge Diagnosis (1) Left-sided weakness: Status: Acute Code(s): R53.1 - Weakness Plan: associated with garbled speech. Similar in presentation with last admission, yesterday. Given recurrent nature, chronic h/o migraine, would consult SOC/Access teleneurology Patient has had this for recurrent symptoms for her when she gets her migraines. Proceed with scotoma, migraine and then neurologic symptoms. Symptoms resolved spontaneously. Patient was to see Dr. Amaro of the migraine Monette at [facility]. Patient has been started on Nurtec for her migrai roberto. I did not recommend her having an MRI as my suspicion for seeing anything new compared to prior MRIs would be extremely low and that she has no further neurologic symptoms at this time. Plan Chronic conditions: * DM2: hold metformin until 5 days post contrast administration. SSI * GERD: continue PPI * HTN: continue losartan, atenolol VTE prophylaxis: enoxaparin Medications at Discharge Home Medications alendronate 70 mg tablet 70 mg PO SA BONES 10/03/17 aspirin 81 mg chewable tablet 81 mg PO DAILY@0800 HEART HEALTH 10/03/17 dicyclomine 10 mg capsule 10 mg PO 4X/DAY PRN PRN Irritable Bowel Syndrome 10/03/17 estradiol 0.01% (0.1 mg/gram) vaginal cream 1 dose vaginal LOVE PRN vaginal dryness 10/03/17 magnesium oxide 400 mg (241.3 mg magnesium) tablet 400 mg PO DAILY SUPPLEMENT 10/03/17 multivitamin with folic acid 400 mcg tablet 1 tab PO DAILY SUPPLEMENT 10/03/17 oxybutynin chloride 5 mg tablet 5 mg PO QHS BLADDER 10/03/17 sumatriptan succinate 50 mg tablet 50 mg PO .X1 PRN PRN Headache 10/03/17 tramadol 50 mg tablet 50 mg PO Q4H PRN PRN Pain 10/03/17 amitriptyline 10 mg tablet 20 mg PO QHS BP 04/05/18 sotalol 120 mg tablet 120 mg PO BID HEART 12/25/18 potassium chloride 20 mEq tablet,extended release(part/cryst) 20 tab PO DAILY POTASSIUM 01/19/19 acetaminophen 500 mg tablet 500 mg PO PRN PRN Pain 03/11/19 losartan 100 mg tablet 50 mg PO BID BP 03/11/19 metformin 500 mg tablet,extended release 24 hr 500 mg PO BID DM 03/11/19 omega-3 fatty acids-fish oil 340 mg-1,000 mg capsule 1,000 mg PO DAILY SUPPLEMENT 03/11/19 pravastatin 10 mg tablet 10 mg PO QHS CHOLESTEROL 03/11/19 calcium carbonate 500 mg-vitamin D3 10 mcg (400 unit) tablet (Calcium 500 With D) 1 tab PO DAILY supplement 10/17/19 atenolol 50 mg tablet 50 mg PO DAILY blood pressure 03/23/23 meclizine 12.5 mg tablet 12.5 mg PO TID PRN dizziness or vertigo 03/23/23 nateglinide 60 mg tablet 60 mg PO TID PRN HIGH BLOOD SUGAR 09/28/23 Hospital Course Operations None Procedures None Summary of Care Provided Minutes Spent on Discharge: 45 Hospital Course: Patient presents with migraine variant. Patient's symptoms began with scotoma, migraine and then left-sided weakness and garbled speech. Patient is similar pr esentation the day before. She is also had a symptoms months prior. Patient has been worked up extensively with testing. Patient is involved that the migraine is due to [facility]. Patient is recently started on a medication called [facility] for her migraines. Patient has yet to receive it. I explained the patient that I feel that as well as she feels that this is due to her migraines and that additional imaging and studies would not change her management as per she has a migraines. Patient is already established with the migraine Monette and instructed to follow-up. She did have an appointment today that she did miss when she was supposed to have a Botox injection to help with the migraines. Weight / BMI Weight Weight: 68.8 kg Body Mass Index (BMI) 27.7 ABG / Lab / Microbiology Data 09/28/23 19:08 09/29/23 02:50 Laboratory: Laboratory Results - last 24 hr 09/28/23 19:07: POC Glucose 108 H 09/28/23 19:08: WBC 6.2, RBC 4.11 L, Hgb 13.2, Hct 39.4, MCV 95.9, MCH 32.1 H, MCHC 33.5, RDW Std Deviation 44.2 H, RDW Coeff of Celia 12.5, Plt Count 211, MPV 9.5, Immature Gran % (Auto) 0.300, Neut % (Auto) 60.8, Lymph % (Auto) 25.2, Mills % (Auto) 11.4 H, Eos % (Auto) 1.8, Baso % (Auto) 0.5, Absolute Neuts (auto) 3.7, Absolute Lymphs (auto) 1.55, Nucleated RBC % 0, PT 13.0, INR 1.0, APTT 32.0, Sodium 135 L, Potassium 4.2, Chloride 102, Carbon Dioxide 29.0, Anion Gap 4 L, BUN 10, Creatinine 0.80, Estim Creat Clear Calc 44.40, Est GFR (MDRD) Af Amer 88, Est GFR (MDRD) Non-Af 73, BUN/Creatinine Ratio 12.5, Glucose 133 H, Calcium 9.0, Troponin I High Sens 29 09/29/23 02:50: Sodium 133 L, Potassium 3.8, Chloride 106, Carbon Dioxide 19.0 L , Anion Gap 8, BUN 8, Creatinine 0.70, Estim Creat Clear Calc 32.53, Est GFR ( MDRD) Af Amer 103, Est GFR (MDRD) Non-Af 85, BUN/Creatinine Ratio 11.5, Glucose 158 H, Calcium 8.7, Triglycerides 87, Cholesterol 150, LDL Cholesterol 62, VLDL Cholesterol 17, HDL Cholesterol 71 09/29/23 08:08: POC Glucose 117 H 09/29/23 11:46: POC Glucose 177 H Radiography Diagnostic Testing: Radiology Impression Brain CT 09/28/23 19:20 IMPRESSION: Volume loss with chronic white matter changes. No acute intracranial findings. Electronically Signed: Papa Mackay MD at 19:38 EDT Reading Location ID and State: [facility] / [place] Tel , Service support , ADDENDUM: 09/28/23 1950 IMPRESSION: Volume loss with chronic white matter changes. No acute intracranial findings. N.B. : The above Results were Read Back by Papa Mackay MD to Niyah Saldivar MD, and understanding confirmed on 09/28/2023 19:44:25 (ET). Electronically Signed: Papa Mackay MD at 19:38 EDT , Chest X-Ray 09/28/23 19:45 IMPRESSION: No change from prior study. Electronically Signed: Ap Hirsch MD at 20:24 EDT , D/C Instructions Discharge Diet: No restrictions Meaningful Use Info Meaningful Use Diagnoses (Choose all that apply): None applicable Discharge Plan Admission Admit Date/Time: 09/28/23 21:15 Primary Reason for Your Visit: Migraine variant Attending Provider: Nelson Sabillon Primary Care Provider: Terence Kaur Consulting Providers: Etienne Loyd Instructions Additional Instructions / Restrictions: You had a migraine variant as you have had before. You have been started on a new medication called Nurtec. Please reach out to Dr. Amaro if that is okay to continue taking amitriptyline and Imitrex with. If you have recurrent symptoms, return to the emergency room for evaluation. Please reach out to Dr. Amaro to see if he has any additional recommendations if this were to recur in the future Discharge Orders/Prescriptions Prescriptions: Continued amitriptyline 10 mg tablet 20 mg PO QHS calcium carbonate-vitamin D3 [Calcium 500 With D] 500 mg(1,250mg) -400 unit tablet 1 tab PO DAILY meclizine 12.5 mg tablet 12.5 mg PO TID PRN (Reason: dizziness or vertigo) atenolol 50 mg tablet 50 mg PO DAILY alendronate 70 MG tablet 70 mg PO SA sumatriptan succinate 50 MG tablet 50 mg PO .X1 PRN PRN (Reason: Headache) tramadol 50 MG tablet 50 mg PO Q4H PRN PRN (Reason: Pain) magnesium oxide 400 MG tablet 400 mg PO DAILY aspirin 81 MG tablet,chewable 81 mg PO DAILY@0800 estradiol 42.5 GM cream 1 dose VAGINAL LOVE PRN (Reason: vaginal dryness) oxybutynin chloride 5 MG tablet 5 mg PO QHS dicyclomine 10 MG capsule 10 mg PO 4X/DAY PRN PRN (Reason: Irritable Bowel Syndrome) multivitamin with folic acid 1 TABLET tablet 1 tab PO DAILY sotalol 120 MG tablet 120 mg PO BID potassium chloride 20 MEQ tablet,ER particles/crystals 20 tab PO DAILY acetaminophen 500 MG tablet 500 mg PO PRN PRN (Reason: Pain) pravastatin 10 MG tablet 10 mg PO QHS losartan 100 MG tablet 50 mg PO BID metformin 500 MG tablet 500 mg PO BID omega-3 fatty acids-fish oil 1 EACH capsule 1,000 mg PO DAILY nateglinide 60 mg tablet 60 mg PO TID PRN (Reason: HIGH BLOOD SUGAR ) Rx Instructions: give before meal(s) Referrals / Follow Up: Terence Kaur MD [Primary Care Provider] - Within 2 Weeks Disposition Disposition (needs filled in before D/C Order can be placed): Home, Self Care Charges/Coding Visit Charges Inpatient E&M: 16028 Disch Hosp >30min
[2023-09-29 14:28] VITALS: BP 160/58; PULSE 60; RESP 18; TEMP 36.3; O2SAT 97
[2023-09-29 14:29] VITALS: BP 160/58; PULSE 60; RESP 18; TEMP 36.3; O2SAT 97
[2023-09-29] MEDS: Losartan Potassium 50 MG Tablet PO (14:31)
[2023-09-29] MEDS: Atenolol 50 MG Tablet PO (14:32)
== END 2023-09-29 15:30 | disposition home or self-care (01) ==
LOC: ED 21:09 → ICU 09-29 04:15
PROVIDERS: Admitting Provider Family Medicine; Emergency Provider Emergency Medicine; PCP Internal Medicine
DX: G43.E09 Chronic migraine with aura, not intractable, without status migrainosus (principal); I48.20 Chronic atrial fibrillation, unspecified; D68.59 Other primary thrombophilia; E11.9 Type 2 diabetes mellitus without complications; R53.1 Weakness; I10 Essential (primary) hypertension; K21.9 Gastro-esophageal reflux disease without esophagitis; Z79.82 Long term (current) use of aspirin; Z79.83 Long term (current) use of bisphosphonates; Z79.84 Long term (current) use of oral hypoglycemic drugs; Z79.899 Other long term (current) drug therapy; R47.81 Slurred speech; Z95.0 Presence of cardiac pacemaker; R47.01 Aphasia; R29.810 Facial weakness; Z23 Encounter for immunization; R41.0 Disorientation, unspecified; G89.29 Other chronic pain; R47.1 Dysarthria and anarthria; Z95.2 Presence of prosthetic heart valve
CPT/HCPCS: 36415; 70450; 70496; 70498; 71045; 80048; 80061; 82962; 83036; 84484; 85025; 85610; 85730; 90471; 92523; 93005; 93306; 94762; 96372; 97162; 97166; 99221; 99285; Q9967; A4216; G0378

== ENCOUNTER 2024-05-05 10:00 | Outpatient (RCR) | payer MEDICARE, BC, SELFPAY ==
--- NOTE | 2024-03-23 15:25 | HP.PTEVAL_ITS ---
Patient's Visit Information Visit Information Visit Information: TANISHA JULIAN is a 83 year old F referred to Physical Therapy by Dr. Terence Kaur MD with a diagnosis of frequent falls. Date of Evaluation: 03/23/24 Physical Therapist: Nelson Nicholas, DPT, OCS, CSCS Visit Plan Frequency: 2-3x /Week Duration: 4-6 Weeks Plan: 2-3x/week for 4 -6 weeks Encourage pt to use wh walker 100% of time for safety and reviewed balance safety HO 1. vestibular balance ex adn weight shifting to HEP 2. LE and postural/general strength ex to I home all with pics as safety allows. Pt not sure she wants to commit to this and will call to schedule after she thinks about it. Subjective Subjective: with her today. She has a tendency to fall and they want to improve her balance. Fractured a rib with a fall on 03/04/24 getting out of bed and reaching over dresser and lost balance. 2 weeks prior had fallen coming out of [employer] going to lunch tried to step over curb and ended up falling. No spinning. No [id number] but has DM. No regular exercise but housework requires help from [employer]. She has heart problem and can only do so much. Had ANATOLY procedure in 2019. Not employed. 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 Spends day working on books, paperwork. Basic ADLs: all I.Careful in stepping over tub edge. Stairs 13 into rail with rail, they are going slower. Has walker and does not usein small apartment Objective Objective: Walks slowly with poor weight shifting but I in and out of PT. Trasnfers I with UE. Steps with one rail I. LE strength is 3in hips abd and ext and flexion, 4- knee flex/ext adn ankles 4+. coordination to reciprocal toe tap is I and good with toe taps but challenging with heel taps. relfexes 2/3 patella adn achilles but may have B clonus at quick contraction of achilles. Sensation WNL to gross light touch in LE. Has neuropathic pattern in gait and very poor weight shift. Balance/Special Test Scores Functional Gait Assessment Score: 20 % Disability: 33.3400 CATSIB Score (Max score 120 seconds): 98 Lower Extremity Functional Score: 26 TUG Test Time Seconds: 11 30 Second Chair Rise Test Seconds: 9 Goals Goal 1:: FGA to reduce fall risk Goal Time Frame: 4-6 Weeks Goal 2:: 12 on 30 sec sit to stand Goal Time Frame: 4-6 Weeks Goal 3:: Pt feel 75% safer in mobility Goal Time Frame: 4-6 Weeks Goal 4:: i appropriate HEp to limit future problems Goal Time Frame: 4-6 Weeks Rehabilitation Potential Physical Therapy Diagnosis: falls and imbalance. Rehabilitation Potential: Fair Anticipated Interventions Patient/Client Instruction: Educate patient on: Condition For the Purpose of:: To improve muscle performance and motor function, To improve ability of physical actions for home/community/work/leisure and To improve gait and locomotor functions Therapeutic Exercise to Include: Strength training, Balance training, Postural training and Gait and locomotor training For the Purpose of:: To improve muscle performance and motor function, To increase tolerance to activity/condition/position, To improve ability of physical actions for home/community/work/leisure, To improve gait and locomotor functions, To improve balance and To improve safety with gait Text: Thank you for the opportunity to evaluate your patient. For Medicare and Medicare HMO plans, please review the plan of care and approve it. It will need to be FAXED BACK to us at [phone] for Medicare purposes. For Medicare only, by signing this I certify the plan of care. Please let me know if there are questions or concerns regarding this plan of care. Physician Signature: Date:
--- NOTE | 2024-05-05 10:26 | HP.PTDCSUM_ITS ---
Discharge Summary D/C summary: It has been my pleasure to treat TANISHA JULIAN referred by Dr. Terence Kaur MD, with the diagnosis of frequent falls for a total of 8 visit(s). Discharge Date: 05/05/24 Please see the following information for a summary of their discharge status. Subjective Subjective: Not feeling any better. Balance and strength are about the same as a month ago. Not getting exercises in at home. Still doing laundry adn mopping kitchen floor and cleaning bathroom, body feels too weak. Blood test every 3 months thru patient assessment coordinator. Will have EKG. No falls lately. Not using cane or walker and does not wish to. Pain R hip: Pain Intensity (Out of 10): 8 l rib: Pain Intensity (Out of 10): 0 Overall Improvement % Improvement: 0 Objective Objective/Function: +2 FGA and 1 better on 30 SSTS, Not feeling much stronger but not falling. LEFS is only a couple points better. Not happy with her progress and wants to check with doctor vs continuing. Goals Goal 1:: FGA to reduce fall risk Goal Progress: Progressing Goal 2:: 12 on 30 sec sit to stand Goal Progress: Not Progressing Goal 3:: Pt feel 75% safer in mobility Goal Progress: Not Progressing Goal 4:: i appropriate HEp to limit future problems Goal Progress: noncompliant Plan Plan: d/c, back to doctor D/C Information Discharge Comments: Pt to have doctor's follow ups and talk with them dueto lack of progress. d/c sentence: If there are questions or concerns regarding this patient's physical therapy, please feel free to call me at [phone]. Thank you for the referral of this patient. Sincerely, Nelson Nicholas, DPT, OCS, CSCS Balance/Gait/Functional tests Balance/Special Test Scores Functional Gait Assessment Score: 22 % Disability: 26.6700 CATSIB Score (Max score 120 seconds): 98 Lower Extremity Functional Score: 29 TUG Test Time Seconds: 11 Tug Test: <20 sec.=mostly independent 30 Second Chair Rise Test Seconds: 10 Improvement % Improvement: 0
== END 2024-05-05 19:00 | disposition home or self-care (01) ==
LOC: PT 10:00
PROVIDERS: PCP Internal Medicine; Referring Provider Internal Medicine; Visit Provider Internal Medicine
DX: R29.6 Repeated falls (principal)
CPT/HCPCS: 97110; 97161; 97530

== ENCOUNTER 2024-06-23 09:58 | Inpatient (IN) | payer MEDICARE, BC, SELFPAY ==
[2024-06-23 09:58] VITALS: BP 154/63; PULSE 59; RESP 14; TEMP 36.1; O2SAT 98; BMI 25.2
--- NOTE | 2024-06-23 10:44 | EDS_ITS ---
HPI History of Present Illness Chief Complaint: Abn Labs Informant: patient, spouse/S.O. and other (Medical records sent with patient) Narrative Narrative: Patient was sent here for a sodium level of 118 that was drawn yesterday. She has been trending down recently. She has been feeling fatigued for weeks. She states she has felt a little disoriented at times but agrees that she is not confused right now. She was on spironolactone that was stopped about 1 week ago or so. No other medications were changed. Patient also states she has been having intermittent sudden nausea/vomiting that seems to occur randomly for the last couple weeks or months, she was scheduled for an outpatient CT of the abdomen/pelvis. She states she is occasionally having abdominal pain in her epigastrium but it is not there right now. [facility] Medical History Osteoporosis Asthma Stroke/cerebrovascular accident Near syncope Gastritis Chronic pain Non-smoker Pacemaker Other osteoporosis without current pathological fracture Atrophic vaginitis Cervicalgia Overactive bladder Essential tremor Degeneration of lumbar or lumbosacral intervertebral disc Generalized osteoarthrosis, unspecified site Type 2 diabetes mellitus without complication, without long-term current use of insulin IBS (irritable bowel syndrome) Migraine with aura Essential hypertension PVC (premature ventricular contraction) PAC (premature atrial contraction) Diverticulitis large intestine Family history of colon cancer in father Type 2 diabetes mellitus Breast cancer Ascending aortic aneurysm Hypertension Diabetes Migraine GERD (gastroesophageal reflux disease) HTN (hypertension) Home Medications ?Medication ?Instructions ?Recorded ?Last Taken ?Type aspirin 81 mg chewable tablet 81 mg PO DAILY@0800 HEART HEALTH 10/03/17 06/23/24 History dicyclomine 10 mg capsule 10 mg PO 4X/DAY PRN Irritable 10/03/17 12/25/18 History Bowel Syndrome estradiol 0.01% (0.1 mg/gram) 1 dose vaginal LOVE PRN vaginal 10/03/17 06/19/24 History vaginal cream dryness magnesium oxide 400 mg (241.3 mg 400 mg PO DAILY SUPPLEMENT 10/03/17 06/23/24 History magnesium) tablet multivitamin with folic acid 400 1 tab PO DAILY SUPPLEMENT 10/03/17 06/23/24 History mcg tablet oxybutynin chloride 5 mg tablet 5 mg PO QHS BLADDER 10/03/17 06/22/24 History tramadol 50 mg tablet 50 mg PO Q4H PRN PRN Pain 10/03/17 03/07/19 History sotalol 120 mg tablet 120 mg PO BID HEART 12/25/18 06/23/24 History potassium chloride 20 mEq 20 tab PO DAILY POTASSIUM 01/19/19 06/23/24 History tablet,extended release(part/cryst) losartan 100 mg tablet 50 mg PO BID BP 03/11/19 06/23/24 History metformin 500 mg tablet,extended 500 mg PO BID DM 03/11/19 06/23/24 History release 24 hr pravastatin 10 mg tablet 10 mg PO QHS CHOLESTEROL 03/11/19 06/22/24 History calcium carbonate 500 mg-vitamin 1 tab PO DAILY supplement 10/17/19 06/23/24 History D3 10 mcg (400 unit) tablet (Calcium 500 With D) meclizine 12.5 mg tablet 12.5 mg PO TID PRN dizziness or 03/23/23 Unknown History vertigo nateglinide 60 mg tablet 60 mg PO TID PRN HIGH BLOOD SUGAR 09/28/23 06/23/24 History Lactobacillus acidophilus 10 10,000 mmu cells PO DAILY 06/23/24 Unknown History billion cell capsule (Probiotic) acetaminophen 650 mg 650 mg PO Q8H PRN pain 06/23/24 06/23/24 History tablet,extended release (8 Hour Pain Reliever) ascorbic acid (vitamin C) 500 mg 1 g PO DAILY 06/23/24 Unknown History tablet (C-500) cranberry 500 mg capsule 500 mg PO DAILY 06/23/24 Unknown History docusate sodium 100 mg capsule 100 mg PO DAILY 06/23/24 Unknown History omega-3 acid ethyl esters 1 gram 1 cap PO DAILY 06/23/24 06/23/24 History capsule ondansetron 4 mg disintegrating 4 mg PO Q8H PRN nausea and vomiting 06/23/24 Unknown History tablet propranolol 60 mg capsule,24 60 mg PO BID 06/23/24 06/23/24 History hr,extended release rimegepant 75 mg disintegrating 75 mg PO DAILY PRN migraine 06/23/24 Unknown History tablet (Nurtec ODT) headache Allergy/AdvReac Type Severity Reaction Status Date / Time procaine HCl (From Novocain) Allergy Anaphylaxis Verified 06/23/24 09:59 albuterol AdvReac Tachycardia Verified 06/23/24 09:59 cetirizine AdvReac Other Verified 06/23/24 09:59 codeine AdvReac Vomiting Verified 06/23/24 09:59 gabapentin AdvReac Mental Verified 06/23/24 09:59 Status Change/Fatigue hydrochlorothiazide AdvReac Other Verified 06/23/24 09:59 lisinopril AdvReac Cough Verified 06/23/24 09:59 morphine AdvReac Vomiting Verified 06/23/24 09:59 pregabalin AdvReac Other Verified 06/23/24 09:59 Sulfa (Sulfonamide AdvReac Other Verified 06/23/24 09:59 Antibiotics) Family History Mother Diabetes Ovarian cancer Father Cancer bladder thyroid Colon cancer Hypertension Surgical History S/P TAVR (transcatheter aortic valve replacement) H/O left mastectomy History of open heart surgery H/O elbow surgery Hx of appendectomy S/P CODIE (total abdominal hysterectomy) femoral hernia repair H/O aortic valve replacement Social History household members: spouse Smoking Status: Never smoker alcohol intake: never substance use type: does not use caffeine: No what type of physical activity do you participate in: walking seatbelt use: always do you feel safe at home: Yes additional social history: Don- Retired Patient is retired ROS ROS ED Constitutional Constitutional ED: Reports fatigue; Denies chills or fever(s) Eyes Eyes: Denies change in vision or diplopia ENT ENT ED: Denies rhinorrhea or sore throat Cardiovascular Cardiovascular: Denies chest pain or palpitations Respiratory/Chest Respiratory/Chest: Denies cough or dyspnea Gastrointestinal Gastrointestinal: Reports abdominal pain, nausea and vomiting; Denies diarrhea Genitourinary Genitourinary ED: Denies dysuria or hematuria Musculoskeletal Musculoskeletal: Denies back pain or neck pain Integumentary Denies abscess or rash Neurologic Neurologic: Denies headache(s), paresthesias or weakness Psychiatric Psychiatric: Denies suicidal thoughts EXAM Physical Exam Const Vital Signs: 06/23/24 09:58 06/23/24 10:01 06/23/24 11:58 Temperature 97 F L Temperature Source Temporal Pulse Rate 59 L 81 Respiratory Rate 14 14 Respiratory Effort Normal Respiratory Pattern Normal Blood Pressure 154/63 H 179/74 H Blood Pressure Mean 93 109 Pulse Ox 98 97 Oxygen Delivery Method Room Air Room Air Positive well nourished and well developed General Appearance ED: well developed and NAD HEENT Reports moist mucous membranes normocephalic and atraumatic Eyes PERRL and EOMs intact bilaterally Neck full ROM and supple Resp normal respiratory effort and clear to auscultation bilaterally Cardio regular rate, regular rhythm and no murmurs GI non-distended GI Narrative: Mildly tender epigastrium only otherwise benign abdomen. No guarding or rebound. Auscultation: normoactive bowel sounds Palpation: soft Back/Spine no CVA tenderness General Back: other FROM Extremity normal to inspection General Extremety ED: Negative for edema, pulses abnormal or tenderness General Extremity: Negative for edema or pulses abnormal Neuro oriented x3, CN's II-XII intact bilaterally and no sensory deficits noted Sensorium / Orientation: awake and alert Motor Exam: strength 5/5 throughout Psych mental status grossly normal Skin no rashes or lesions noted and no wounds MDM MDM MDM Narrative Medical decision making narrative: Outpatient labs reviewed. Magnesium 1.9 normal, lipase normal this was done yesterday. Urinalysis shows no acute infection. Just trace leukocyte Estrace. She has a metabolic panel where the sodium is 118, chloride is 86 and there is no anion gap. Renal function is normal. Repeating his labs and adding LFTs given her GI complaints that are nonacute, and will discuss with hospitalist. Started slow saline. Her sodium came back at 120 so at this time no 3% saline indicated. History & Record Review Additional record(s) reviewed:: Prior outpatient record (Labs, see above) Lab Data Attestation: I reviewed the patient's lab results. Labs: Laboratory Results - last 24 hr 06/23/24 11:08 WBC 6.9 RBC 4.20 Hgb 13.5 Hct 37.5 MCV 89.3 MCH 32.1 H MCHC 36.0 RDW Std Deviation 36.3 RDW Coeff of Celia 11.3 L Plt Count TNP MPV 8.7 Immature Gran % (Auto) 0.600 Neut % (Auto) 75.7 H Lymph % (Auto) 11.7 L [place] % (Auto) 9.6 Eos % (Auto) 1.8 Baso % (Auto) 0.6 Absolute Neuts (auto) 5.2 Absolute Lymphs (auto) 0.80 L Nucleated RBC % 0 Platelet Estimate ADEQUATE Sodium 120 L Potassium 4.8 Chloride 92 L Carbon Dioxide 23.0 Anion Gap 5 BUN 12 Creatinine 0.89 Estim Creat Clear Calc 40.20 Est GFR (MDRD) Af Amer 77 Est GFR (MDRD) Non-Af 64 BUN/Creatinine Ratio 13.5 Glucose 133 H Calcium 9.0 Total Bilirubin 0.60 AST 25 ALT 28 Alkaline Phosphatase 68 Total Protein 6.6 Albumin 3.5 Globulin 3.1 Albumin/Globulin Ratio 1.1 Management Discussion w/another healthcare provider: Hospitalist Discharge Plan Dx/Rx/DC Orders Clinical Impression: Hyponatremia Disposition Disposition: Acute Care [facility]
[2024-06-23] MEDS: 0.9% Normal Saline (1000mL) 1,000 ML 100 ML IV (11:17)
[2024-06-23 11:20] LABS: Absolute Neutrophil Count 5.2 X10^3/uL (2.0-7.7); Basophil# 0.04 X10^3/uL; Basophil% 0.6 % (0-1); Eosinophil# 0.12 X10^3/uL; Eosinophils% 1.8 % (0-5); Hematocrit 37.5 % (37-47); Hemoglobin 13.5 g/dL (12.0-15.0); Lymphocyte % 11.7 % (19-41); Mean Corpuscular Hgb 32.1 pg (27.0-32.0); Mean Corpuscular Volume 89.3 fL (81-99); Mean Platelet Vol. 8.7 fl (6.2-12.0); Monocyte# 0.66 X10^3/uL; Monocyte% 9.6 % (0-10); NRBC Flagged by Analyzer 0 % (0-5); Neutrophil # 5.19 X10^3/uL (2.7-7.7); Neutrophil % 75.7 % (47-70); POSITIVE COUNT YES; RBC Distribution Width CV 11.3 % (11.6-14.6); RBC Distribution Width SD 36.3 fl (35.1-43.9); White Blood Count 6.9 K/mm3 (4.4-11.0)
[2024-06-23 11:44] LABS: ALB/GLOB Ratio 1.1 RATIO (0.9-2.4); AST(SGOT) 25 U/L (15-37); Alanine Aminotransfer ALT/SGPT 28 U/L (13-56); Albumin, Serum 3.5 g/dL (3.2-5.0); Alkaline Phosphatase 68 U/L (45-117); Anion Gap 5 (5-15); BUN 12 mg/dL (7-18); BUN/Creat Ratio 13.5 RATIO (10-20); Chloride 92 mmol/L (98-107); Creatinine, Serum 0.89 mg/dL (0.55-1.02); EST Glomerular Filtration Rate 64 mL/min (>60); Est Glom Filt Rate - Afr Amer 77 mL/min (>60); Globulin 3.1 g/dL (2.2-4.2); Glucose 133 mg/dL (74-106); Potassium 4.8 mmol/L (3.5-5.1); Protein, Total 6.6 g/dL (6.4-8.2); Sodium Level 120 mmol/L (136-145)
[2024-06-23 11:58] VITALS: BP 179/74; PULSE 81; RESP 14; O2SAT 97
--- NOTE | 2024-06-23 12:27 | HP.PCM.HOS_ITS ---
HPI - General General Date of Admission: 06/23/24 Date of Service: 06/23/24 Chief Complaint: Abnormal lab severe hyponatremia. HPI Narrative TANISHA JULIAN, is a 83 F had labs done by PCP yesterday and reported As 118 today and was sent to ED. Prior to that about 3 days ago she said it was 120. She feels fatigue but has dizziness lightheadedness on walking for about 6 months progressively getting worse but denies acute onset or recent change in last 1 to 2 weeks. She denies nausea vomiting diarrhea or working under some recently but he states that she gets easily sunburn therefore does not stay under sun for long time. About 3 weeks ago she had 1 to 2 times nausea or vomiting, random without relation to food but again not recently. No fever or chills, acute symptoms of chest pain pressure tightness or shortness of breath or palpitation or fall. She is cautious on walking as her balance gotten worse, states because of old age. Labs reviewed. Sodium 118. Patient is started on IV fluid normal saline 100 mill per hour in ED. Vitals reviewed. Twelve-lead EKG ordered. [facility] Medical History Osteoporosis Asthma Stroke/cerebrovascular accident Near syncope Gastritis Chronic pain Non-smoker Pacemaker Other osteoporosis without current pathological fracture Atrophic vaginitis Cervicalgia Overactive bladder Essential tremor Degeneration of lumbar or lumbosacral intervertebral disc Generalized osteoarthrosis, unspecified site Type 2 diabetes mellitus without complication, without long-term current use of insulin IBS (irritable bowel syndrome) Migraine with aura Essential hypertension PVC (premature ventricular contraction) PAC (premature atrial contraction) Diverticulitis large intestine Family history of colon cancer in father Type 2 diabetes mellitus Breast cancer Ascending aortic aneurysm Hypertension Diabetes Migraine GERD (gastroesophageal reflux disease) HTN (hypertension) Home Medications ?Medication ?Instructions ?Recorded ?Last Taken ?Type aspirin 81 mg chewable tablet 81 mg PO DAILY@0800 HEART HEALTH 10/03/17 06/23/24 History dicyclomine 10 mg capsule 10 mg PO 4X/DAY PRN Irritable 10/03/17 12/25/18 History Bowel Syndrome estradiol 0.01% (0.1 mg/gram) 1 dose vaginal LVOE PRN vaginal 10/03/17 06/19/24 History vaginal cream dryness magnesium oxide 400 mg (241.3 mg 400 mg PO DAILY SUPPLEMENT 10/03/17 06/23/24 History magnesium) tablet multivitamin with folic acid 400 1 tab PO DAILY SUPPLEMENT 10/03/17 06/23/24 History mcg tablet oxybutynin chloride 5 mg tablet 5 mg PO QHS BLADDER 10/03/17 06/22/24 History tramadol 50 mg tablet 50 mg PO Q4H PRN PRN Pain 10/03/17 03/07/19 History sotalol 120 mg tablet 120 mg PO BID HEART 12/25/18 06/23/24 History potassium chloride 20 mEq 20 tab PO DAILY POTASSIUM 01/19/19 06/23/24 History tablet,extended release(part/cryst) losartan 100 mg tablet 50 mg PO BID BP 03/11/19 06/23/24 History metformin 500 mg tablet,extended 500 mg PO BID DM 03/11/19 06/23/24 History release 24 hr pravastatin 10 mg tablet 10 mg PO QHS CHOLESTEROL 03/11/19 06/22/24 History calcium carbonate 500 mg-vitamin 1 tab PO DAILY supplement 10/17/19 06/23/24 History D3 10 mcg (400 unit) tablet (Calcium 500 With D) meclizine 12.5 mg tablet 12.5 mg PO TID PRN dizziness or 03/23/23 Unknown History vertigo nateglinide 60 mg tablet 60 mg PO TID PRN HIGH BLOOD SUGAR 09/28/23 06/23/24 History Lactobacillus acidophilus 10 10,000 mmu cells PO DAILY 06/23/24 Unknown History billion cell capsule (Probiotic) acetaminophen 650 mg 650 mg PO Q8H PRN pain 06/23/24 06/23/24 History tablet,extended release (8 Hour Pain Reliever) ascorbic acid (vitamin C) 500 mg 1 g PO DAILY 06/23/24 Unknown History tablet (C-500) cranberry 500 mg capsule 500 mg PO DAILY 06/23/24 Unknown History docusate sodium 100 mg capsule 100 mg PO DAILY 06/23/24 Unknown History omega-3 acid ethyl esters 1 gram 1 cap PO DAILY 06/23/24 06/23/24 History capsule ondansetron 4 mg disintegrating 4 mg PO Q8H PRN nausea and vomiting 06/23/24 Unknown History tablet propranolol 60 mg capsule,24 60 mg PO BID 06/23/24 06/23/24 History hr,extended release rimegepant 75 mg disintegrating 75 mg PO DAILY PRN migraine 06/23/24 Unknown History tablet (Nurtec ODT) headache Allergy/AdvReac Type Severity Reaction Status Date / Time procaine HCl (From Novocain) Allergy Anaphylaxis Verified 06/23/24 09:59 albuterol AdvReac Tachycardia Verified 06/23/24 09:59 cetirizine AdvReac Other Verified 06/23/24 09:59 codeine AdvReac Vomiting Verified 06/23/24 09:59 gabapentin AdvReac Mental Verified 06/23/24 09:59 Status Change/Fatigue hydrochlorothiazide AdvReac Other Verified 06/23/24 09:59 lisinopril AdvReac Cough Verified 06/23/24 09:59 morphine AdvReac Vomiting Verified 06/23/24 09:59 pregabalin AdvReac Other Verified 06/23/24 09:59 Sulfa (Sulfonamide AdvReac Other Verified 06/23/24 09:59 Antibiotics) Family History Mother Diabetes Ovarian cancer Father Cancer bladder thyroid Colon cancer Hypertension Surgical History S/P TAVR (transcatheter aortic valve replacement) H/O left mastectomy History of open heart surgery H/O elbow surgery Hx of appendectomy S/P CODIE (total abdominal hysterectomy) femoral hernia repair H/O aortic valve replacement Social History household members: spouse Smoking Status: Never smoker alcohol intake: never substance use type: does not use caffeine: No what type of physical activity do you participate in: walking seatbelt use: always do you feel safe at home: Yes additional social history: Don- Retired Patient is retired ROS ROS Narrative Constitutional: Reports fatigue and weakness. No fever. HEENT: Chronic dizziness and lightheadedness and vertigo. Reports systems reviewed and no addt'l complaints, except as documented Respiratory/Chest: No acute shortness of breath or respiratory distress or wheezing. CVS: No chest pain pressure or tightness. Gastrointestinal: Denies coffee ground emesis, hematemesis or vomiting Genitourinary: Denies burning urination or new urinary tract symptoms Musculoskeletal: Denies acute joint pain or limited range of motion. No acute injury Neurologic: Denies seizure-like symptoms. No acute or strokelike symptoms. skin: No ulcer. No rash Endocrinology: Reports systems reviewed and no addt'l complaints, except as documented Hematologic/Lymphatic: Reports systems reviewed and no addt'l complaints, except as documented Rest 14 ROS are negative except as mentioned in HPI Vital Signs Vital Signs Vital Signs: 06/23/24 09:58 06/23/24 10:01 06/23/24 11:58 Temperature 97 F L Temperature Source Temporal Pulse Rate 59 L 81 Respiratory Rate 14 14 Respiratory Effort Normal Respiratory Pattern Normal Blood Pressure 154/63 H 179/74 H Blood Pressure Mean 93 109 Pulse Ox 98 97 Oxygen Delivery Method Room Air Room Air Weight Weight: 138 lb Body Mass Index (BMI) 25.2 Physical Exam Narrative General: Alert, Oriented x3, Cooperative HEENT: Atraumatic, PERRLA, EOMI, Normocephalic Oral: Oral mucosa moist. No Gingival or Mucosal Lesions/ Ulcerations Neck: Supple, No JVD, Negative Carotid Bruits Chest wall/Lungs: Air entry diminished in bilateral lung bases. No crepitation/rhonchi Cardiovascular: Regular rate, Regular Rhythm, Normal S1, Normal S2, No M/G/R Abdomen: Bowel Sounds Present, Soft, Non Tender, Non-Distended : No dysuria. No renal angle tenderness. No suprapubic tenderness. Extremities: No edema, Capillary Refill Less than 3 Seconds Skin: No rashes, No breakdown. Skin is cold but not cyanosed. Musculoskeletal: No Tenderness to Palpation of Joints or Extremities. ROM full and intact. Neurological: Cranial nerves II-XII grossly intact, DTR 2+/4. No acute focal neurological deficit. Psych/Mental Status: Normal Affect, Appropriate. Results Lab / Micro Data 06/23/24 11:08 06/23/24 11:08 Labs: Laboratory Results - last 24 hr 06/23/24 11:08: Sodium 120 L, Potassium 4.8, Chloride 92 L, Carbon Dioxide 23.0, Anion Gap 5, BUN 12, Creatinine 0.89, Estim Creat Clear Calc 40.20, Est GFR (MDRD) Af Amer 77, Est GFR (MDRD) Non-Af 64, BUN/Creatinine Ratio 13.5, Glucose 133 H, Calcium 9.0, Total Bilirubin 0.60, AST 25, ALT 28, Alkaline Phosphatase 68, Total Protein 6.6, Albumin 3.5, Globulin 3.1, Albumin/Globulin Ratio 1.1 Assessment & Plan Assessment/Plan (1) Hyponatremia: PLAN: Plan This is a 83-year-old female is being admitted for severe hyponatremia serum sodium 118. 1. Hyponatremia most likely subacute chronic hypotonic isovolemic hyponatremia: Hyponatremia has progressed over more than 3 to 4 days therefore does not need hypertonic saline. IV fluid normal saline 75 mill per hour with frequent sodium check every 4 hours. Twelve-lead EKG ordered. Serum osmolarity, UA, urine studies ordered. 2. Diabetes mellitus type 2: Hold metformin and nateglinide. Accu-Chek before meals and at bedtime with Humalog sliding scale coverage. 3. Hypertension: Blood pressure is high 179/74. Continue home medications. Monitor BP and titrate accordingly. 4. Chronic migraine: Patient on acute migraine headache medication as needed and propranolol 60 mg p.o. twice daily. Patient also on sotalol 120 mg twice daily. Hold propranolol. 5. DVT prophylaxis, high risk: Lovenox 40 mg subcu daily. Living will/advanced directive/end of life care: Patient does not have living will or advanced directive. She did not have designated power of staff attorney for health but is next of kin. After discussion of benefits/risks procedures involved with full code, DNR CC arrest and DNR CC, the patient opted for full code. Patient does want artificial life support including intubation, tube feed, ventilator and/chest compression, central venous catheter, vasopressor and DC shock if needed Total time spent in [id number] encounter in discussion of advanced directive 17 minutes. Laboratory Results 06/23/24 11:08: WBC 6.9, RBC 4.20, Hgb 13.5, Hct 37.5, MCV 89.3, MCH 32.1 H, MCHC 36.0, RDW Std Deviation 36.3, RDW Coeff of Celia 11.3 L, Plt Count TNP, MPV 8.7, Immature Gran % (Auto) 0.600, Neut % (Auto) 75.7 H, Lymph % (Auto) 11.7 L, [place] % (Auto) 9.6, Eos % (Auto) 1.8, Baso % (Auto) 0.6, Absolute Neuts (auto) 5.2, Absolute Lymphs (auto) 0.80 L, Nucleated RBC % 0, Platelet Estimate ADEQUATE, Sodium 120 L, Potassium 4.8, Chloride 92 L, Carbon Dioxide 23.0, Anion Gap 5, BUN 12, Creatinine 0.89, Estim Creat Clear Calc 40.20, Est GFR (MDRD) Af Amer 77, Est GFR (MDRD) Non-Af 64, BUN/Creatinine Ratio 13.5, Glucose 133 H, Calcium 9.0, Total Bilirubin 0.60, AST 25, ALT 28, Alkaline Phosphatase 68, Total Protein 6.6, Albumin 3.5, Globulin 3.1, Albumin/Globulin Ratio 1.1 Charges/Coding Visit Charges Inpatient E&M: 05170 Init Hosp L3 Procedures Hospitalists Procedures: 30482 Advncd Care Plan 30 Min
[2024-06-23 12:31] LABS: Differential Indicated SCAN CRITERIA MET; Platelet Estimate ADEQUATE (ADEQ)
[2024-06-23 12:48] VITALS: BP 169/79; PULSE 64; RESP 12; TEMP 36.6; O2SAT 99
--- NOTE | 2024-06-23 12:52 | EKG12_ITS ---
Test Reason : Blood Pressure : / mmHG Vent. Rate : 061 BPM Atrial Rate : 061 BPM P-R Int : 188 ms QRS Dur : 154 ms QT Int : 450 ms P-R-T Axes : 090 -38 123 degrees QTc Int : 453 ms Normal sinus rhythm Left axis deviation Left bundle branch block Abnormal ECG Confirmed by SALVATORE MONTES, ADAM ([id number]), brands editor ALONDRA GARZA ([id number]) on 06/28/2024 2:05:46 PM Referred By: ZAKIYA Confirmed By:PAN CHASE MD
[2024-06-23 13:06] LABS: Bedside Glucose 91 mg/dL (74-106)
[2024-06-23 13:47] LABS: Magnesium 2.1 mg/dL (1.6-2.6)
[2024-06-23] MEDS: 0.9% Normal Saline (1000mL) 1,000 ML 75 ML IV (14:08)
[2024-06-23 14:13] VITALS: BMI 25.6
[2024-06-23 14:18] LABS: Osmolality, Serum 262 mOsm/KG (280-301)
[2024-06-23 14:23] VITALS: BP 176/67; PULSE 77; RESP 18; TEMP 36.4; O2SAT 100
[2024-06-23] MEDS: Losartan Potassium 50 MG Tablet PO ×2 (14:37→21:40)
[2024-06-23] MEDS: Enoxaparin 40 MG/0.4 ML Syringe SC (14:37)
[2024-06-23 16:04] LABS: Sodium Level 125 mmol/L (136-145)
[2024-06-23] MEDS: Glucerna Shake 120 ML LIQUID PO (16:18)
[2024-06-23 16:47] LABS: Bedside Glucose 103 mg/dL (74-106)
[2024-06-23 19:18] LABS: Mucous, Urine 0 SEEN /hpf (<or=2+)
[2024-06-23 19:31] LABS: Color, Urine Straw (Yellow); Glucose, Dipstick Normal (Normal); Ketone-Dipstick Negative (Negative); Leukocyte Esterase-Dipstick 500 /ul (Negative); Nitrite-Dipstick Negative (Negative); Occult Blood-Urine Negative /ul (Negative); Protein, Urine (Random) < 6.0 mg/dL (<11.9); Protein-Dipstick Negative (Negative); Urine Bilirubin Dipstick Negative (Negative); Urine Clarity Sl. Cloudy (Clear); Urine Sodium 59 mmol/L (Not Establ.); Urine Urobilinogen Normal (Normal); Urine pH 6.5 (5.0 - 8.0)
[2024-06-23 19:40] LABS: Bacteria 3+ /hpf (None Seen); White Blood Cells 5-10 SEEN /hpf (0-5)
[2024-06-23 19:41] LABS: Squamous Epithelial Cells - UA 0-5 SEEN /hpf (5-10)
[2024-06-23 19:42] LABS: Red Blood Cells-Urine 0-5 SEEN /hpf (0-5)
[2024-06-23 19:48] LABS: Osmolality, Urine 237 mOsm/KG
[2024-06-23 19:54] LABS: Sodium Level 124 mmol/L (136-145)
[2024-06-23 20:12] VITALS: BP 120/53; PULSE 65; RESP 18; TEMP 36.4; O2SAT 98
[2024-06-23 20:49] LABS: Urine Chloride 75 mmol/L (Not Establ.); Urine Potassium 19.7 mmol/L (Not Establ.)
[2024-06-23 21:38] VITALS: BP 128/49; BP 147/64; PULSE 62; RESP 18; TEMP 36.4; O2SAT 98
[2024-06-23] MEDS: Senna/Docusate Sodium 1 Tablet 2 TABLET PO (21:41)
[2024-06-23] MEDS: Sotalol Hydrochloride 80 MG Tablet 120 MG PO (21:42)
[2024-06-23] MEDS: Pravastatin 20 MG Tablet 10 MG PO (21:43)
[2024-06-23] MEDS: Insulin Lispro 100 UNIT/ML INSULN.PEN SC (21:44)
[2024-06-23] MEDS: Oxybutynin 5 MG Tablet PO (21:44)
[2024-06-24 00:02] LABS: Sodium Level 129 mmol/L (136-145)
[2024-06-24 00:45] LABS: Bedside Glucose 190 mg/dL (74-106)
[2024-06-24 03:35] VITALS: BP 141/61; PULSE 63; RESP 18; TEMP 36.2; O2SAT 97
[2024-06-24 04:04] VITALS: BMI 25.6
[2024-06-24 06:40] LABS: Bedside Glucose 95 mg/dL (74-106)
[2024-06-24 06:45] LABS: Absolute Lymphocyte Count 0.82 X10^3/uL (0.83-4.51); Absolute Neutrophil Count 2.7 X10^3/uL (2.0-7.7); Basophil# 0.02 X10^3/uL; Basophil% 0.5 % (0-1); Eosinophil# 0.09 X10^3/uL; Eosinophils% 2.1 % (0-5); Hematocrit 32.6 % (37-47); Hemoglobin 11.7 g/dL (12.0-15.0); Lymphocyte # 0.82 X10^3/ul (0.83-4.51); Lymphocyte % 19.4 % (19-41); Mean Corp Hgb Conc 35.9 g/dL (32-36); Mean Corpuscular Hgb 32.3 pg (27.0-32.0); Mean Corpuscular Volume 90.1 fL (81-99); Monocyte% 14.2 % (0-10); NRBC Flagged by Analyzer 0 % (0-5); Neutrophil # 2.68 X10^3/uL (2.7-7.7); Neutrophil % 63.3 % (47-70); Platelet Count 167 K/mm3 (150-450); RBC Distribution Width CV 11.4 % (11.6-14.6); RBC Distribution Width SD 37.3 fl (35.1-43.9); Red Blood Count 3.62 M/mm3 (4.2-5.4); White Blood Count 4.2 K/mm3 (4.4-11.0)
[2024-06-24 07:18] LABS: Anion Gap 4 (5-15); BUN 9 mg/dL (7-18); BUN/Creat Ratio 11.7 RATIO (10-20); Calcium,Total 8.1 mg/dL (8.5-10.1); Chloride 101 mmol/L (98-107); Creatinine, Serum 0.77 mg/dL (0.55-1.02); EST Glomerular Filtration Rate 76 mL/min (>60); Est Glom Filt Rate - Afr Amer 92 mL/min (>60); Estimated Creatinine Clearance 45.05 ml/min; Glucose 112 mg/dL (74-106); Potassium 4.6 mmol/L (3.5-5.1); Sodium Level 129 mmol/L (136-145)
[2024-06-24] MEDS: Ascorbic Acid 500 MG Tablet 1000 MG PO (07:48)
[2024-06-24] MEDS: Senna/Docusate Sodium 1 Tablet 2 TABLET PO ×2 (07:48→22:42)
[2024-06-24] MEDS: Multivitamins,Therapeutic Tablet 1 TABLET PO (07:48)
[2024-06-24] MEDS: Lactobacillis Acidophilus 1 CAP PO (07:49)
[2024-06-24] MEDS: Magnesium Chloride 64 MG Delay Rel.Tablet 128 MG PO (07:49)
[2024-06-24] MEDS: Calcium Carb/Vitamin D 1 TABLET Tablet PO (07:49)
[2024-06-24] MEDS: Glucerna Shake 120 ML LIQUID PO ×4 (07:50→22:39)
[2024-06-24] MEDS: Aspirin 81 MG TAB.CHEW PO (07:50)
[2024-06-24] MEDS: Potassium Chloride Oral Tablet 20 MEQ PO (07:50)
[2024-06-24 09:43] VITALS: BP 179/73; PULSE 60; RESP 18; TEMP 36.7; O2SAT 100
[2024-06-24] MEDS: Sotalol Hydrochloride 80 MG Tablet 120 MG PO ×2 (09:44→22:42)
[2024-06-24] MEDS: 0.9% Saline Lock 10 ML Syringe IV (09:44)
[2024-06-24] MEDS: Losartan Potassium 50 MG Tablet PO ×2 (09:44→22:42)
[2024-06-24] MEDS: Enoxaparin 40 MG/0.4 ML Syringe SC (09:44)
[2024-06-24] MEDS: Dextrose 5%-Water (500mL Bag) 500 ML IV (10:02)
[2024-06-24] MEDS: Insulin Lispro 100 UNIT/ML INSULN.PEN SC ×2 (11:25→22:46)
[2024-06-24 11:37] LABS: Thyroid Stim Hormone (TSH) 0.86 uIU/mL (0.358-3.74)
--- NOTE | 2024-06-24 11:50 | PCM.CONS.R ---
Assessment & Plan Assessment/Plan (1) Hyponatremia: PLAN: On review of records, her sodium was about 130 in January 2024. 120 on the , 118 yesterday and she was referred to the ER. She came in with a sodium of 120. Overnight with IV fluids, sodium has increased to 129. Urine sodium was more than 20, urine osmolality of more than 200. Not sure if this urine labs were drawn after she received IV fluids. Rapid correction with IV fluids usually indicates hypovolemic hyponatremia. Other than poor appetite she denies any nausea, vomiting, diarrhea. Continue to hold spironolactone Sodium is 129, somewhat higher than ideal correction. A bolus of D5 water has been given this morning. In general she is low risk for osmotic demyelination. The sodium is closer to 130 tomorrow, can potentially be discharged. Will likely discharge her home on salt tablets if her sodium is still less than 130 tomorrow. She is agreeable. If the sodium remains low as outpatient, we will pursue SIADH workup. Discussed with hospitalist HPI Consult Data Date of Consult: 06/24/24 HPI Narrative Reason for Consultation: Hyponatremia. HPI Narrative: TANISHA JULIAN, is a 83 F who presents to the hospital with hyponatremia. Nephrology on consultation for the same. Her primary care physician is Dr. Kaur. Reviewed records from [facility]. Her sodium was about 130 in January of this year. She had a routine physical with her primary care physician on the of this month, labs drawn on that day showed sodium of 120. She was taken off spironolactone. Repeat sodium showed 180 hence she was referred to the ER. She has extensive cardiac history including TAVR, bypass surgery, most of her cardiology care is in [facility]. No new medications according to her. She was taken off spironolactone on the . She has been on Lasix or spironolactone for several years. Appetite has been poor, apparently she lost about 14 to 15 pounds within the last 5 to 6 months unintentionally. No edema. No breathing issues. [facility] Medical History Osteoporosis Asthma Stroke/cerebrovascular accident Near syncope Gastritis Chronic pain Non-smoker Pacemaker Other osteoporosis without current pathological fracture Atrophic vaginitis Cervicalgia Overactive bladder Essential tremor Degeneration of lumbar or lumbosacral intervertebral disc Generalized osteoarthrosis, unspecified site Type 2 diabetes mellitus without complication, without long-term current use of insulin IBS (irritable bowel syndrome) Migraine with aura Essential hypertension PVC (premature ventricular contraction) PAC (premature atrial contraction) Diverticulitis large intestine Family history of colon cancer in father Type 2 diabetes mellitus Breast cancer Ascending aortic aneurysm Hypertension Diabetes Migraine GERD (gastroesophageal reflux disease) HTN (hypertension) Home Medications ?Medication ?Instructions ?Recorded ?Last Taken ?Type aspirin 81 mg chewable tablet 81 mg PO DAILY@0800 HEART HEALTH 10/03/17 06/23/24 History dicyclomine 10 mg capsule 10 mg PO 4X/DAY PRN Irritable 10/03/17 12/25/18 History Bowel Syndrome estradiol 0.01% (0.1 mg/gram) 1 dose vaginal LOVE PRN vaginal 10/03/17 06/19/24 History vaginal cream dryness magnesium oxide 400 mg (241.3 mg 400 mg PO DAILY SUPPLEMENT 10/03/17 06/23/24 History magnesium) tablet multivitamin with folic acid 400 1 tab PO DAILY SUPPLEMENT 10/03/17 06/23/24 History mcg tablet oxybutynin chloride 5 mg tablet 5 mg PO QHS BLADDER 10/03/17 06/22/24 History tramadol 50 mg tablet 50 mg PO Q4H PRN PRN Pain 10/03/17 03/07/19 History sotalol 120 mg tablet 120 mg PO BID HEART 12/25/18 06/23/24 History potassium chloride 20 mEq 20 tab PO DAILY POTASSIUM 01/19/19 06/23/24 History tablet,extended release(part/cryst) losartan 100 mg tablet 50 mg PO BID BP 03/11/19 06/23/24 History metformin 500 mg tablet,extended 500 mg PO BID DM 03/11/19 06/23/24 History release 24 hr pravastatin 10 mg tablet 10 mg PO QHS CHOLESTEROL 03/11/19 06/22/24 History calcium carbonate 500 mg-vitamin 1 tab PO DAILY supplement 10/17/19 06/23/24 History D3 10 mcg (400 unit) tablet (Calcium 500 With D) meclizine 12.5 mg tablet 12.5 mg PO TID PRN dizziness or 03/23/23 Unknown History vertigo nateglinide 60 mg tablet 60 mg PO TID PRN HIGH BLOOD SUGAR 09/28/23 06/23/24 History Lactobacillus acidophilus 10 10,000 mmu cells PO DAILY 06/23/24 Unknown History billion cell capsule (Probiotic) acetaminophen 650 mg 650 mg PO Q8H PRN pain 06/23/24 06/23/24 History tablet,extended release (8 Hour Pain Reliever) ascorbic acid (vitamin C) 500 mg 1 g PO DAILY 06/23/24 Unknown History tablet (C-500) cranberry 500 mg capsule 500 mg PO DAILY 06/23/24 Unknown History docusate sodium 100 mg capsule 100 mg PO DAILY 06/23/24 Unknown History omega-3 acid ethyl esters 1 gram 1 cap PO DAILY 06/23/24 06/23/24 History capsule ondansetron 4 mg disintegrating 4 mg PO Q8H PRN nausea and vomiting 06/23/24 Unknown History tablet propranolol 60 mg capsule,24 60 mg PO BID 06/23/24 06/23/24 History hr,extended release rimegepant 75 mg disintegrating 75 mg PO DAILY PRN migraine 06/23/24 Unknown History tablet (Nurtec ODT) headache Allergy/AdvReac Type Severity Reaction Status Date / Time procaine HCl (From Novocain) Allergy Anaphylaxis Verified 06/23/24 09:59 albuterol AdvReac Tachycardia Verified 06/23/24 09:59 cetirizine AdvReac Other Verified 06/23/24 09:59 codeine AdvReac Vomiting Verified 06/23/24 09:59 gabapentin AdvReac Mental Verified 06/23/24 09:59 Status Change/Fatigue hydrochlorothiazide AdvReac Other Verified 06/23/24 09:59 lisinopril AdvReac Cough Verified 06/23/24 09:59 morphine AdvReac Vomiting Verified 06/23/24 09:59 pregabalin AdvReac Other Verified 06/23/24 09:59 Sulfa (Sulfonamide AdvReac Other Verified 06/23/24 09:59 Antibiotics) Family History Mother Diabetes Ovarian cancer Father Cancer bladder thyroid Colon cancer Hypertension Surgical History S/P TAVR (transcatheter aortic valve replacement) H/O left mastectomy History of open heart surgery H/O elbow surgery Hx of appendectomy S/P CODIE (total abdominal hysterectomy) femoral hernia repair H/O aortic valve replacement Social History household members: spouse Smoking Status: Never smoker alcohol intake: never substance use type: does not use caffeine: No what type of physical activity do you participate in: walking seatbelt use: always do you feel safe at home: Yes additional social history: Don- Retired Patient is retired ROS ROS Narrative Negative except above Physical Exam Narrative Alert awake oriented x 3 no obvious distress no pallor no icterus no JVD s1s2 no murmurs lungs clear abdomen soft no organomegaly no edema no cyanosis Lab / Micro Data 06/24/24 06:32 06/24/24 06:32 Labs: Laboratory Results - last 24 hr 06/23/24 11:08: WBC 6.9, RBC 4.20, Hgb 13.5, Hct 37.5, MCV 89.3, MCH 32.1 H, MCHC 36.0, RDW Std Deviation 36.3, RDW Coeff of Celia 11.3 L, Plt Count TNP, MPV 8.7, Immature Gran % (Auto) 0.600, Neut % (Auto) 75.7 H, Lymph % (Auto) 11.7 L, [place] % (Auto) 9.6, Eos % (Auto) 1.8, Baso % (Auto) 0.6, Absolute Neuts (auto) 5.2, Absolute Lymphs (auto) 0.80 L, Nucleated RBC % 0, Platelet Estimate ADEQUATE, Magnesium 2.1 06/23/24 12:48: POC Glucose 91 06/23/24 13:37: Serum Osmolality 262 L 06/23/24 15:28: Sodium 125 L 06/23/24 16:14: POC Glucose 103 06/23/24 19:02: Urine Color Straw, Urine Clarity Sl. Cloudy, Urine pH 6.5, Ur Specific [place] 1.010, Urine Protein Negative, Urine Glucose (UA) Normal, Urine Ketones Negative, Urine Occult Blood Negative, Urine Nitrite Negative, Urine Bilirubin Negative, Urine Urobilinogen Normal, Ur Leukocyte Esterase 500 H, Urine RBC 0-5 SEEN, Urine WBC 5-10 SEEN, Ur Squamous Epith Cells 0-5 SEEN, Urine Bacteria 3+, Urine Mucus 0 SEEN, Urine Osmolality 237, U Random Total Protein < 6.0, Ur Random Sodium 59, Urine Creatinine 18.00, Protein/Creatinin Ratio TNP, Urine Potassium 19.7, Urine Chloride 75 06/23/24 19:30: Sodium 124 L 06/23/24 21:37: POC Glucose 190 H 06/23/24 23:35: Sodium 129 L 06/24/24 06:21: POC Glucose 95 06/24/24 06:32: WBC 4.2 L, RBC 3.62 L, Hgb 11.7 L, Hct 32.6 L, MCV 90.1, MCH 32.3 H, MCHC 35.9, RDW Std Deviation 37.3, RDW Coeff of Celia 11.4 L, Plt Count 167, MPV 8.0, Immature Gran % (Auto) 0.500, Neut % (Auto) 63.3, Lymph % (Auto) 19.4, [place] % (Auto) 14.2 H, Eos % (Auto) 2.1, Baso % (Auto) 0.5, Absolute Neuts (auto) 2.7, Absolute Lymphs (auto) 0.82 L, Nucleated RBC % 0, Sodium 129 L, Potassium 4.6, Chloride 101, Carbon Dioxide 24.0, Anion Gap 4 L, BUN 9, Creatinine 0.77, Estim Creat Clear Calc 45.05, Est GFR (MDRD) Af Amer 92, Est GFR (MDRD) Non-Af 76, BUN/Creatinine Ratio 11.7, Glucose 112 H, Calcium 8.1 L, TSH 0.86, Cortisol 15.50
[2024-06-24 11:54] LABS: Bedside Glucose 201 mg/dL (74-106)
[2024-06-24 14:10] VITALS: BP 147/60; PULSE 60; RESP 16; TEMP 36.6; O2SAT 100
--- NOTE | 2024-06-24 14:14 | CASEMGMT ---
SID [place] Assessment Face to Face with patient for initial transition planning/care coordination assessment. SID [place] introduced self and role at [facility], pt voices understanding. Pt is A&Ox4 and is resting comfortably in bed and is calm. Pt at bedside. Care providers, pharmacy, and demographics verified. Admitting dx: Hyponatremia PCP: Vincent Specialists: Geraldo (Cardio -[facility]), Wilma (Electrophysiology), Betty (PM) Preferred Pharmacy: [facility] Insurance: [facility] A/B, [place] Prescription Benefit: Yes LNOK: Yousif Hui (H), Carlos Chauhan (Son) Living Arrangements: Pt lives with her in a single story home with 13 steps to enter ADLs/IADLs: Ind Transportation: Pt states that she does not drive and that her provides her with transportation. Denies concerns DME: BGM and supplies at home. FWW. Grab bars. Raised toilet seat. HHC/SNF: Denies history or needs. States that she recently finished OP Therapy through [facility]. Pt?s goal: Home Plan: Home with pt .Plan is to possible DC the pt tomorrow, depending on her Na levels. Pt refused the need for HHC or SNF. Pt states that the OP Tx made me worse. Pt denies OP Tx needs at this time. Pt states that she feels safe discharging home with the support of her once she is medically ready. PT/OT is pending. CM to follow. Xavier Menezes RN, CM
--- NOTE | 2024-06-24 14:47 | PCM.PN.HOSP ---
Reason for Visit Reason for Visit: Diagnoses Hypo-osmolality and hyponatremia (06/23/24) Objective Data Objective Data Vital Signs: Vital Signs Temp Pulse Resp BP Pulse Ox O2 Del Method 97.8 F 60 16 147/60 H 100 Room Air 06/24/24 14:10 06/24/24 14:10 06/24/24 14:10 06/24/24 14:10 06/24/24 14:10 06/24/24 14:10 Oxygen Delivery Method Room Air Weight: 140 lb 3.424 oz Body Mass Index (BMI) 25.6 Intake & Output: Intake and Output for Last 24 Hours 06/22/24 06/23/24 06/24/24 23:59 23:59 23:59 Intake Total 805 / 805 1979 Balance 805 / 805 1979 Lab / Micro Data 06/24/24 06:32 06/24/24 06:32 Labs: Laboratory Results - last 24 hr 06/23/24 15:28: Sodium 125 L 06/23/24 16:14: POC Glucose 103 06/23/24 19:02: Urine Color Straw, Urine Clarity Sl. Cloudy, Urine pH 6.5, Ur Specific [place] 1.010, Urine Protein Negative, Urine Glucose (UA) Normal, Urine Ketones Negative, Urine Occult Blood Negative, Urine Nitrite Negative, Urine Bilirubin Negative, Urine Urobilinogen Normal, Ur Leukocyte Esterase 500 H, Urine RBC 0-5 SEEN, Urine WBC 5-10 SEEN, Ur Squamous Epith Cells 0-5 SEEN, Urine Bacteria 3+, Urine Mucus 0 SEEN, Urine Osmolality 237, U Random Total Protein < 6.0, Ur Random Sodium 59, Urine Creatinine 18.00, Protein/Creatinin Ratio TNP, Urine Potassium 19.7, Urine Chloride 75 06/23/24 19:30: Sodium 124 L 06/23/24 21:37: POC Glucose 190 H 06/23/24 23:35: Sodium 129 L 06/24/24 06:21: POC Glucose 95 06/24/24 06:32: WBC 4.2 L, RBC 3.62 L, Hgb 11.7 L, Hct 32.6 L, MCV 90.1, MCH 32.3 H, MCHC 35.9, RDW Std Deviation 37.3, RDW Coeff of Celia 11.4 L, Plt Count 167, MPV 8.0, Immature Gran % (Auto) 0.500, Neut % (Auto) 63.3, Lymph % (Auto) 19.4, [place] % (Auto) 14.2 H, Eos % (Auto) 2.1, Baso % (Auto) 0.5, Absolute Neuts (auto) 2.7, Absolute Lymphs (auto) 0.82 L, Nucleated RBC % 0, Sodium 129 L, Potassium 4.6, Chloride 101, Carbon Dioxide 24.0, Anion Gap 4 L, BUN 9, Creatinine 0.77, Estim Creat Clear Calc 45.05, Est GFR (MDRD) Af Amer 92, Est GFR (MDRD) Non-Af 76, BUN/Creatinine Ratio 11.7, Glucose 112 H, Calcium 8.1 L, TSH 0.86, Cortisol 15.50 06/24/24 11:24: POC Glucose 201 H Physical Exam Narrative Seen and examined. Overall subjectively she feels much improvement in her fatigue. Retrospectively she is felt that she was having dizziness low energy, did not want to move but she feels better. Had open heart surgery for aortic valve replacement which was bioprosthetic lasted for 10 to 12 years and then she required repeat AVR but last 1 was TAVR. As per nursing staff, she had an episode of food getting stuck but cleared with the water. Speech therapy ordered Physical exam General: Alert, Oriented x3, Cooperative HEENT: Atraumatic, PERRLA, EOMI, Normocephalic Oral: Oral mucosa moist. No Gingival or Mucosal Lesions/ Ulcerations Neck: Supple, No JVD, Negative Carotid Bruits Chest wall/Lungs: Air entry diminished in bilateral lung bases. No crepitation/rhonchi Cardiovascular: Regular rate, Regular Rhythm, Normal S1, Normal S2, systolic murmur, status post AVR. Abdomen: Bowel Sounds Present, Soft, Non Tender, Non-Distended : No dysuria. No renal angle tenderness. No suprapubic tenderness. Extremities: No edema, Capillary Refill Less than 3 Seconds Skin: No rashes, No breakdown. Skin is cold but not cyanosed. Musculoskeletal: No Tenderness to Palpation of Joints or Extremities. ROM full and intact. Neurological: Cranial nerves II-XII grossly intact, DTR 2+/4. No acute focal neurological deficit. Psych/Mental Status: Normal Affect, Appropriate. Assessment & Plan Assessment/Plan (1) Hyponatremia: PLAN: Plan This is a 83-year-old female is being admitted for severe hyponatremia serum sodium 118. 1. 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 IV fluid normal saline 75 mill per hour with frequent sodium check every 4 hours. Twelve-lead EKG ordered. Serum osmolarity, UA, urine studies ordered. 06/24: Discussed with lawn and tree service spray supervisor Dr. Newton. Sodium corrected to 120 9 in the morning therefore D5W 500 blood bolus given. Urine osmolality 237, urine sodium 59, potassium 19.7 chloride 75. Urine sample was drawn after she was getting IV fluid normal saline started in the ER. Therefore urine studies does not show true reflection of her condition but has serum sodium corrected quickly corrected most likely hypovolemic hyponatremia. Repeat sodium ordered. Patient stated she was not having good oral intake for last 2 to 3 weeks. Concern for oropharyngeal dysphagia: She had food stuck in her chest got cleared with water. Speech therapy ordered. 2. Diabetes mellitus type 2: Hold metformin and nateglinide. Accu-Chek before meals and at bedtime with Humalog sliding scale coverage. 3. Hypertension: Blood pressure is high 179/74. Continue home medications. Monitor BP and titrate accordingly. 06/24: Blood pressure is better 147/60. 4. Chronic migraine: Patient on acute migraine headache medication as needed and propranolol 60 mg p.o. twice daily. Hold propranolol. She follows with neurologist. 5. Chronic aortic stenosis status post AVR x 2: Last 1 was transcatheter TAVR. She follows [facility] caterer helper evaluation was arrhythmia and takes sotalol 120 mg twice daily. DVT prophylaxis, high risk: Lovenox 40 mg subcu daily. Living will/advanced directive/end of life care: Patient does not have living will or advanced directive. She did not have designated power of personal injury attorney for health but is next of kin. After discussion of benefits/risks procedures involved with full code, DNR CC arrest and DNR CC, the patient opted for full code. Patient does want artificial life support including intubation, tube feed, ventilator and/chest compression, central venous catheter, vasopressor and DC shock if needed Total time spent in [id number] encounter in discussion of advanced directive 17 minutes. Laboratory Results 06/23/24 15:28: Sodium 125 L 06/23/24 16:14: POC Glucose 103 06/23/24 19:02: Urine Color Straw, Urine Clarity Sl. Cloudy, Urine pH 6.5, Ur Specific [place] 1.010, Urine Protein Negative, Urine Glucose (UA) Normal, Urine Ketones Negative, Urine Occult Blood Negative, Urine Nitrite Negative, Urine Bilirubin Negative, Urine Urobilinogen Normal, Ur Leukocyte Esterase 500 H, Urine RBC 0-5 SEEN, Urine WBC 5-10 SEEN, Ur Squamous Epith Cells 0-5 SEEN, Urine Bacteria 3+, Urine Mucus 0 SEEN, Urine Osmolality 237, U Random Total Protein < 6.0, Ur Random Sodium 59, Urine Creatinine 18.00, Protein/Creatinin Ratio TNP, Urine Potassium 19.7, Urine Chloride 75 06/23/24 19:30: Sodium 124 L 06/23/24 21:37: POC Glucose 190 H 06/23/24 23:35: Sodium 129 L 06/24/24 06:21: POC Glucose 95 06/24/24 06:32: WBC 4.2 L, RBC 3.62 L, Hgb 11.7 L, Hct 32.6 L, MCV 90.1, MCH 32.3 H, MCHC 35.9, RDW Std Deviation 37.3, RDW Coeff of Celia 11.4 L, Plt Count 167, MPV 8.0, Immature Gran % (Auto) 0.500, Neut % (Auto) 63.3, Lymph % (Auto) 19.4, [place] % (Auto) 14.2 H, Eos % (Auto) 2.1, Baso % (Auto) 0.5, Absolute Neuts (auto) 2.7, Absolute Lymphs (auto) 0.82 L, Nucleated RBC % 0, Sodium 129 L, Potassium 4.6, Chloride 101, Carbon Dioxide 24.0, Anion Gap 4 L, BUN 9, Creatinine 0.77, Estim Creat Clear Calc 45.05, Est GFR (MDRD) Af Amer 92, Est GFR (MDRD) Non-Af 76, BUN/Creatinine Ratio 11.7, Glucose 112 H, Calcium 8.1 L, TSH 0.86, Cortisol 15.50 06/24/24 11:24: POC Glucose 201 H Charges/Coding Visit Charges Inpatient E&M: 87379 Subs Hosp L2
[2024-06-24 16:26] VITALS: BP 135/57; PULSE 59; RESP 18; TEMP 36.6; O2SAT 98
[2024-06-24 16:47] LABS: Bedside Glucose 141 mg/dL (74-106)
[2024-06-24 17:03] LABS: Sodium Level 127 mmol/L (136-145)
[2024-06-24 22:33] VITALS: BP 164/66; PULSE 67; RESP 18; TEMP 36.7; O2SAT 98
[2024-06-24] MEDS: Pravastatin 20 MG Tablet 10 MG PO (22:42)
[2024-06-24] MEDS: Oxybutynin 5 MG Tablet PO (22:42)
[2024-06-24 23:07] LABS: Bedside Glucose 157 mg/dL (74-106)
[2024-06-24 23:23] LABS: Sodium Level 127 mmol/L (136-145)
[2024-06-25 03:18] VITALS: BP 163/52; PULSE 66; RESP 18; TEMP 37; O2SAT 100
[2024-06-25 04:55] VITALS: BMI 25.2
[2024-06-25 06:59] VITALS: O2SAT 96
[2024-06-25 07:00] VITALS: PULSE 67
[2024-06-25 07:03] LABS: Bedside Glucose 133 mg/dL (74-106)
[2024-06-25] MEDS: 0.9% Normal Saline (1000mL) 1,000 ML 100 ML IV (07:47)
[2024-06-25 07:49] VITALS: BP 152/69; PULSE 61; RESP 14; TEMP 36.9; O2SAT 100
[2024-06-25 07:52] LABS: Absolute Lymphocyte Count 0.72 X10^3/uL (0.83-4.51); Absolute Neutrophil Count 2.8 X10^3/uL (2.0-7.7); Basophil# 0.03 X10^3/uL; Basophil% 0.7 % (0-1); Eosinophil# 0.13 X10^3/uL; Hematocrit 33.7 % (37-47); Hemoglobin 12.2 g/dL (12.0-15.0); Lymphocyte # 0.72 X10^3/ul (0.83-4.51); Lymphocyte % 16.5 % (19-41); Mean Corp Hgb Conc 36.2 g/dL (32-36); Mean Corpuscular Hgb 32.3 pg (27.0-32.0); Mean Corpuscular Volume 89.2 fL (81-99); Mean Platelet Vol. 8.4 fl (6.2-12.0); Monocyte# 0.65 X10^3/uL; Monocyte% 14.9 % (0-10); NRBC Flagged by Analyzer 0 % (0-5); Neutrophil # 2.82 X10^3/uL (2.7-7.7); Neutrophil % 64.4 % (47-70); Platelet Count 179 K/mm3 (150-450); RBC Distribution Width CV 11.6 % (11.6-14.6); RBC Distribution Width SD 37.2 fl (35.1-43.9); Red Blood Count 3.78 M/mm3 (4.2-5.4); White Blood Count 4.4 K/mm3 (4.4-11.0)
[2024-06-25 08:12] LABS: Anion Gap 7 (5-15); BUN 7 mg/dL (7-18); BUN/Creat Ratio 10.8 RATIO (10-20); Calcium,Total 8.5 mg/dL (8.5-10.1); Chloride 98 mmol/L (98-107); Creatinine, Serum 0.65 mg/dL (0.55-1.02); EST Glomerular Filtration Rate 93 mL/min (>60); Est Glom Filt Rate - Afr Amer 112 mL/min (>60); Estimated Creatinine Clearance 44.75 ml/min; Glucose 161 mg/dL (74-106); Potassium 4.3 mmol/L (3.5-5.1); Sodium Level 128 mmol/L (136-145)
[2024-06-25] MEDS: Aspirin 81 MG TAB.CHEW PO (09:30)
[2024-06-25] MEDS: Multivitamins,Therapeutic Tablet 1 TABLET PO (09:31)
[2024-06-25] MEDS: Sotalol Hydrochloride 80 MG Tablet 120 MG PO (09:31)
[2024-06-25] MEDS: Lactobacillis Acidophilus 1 CAP PO (09:31)
[2024-06-25] MEDS: Losartan Potassium 50 MG Tablet PO (09:32)
[2024-06-25] MEDS: Potassium Chloride Oral Tablet 20 MEQ PO (09:33)
[2024-06-25] MEDS: Magnesium Chloride 64 MG Delay Rel.Tablet 128 MG PO (09:33)
[2024-06-25] MEDS: Calcium Carb/Vitamin D 1 TABLET Tablet PO (09:34)
[2024-06-25] MEDS: Senna/Docusate Sodium 1 Tablet 2 TABLET PO (09:34)
[2024-06-25] MEDS: Ascorbic Acid 500 MG Tablet 1000 MG PO (09:35)
--- NOTE | 2024-06-25 09:51 | DCINST_ITS ---
Discharge Instructions Diet Discharge Diet: No restrictions Activity Discharge Activity: Return to Normal Activity Weight Bearing Status: Weight bearing as tolerated Dressing / Incision Call your doctor if you observe: Fever of 101 or Higher, Coldness, Increased Pain, Numbness or Tingling, Change in Color, Inability to urinate, Inability to have a bowel movement, Shortness of breath, Dizziness, Fainting spells, Swelling in the ankles, Chest pain, Prolonged hiccupping, Increased palpitations (irregular heartbeat) and Calf discomfort Follow Up Care When: IN 2 WEEKS Test Results: Test results from this visit will be discussed in further detail at your follow- up appointment, if applicable. Discharge Plan Admission Admit Date/Time: 06/23/24 12:22 Primary Reason for Your Visit: Hyponatremia Attending Provider: Jamaal Thurman Primary Care Provider: Terence Kaur Consulting Providers: Izaiah Newton Discharge Orders/Prescriptions Prescriptions: Continued calcium carbonate-vitamin D3 [Calcium 500 With D] 500 mg(1,250mg) -400 unit tablet 1 tab PO DAILY meclizine 12.5 mg tablet 12.5 mg PO TID PRN (Reason: dizziness or vertigo) tramadol 50 MG tablet 50 mg PO Q4H PRN PRN (Reason: Pain) magnesium oxide 400 MG tablet 400 mg PO DAILY aspirin 81 MG tablet,chewable 81 mg PO DAILY@0800 estradiol 42.5 GM cream 1 dose VAGINAL LOVE PRN (Reason: vaginal dryness) oxybutynin chloride 5 MG tablet 5 mg PO QHS dicyclomine 10 MG capsule 10 mg PO 4X/DAY PRN (Reason: Irritable Bowel Syndrome) multivitamin with folic acid 1 TABLET tablet 1 tab PO DAILY sotalol 120 MG tablet 120 mg PO BID potassium chloride 20 MEQ tablet,ER particles/crystals 20 tab PO DAILY pravastatin 10 MG tablet 10 mg PO QHS losartan 100 MG tablet 50 mg PO BID metformin 500 MG tablet 500 mg PO BID nateglinide 60 mg tablet 60 mg PO TID PRN (Reason: HIGH BLOOD SUGAR ) Rx Instructions: give before meal(s) acetaminophen [8 Hour Pain Reliever] 650 mg tablet extended release 650 mg PO Q8H PRN (Reason: pain) omega-3 acid ethyl esters 1 gram capsule 1 cap PO DAILY ondansetron 4 mg tablet,disintegrating 4 mg PO Q8H PRN (Reason: nausea and vomiting) Madisontec ODT 75 mg tablet,disintegrating 75 mg PO DAILY PRN (Reason: migraine headache) propranolol 60 mg capsule,extended release 24 hr 60 mg PO BID Probiotic 10 billion cell capsule 10,000 mmu cells PO DAILY ascorbic acid (vitamin C) [C-500] 500 mg tablet 1 g PO DAILY docusate sodium 100 mg capsule 100 mg PO DAILY cranberry 500 mg capsule 500 mg PO DAILY Rx Instructions: administer with a meal Referrals / Follow Up: Terence Kaur MD [Primary Care Provider] - Disposition Disposition (needs filled in before D/C Order can be placed): Home, Self Care
--- NOTE | 2024-06-25 09:55 | PCM.DC.SUM ---
Providers Date of Admission: 06/23/24 Date of Discharge: 06/25/24 Primary Care Physician: Dr. Terence Kaur MD Consultations 06/24/24 10:42 Consult: Nephrology Routine Consulting Provider: Izaiah Newton Reason for Consult: isovolumic hyponatremia, SIADH EMERGENT Consult: No MD Notified: Yes Date Notified: 06/24/24 Time Notified: 10:42 Method of Notification: ED Physician Initiated Reason For Visit: HYPONATREMIA Diagnosis Discharge Diagnosis (1) Hyponatremia: Status: Acute Code(s): E87.1 - Hypo-osmolality and hyponatremia Plan This is a 83-year-old female is being admitted for severe hyponatremia serum sodium 118. 1. 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 IV fluid normal saline 75 mill per hour with frequent sodium check every 4 hours. Twelve-lead EKG ordered. Serum osmolarity, UA, urine studies ordered. 06/24: Discussed with liquor clerk Dr. Newton. Sodium corrected to 120 9 in the morning therefore D5W 500 blood bolus given. Urine osmolality 237, urine sodium 59, potassium 19.7 chloride 75. Urine sample was drawn after she was getting IV fluid normal saline started in the ER. Therefore urine studies does not show true reflection of her condition but has serum sodium corrected quickly corrected most likely hypovolemic hyponatremia. Repeat sodium ordered. Patient stated she was not having good oral intake for last 2 to 3 weeks. 06/25: Overall patient feels better, more stronger energetic. Serum sodium today 128. TSH 0.86 and cortisol 15.5 in normal range. IV fluid normal saline 1 L ordered. Discussed with the liquor clerk. Patient is discharged on sodium tablet 1 g 3 times daily. Follow-up in nephrology clinic in about 1 month. Since patient was on his spironolactone in the outpatient was discontinued by PCP. Concern for oropharyngeal dysphagia: She had food stuck in her chest got cleared with water. Speech therapy evaluated the patient. She does not think she has a dysphagia or aspiration. Recommended regular texture thin fluid. Compensatory strategies small bites with alternate solid and liquid with sitting upright and remain sitting for 30 minutes after oral intake. No further need of skilled speech therapy 2. Diabetes mellitus type 2: Hold metformin and nateglinide. Accu-Chek before meals and at bedtime with Humalog sliding scale coverage. 06/25 resume home medications. 3. Hypertension: Blood pressure is high 179/74. Continue home medications. Monitor BP and titrate accordingly. 06/24: Blood pressure is better 147/60. 06/25 blood pressure systolic 154. On losartan, propranolol and sotalol. 4. Chronic migraine: Patient on acute migraine headache medication as needed and propranolol 60 mg p.o. twice daily. Hold propranolol. 06/25: Advised to follow-up with neurologist and discuss about propranolol. 5. Chronic aortic stenosis status post AVR x 2: Last 1 was transcatheter TAVR. She follows [facility] trimmer meat evaluation was arrhythmia and takes sotalol 120 mg twice daily. DVT prophylaxis, high risk: Lovenox 40 mg subcu daily. Discharge medication reconciliation done. Discharge follow-up instructions completed. Discharge process discussed with the patient and all questions were answered to patient's satisfaction. Follow with PCP in 1 to 2 weeks Total time spent, exact 35 minutes on discharge meds reconciliation, examination, coordination of care with nurses and ancillary staff, review of imaging and blood test and discussion with the patient on follow-up instructions. Living will/advanced directive/end of life care: Patient does not have living will or advanced directive. She did not have designated power of collections attorney for health but is next of kin. After discussion of benefits/risks procedures involved with full code, DNR CC arrest and DNR CC, the patient opted for full code. Patient does want artificial life support including intubation, tube feed, ventilator and/chest compression, central venous catheter, vasopressor and DC shock if needed Laboratory Results 06/23/24 15:28: Sodium 125 L 06/23/24 16:14: POC Glucose 103 06/23/24 19:02: Urine Color Straw, Urine Clarity Sl. Cloudy, Urine pH 6.5, Ur Specific [place] 1.010, Urine Protein Negative, Urine Glucose (UA) Normal, Urine Ketones Negative, Urine Occult Blood Negative, Urine Nitrite Negative, Urine Bilirubin Negative, Urine Urobilinogen Normal, Ur Leukocyte Esterase 500 H, Urine RBC 0-5 SEEN, Urine WBC 5-10 SEEN, Ur Squamous Epith Cells 0-5 SEEN, Urine Bacteria 3+, Urine Mucus 0 SEEN, Urine Osmolality 237, U Random Total Protein < 6.0, Ur Random Sodium 59, Urine Creatinine 18.00, Protein/Creatinin Ratio TNP, Urine Potassium 19.7, Urine Chloride 75 06/24/24 06:32: TSH 0.86, Cortisol 15.50 06/24/24 11:24: POC Glucose 201 H 06/24/24 15:53: Sodium 127 L 06/24/24 16:24: POC Glucose 141 H 06/24/24 22:46: POC Glucose 157 H 06/24/24 23:05: Sodium 127 L 06/25/24 06:42: POC Glucose 133 H 06/25/24 07:00: WBC 4.4, RBC 3.78 L, Hgb 12.2, Hct 33.7 L, MCV 89.2, MCH 32.3 H, MCHC 36.2 H, RDW Std Deviation 37.2, RDW Coeff of Celia 11.6, Plt Count 179, MPV 8.4, Immature Gran % (Auto) 0.500, Neut % (Auto) 64.4, Lymph % (Auto) 16.5 L, [place] % (Auto) 14.9 H, Eos % (Auto) 3.0, Baso % (Auto) 0.7, Absolute Neuts (auto) 2.8, Absolute Lymphs (auto) 0.72 L, Nucleated RBC % 0, Sodium 128 L, Potassium 4.3, Chloride 98, Carbon Dioxide 23.0, Anion Gap 7, BUN 7, Creatinine 0.65, Estim Creat Clear Calc 44.75, Est GFR (MDRD) Af Amer 112, Est GFR (MDRD) Non-Af 93, BUN/Creatinine Ratio 10.8, Glucose 161 H, Calcium 8.5 Medications at Discharge Home Medications aspirin 81 mg chewable tablet 81 mg PO DAILY@0800 [facility] 10/03/17 dicyclomine 10 mg capsule 10 mg PO 4X/DAY PRN Irritable Bowel Syndrome 10/03/17 estradiol 0.01% (0.1 mg/gram) vaginal cream 1 dose vaginal LOVE PRN vaginal dryness 10/03/17 magnesium oxide 400 mg (241.3 mg magnesium) tablet 400 mg PO DAILY SUPPLEMENT 10/03/17 multivitamin with folic acid 400 mcg tablet 1 tab PO DAILY SUPPLEMENT 10/03/17 oxybutynin chloride 5 mg tablet 5 mg PO QHS BLADDER 10/03/17 tramadol 50 mg tablet 50 mg PO Q4H PRN PRN Pain 10/03/17 sotalol 120 mg tablet 120 mg PO BID HEART 12/25/18 potassium chloride 20 mEq tablet,extended release(part/cryst) 20 tab PO DAILY POTASSIUM 01/19/19 losartan 100 mg tablet 50 mg PO BID BP 03/11/19 metformin 500 mg tablet,extended release 24 hr 500 mg PO BID DM 03/11/19 pravastatin 10 mg tablet 10 mg PO QHS CHOLESTEROL 03/11/19 calcium carbonate 500 mg-vitamin D3 10 mcg (400 unit) tablet (Calcium 500 With D) 1 tab PO DAILY supplement 10/17/19 meclizine 12.5 mg tablet 12.5 mg PO TID PRN dizziness or vertigo 03/23/23 nateglinide 60 mg tablet 60 mg PO TID PRN HIGH BLOOD SUGAR 09/28/23 Lactobacillus acidophilus 10 billion cell capsule (Probiotic) 10,000 mmu cells PO DAILY 06/23/24 acetaminophen 650 mg tablet,extended release (8 Hour Pain Reliever) 650 mg PO Q8H PRN pain 06/23/24 ascorbic acid (vitamin C) 500 mg tablet (C-500) 1 g PO DAILY 06/23/24 cranberry 500 mg capsule 500 mg PO DAILY 06/23/24 docusate sodium 100 mg capsule 100 mg PO DAILY 06/23/24 omega-3 acid ethyl esters 1 gram capsule 1 cap PO DAILY 06/23/24 ondansetron 4 mg disintegrating tablet 4 mg PO Q8H PRN nausea and vomiting 06/23/24 propranolol 60 mg capsule,24 hr,extended release 60 mg PO BID 06/23/24 rimegepant 75 mg disintegrating tablet (Nurtec ODT) 75 mg PO DAILY PRN migraine headache 06/23/24 sodium chloride 1,000 mg soluble tablet 1,000 mg PO TID 1 month #90 tabs 06/25/24 Physical Exam Narrative Seen and examined. Overall subjectively she feels much improvement in her fatigue. She admitted that she takes low-salt diet. Had open heart surgery for aortic valve replacement which was bioprosthetic lasted for 10 to 12 years and then she required repeat AVR but last 1 was TAVR. Physical exam General: Alert, Oriented x3, Cooperative HEENT: Atraumatic, PERRLA, EOMI, Normocephalic Oral: Oral mucosa moist. No Gingival or Mucosal Lesions/ Ulcerations Neck: Supple, No JVD, Negative Carotid Bruits Chest wall/Lungs: Air entry diminished in bilateral lung bases. No crepitation/rhonchi Cardiovascular: Regular rate, Regular Rhythm, Normal S1, Normal S2, systolic murmur, status post AVR. Abdomen: Bowel Sounds Present, Soft, Non Tender, Non-Distended : No dysuria. No renal angle tenderness. No suprapubic tenderness. Extremities: No edema, Capillary Refill Less than 3 Seconds Skin: No rashes, No breakdown. Skin is cold but not cyanosed. Musculoskeletal: No Tenderness to Palpation of Joints or Extremities. ROM full and intact. Neurological: Cranial nerves II-XII grossly intact, DTR 2+/4. No acute focal neurological deficit. Psych/Mental Status: Normal Affect, Appropriate. Weight / BMI Weight Weight: 138 lb 3.677 oz Body Mass Index (BMI) 25.2 ABG / Lab / Microbiology Data 06/25/24 07:00 06/25/24 07:00 Laboratory: Laboratory Results - last 24 hr 06/24/24 06:32: TSH 0.86, Cortisol 15.50 06/24/24 11:24: POC Glucose 201 H 06/24/24 15:53: Sodium 127 L 06/24/24 16:24: POC Glucose 141 H 06/24/24 22:46: POC Glucose 157 H 06/24/24 23:05: Sodium 127 L 06/25/24 06:42: POC Glucose 133 H 06/25/24 07:00: WBC 4.4, RBC 3.78 L, Hgb 12.2, Hct 33.7 L, MCV 89.2, MCH 32.3 H, MCHC 36.2 H, RDW Std Deviation 37.2, RDW Coeff of Celia 11.6, Plt Count 179, MPV 8.4, Immature Gran % (Auto) 0.500, Neut % (Auto) 64.4, Lymph % (Auto) 16.5 L, [place] % (Auto) 14.9 H, Eos % (Auto) 3.0, Baso % (Auto) 0.7, Absolute Neuts (auto) 2.8, Absolute Lymphs (auto) 0.72 L, Nucleated RBC % 0, Sodium 128 L, Potassium 4.3, Chloride 98, Carbon Dioxide 23.0, Anion Gap 7, BUN 7, Creatinine 0.65, Estim Creat Clear Calc 44.75, Est GFR (MDRD) Af Amer 112, Est GFR (MDRD) Non-Af 93, BUN/Creatinine Ratio 10.8, Glucose 161 H, Calcium 8.5 D/C Instructions Discharge Diet: No restrictions Weight Bearing Status: Weight bearing as tolerated Call your doctor if you observe: Fever of 101 or Higher, Coldness, Increased Pain, Numbness or Tingling, Change in Color, Inability to urinate, Inability to have a bowel movement, Shortness of breath, Dizziness, Fainting spells, Swelling in the ankles, Chest pain, Prolonged hiccupping, Increased palpitations (irregular heartbeat) and Calf discomfort When: IN 2 WEEKS Meaningful Use Info Meaningful Use Meaningful Use Diagnoses (Choose all that apply): None applicable Ischemic Stroke Statin Dosing Therapy Reference: STATIN DOSE THERAPY REFERENCE: * Patients > 75 years receive moderate or high dose statin therapy. * Patients 75 years or YOUNGER should receive HIGH intensity statin dose unless contraindicated. You will be required to document reason for non-treatment if statin daily dose does not meet guidelines. HIGH DOSE STATIN THERAPY DAILY Atorvastatin > than or = to 40 mg Rosuvastatin > than or = to 20 mg Amlodipine + Atorvastatin > than or = to 2.5/40 mg Ezetimibe + Simvastatin 10/80 mg Simvastatin 80mg Discharge Plan Admission Admit Date/Time: 06/23/24 12:22 Primary Reason for Your Visit: Hyponatremia Attending Provider: Jamaal Thurman Primary Care Provider: Terence Kaur Consulting Providers: Izaiah Newton Instructions Additional Instructions / Restrictions: Advised BMP in 1 week to follow-up with serum sodium. Discharge Orders/Prescriptions Prescriptions: New sodium chloride 1,000 mg tablet,soluble 1,000 mg PO TID 30 Days Qty: 90 0RF Continued calcium carbonate-vitamin D3 [Calcium 500 With D] 500 mg(1,250mg) -400 unit tablet 1 tab PO DAILY meclizine 12.5 mg tablet 12.5 mg PO TID PRN (Reason: dizziness or vertigo) tramadol 50 MG tablet 50 mg PO Q4H PRN PRN (Reason: Pain) magnesium oxide 400 MG tablet 400 mg PO DAILY aspirin 81 MG tablet,chewable 81 mg PO DAILY@0800 estradiol 42.5 GM cream 1 dose VAGINAL LOVE PRN (Reason: vaginal dryness) oxybutynin chloride 5 MG tablet 5 mg PO QHS dicyclomine 10 MG capsule 10 mg PO 4X/DAY PRN (Reason: Irritable Bowel Syndrome) multivitamin with folic acid 1 TABLET tablet 1 tab PO DAILY sotalol 120 MG tablet 120 mg PO BID potassium chloride 20 MEQ tablet,ER particles/crystals 20 tab PO DAILY pravastatin 10 MG tablet 10 mg PO QHS losartan 100 MG tablet 50 mg PO BID metformin 500 MG tablet 500 mg PO BID nateglinide 60 mg tablet 60 mg PO TID PRN (Reason: HIGH BLOOD SUGAR ) Rx Instructions: give before meal(s) acetaminophen [8 Hour Pain Reliever] 650 mg tablet extended release 650 mg PO Q8H PRN (Reason: pain) omega-3 acid ethyl esters 1 gram capsule 1 cap PO DAILY ondansetron 4 mg tablet,disintegrating 4 mg PO Q8H PRN (Reason: nausea and vomiting) Nurtec ODT 75 mg tablet,disintegrating 75 mg PO DAILY PRN (Reason: migraine headache) propranolol 60 mg capsule,extended release 24 hr 60 mg PO BID Probiotic 10 billion cell capsule 10,000 mmu cells PO DAILY ascorbic acid (vitamin C) [C-500] 500 mg tablet 1 g PO DAILY docusate sodium 100 mg capsule 100 mg PO DAILY cranberry 500 mg capsule 500 mg PO DAILY Rx Instructions: administer with a meal Referrals / Follow Up: Terence Kaur MD [Primary Care Provider] - Izaiah Newton MD [Med Staff - Consulting] - Within 1 Month (For hyponatremia.) Disposition Disposition (needs filled in before D/C Order can be placed): Home, Self Care Charges/Coding Visit Charges Inpatient E&M: 89478 Disch Hosp >30min
[2024-06-25 11:54] LABS: Bedside Glucose 156 mg/dL (74-106)
[2024-06-25 13:27] VITALS: BP 157/57; PULSE 59; RESP 18; TEMP 36.4; O2SAT 100
== END 2024-06-25 13:40 | disposition home or self-care (01) | DRG 641 ==
LOC: ED 12:32 → PCU 12:59
PROVIDERS: Admitting Provider Internal Medicine; Emergency Provider Emergency Medicine; PCP Internal Medicine; Visit Provider Internal Medicine
DX: E87.1 Hypo-osmolality and hyponatremia (principal); E11.9 Type 2 diabetes mellitus without complications; I10 Essential (primary) hypertension; I35.0 Nonrheumatic aortic (valve) stenosis; E86.1 Hypovolemia; G43.709 Chronic migraine without aura, not intractable, without status migrainosus; Z95.2 Presence of prosthetic heart valve; Z79.82 Long term (current) use of aspirin; Z79.84 Long term (current) use of oral hypoglycemic drugs; Z79.899 Other long term (current) drug therapy
CPT/HCPCS: 36415; 80048; 80053; 81001; 82436; 82533; 82570; 82962; 83735; 83930; 83935; 84133; 84156; 84295; 84300; 84443; 85025; 92610; 93005; 94668; 97802; 99284; J7030; A4216

== ENCOUNTER → 2024-07-25 | Outpatient (CLI) | payer MEDICARE, BC, SELFPAY ==
--- NOTE | 2024-07-25 14:20 | RAD_ITS ---
STUDY: X-RAY - THORACIC SPINE REASON FOR EXAM: Female, 83 years old. FALL TECHNIQUE: 3 view(s) of the thoracic spine were obtained. COMPARISON: 06/01/2018 FINDINGS: Normal kyphosis of the thoracic spine. There is no substantial scoliosis. Chronic moderate wedge compression fracture of T12 treated with vertebroplasty which is unchanged. Normal disc space heights. The soft tissue structures are unremarkable. RAD/Thoracic Spine 2 Views IMPRESSION: No change from 06/01/2018. Electronically Signed: Lefty Meraz MD at 9:53 EDT ,
== END | disposition home or self-care (01) ==
PROVIDERS: PCP Internal Medicine; Referring Provider Anesthesiology Pain Medicine; Visit Provider Anesthesiology Pain Medicine
DX: S22.080A Wedge compression fracture of T11-T12 vertebra, initial encounter for closed fracture (principal); W19.XXXA Unspecified fall, initial encounter
CPT/HCPCS: 72070

== ENCOUNTER 2024-08-01 14:49 | Emergency (ER) | payer MEDICARE, BC, SELFPAY ==
[2024-08-01 14:50] VITALS: BP 158/71; PULSE 59; RESP 18; TEMP 36.4; O2SAT 94; BMI 24.7
--- NOTE | 2024-08-01 15:02 | EDS_ITS ---
HPI History of Present Illness Chief Complaint: Abd Pain [facility] Medical History Osteoporosis Asthma Stroke/cerebrovascular accident Near syncope Gastritis Chronic pain Non-smoker Pacemaker Other osteoporosis without current pathological fracture Atrophic vaginitis Cervicalgia Overactive bladder Essential tremor Degeneration of lumbar or lumbosacral intervertebral disc Generalized osteoarthrosis, unspecified site Type 2 diabetes mellitus without complication, without long-term current use of insulin IBS (irritable bowel syndrome) Migraine with aura Essential hypertension PVC (premature ventricular contraction) PAC (premature atrial contraction) Diverticulitis large intestine Family history of colon cancer in father Type 2 diabetes mellitus Breast cancer Ascending aortic aneurysm Hypertension Diabetes Migraine GERD (gastroesophageal reflux disease) HTN (hypertension) Home Medications ?Medication ?Instructions ?Recorded ?Last Taken ?Type aspirin 81 mg chewable tablet 81 mg PO DAILY@0800 HEART HEALTH 10/03/17 06/23/24 History dicyclomine 10 mg capsule 10 mg PO 4X/DAY PRN Irritable 10/03/17 12/25/18 History Bowel Syndrome estradiol 0.01% (0.1 mg/gram) 1 dose vaginal LOVE PRN vaginal 10/03/17 06/19/24 History vaginal cream dryness magnesium oxide 400 mg (241.3 mg 400 mg PO DAILY SUPPLEMENT 10/03/17 06/23/24 History magnesium) tablet multivitamin with folic acid 400 1 tab PO DAILY SUPPLEMENT 10/03/17 06/23/24 History mcg tablet oxybutynin chloride 5 mg tablet 5 mg PO QHS BLADDER 10/03/17 06/22/24 History tramadol 50 mg tablet 50 mg PO Q4H PRN PRN Pain 10/03/17 03/07/19 History sotalol 120 mg tablet 120 mg PO BID HEART 12/25/18 06/23/24 History potassium chloride 20 mEq 20 tab PO DAILY POTASSIUM 01/19/19 06/23/24 History tablet,extended release(part/cryst) losartan 100 mg tablet 50 mg PO BID BP 03/11/19 06/23/24 History metformin 500 mg tablet,extended 500 mg PO BID DM 03/11/19 06/23/24 History release 24 hr pravastatin 10 mg tablet 10 mg PO QHS CHOLESTEROL 03/11/19 06/22/24 History calcium carbonate 500 mg-vitamin 1 tab PO DAILY supplement 10/17/19 06/23/24 History D3 10 mcg (400 unit) tablet (Calcium 500 With D) meclizine 12.5 mg tablet 12.5 mg PO TID PRN dizziness or 03/23/23 Unknown History vertigo nateglinide 60 mg tablet 60 mg PO TID PRN HIGH BLOOD SUGAR 09/28/23 06/23/24 History Lactobacillus acidophilus 10 10,000 mmu cells PO DAILY 06/23/24 Unknown History billion cell capsule (Probiotic) acetaminophen 650 mg 650 mg PO Q8H PRN pain 06/23/24 06/23/24 History tablet,extended release (8 Hour Pain Reliever) ascorbic acid (vitamin C) 500 mg 1 g PO DAILY 06/23/24 Unknown History tablet (C-500) cranberry 500 mg capsule 500 mg PO DAILY 06/23/24 Unknown History docusate sodium 100 mg capsule 100 mg PO DAILY 06/23/24 Unknown History omega-3 acid ethyl esters 1 gram 1 cap PO DAILY 06/23/24 06/23/24 History capsule ondansetron 4 mg disintegrating 4 mg PO Q8H PRN nausea and vomiting 06/23/24 Unknown History tablet propranolol 60 mg capsule,24 60 mg PO BID 06/23/24 06/23/24 History hr,extended release rimegepant 75 mg disintegrating 75 mg PO DAILY PRN migraine 06/23/24 Unknown History tablet (Nurtec ODT) headache sodium chloride 1,000 mg soluble 1,000 mg PO TID 1 month #90 tabs 06/25/24 Unknown Rx tablet Allergy/AdvReac Type Severity Reaction Status Date / Time procaine HCl (From Novocain) Allergy Anaphylaxis Verified 08/01/24 14:50 albuterol AdvReac Tachycardia Verified 08/01/24 14:50 cetirizine AdvReac Other Verified 08/01/24 14:50 codeine AdvReac Vomiting Verified 08/01/24 14:50 gabapentin AdvReac Mental Verified 08/01/24 14:50 Status Change/Fatigue hydrochlorothiazide AdvReac Other Verified 08/01/24 14:50 lisinopril AdvReac Cough Verified 08/01/24 14:50 morphine AdvReac Vomiting Verified 08/01/24 14:50 pregabalin AdvReac Other Verified 08/01/24 14:50 Sulfa (Sulfonamide AdvReac Other Verified 08/01/24 14:50 Antibiotics) Family History Mother Diabetes Ovarian cancer Father Cancer bladder thyroid Colon cancer Hypertension Surgical History S/P TAVR (transcatheter aortic valve replacement) H/O left mastectomy History of open heart surgery H/O elbow surgery Hx of appendectomy S/P CODIE (total abdominal hysterectomy) femoral hernia repair H/O aortic valve replacement Social History household members: spouse Smoking Status: Never smoker alcohol intake: never substance use type: does not use caffeine: No what type of physical activity do you participate in: walking seatbelt use: always do you feel safe at home: Yes additional social history: Don- Retired Patient is retired EXAM Physical Exam Const Vital Signs: 08/01/24 14:50 08/01/24 16:49 08/01/24 18:00 Temperature 97.5 F L Temperature Source Temporal Pulse Rate 59 L 59 L 63 Respiratory Rate 18 18 18 Blood Pressure 158/71 H 163/62 H 163/60 H Blood Pressure Mean 100 95 94 Pulse Ox 94 97 96 Oxygen Delivery Method Room Air Room Air Room Air MDM MDM MDM Narrative Medical decision making narrative: HISTORY OF PRESENT ILLNESS: 84-year-old female with abdominal pain. Notes lower abdominal cramping since this morning. She further states pain is similar to prior diverticulitis flare. She endorsed a history of having diverticulitis with a microperforation was treated with admission antibiotics several years ago. Denies nausea or vomiting. Denies chest pain or shortness of breath. Last bowel movement was this morning. No melena or hematochezia noted. Denies urinary complaints such as frequency urgency or dysuria. Endorse history of , appendectomy. REVIEW OF SYSTEMS: Pertinent positives: Abdominal pain Pertinent negatives: Chest pain, vomiting, fever, urinary complaints PHYSICAL EXAM: Nursing triage notes reviewed, Vital signs reviewed Constitutional: please see mdm HENT: MMM Eyes: Pupils equal round and reactive to light, Extraocular muscles intact Neck: No stridor, no JVD, full neck ROM Lungs: Clear to auscultation, No wheezing or rales. No increased work of breathing, no conversational dyspnea, no accessory muscle use, no nasal flaring. No respiratory distress noted Heart: Regular rate and rhythm, No murmurs, No rubs and No gallops, 2+ distal pulses (radial, femoral, posterior tibial) in all extremities Abdomen: Soft, TTP over left lower quadrant, but no, rigidity, rebound or guarding, no obvious peritoneal signs, no palpable pulsatile abdominal masses, no auscultated abdominal bruit : No CVAT Extremities: No edema Neuro: No focal neurological deficits, cranial nerves II through XII intact, 5/5 strength in all extremities. Intact sensation to light touch in all extremities, 2+ reflexes bilateral patella tendons. Normal gait. No ataxia. Skin: No rash or lesions noted MEDICAL DECISION MAKING: Chief Complaint: Abdominal pain External records reviewed: Prior imaging reviewed: CT scan of the abdomen pelvis from 2022 was reviewed and showed gastritis . Reviewed last GI visit. Factors affecting care: History of IBS, atrial fibrillation, hyperlipidemia, diverticulitis, type 2 diabetes Social determinants of health: Elderly History obtained from others: None at this time Consults: none MDM Narrative: The patient was initially hemodynamically stable, afebrile and nontoxic- appearing. Exam with left lower quadrant TTP I considered the following differential diagnosis: AAA, small bowel obstruction, abdominal perforation, appendicitis, pancreatitis, hepatobiliary pathology (acute cholecystitis), mesenteric ischemia, pathology (ie nephrolithiasis, pyelonephritis). I treat the patient with 1 L IV fluid, 15mg of IV Toradol ALL IMAGES (IF OBTAINED) HAVE BEEN PERSONALLY REVIEWED AND INTERPRETED BY MYS ELF. CBC with no leukocytosis, no anemia or thrombocytopenia. Urinalysis shows no evidence of urinary inflammation suggestive of UTI CT scan abdomen pelvis shows evidence of acute pathology. Shows an ovarian cyst on the right. I consider ovarian torsion however the patient's pain was in the left lower quadrant. Lactate is wnl indicating no end-organ hypoperfusion and/or hypoxia. CMP without evidence of acute kidney injury, significant electrolyte abnormality, anion gap, no evidence hepatobiliary pathology. The synthesis of the patient's history, physical exam, labs images suggest no acute life-limiting etiology. Will prescribe a bowel regiment for home-going and have her follow with her primary care physician for further evaluation and treatment. Strict return precautions were discussed. The patient and/or family, caregivers express understanding. The patient and/or family, caregivers agrees with the plan. Shared decision making: I will have a discussion with the patient and or visitors regarding risk/benefits of further testing or admission. They will be made aware of of the risk/benefits inherent in this decision they will be given the opportunity to voice understanding. Total critical care time today provided was at least 0 minutes. This excludes separately billable procedures. Critical care time (if documented) is secondary to the patient having high probability of clinically significant/life threatening deterioration in the patient's condition which required my urgent intervention. Impression: 1. Abdominal pain 2. Constipation Dispo: Discharge home This note was generated with [employer] dictation software. It may contain incorrect words, spelling, and punctuation that were not noted in review of the chart prior to signing. Lab Data Labs: Laboratory Results - last 24 hr 08/01/24 08/01/24 08/01/24 15:35 15:40 18:03 WBC 10.8 RBC 3.91 L Hgb 12.4 Hct 37.2 MCV 95.1 MCH 31.7 MCHC 33.3 RDW Std Deviation 46.1 H RDW Coeff of Celia 13.2 Plt Count 247 MPV 9.0 Immature Gran % (Auto) 0.500 Neut % (Auto) 74.9 H Lymph % (Auto) 14.5 L [place] % (Auto) 8.8 Eos % (Auto) 0.9 Baso % (Auto) 0.4 Absolute Neuts (auto) 8.1 H Absolute Lymphs (auto) 1.56 Nucleated RBC % 0 Sodium 133 L Potassium 4.2 Chloride 99 Carbon Dioxide 28.0 Anion Gap 6 BUN 12 Creatinine 0.75 Estim Creat Clear Calc 43.53 Est GFR (MDRD) Af Amer 94 Est GFR (MDRD) Non-Af 78 BUN/Creatinine Ratio 16.0 Glucose 135 H Lactic Acid 1.1 Calcium 9.7 Total Bilirubin 0.60 Direct Bilirubin 0.24 AST 19 ALT 18 Alkaline Phosphatase 96 Total Protein 6.6 Albumin 3.6 Globulin 3.0 Lipase 19 Urine Color Yellow Urine Clarity Clear Urine pH 7.0 Ur Specific Raymond 1.010 Urine Protein 15 H Urine Glucose (UA) Normal Urine Ketones Negative Urine Occult Blood Negative Urine Nitrite Negative Urine Bilirubin Negative Urine Urobilinogen Normal Ur Leukocyte Esterase Negative POC Glucose 87 Radiography Diagnostic Testing: Clinical Impression(s) from Imaging Studies Abdomen/Pelvis CT 08/01/24 15:14 IMPRESSION: No acute findings in the abdomen or pelvis. Colonic fecal burden consistent with clinical constipation. 3.3 cm right ovarian cyst. Electronically Signed: Papa Mackay MD at 18:39 EDT Reading Location ID and State: [address] [place] [address] Tel , Service support , Discharge Plan Triage Chief Complaint: Abd Pain ED Provider: Mike Marin Dx/Rx/DC Orders Clinical Impression: Acute constipation Instructions: ED Constipation (Adult) Prescriptions: No Action calcium carbonate-vitamin D3 [Calcium 500 With D] 500 mg(1,250mg) -400 unit tablet 1 tab PO DAILY meclizine 12.5 mg tablet 12.5 mg PO TID PRN (Reason: dizziness or vertigo) tramadol 50 MG tablet 50 mg PO Q4H PRN PRN (Reason: Pain) magnesium oxide 400 MG tablet 400 mg PO DAILY aspirin 81 MG tablet,chewable 81 mg PO DAILY@0800 estradiol 42.5 GM cream 1 dose VAGINAL LOVE PRN (Reason: vaginal dryness) oxybutynin chloride 5 MG tablet 5 mg PO QHS dicyclomine 10 MG capsule 10 mg PO 4X/DAY PRN (Reason: Irritable Bowel Syndrome) multivitamin with folic acid 1 TABLET tablet 1 tab PO DAILY sotalol 120 MG tablet 120 mg PO BID potassium chloride 20 MEQ tablet,ER particles/crystals 20 tab PO DAILY pravastatin 10 MG tablet 10 mg PO QHS losartan 100 MG tablet 50 mg PO BID metformin 500 MG tablet 500 mg PO BID nateglinide 60 mg tablet 60 mg PO TID PRN (Reason: HIGH BLOOD SUGAR ) Rx Instructions: give before meal(s) acetaminophen [8 Hour Pain Reliever] 650 mg tablet extended release 650 mg PO Q8H PRN (Reason: pain) omega-3 acid ethyl esters 1 gram capsule 1 cap PO DAILY ondansetron 4 mg tablet,disintegrating 4 mg PO Q8H PRN (Reason: nausea and vomiting) Nurtec ODT 75 mg tablet,disintegrating 75 mg PO DAILY PRN (Reason: migraine headache) propranolol 60 mg capsule,extended release 24 hr 60 mg PO BID Probiotic 10 billion cell capsule 10,000 mmu cells PO DAILY ascorbic acid (vitamin C) [C-500] 500 mg tablet 1 g PO DAILY docusate sodium 100 mg capsule 100 mg PO DAILY cranberry 500 mg capsule 500 mg PO DAILY Rx Instructions: administer with a meal sodium chloride 1,000 mg tablet,soluble 1,000 mg PO TID 30 Days Qty: 90 0RF Primary Care Provider: Terence Kaur Referrals: Terence Kaur MD [Primary Care Provider] - Activity Restrictions/Additional Instructions: Thank you for trusting us with your care today! Please take Tylenol (2 pills, 650 mg), ibuprofen (2 pills, 400 mg) every 6 hours as needed for pain and fever control. If you struggle with irregular stools. Please start taking a bowel regiment which consist of MiraLAX, Colace and senna. Please take these medicines daily until desired consistency of bowel movements are reached. Please return to the emergency department if your symptoms change or worsen. Please follow with your primary care physician for further outpatient evaluation and management. Print Language: Welsh Disposition Disposition: Home, Self Care
--- NOTE | 2024-08-01 15:14 | CT_ITS ---
INDICATION: Left lower quad abdominal pain, history of breast cancer, hysterectomy, appendectomy and cholecystectomy EXAMINATION: CT ABDOMEN AND PELVIS WITH CONTRAST - CT Abdomen And Pelvis W/ Contrast Injection TECHNIQUE: Helically acquired images were obtained of the abdomen and pelvis following IV contrast. A radiation dose optimization technique was used for this scan. IV Contrast dosage and agent: 100 cc [id number] Oral contrast: None. COMPARISON: 01/06/2014 FINDINGS: LOWER CHEST: Lung bases are clear. LIVER: Homogeneous. No focal mass. GALLBLADDER AND BILIARY TREE: No calcified gallstones. No gallbladder distension or wall edema. No intra- or extrahepatic biliary ductal dilation. PANCREAS: No focal cystic or solid mass. SPLEEN: Normal size without focal cystic or solid mass. ADRENAL GLANDS: No nodules. KIDNEYS AND URETERS: Uniform enhancement bilaterally. No hydronephrosis. PERITONEUM: No free air. Trace pelvic ascites. BOWEL: No evidence of acute appendicitis. No stomach or bowel distension. Diffusely increased colonic fecal burden. No focal inflammatory bowel wall changes. LYMPH NODES: No enlarged mesenteric or retroperitoneal lymph nodes. VESSELS: Aorta is non-dilated. URINARY BLADDER: Unremarkable. REPRODUCTIVE ORGANS: Uterus absent. 3.3 cm right ovarian cyst. ABDOMINAL WALL: No discrete abdominal or pelvic wall hernia. BONES: No acute or aggressive abnormality. CT/Abdomen/Pelvis W IV Cont ONLY IMPRESSION: No acute findings in the abdomen or pelvis. Colonic fecal burden consistent with clinical constipation. 3.3 cm right ovarian cyst. Electronically Signed: Papa Mackay MD at 18:39 EDT ,
[2024-08-01] MEDS: Ketorolac 30 MG/ML Syringe 15 MG IV (15:37)
[2024-08-01] MEDS: 0.9% Normal Saline (1000mL) 1,000 ML 500 ML IV (15:38)
[2024-08-01] MEDS: Ondansetron 4 MG/2 ML Vial IV (15:38)
[2024-08-01 15:53] LABS: Absolute Lymphocyte Count 1.56 X10^3/uL (0.83-4.51); Absolute Neutrophil Count 8.1 X10^3/uL (2.0-7.7); Basophil# 0.04 X10^3/uL; Basophil% 0.4 % (0-1); Eosinophils% 0.9 % (0-5); Hematocrit 37.2 % (37-47); Hemoglobin 12.4 g/dL (12.0-15.0); Lymphocyte # 1.56 X10^3/ul (0.83-4.51); Lymphocyte % 14.5 % (19-41); Mean Corp Hgb Conc 33.3 g/dL (32-36); Mean Corpuscular Hgb 31.7 pg (27.0-32.0); Mean Corpuscular Volume 95.1 fL (81-99); Monocyte# 0.95 X10^3/uL; Monocyte% 8.8 % (0-10); NRBC Flagged by Analyzer 0 % (0-5); Neutrophil # 8.07 X10^3/uL (2.7-7.7); Neutrophil % 74.9 % (47-70); Platelet Count 247 K/mm3 (150-450); RBC Distribution Width CV 13.2 % (11.6-14.6); RBC Distribution Width SD 46.1 fl (35.1-43.9); Red Blood Count 3.91 M/mm3 (4.2-5.4); White Blood Count 10.8 K/mm3 (4.4-11.0)
[2024-08-01 16:00] LABS: Color, Urine Yellow (Yellow); Glucose, Dipstick Normal (Normal); Ketone-Dipstick Negative (Negative); Leukocyte Esterase-Dipstick Negative /ul (Negative); Nitrite-Dipstick Negative (Negative); Occult Blood-Urine Negative /ul (Negative); Protein-Dipstick 15 mg/dl (Negative); Urine Bilirubin Dipstick Negative (Negative); Urine Clarity Clear (Clear); Urine Urobilinogen Normal (Normal)
[2024-08-01 16:15] LABS: AST(SGOT) 19 U/L (15-37); Alanine Aminotransfer ALT/SGPT 18 U/L (13-56); Albumin, Serum 3.6 g/dL (3.2-5.0); Alkaline Phosphatase 96 U/L (45-117); Anion Gap 6 (5-15); BUN 12 mg/dL (7-18); Bilirubin, Direct 0.24 mg/dL (0.00-0.30); Calcium,Total 9.7 mg/dL (8.5-10.1); Chloride 99 mmol/L (98-107); Creatinine, Serum 0.75 mg/dL (0.55-1.02); EST Glomerular Filtration Rate 78 mL/min (>60); Est Glom Filt Rate - Afr Amer 94 mL/min (>60); Estimated Creatinine Clearance 43.53 ml/min; Glucose 135 mg/dL (74-106); Lipase 19 U/L (13-75); Potassium 4.2 mmol/L (3.5-5.1); Protein, Total 6.6 g/dL (6.4-8.2); Sodium Level 133 mmol/L (136-145)
[2024-08-01 16:22] LABS: Lactic Acid 1.1 mmol/L (0.4-1.9)
[2024-08-01 16:49] VITALS: BP 163/62; PULSE 59; RESP 18; O2SAT 97
[2024-08-01 18:00] VITALS: BP 163/60; PULSE 63; RESP 18; O2SAT 96
[2024-08-01 18:22] LABS: Bedside Glucose 87 mg/dL (74-106)
== END 2024-08-01 19:59 | disposition home or self-care (01) ==
PROVIDERS: Emergency Provider Emergency Medicine; PCP Internal Medicine; Visit Provider Emergency Medicine
DX: K59.00 Constipation, unspecified (principal); E11.9 Type 2 diabetes mellitus without complications; R10.9 Unspecified abdominal pain; J45.909 Unspecified asthma, uncomplicated; Z86.73 Personal history of transient ischemic attack (TIA), and cerebral infarction without residual deficits
CPT/HCPCS: 74177; 80048; 80076; 81002; 82962; 83605; 83690; 85025; 96361; 96374; 96375; 96376; 99283; J7040; Q9967; A4216; J2405

== ENCOUNTER 2024-08-27 00:11 | Emergency (ER) | payer MEDICARE, BC, SELFPAY ==
[2024-08-27] VITALS (7 sets, daily range): BP systolic 130–156; BP diastolic 57–83; PULSE 54–60; RESP 16–20; TEMP 36.5–36.6; O2SAT 93–99; BMI 24.5
[2024-08-27 02:08] LABS: Absolute Lymphocyte Count 1.81 X10^3/uL (0.83-4.51); Absolute Neutrophil Count 6.1 X10^3/uL (2.0-7.7); Basophil# 0.03 X10^3/uL; Basophil% 0.3 % (0-1); Eosinophil# 0.09 X10^3/uL; Hemoglobin 13.4 g/dL (12.0-15.0); Lymphocyte # 1.81 X10^3/ul (0.83-4.51); Lymphocyte % 20.3 % (19-41); Mean Corp Hgb Conc 34.4 g/dL (32-36); Mean Corpuscular Hgb 32.1 pg (27.0-32.0); Mean Corpuscular Volume 93.3 fL (81-99); Monocyte# 0.84 X10^3/uL; Monocyte% 9.4 % (0-10); NRBC Flagged by Analyzer 0 % (0-5); Neutrophil # 6.05 X10^3/uL (2.7-7.7); Platelet Count 233 K/mm3 (150-450); RBC Distribution Width CV 12.6 % (11.6-14.6); RBC Distribution Width SD 43.2 fl (35.1-43.9); Red Blood Count 4.18 M/mm3 (4.2-5.4); White Blood Count 8.9 K/mm3 (4.4-11.0)
--- NOTE | 2024-08-27 02:15 | RAD_ITS ---
INDICATION: chest pain EXAMINATION/TECHNIQUE: X-RAY - XR Chest 2 Views COMPARISON: July 25 2024 thoracic spine. September 28, 2023. FINDINGS: LINES/DEVICES: 2-lead right chest cardiac pacer. Aortic stent graft noted. LUNGS: No consolidation, edema or effusion. No pneumothorax. MEDIASTINUM AND CARDIOVASCULAR STRUCTURES: Cardiac silhouette not enlarged. BONES AND SOFT TISSUES: Sternotomy wires are midline and intact.. Unchanged lower thoracic vertebroplasty change. RAD/Chest PA and Lateral IMPRESSION: No radiographic evidence of acute cardiopulmonary disease. Electronically Signed: Dagoberto Silva MD at 3:33 EDT ,
[2024-08-27 02:29] LABS: Anion Gap 7 (5-15); BUN 15 mg/dL (7-18); BUN/Creat Ratio 18.8 RATIO (10-20); Calcium,Total 9.3 mg/dL (8.5-10.1); Chloride 95 mmol/L (98-107); EST Glomerular Filtration Rate 73 mL/min (>60); Est Glom Filt Rate - Afr Amer 88 mL/min (>60); Estimated Creatinine Clearance 43.33 ml/min; Glucose 184 mg/dL (74-106); Potassium 4.3 mmol/L (3.5-5.1); Sodium Level 130 mmol/L (136-145); Troponin-I HS 38 pg/mL (3.0-54.0)
[2024-08-27 02:37] LABS: BNP,B-Type NATRIURETIC PEPTIDE 123.8 pg/mL (0-100)
--- NOTE | 2024-08-27 03:58 | EDS_ITS ---
HPI History of Present Illness Chief Complaint: Cough Narrative Narrative: Patient is a 84-year-old female with past medical history of asthma, type 2 diabetes, IBS, hypertension, GERD who presents to the emergency department chief complaint of cough and congestion. Patient states that for the past several days she has not been feeling well and she is on amoxicillin and just recently finished prednisone that was prescribed by her primary care physician. Patient states that she feels like she is unable to cough up the sputum out fully which was what prompted her here for further management today. Patient states her oxygen level has been doing well at home in the 96% range PFSH [facility] Medical History Hyponatremia Osteoporosis Asthma Stroke/cerebrovascular accident Near syncope Gastritis Chronic pain Non-smoker Pacemaker Other osteoporosis without current pathological fracture Atrophic vaginitis Cervicalgia Overactive bladder Essential tremor Degeneration of lumbar or lumbosacral intervertebral disc Generalized osteoarthrosis, unspecified site Type 2 diabetes mellitus without complication, without long-term current use of insulin IBS (irritable bowel syndrome) Migraine with aura Essential hypertension PVC (premature ventricular contraction) PAC (premature atrial contraction) Diverticulitis large intestine Family history of colon cancer in father Type 2 diabetes mellitus Breast cancer Ascending aortic aneurysm Hypertension Diabetes Migraine GERD (gastroesophageal reflux disease) HTN (hypertension) Home Medications ?Medication ?Instructions ?Recorded ?Last Taken ?Type aspirin 81 mg chewable tablet 81 mg PO DAILY@0800 [facility] 10/03/17 06/23/24 History dicyclomine 10 mg capsule 10 mg PO 4X/DAY PRN Irritable 10/03/17 12/25/18 History Bowel Syndrome estradiol 0.01% (0.1 mg/gram) 1 dose vaginal LOVE PRN vaginal 10/03/17 06/19/24 History vaginal cream dryness magnesium oxide 400 mg (241.3 mg 400 mg PO DAILY SUPPLEMENT 10/03/17 06/23/24 History magnesium) tablet multivitamin with folic acid 400 1 tab PO DAILY SUPPLEMENT 10/03/17 06/23/24 History mcg tablet oxybutynin chloride 5 mg tablet 5 mg PO QHS BLADDER 10/03/17 06/22/24 History tramadol 50 mg tablet 50 mg PO Q4H PRN PRN Pain 10/03/17 03/07/19 History sotalol 120 mg tablet 120 mg PO BID HEART 12/25/18 06/23/24 History potassium chloride 20 mEq 20 tab PO DAILY POTASSIUM 01/19/19 06/23/24 History tablet,extended release(part/cryst) losartan 100 mg tablet 50 mg PO BID BP 03/11/19 06/23/24 History metformin 500 mg tablet,extended 500 mg PO BID DM 03/11/19 06/23/24 History release 24 hr pravastatin 10 mg tablet 10 mg PO QHS CHOLESTEROL 03/11/19 06/22/24 History calcium carbonate 500 mg-vitamin 1 tab PO DAILY supplement 10/17/19 06/23/24 History D3 10 mcg (400 unit) tablet (Calcium 500 With D) meclizine 12.5 mg tablet 12.5 mg PO TID PRN dizziness or 03/23/23 Unknown History vertigo nateglinide 60 mg tablet 60 mg PO TID PRN HIGH BLOOD SUGAR 09/28/23 06/23/24 History Lactobacillus acidophilus 10 10,000 mmu cells PO DAILY 06/23/24 Unknown History billion cell capsule (Probiotic) ascorbic acid (vitamin C) 500 mg 1 g PO DAILY 06/23/24 Unknown History tablet (C-500) cranberry 500 mg capsule 500 mg PO DAILY 06/23/24 Unknown History omega-3 acid ethyl esters 1 gram 1 cap PO DAILY 06/23/24 06/23/24 History capsule propranolol 60 mg capsule,24 60 mg PO BID 06/23/24 06/23/24 History hr,extended release Allergy/AdvReac Type Severity Reaction Status Date / Time procaine HCl (From Novocain) Allergy Anaphylaxis Verified 08/27/24 00:12 albuterol AdvReac Tachycardia Verified 08/27/24 00:12 cetirizine AdvReac Other Verified 08/27/24 00:12 codeine AdvReac Vomiting Verified 08/27/24 00:12 gabapentin AdvReac Mental Verified 08/27/24 00:12 Status Change/Fatigue hydrochlorothiazide AdvReac Other Verified 08/27/24 00:12 lisinopril AdvReac Cough Verified 08/27/24 00:12 morphine AdvReac Vomiting Verified 08/27/24 00:12 pregabalin AdvReac Other Verified 08/27/24 00:12 Sulfa (Sulfonamide AdvReac Other Verified 08/27/24 00:12 Antibiotics) Family History Mother Diabetes Ovarian cancer Father Cancer bladder thyroid Colon cancer Hypertension Surgical History S/P TAVR (transcatheter aortic valve replacement) H/O left mastectomy History of open heart surgery H/O elbow surgery Hx of appendectomy S/P CODIE (total abdominal hysterectomy) femoral hernia repair H/O aortic valve replacement Social History household members: spouse Smoking Status: Never smoker alcohol intake: never substance use type: does not use caffeine: No what type of physical activity do you participate in: walking seatbelt use: always do you feel safe at home: Yes additional social history: Don- Retired Patient is retired ROS ROS ED ROS Narrative Constitutional: Denies any fevers, chills, headaches, lightness, dizziness Eyes: Denies change in vision double vision blurry vision Cardiovascular: Denies chest pain or palpitations Respiratory: Complains of cough denies shortness of breath or wheezing Abdomen: Denies any abdominal pain nausea vomit diarrhea : Denies any urinary symptoms Neurological: Denies any numbness, weakness, tingling Musculoskeletal: Denies back pain Skin: Denies s rashes or lesions EXAM Physical Exam Narrative Exam Narrative: General: Patient lying in bed rest comfortably did not appear to be in acute distress Head: Atraumatic, normocephalic Eyes: PERRL bilateral, EOMI bilateral, no conjunctival injection noted Neck: Soft, supple, trach midline Cardiovascular: Regular rate and rhythm no murmurs gallops rubs noted Respiratory: Clear to auscultation bilaterally no rales rhonchi or wheezes noted Extremities: +5/5 strength noted in the bilateral upper and lower extremities, no pedal edema on exam Neurological: Patient following commands knew that she was at [facility] years 2023 Skin: Warm, dry, intact Const Vital Signs: 08/27/24 00:12 08/27/24 01:16 08/27/24 01:35 Temperature 97.7 F L 97.9 F Temperature Source Oral Oral Pulse Rate 54 L 60 Respiratory Rate 18 20 H Respiratory Effort Normal Blood Pressure 130/82 H 145/83 H Blood Pressure Mean 98 103 Pulse Ox 96 93 Oxygen Delivery Method Room Air Room Air 08/27/24 01:48 08/27/24 02:00 08/27/24 02:11 Temperature 97.8 F Temperature Source Temporal Pulse Rate 60 59 L Respiratory Rate 16 16 Respiratory Effort Blood Pressure 145/83 H 152/67 H Blood Pressure Mean 103 95 Pulse Ox 93 93 Oxygen Delivery Method Room Air 08/27/24 04:00 Temperature Temperature Source Pulse Rate 60 Respiratory Rate 18 Respiratory Effort Blood Pressure 156/57 H Blood Pressure Mean 90 Pulse Ox Oxygen Delivery Method MDM MDM MDM Narrative Medical decision making narrative: Patient is a 84-year-old female who presents to the emerged part with a chief complaint of cough congestion. Patient will have workup performed here on the differential diagnose includes but not limited to upper respiratory infection second viral etiology, pneumonia, ACS. Once workup is obtained reviewed she will be reevaluated. Patient's CBC was reviewed and showed no evidence of leukocytosis white blood count normal at 8.9, hemoglobin stable 13.4, platelet count normal at 223. Patient's sodium was noted to be 130, potassium normal at 4.3, creatinine normal at 0.8, proBNP mildly elevated 123, troponin normal at 38. Patient's EKG was reviewed and independently interpreted by myself which showed atrial paced rhythm with a rate of 60 bpm no Sgarbossa criteria were met. Patient's x-ray of her chest reviewed and showed no acute cardiopulmonary processes this was independently reviewed by myself and by radiology. Did ambulate the patient here in the emergency department and she tolerated this well without any evidence of hypoxia. Discussed results with the patient and she would like to go home at this point time. Patient was advised to finish the antibiotics that she was prescribed by her primary care physician and follow-up with them in the outpatient setting. She is advised return with worsening symptoms or other concerns. Her and her significant other at bedside are agreeable with this plan all question concerns answered at bedside she is discharged home in stable condition. Lab Data Labs: Laboratory Results - last 24 hr 08/27/24 02:00 WBC 8.9 RBC 4.18 L Hgb 13.4 Hct 39.0 MCV 93.3 MCH 32.1 H MCHC 34.4 RDW Std Deviation 43.2 RDW Coeff of Celia 12.6 Plt Count 233 MPV 9.0 Immature Gran % (Auto) 1.000 H Neut % (Auto) 68.0 Lymph % (Auto) 20.3 [place] % (Auto) 9.4 Eos % (Auto) 1.0 Baso % (Auto) 0.3 Absolute Neuts (auto) 6.1 Absolute Lymphs (auto) 1.81 Nucleated RBC % 0 Sodium 130 L Potassium 4.3 Chloride 95 L Carbon Dioxide 28.0 Anion Gap 7 BUN 15 Creatinine 0.80 Estim Creat Clear Calc 43.33 Est GFR (MDRD) Af Amer 88 Est GFR (MDRD) Non-Af 73 BUN/Creatinine Ratio 18.8 Glucose 184 H Calcium 9.3 Troponin I High Sens 38 B-Natriuretic Peptide 123.8 H Radiography Diagnostic Testing: Clinical Impression(s) from Imaging Studies Chest X-Ray 08/27/24 02:15 IMPRESSION: No radiographic evidence of acute cardiopulmonary disease. Electronically Signed: Dagoberto Silva MD at 3:33 EDT Reading Location ID and State: [facility] / [place] Tel , Service support , Discharge Plan Triage Chief Complaint: Cough ED Provider: Jone Will Dx/Rx/DC Orders Clinical Impression: Cough Prescriptions: No Action calcium carbonate-vitamin D3 [Calcium 500 With D] 500 mg(1,250mg) -400 unit tablet 1 tab PO DAILY meclizine 12.5 mg tablet 12.5 mg PO TID PRN (Reason: dizziness or vertigo) tramadol 50 MG tablet 50 mg PO Q4H PRN PRN (Reason: Pain) magnesium oxide 400 MG tablet 400 mg PO DAILY aspirin 81 MG tablet,chewable 81 mg PO DAILY@0800 estradiol 42.5 GM cream 1 dose VAGINAL LOVE PRN (Reason: vaginal dryness) oxybutynin chloride 5 MG tablet 5 mg PO QHS dicyclomine 10 MG capsule 10 mg PO 4X/DAY PRN (Reason: Irritable Bowel Syndrome) multivitamin with folic acid 1 TABLET tablet 1 tab PO DAILY sotalol 120 MG tablet 120 mg PO BID potassium chloride 20 MEQ tablet,ER particles/crystals 20 tab PO DAILY pravastatin 10 MG tablet 10 mg PO QHS losartan 100 MG tablet 50 mg PO BID metformin 500 MG tablet 500 mg PO BID nateglinide 60 mg tablet 60 mg PO TID PRN (Reason: HIGH BLOOD SUGAR ) Rx Instructions: give before meal(s) omega-3 acid ethyl esters 1 gram capsule 1 cap PO DAILY propranolol 60 mg capsule,extended release 24 hr 60 mg PO BID Probiotic 10 billion cell capsule 10,000 mmu cells PO DAILY ascorbic acid (vitamin C) [C-500] 500 mg tablet 1 g PO DAILY cranberry 500 mg capsule 500 mg PO DAILY Rx Instructions: administer with a meal Primary Care Provider: Terence Kaur Referrals: Terence Kaur MD [Primary Care Provider] - Activity Restrictions/Additional Instructions: Follow-up with your primary care physician outpatient setting. Return with worsening symptoms or any other concerns. Finish your antibiotics as prescribed. Print Language: French Disposition Disposition: Home, Self Care
== END 2024-08-27 04:34 | disposition home or self-care (01) ==
PROVIDERS: Emergency Provider Emergency Medicine; PCP Internal Medicine; Visit Provider Emergency Medicine
DX: R05.9 Cough, unspecified (principal); E11.9 Type 2 diabetes mellitus without complications; R09.81 Nasal congestion; I10 Essential (primary) hypertension; K58.9 Irritable bowel syndrome, unspecified; K21.9 Gastro-esophageal reflux disease without esophagitis; G25.0 Essential tremor; G89.29 Other chronic pain; N32.81 Overactive bladder; M15.9 Polyosteoarthritis, unspecified; M81.8 Other osteoporosis without current pathological fracture; J45.909 Unspecified asthma, uncomplicated; Z88.2 Allergy status to sulfonamides; Z88.5 Allergy status to narcotic agent; Z85.3 Personal history of malignant neoplasm of breast; Z95.2 Presence of prosthetic heart valve; Z86.73 Personal history of transient ischemic attack (TIA), and cerebral infarction without residual deficits; Z86.79 Personal history of other diseases of the circulatory system; Z79.82 Long term (current) use of aspirin; Z79.84 Long term (current) use of oral hypoglycemic drugs; Z79.899 Other long term (current) drug therapy
CPT/HCPCS: 71046; 80048; 83880; 84484; 85025; 87631; 93005; 99284; A4216

== ENCOUNTER 2024-10-07 11:13 | Emergency (ER) | payer MEDICARE, BC, SELFPAY ==
[2024-10-07] VITALS (8 sets, daily range): BP systolic 143–156; BP diastolic 53–67; PULSE 63–75; RESP 14–27; TEMP 36.8–37.2; O2SAT 92–97; BMI 20.9
[2024-10-07] MEDS: 0.9% Normal Saline (1000mL) 1,000 ML 999 ML IV (12:00)
[2024-10-07 12:04] LABS: Absolute Lymphocyte Count 0.55 X10^3/uL (0.83-4.51); Absolute Neutrophil Count 11.1 X10^3/uL (2.0-7.7); Basophil# 0.04 X10^3/uL; Basophil% 0.3 % (0-1); Hematocrit 36.6 % (37-47); Hemoglobin 12.8 g/dL (12.0-15.0); Lymphocyte # 0.55 X10^3/ul (0.83-4.51); Lymphocyte % 4.3 % (19-41); Mean Corpuscular Hgb 32.2 pg (27.0-32.0); Mean Corpuscular Volume 92.2 fL (81-99); Mean Platelet Vol. 9.9 fl (6.2-12.0); Monocyte# 1.06 X10^3/uL; Monocyte% 8.3 % (0-10); NRBC Flagged by Analyzer 0 % (0-5); Neutrophil # 11.06 X10^3/uL (2.7-7.7); Neutrophil % 86.6 % (47-70); POSITIVE COUNT YES; POSITIVE DIFFERENTIAL YES; RBC Distribution Width CV 11.7 % (11.6-14.6); RBC Distribution Width SD 39.4 fl (35.1-43.9); Red Blood Count 3.97 M/mm3 (4.2-5.4); White Blood Count 12.8 K/mm3 (4.4-11.0)
[2024-10-07 12:22] LABS: ALB/GLOB Ratio 0.8 RATIO (0.9-2.4); AST(SGOT) 17 U/L (15-37); Alanine Aminotransfer ALT/SGPT 22 U/L (13-56); Albumin, Serum 2.8 g/dL (3.2-5.0); Alkaline Phosphatase 76 U/L (45-117); Anion Gap 6 (5-15); BUN 12 mg/dL (7-18); BUN/Creat Ratio 12.8 RATIO (10-20); Calcium,Total 9.2 mg/dL (8.5-10.1); Chloride 94 mmol/L (98-107); Creatinine, Serum 0.94 mg/dL (0.55-1.02); EST Glomerular Filtration Rate 60 mL/min (>60); Est Glom Filt Rate - Afr Amer 73 mL/min (>60); Estimated Creatinine Clearance 33.98 ml/min; Globulin 3.4 g/dL (2.2-4.2); Glucose 180 mg/dL (74-106); Potassium 4.4 mmol/L (3.5-5.1); Protein, Total 6.2 g/dL (6.4-8.2); Sodium Level 126 mmol/L (136-145); Troponin-I HS 16 pg/mL (3.0-54.0)
[2024-10-07 12:38] LABS: Differential Indicated SCAN CRITERIA MET
[2024-10-07 12:39] LABS: Platelet Estimate SLT DEC (ADEQ)
[2024-10-07 12:46] LABS: Mucous, Urine 0 SEEN /hpf (<or=2+); Squamous Epithelial Cells - UA 0 SEEN /hpf (5-10)
[2024-10-07 12:56] LABS: Color, Urine Yellow (Yellow); Glucose, Dipstick Normal (Normal); Ketone-Dipstick Negative (Negative); Leukocyte Esterase-Dipstick 500 /ul (Negative); Nitrite-Dipstick Negative (Negative); Occult Blood-Urine 50 /ul (Negative); Protein-Dipstick 30 mg/dl (Negative); Specific Gravity, Urine 1.005 (1.002-1.030); Urine Bilirubin Dipstick Negative (Negative); Urine Clarity Sl. Cloudy (Clear); Urine Urobilinogen Normal (Normal); Urine pH 6.5 (5.0 - 8.0)
[2024-10-07 13:08] LABS: Bacteria 1+ /hpf (None Seen); Red Blood Cells-Urine 0-5 SEEN /hpf (0-5); White Blood Cells 50-100 SEEN /hpf (0-5)
[2024-10-07] MEDS: Ceftriaxone 1 GM/50 ML BAG IV (13:41)
[2024-10-08] VITALS: BP 132/65; PULSE 62; RESP 20
[2024-10-08 02:00] VITALS: BP 169/59; PULSE 66; RESP 22; O2SAT 95
== END 2024-10-08 02:54 | disposition short-term general hospital (02) ==
PROVIDERS: Nurse Practitioner; Emergency Provider Emergency Medicine; PCP Internal Medicine; Visit Provider Emergency Medicine
DX: G91.2 (Idiopathic) normal pressure hydrocephalus (principal); E11.9 Type 2 diabetes mellitus without complications; R41.82 Altered mental status, unspecified; N39.0 Urinary tract infection, site not specified; Z16.12 Extended spectrum beta lactamase (ESBL) resistance; B96.20 Unspecified Escherichia coli [E. coli] as the cause of diseases classified elsewhere; R53.1 Weakness; I10 Essential (primary) hypertension; I71.21 Aneurysm of the ascending aorta, without rupture; E78.5 Hyperlipidemia, unspecified; K21.9 Gastro-esophageal reflux disease without esophagitis; E87.1 Hypo-osmolality and hyponatremia; K58.9 Irritable bowel syndrome, unspecified; G25.0 Essential tremor; M15.9 Polyosteoarthritis, unspecified; M81.8 Other osteoporosis without current pathological fracture; N32.81 Overactive bladder; G89.29 Other chronic pain; Z88.1 Allergy status to other antibiotic agents; Z88.2 Allergy status to sulfonamides; Z85.3 Personal history of malignant neoplasm of breast; Z95.2 Presence of prosthetic heart valve; Z90.12 Acquired absence of left breast and nipple; Z90.49 Acquired absence of other specified parts of digestive tract; Z87.19 Personal history of other diseases of the digestive system; Z86.73 Personal history of transient ischemic attack (TIA), and cerebral infarction without residual deficits; Z79.82 Long term (current) use of aspirin; Z79.84 Long term (current) use of oral hypoglycemic drugs; Z79.899 Other long term (current) drug therapy
CPT/HCPCS: 70450; 71046; 80053; 81001; 84484; 85025; 87077; 87086; 87088; 87186; 87631; 93005; 96361; 96365; 99284; A4216

== ENCOUNTER 2024-10-23 14:38 | Observation (INO) | payer MEDICARE, BC, SELFPAY ==
[2024-10-23] VITALS (9 sets, daily range): BP systolic 124–147; BP diastolic 52–94; PULSE 58–64; RESP 12–18; TEMP 36.4–36.6; O2SAT 95–100; BMI 24.0; BMI 22.3
--- NOTE | 2024-10-23 14:53 | EKG12_ITS ---
Test Reason : Blood Pressure : */* mmHG Vent. Rate : 60 BPM Atrial Rate : 60 BPM P-R Int : 94 ms QRS Dur : 162 ms QT Int : 524 ms P-R-T Axes : -3 -31 132 degrees QTcB Int : 524 ms Atrial-paced rhythm Left axis deviation Left bundle branch block Abnormal ECG When compared with ECG of 07-Oct-2024 11:42, Electronic atrial pacemaker has replaced Sinus rhythm QT has lengthened Confirmed by Alejandro Hill ([id number]), editor continuity and script ZEESHAN HOANG ([id number]) on 10/25/2024 1:06:44 PM Referred By: Confirmed By: Alejandro Hill
--- NOTE | 2024-10-23 14:54 | EX.ED.DYSGE1 ---
HPI History of Present Illness Chief Complaint: Dizziness Narrative Narrative: 84-year-old female past medical history of porcine aortic valve replacement and pacemaker presents with near syncope when she was eating lunch today. She and her relate history that this has been happening quite frequently. Her symptoms usually resolve within 30 minutes. Today, she had eaten 2 slices of a small pizza and felt very lightheaded and near syncopal. She denies any prodromal symptoms such as chest pain or shortness of breath, no headache. She states she felt as if the room was going dark. She laid her head on the table, and her symptoms improved. She states she never lost consciousness. No recent fevers or chills, no nausea or vomiting or diarrhea. She states she has chronic problems with urination and recently finished a prescription for medications for multidrug-resistant E. coli for urinary tract infection. While she never passed out, currently she states she feels very weak and washed out. [facility] Medical History ESBL (extended spectrum beta-lactamase) producing bacteria infection Hyponatremia Osteoporosis Asthma Stroke/cerebrovascular accident Near syncope Gastritis Chronic pain Non-smoker Pacemaker Other osteoporosis without current pathological fracture Atrophic vaginitis Cervicalgia Overactive bladder Essential tremor Degeneration of lumbar or lumbosacral intervertebral disc Generalized osteoarthrosis, unspecified site Type 2 diabetes mellitus without complication, without long-term current use of insulin IBS (irritable bowel syndrome) Migraine with aura Essential hypertension PVC (premature ventricular contraction) PAC (premature atrial contraction) Diverticulitis large intestine Family history of colon cancer in father Type 2 diabetes mellitus Breast cancer Ascending aortic aneurysm Hypertension Diabetes Migraine GERD (gastroesophageal reflux disease) HTN (hypertension) Home Medications ?Medication ?Instructions ?Recorded ?Last Taken ?Type aspirin 81 mg chewable tablet 81 mg PO DAILY@0800 [facility] 10/03/17 06/23/24 History dicyclomine 10 mg capsule 10 mg PO 4X/DAY PRN Irritable 10/03/17 12/25/18 History Bowel Syndrome estradiol 0.01% (0.1 mg/gram) 1 dose vaginal LOVE PRN vaginal 10/03/17 06/19/24 History vaginal cream dryness magnesium oxide 400 mg (241.3 mg 400 mg PO DAILY SUPPLEMENT 10/03/17 06/23/24 History magnesium) tablet multivitamin with folic acid 400 1 tab PO DAILY SUPPLEMENT 10/03/17 06/23/24 History mcg tablet oxybutynin chloride 5 mg tablet 5 mg PO QHS BLADDER 10/03/17 06/22/24 History tramadol 50 mg tablet 50 mg PO Q4H PRN PRN Pain 10/03/17 03/07/19 History sotalol 120 mg tablet 120 mg PO BID HEART 12/25/18 06/23/24 History potassium chloride 20 mEq 20 tab PO DAILY POTASSIUM 01/19/19 06/23/24 History tablet,extended release(part/cryst) losartan 100 mg tablet 50 mg PO BID BP 03/11/19 06/23/24 History metformin 500 mg tablet,extended 500 mg PO BID DM 03/11/19 06/23/24 History release 24 hr pravastatin 10 mg tablet 10 mg PO QHS CHOLESTEROL 03/11/19 06/22/24 History calcium 500 mg (as 1 tab PO DAILY supplement 10/17/19 06/23/24 History carbonate)-vitamin D3 10 mcg (400 unit) tablet (Calcium 500 With D) meclizine 12.5 mg tablet 12.5 mg PO TID PRN dizziness or 03/23/23 Unknown History vertigo nateglinide 60 mg tablet 60 mg PO TID PRN HIGH BLOOD SUGAR 09/28/23 06/23/24 History Lactobacillus acidophilus 10 10,000 mmu cells PO DAILY 06/23/24 Unknown History billion cell capsule (Probiotic) ascorbic acid (vitamin C) 500 mg 1 g PO DAILY 06/23/24 Unknown History tablet (C-500) cranberry 500 mg capsule 500 mg PO DAILY 06/23/24 Unknown History omega-3 acid ethyl esters 1 gram 1 cap PO DAILY 06/23/24 06/23/24 History capsule propranolol 60 mg capsule,24 60 mg PO BID 06/23/24 06/23/24 History hr,extended release furosemide 20 mg tablet 20 mg PO DAILY 10/07/24 Unknown History Allergy/AdvReac Type Severity Reaction Status Date / Time procaine HCl (From Novocain) Allergy Anaphylaxis Verified 10/07/24 11:14 albuterol AdvReac Tachycardia Verified 10/07/24 11:14 cetirizine AdvReac Other Verified 10/07/24 11:14 codeine AdvReac Vomiting Verified 10/07/24 11:14 gabapentin AdvReac Mental Verified 10/07/24 11:14 Status Change/Fatigue hydrochlorothiazide AdvReac Other Verified 10/07/24 11:14 lisinopril AdvReac Cough Verified 10/07/24 11:14 morphine AdvReac Vomiting Verified 10/07/24 11:14 pregabalin AdvReac Other Verified 10/07/24 11:14 Sulfa (Sulfonamide AdvReac Other Verified 10/07/24 11:14 Antibiotics) Family History Mother Diabetes Ovarian cancer Father Cancer bladder thyroid Colon cancer Hypertension Surgical History S/P TAVR (transcatheter aortic valve replacement) H/O left mastectomy History of open heart surgery H/O elbow surgery Hx of appendectomy S/P CODIE (total abdominal hysterectomy) femoral hernia repair H/O aortic valve replacement Social History household members: spouse Smoking Status: Never smoker alcohol intake: never substance use type: does not use caffeine: No what type of physical activity do you participate in: walking seatbelt use: always do you feel safe at home: Yes additional social history: Don- Retired Patient is retired ROS ROS ED ROS Narrative Constitutional: No fever, no chills. Generalized weakness. HEENT: No sore throat. No neck pain. No loss of vision. No rhinorrhea. Cardiovascular: No chest pain. No palpitations. No pedal edema. Respiratory: No cough, no shortness of breath. Abdominal: No abdominal pain. No nausea. No vomiting. Genitourinary: No dysuria. No hematuria. Musculoskeletal: No myalgias. No arthralgias. Neurologic: No headaches. No dizziness. Positive lightheadedness and near syncope. Skin: No rash. No change in color. EXAM Physical Exam Narrative Exam Narrative: Afebrile. Vital signs noted. PERRL, EOMI. Moist mucous membranes. Nontoxic-appearing. Cardiovascular examination reveals a regular rate and rhythm. Lungs are clear to auscultation bilaterally. Abdomen is soft and nontender with normal active bowel sounds. Neurological examination shows her to be awake, alert, oriented x 3. Nonfocal, nonlateralizing. Const Vital Signs: 10/23/24 14:39 11/24/24 14:53 10/23/24 15:39 Temperature 97.6 F L Temperature Source Axillary Pulse Rate 60 Pulse Rate [Lying] 61 Pulse Rate [Sitting (for 1 minute prior to obtaining)] 64 Pulse Rate [Standing (for 1 minute prior to obtaining)] 61 Respiratory Rate 12 Blood Pressure 133/53 H Blood Pressure [Lying] 124/58 H Blood Pressure [Sitting (for 1 minute prior to obtaining)] 128/55 H Blood Pressure [Standing (for 1 minute prior to obtaining)] 136/52 H Blood Pressure Mean 79 Blood Pressure Mean [Lying] 80 Blood Pressure Mean [Sitting (for 1 minute prior to obtaining)] 79 Blood Pressure Mean [Standing (for 1 minute prior to obtaining)] 80 Pulse Ox 96 Oxygen Delivery Method Room Air 10/23/24 16:39 10/23/24 18:00 Temperature Temperature Source Pulse Rate 60 60 Pulse Rate [Lying] Pulse Rate [Sitting (for 1 minute prior to obtaining)] Pulse Rate [Standing (for 1 minute prior to obtaining)] Respiratory Rate 13 18 Blood Pressure 139/94 H 135/81 H Blood Pressure [Lying] Blood Pressure [Sitting (for 1 minute prior to obtaining)] Blood Pressure [Standing (for 1 minute prior to obtaining)] Blood Pressure Mean 109 99 Blood Pressure Mean [Lying] Blood Pressure Mean [Sitting (for 1 minute prior to obtaining)] Blood Pressure Mean [Standing (for 1 minute prior to obtaining)] Pulse Ox 95 100 Oxygen Delivery Method Room Air Room Air MDM MDM MDM Narrative Medical decision making narrative: Differential diagnosis includes but not limited to orthostatic hypotension versus dehydration versus other electrolyte abnormality versus dysrhythmia. I do not feel that she had more vertiginous type symptoms, and her symptoms had improved significantly upon arrival to the emergency department. She has a [employer] pacemaker which will be interrogated. Comprehensive workup was pursued including orthostatics. Chest x-ray will be obtained to rule out infectious process such as pneumonia. EKG obtained and interpreted by myself independently as an atrial paced rhythm at 60 bpm without ectopy or acute ST changes. No STEMI. I reviewed her laboratory work from today and hemoglobin 6.6 with hemoglobin 12.1, hematocrit 37.0, platelet count 244. Potassium is slightly low at 3.3 which I think is nonspecific, chloride elevated at 109 BUN of 19 and creatinine 0.77. Glucose elevated at 159 with normal anion gap of 7. LFTs are grossly unremarkable. Urinalysis obtained and is negative for infection. I do not feel antibiotics are indicated. Chest x-ray 1 view interpreted by myself independently shows no evidence of pneumonia or pneumothorax, no acute process. At approximately 4:15 PM, patient had a mechanical fall while in the bathroom. Her orthostatics have been reported as negative. She states she stood up from the toilet and went to use the sink and lost her balance and fell backwards. She hit the back of her head and sustained a skin avulsion. Initially her occipital wound was bandaged and CT of the brain was obtained to rule out skull fracture or intracranial hemorrhage. I reviewed the radiology report of the CT of the brain and there is no acute process. I also reviewed the report of the pacemaker report, and did not see any gross abnormalities. Repeat examination does show that she has a small hematoma underneath the skin avulsion. There is no active bleeding. At this point in time, patient was discussed with Dr. Geri Yuen for observation. In discussion with the patient and her , they are currently agreeable to observation as the patient had the fall in the bathroom. Disposition is assigned observation in the PCU. Patient is in stable condition. History & Record Review Discussion w/independent historian: Patient and Family Lab Data Attestation: I reviewed the patient's lab results. Labs: Laboratory Results - last 24 hr 10/23/24 10/23/24 15:13 16:20 WBC 6.6 RBC 3.85 L Hgb 12.1 Hct 37.0 MCV 96.1 MCH 31.4 MCHC 32.7 RDW Std Deviation 42.5 RDW Coeff of Celia 12.1 Plt Count 244 MPV 8.9 Immature Gran % (Auto) 0.500 Neut % (Auto) 68.2 Lymph % (Auto) 19.2 [place] % (Auto) 10.0 Eos % (Auto) 1.5 Baso % (Auto) 0.6 Absolute Neuts (auto) 4.5 Absolute Lymphs (auto) 1.27 Nucleated RBC % 0 Sodium 141 Potassium 3.3 L Chloride 109 H Carbon Dioxide 25.0 Anion Gap 7 BUN 19 H Creatinine 0.77 Estim Creat Clear Calc 39.92 Est GFR (MDRD) Af Amer 92 Est GFR (MDRD) Non-Af 76 BUN/Creatinine Ratio 24.8 H Glucose 159 H Calcium 8.1 L Total Bilirubin 0.40 AST 18 ALT 20 Alkaline Phosphatase 65 Total Protein 5.3 L Albumin 2.7 L Globulin 2.6 Albumin/Globulin Ratio 1.0 Urine Color Straw Urine Clarity Clear Urine pH 6.5 Ur Specific [place] 1.010 Urine Protein 15 H Urine Glucose (UA) Normal Urine Ketones Negative Urine Occult Blood 10 H Urine Nitrite Negative Urine Bilirubin Negative Urine Urobilinogen Normal Ur Leukocyte Esterase Negative Urine RBC 0 SEEN Urine WBC 0-5 SEEN Ur Squamous Epith Cells 0-5 SEEN Urine Bacteria 0 SEEN Hyaline Casts 0-5 SEEN Urine Mucus 0 SEEN Radiography Diagnostic Testing: Clinical Impression(s) from Imaging Studies Chest X-Ray 10/23/24 15:20 IMPRESSION: There are no acute findings. Electronically Signed: Chivo Hernandez MD at 16:43 EST , Brain CT 10/23/24 16:16 IMPRESSION: There are no acute findings. Chronic involutional changes of the brain. Electronically Signed: Chivo Hernandez MD at 17:17 EST , Management Discussion w/another healthcare provider: Hospitalist Discharge Plan Dx/Rx/DC Orders Clinical Impression: Near syncope, Fall, Scalp avulsion Disposition Disposition: Acute Care Hospital [facility]
--- NOTE | 2024-10-23 15:20 | RAD_ITS ---
STUDY: XR Chest 1 View 10/23/2024 3:20 PM REASON FOR EXAM: Female, 84 years old. Coronary artery disease COMPARISON: 10/07/2024 TECHNIQUE: XR Chest 1 View FINDINGS: There is no demonstrated pleural abnormality. There are multiple median sternotomy wires. There is a right sided pacemaker batterypack. tavr. Kyphoplasty changes. Normal heart size. Normal mediastinum. Normal era. Prominent appearing increased interstitial lung markings. Normal visualized pulmonary arteries. There is atherosclerotic calcification of the aortic arch with tortuosity. There are diffuse degenerative changes of the visualized thoracic spine. There is degenerative osteoarthritis of the bilateral shoulders. There are no acute findings of the upper abdomen. RAD/Chest 1 View (Portable) IMPRESSION: There are no acute findings. Electronically Signed: Chivo Hernandez MD at 16:43 EST ,
[2024-10-23 15:23] LABS: Absolute Lymphocyte Count 1.27 X10^3/uL (0.83-4.51); Absolute Neutrophil Count 4.5 X10^3/uL (2.0-7.7); Basophil# 0.04 X10^3/uL; Basophil% 0.6 % (0-1); Eosinophils% 1.5 % (0-5); Hemoglobin 12.1 g/dL (12.0-15.0); Lymphocyte # 1.27 X10^3/ul (0.83-4.51); Lymphocyte % 19.2 % (19-41); Mean Corp Hgb Conc 32.7 g/dL (32-36); Mean Corpuscular Hgb 31.4 pg (27.0-32.0); Mean Corpuscular Volume 96.1 fL (81-99); Mean Platelet Vol. 8.9 fl (6.2-12.0); Monocyte# 0.66 X10^3/uL; NRBC Flagged by Analyzer 0 % (0-5); Neutrophil # 4.52 X10^3/uL (2.7-7.7); Neutrophil % 68.2 % (47-70); Platelet Count 244 K/mm3 (150-450); RBC Distribution Width CV 12.1 % (11.6-14.6); RBC Distribution Width SD 42.5 fl (35.1-43.9); Red Blood Count 3.85 M/mm3 (4.2-5.4); White Blood Count 6.6 K/mm3 (4.4-11.0)
[2024-10-23 15:45] LABS: AST(SGOT) 18 U/L (15-37); Alanine Aminotransfer ALT/SGPT 20 U/L (13-56); Albumin, Serum 2.7 g/dL (3.2-5.0); Alkaline Phosphatase 65 U/L (45-117); Anion Gap 7 (5-15); BUN 19 mg/dL (7-18); BUN/Creat Ratio 24.8 RATIO (10-20); Calcium,Total 8.1 mg/dL (8.5-10.1); Chloride 109 mmol/L (98-107); Creatinine, Serum 0.77 mg/dL (0.55-1.02); EST Glomerular Filtration Rate 76 mL/min (>60); Est Glom Filt Rate - Afr Amer 92 mL/min (>60); Estimated Creatinine Clearance 39.92 ml/min; Globulin 2.6 g/dL (2.2-4.2); Glucose 159 mg/dL (74-106); Potassium 3.3 mmol/L (3.5-5.1); Protein, Total 5.3 g/dL (6.4-8.2); Sodium Level 141 mmol/L (136-145)
--- NOTE | 2024-10-23 16:16 | CT_ITS ---
STUDY: CT BRAIN WITHOUT CONTRAST REASON FOR EXAM: Female, 84 years old. Trauma Individualized dose optimization techniques were used for this CT. TECHNIQUE: Transaxial CT imaging of the brain was performed without administration of intravenous contrast material. COMPARISON: 10/07/2024 FINDINGS: There are calcifications around the carotid artery. These are noted in the cavernous carotid arteries. Normal calvarium. Normal soft tissues. Stable left frontal lobe calcifications. Stable right subdural calcifications. There is mild cerebral atrophy with widening of the extra-axial spaces and ventricular dilatation. There are areas of decreased attenuation within the white matter tracts of the supratentorial brain, consistent with microvascular disease changes. Normal basal ganglia and thalami. Normal brainstem. There is mild cerebellar atrophy. There is no intracranial hemorrhage. There are no findings of an acute ischemic infarction. Normal visualized paranasal sinuses. ASPECTS Score for Acute Strokes: 09/08 CT/Brain/Head without Contrast IMPRESSION: There are no acute findings. Chronic involutional changes of the brain. Electronically Signed: Chivo Hernandez MD at 17:17 EST ,
[2024-10-23 16:23] LABS: Bacteria 0 SEEN /hpf (None Seen); Mucous, Urine 0 SEEN /hpf (<or=2+); Red Blood Cells-Urine 0 SEEN /hpf (0-5)
[2024-10-23 16:25] LABS: Color, Urine Straw (Yellow); Glucose, Dipstick Normal (Normal); Ketone-Dipstick Negative (Negative); Leukocyte Esterase-Dipstick Negative /ul (Negative); Nitrite-Dipstick Negative (Negative); Occult Blood-Urine 10 /ul (Negative); Protein-Dipstick 15 mg/dl (Negative); Urine Bilirubin Dipstick Negative (Negative); Urine Clarity Clear (Clear); Urine Urobilinogen Normal (Normal); Urine pH 6.5 (5.0 - 8.0)
--- NOTE | 2024-10-23 16:26 | NURSING ---
This nurse brought patient to bathroom. Pt instructed by this RN to pull cord when done urinating, pt understood. Pt alert and oriented. This RN was waiting outside of bathroom for pt to be finished. This RN then heard a loud noise in bathroom. This RN opened the door and the pt was lying on the floor. Pt states that she hit her head on the wall. Pt denies LOC or blood thinner use. Pt states she just takes 81mg of aspirin. Pt has laceration to the back of the head. Dr. Lopez notified and at bedside. Pts head wrapped with gauze and junaid wrap. CT of the head ordered.
[2024-10-23 16:38] LABS: Hyaline Cast 0-5 SEEN /lpf (0-5); Squamous Epithelial Cells - UA 0-5 SEEN /hpf (5-10); White Blood Cells 0-5 SEEN /hpf (0-5)
--- NOTE | 2024-10-23 17:46 | ECHOD_ITS ---
Reason For Study: Presyncope Procedure This was a 2D Doppler, Color Flow transthoracic echocardiogram. The study was technically difficult. Exam performed portable in patient room. Left Ventricle Moderate concentric left ventricular hypertrophy. Normal LV size. The left ventricular ejection fraction is 65 %. Stage 2 diastolic dysfunction. Right Ventricle There is a pacemaker lead in the right ventricle. Atria The left atrium is mildly enlarged. Normal right atrium. Mitral Valve Mild mitral annular calcification. Mild (1+) mitral valve insufficiency. Tricuspid Valve Mild to moderate (1-2+) tricuspid valve insufficiency. Right ventricular systolic pressure estimated to be 48 mmHg. Aortic Valve Aortic stent bioprosthetic valve noted. Mild to moderate aortic valve regurgitation. Pulmonic Valve The pulmonic valve is not well visualized. Great Vessels The aortic root is not well visualized. Pericardium/Pleural No pericardial effusion. MMode/2D Measurements & Calculations LVIDd: 4.8 cm IVSd: 1.6 cm LVOT diam: 2.0 cm LVIDs: 3.5 cm LVPWd: 1.2 cm LVOT area: 3.0 cm2 RVDd: 3.2 cm FS: 28.2 % LA dimension: 4.2 cm LAV(MOD-bp): 54.3 ml LA A4 area: 22.5 cm2 LAV(MOD-bp) Indexed: 34.0 ml/m2 LAV(MOD-sp2): 37.4 ml LAV(MOD-sp4): 66.1 ml TAPSE: 1.7 cm RA A4 area: 18.5 cm2 Time Measurements MV dec time: 0.22 sec Doppler Measurements & Calculations MV E max thad: 81.7 cm/sec Lat Peak E' Thad: 9.6 cm/sec Med Peak E' Thad: 5.9 cm/sec MV A max thad: 100.1 cm/sec E/E' lat: 8.5 E/E' med: 13.8 MV E/A: 0.82 MV V2 max: 114.8 cm/sec MV P1/2t max thad: 97.6 cm/sec Ao V2 max: 153.5 cm/sec MV max P.3 mmHg MV P1/2t: 75.3 msec Ao max P.5 mmHg MV V2 mean: 56.2 cm/sec MV dec slope: 379.6 cm/sec2 Ao V2 mean: 102.0 cm/sec MV mean P.6 mmHg Ao mean P.8 mmHg MV V2 VTI: 36.2 cm MVA(P1/2t): 2.9 cm2 Ao V2 VTI: 32.8 cm MVA(VTI): 2.1 cm2 AV (velocity ratio): 0.78 FADY(I,D): 2.3 cm2 FADY(V,D): 1.9 cm2 AI max thad: 326.0 cm/sec LV V1 max: 99.3 cm/sec SV(LVOT): 76.0 ml AI max P.5 mmHg LV V1 max P.0 mmHg LV V1 mean P.3 mmHg AI dec slope: 197.4 cm/sec2 LV V1 mean: 71.1 cm/sec AI P1/2t: 483.6 msec LV V1 VTI: 25.4 cm PA V2 max: 100.6 cm/sec TR max thad: 329.0 cm/sec TR max P.3 mmHg ECHO/Echo Complete Interpretation Summary Moderate concentric left ventricular hypertrophy. The left ventricular ejection fraction is 65 %. Stage 2 diastolic dysfunction. The left atrium is mildly enlarged. Mild (1+) mitral valve insufficiency. Mild to moderate (1-2+) tricuspid valve insufficiency. Right ventricular systolic pressure estimated to be 48 mmHg. Aortic stent bioprosthetic valve noted. Mild to moderate aortic valve regurgita tion. The study was technically difficult. Ordering Physician: Geri Yuen Performed By: Jeffrey Welsh and Student
--- NOTE | 2024-10-23 17:47 | HP.PCM.HOS_ITS ---
HPI - General General Date of Admission: 10/23/24 Date of Service: 10/23/24 Chief Complaint: Presyncopal episode HPI Narrative TANISHA JULIAN, is a 84 F who presented to the emergency department at [facility] on 10/23/2024 after a presyncopal episode. Patient was out to dinner with her and ate a couple pieces of pizza and then after she ate felt lightheaded and woozy like there was a blackness that was narrowing in. Her indicates that she has been having episodes like this at home intermittently. He states it is probably having a couple times a week. She stated that when she felt like this today she put her head down and her symptoms resolved without any loss of consciousness. It does not sound like she has had a true syncopal episode but the seem to be presyncopal. She does have a pacemaker and follows at an outside hospital for cardiology. It sounds as if the pacemaker may be for sick sinus syndrome however she was unclear the exact etiology for requiring a pacemaker. She does have a history of atrial fibrillation and is on sotalol and propranolol. She is not anticoagulated. She did have an echocardiogram here done in 2022 at which time she was noted to have a normal EF of 55%, moderate concentric LVH, pulmonary systolic pressure 45 mmHg. She has a history of a TAVR which was performed in 2019. She does currently have a systolic murmur. Unfortunately, she got up to go to the bathroom here and had a mechanical fall. She stated she never lost consciousness but just stumbled backwards and fell backwards and hit her head. She does have a small laceration that did not not require closure and a goose egg present as well. CT of the brain was performed and unremarkable. Vital signs on presentation showed temperature of 97.6, heart rate 60 and paced, blood pressure was 133/53, respiratory rate is 12-18 and pulse ox is 96 to 100% on room air. Orthostatic vitals were done and were unremarkable. CBC is unremarkable. Chemistry panel shows mild hypokalemia potassium of 3.3. Liver functions normal. UA is not consistent with infection. Patient has had multiple recent UTIs that have been multidrug-resistant. She states her blood sugars have been running higher because of this. Current blood sugar on her lab is 159 and this is postprandial. EKG shows a paced rhythm with a left bundle branch block that is chronic with a prolonged QTc greater than [address]-T wave changes concerning for acute ischemia at this time however this would be difficult due to her chronic LBBB. Chest x-ray is unremarkable for acute findings. CT of the brain was performed after her fall and showed chronic involutional change of the brain with no acute findings. [facility] Medical History ESBL (extended spectrum beta-lactamase) producing bacteria infection Hyponatremia Osteoporosis Asthma Stroke/cerebrovascular accident Near syncope Gastritis Chronic pain Non-smoker Pacemaker Other osteoporosis without current pathological fracture Atrophic vaginitis Cervicalgia Overactive bladder Essential tremor Degeneration of lumbar or lumbosacral intervertebral disc Generalized osteoarthrosis, unspecified site Type 2 diabetes mellitus without complication, without long-term current use of insulin IBS (irritable bowel syndrome) Migraine with aura Essential hypertension PVC (premature ventricular contraction) PAC (premature atrial contraction) Diverticulitis large intestine Family history of colon cancer in father Type 2 diabetes mellitus Breast cancer Ascending aortic aneurysm Hypertension Diabetes Migraine GERD (gastroesophageal reflux disease) HTN (hypertension) Home Medications ?Medication ?Instructions ?Recorded ?Last Taken ?Type aspirin 81 mg chewable tablet 81 mg PO DAILY@0800 HEART HEALTH 10/03/17 06/23/24 History dicyclomine 10 mg capsule 10 mg PO 4X/DAY PRN Irritable 10/03/17 12/25/18 History Bowel Syndrome estradiol 0.01% (0.1 mg/gram) 1 dose vaginal LOVE PRN vaginal 10/03/17 06/19/24 History vaginal cream dryness magnesium oxide 400 mg (241.3 mg 400 mg PO DAILY SUPPLEMENT 10/03/17 06/23/24 History magnesium) tablet multivitamin with folic acid 400 1 tab PO DAILY SUPPLEMENT 10/03/17 06/23/24 History mcg tablet oxybutynin chloride 5 mg tablet 5 mg PO QHS BLADDER 10/03/17 06/22/24 History tramadol 50 mg tablet 50 mg PO Q4H PRN PRN Pain 10/03/17 03/07/19 History sotalol 120 mg tablet 120 mg PO BID HEART 12/25/18 06/23/24 History potassium chloride 20 mEq 20 tab PO DAILY POTASSIUM 01/19/19 06/23/24 History tablet,extended release(part/cryst) losartan 100 mg tablet 50 mg PO BID BP 03/11/19 06/23/24 History metformin 500 mg tablet,extended 500 mg PO BID DM 03/11/19 06/23/24 History release 24 hr pravastatin 10 mg tablet 10 mg PO QHS CHOLESTEROL 03/11/19 06/22/24 History calcium 500 mg (as 1 tab PO DAILY supplement 10/17/19 06/23/24 History carbonate)-vitamin D3 10 mcg (400 unit) tablet (Calcium 500 With D) meclizine 12.5 mg tablet 12.5 mg PO TID PRN dizziness or 03/23/23 Unknown History vertigo nateglinide 60 mg tablet 60 mg PO TID PRN HIGH BLOOD SUGAR 09/28/23 06/23/24 History Lactobacillus acidophilus 10 10,000 mmu cells PO DAILY 06/23/24 Unknown History billion cell capsule (Probiotic) ascorbic acid (vitamin C) 500 mg 1 g PO DAILY 06/23/24 Unknown History tablet (C-500) cranberry 500 mg capsule 500 mg PO DAILY 06/23/24 Unknown History omega-3 acid ethyl esters 1 gram 1 cap PO DAILY 06/23/24 06/23/24 History capsule propranolol 60 mg capsule,24 60 mg PO BID 06/23/24 06/23/24 History hr,extended release furosemide 20 mg tablet 20 mg PO DAILY 10/07/24 Unknown History Allergy/AdvReac Type Severity Reaction Status Date / Time procaine HCl (From Novocain) Allergy Anaphylaxis Verified 10/07/24 11:14 albuterol AdvReac Tachycardia Verified 10/07/24 11:14 cetirizine AdvReac Other Verified 10/07/24 11:14 codeine AdvReac Vomiting Verified 10/07/24 11:14 gabapentin AdvReac Mental Verified 10/07/24 11:14 Status Change/Fatigue hydrochlorothiazide AdvReac Other Verified 10/07/24 11:14 lisinopril AdvReac Cough Verified 10/07/24 11:14 morphine AdvReac Vomiting Verified 10/07/24 11:14 pregabalin AdvReac Other Verified 10/07/24 11:14 Sulfa (Sulfonamide AdvReac Other Verified 10/07/24 11:14 Antibiotics) Family History Mother Diabetes Ovarian cancer Father Cancer bladder thyroid Colon cancer Hypertension Surgical History S/P TAVR (transcatheter aortic valve replacement) H/O left mastectomy History of open heart surgery H/O elbow surgery Hx of appendectomy S/P CDOIE (total abdominal hysterectomy) femoral hernia repair H/O aortic valve replacement Social History household members: spouse Smoking Status: Never smoker alcohol intake: never substance use type: does not use caffeine: No what type of physical activity do you participate in: walking seatbelt use: always do you feel safe at home: Yes additional social history: Don- Retired Patient is retired ROS Constitutional Constitutional: Denies anorexia, change in weight, chills, fatigue, fever(s), malaise, night sweats, weakness or other Eyes Eyes: Denies blurry vision, change in eye color, change in vision, discharge from eye(s), double vision, erythema, eye pain, loss of vision or other ENT HEENT: Denies abnormal hearing, dysphagia, ear pain, epistaxis, headache(s), hearing loss, nasal congestion, nasal discharge, post nasal drip, sinus pressure, sore throat or other Cardiovascular Cardiovascular: Reports other Details: Presyncope Respiratory/Chest Respiratory/Chest: Denies cough, dyspnea, excessive phlegm production, hemoptysis, productive cough, shortness of breath at rest, shortness of breath with exertion, wheezing or other Gastrointestinal Gastrointestinal: Denies abdominal pain, coffee ground emesis, constipation, diarrhea, dyspepsia, hematemesis, hematochezia, loose stools, melena, nausea, vomiting or other Genitourinary Genitourinary: Denies burning urination, difficulty urinating, dysuria, hematuria, nocturia, urinary frequency, urinary hesitancy, urinary incontinence, urinary urgency or other Musculoskeletal Musculoskeletal: Denies arthralgias, back pain, joint pain, joint stiffness, joint swelling, myalgias, neck pain or other Neurologic Neurologic: Reports headache(s); Denies abnormal gait, abnormal speech, confusion, disequilibrium, dizziness, focal weakness, numbness, paresthesias, seizure-like activity, seizures, syncope, tingling, tremor(s) or other Psychiatric Psychiatric: Denies anxiety, depression, homicidal ideation, suicidal ideation or other Endocrine Endocrinology: Denies change in body appearance, cold intolerance, excessive sweating, heat intolerance, polydipsia, polyuria or other Hematologic/Lymphatic Hematologic/Lymphatic: Denies anemia, easy bleeding, easy bruising, lymphadenopathy or other Allergic/Immunologic Allergic/Immunologic: Denies rhinitis, hives, eczemia, asthma or other Vital Signs Vital Signs Vital Signs: 10/23/24 14:39 10/23/24 14:53 10/23/24 15:39 Temperature 97.6 F L Temperature Source Axillary Pulse Rate 60 Pulse Rate [Lying] 61 Pulse Rate [Sitting (for 1 minute prior to obtaining)] 64 Pulse Rate [Standing (for 1 minute prior to obtaining)] 61 Respiratory Rate 12 Blood Pressure 133/53 H Blood Pressure [Lying] 124/58 H Blood Pressure [Sitting (for 1 minute prior to obtaining)] 128/55 H Blood Pressure [Standing (for 1 minute prior to obtaining)] 136/52 H Blood Pressure Mean 79 Blood Pressure Mean [Lying] 80 Blood Pressure Mean [Sitting (for 1 minute prior to obtaining)] 79 Blood Pressure Mean [Standing (for 1 minute prior to obtaining)] 80 Pulse Ox 96 Oxygen Delivery Method Room Air 10/23/24 16:39 Temperature Temperature Source Pulse Rate 60 Pulse Rate [Lying] Pulse Rate [Sitting (for 1 minute prior to obtaining)] Pulse Rate [Standing (for 1 minute prior to obtaining)] Respiratory Rate 13 Blood Pressure 139/94 H Blood Pressure [Lying] Blood Pressure [Sitting (for 1 minute prior to obtaining)] Blood Pressure [Standing (for 1 minute prior to obtaining)] Blood Pressure Mean 109 Blood Pressure Mean [Lying] Blood Pressure Mean [Sitting (for 1 minute prior to obtaining)] Blood Pressure Mean [Standing (for 1 minute prior to obtaining)] Pulse Ox 95 Oxygen Delivery Method Room Air Weight Weight: 59.5 kg Body Mass Index (BMI) 24.0 Physical Exam Const alert, oriented x3, no apparent distress, average body habitus, healthy appearing and well nourished Constitutional Narrative: Elderly, white female, sitting up in bed, appears younger than stated age, nurses aide at the bedside cleaning of her head where she hit her on the floor, appears comfortable, nontoxic, at the bedside, mentating well General Appearance: cooperative HEENT normocephalic and moist oral mucous membranes; Negative for hearing grossly normal bilaterally HEENT Narrative: Mallampati 3, dentition is good for age, no thrush, mild hearing loss, scalp with small laceration on parietal occipital posteriorly with no significant bleeding at this time, area of edema noted about the size of a nickel Eyes PERRL and conjunctivae normal Eyes Narrative: No scleral icterus Neck no lymphadenopathy, supple and no carotid bruits Neck Narrative: Trachea midline, no thyroid enlargement Resp normal respiratory effort, no retractions, no use of accessory muscles and No clear to auscultation bilaterally Resp Narrative: Few crackles at bases bilaterally-scattered Auscultation: crackles; Negative for rhonchi or wheezes Cardio regular rate, regular rhythm, S1 normal heart sound, S2 normal heart sound, no rub, no gallops and no clicks; Negative for no murmurs Cardio Narrative: Rhythm is paced, 3 out of 6 systolic murmur GI normal to inspection, nondistended, normoactive bowel sounds, soft to palpation and non-tender Extremity no clubbing, cyanosis or edema Extremity Narrative: Radial and pedal pulses are 2+ bilaterally Neuro oriented x3, CN's II-XII intact bilaterally, moves all extremities and no focal motor deficits Speech: speech normal Psych affect normal Psych Narrative: Very pleasant, interacts appropriately Results Lab / Micro Data 10/23/24 15:13 10/23/24 15:13 Labs: Laboratory Results - last 24 hr 10/23/24 15:13: WBC 6.6, RBC 3.85 L, Hgb 12.1, Hct 37.0, MCV 96.1, MCH 31.4, MCHC 32.7, RDW Std Deviation 42.5, RDW Coeff of Celia 12.1, Plt Count 244, MPV 8.9, Immature Gran % (Auto) 0.500, Neut % (Auto) 68.2, Lymph % (Auto) 19.2, [place] % (Auto) 10.0, Eos % (Auto) 1.5, Baso % (Auto) 0.6, Absolute Neuts (auto) 4.5, Absolute Lymphs (auto) 1.27, Nucleated RBC % 0, Sodium 141, Potassium 3.3 L, C hloride 109 H, Carbon Dioxide 25.0, Anion Gap 7, BUN 19 H, Creatinine 0.77, Estim Creat Clear Calc 39.92, Est GFR (MDRD) Af Amer 92, Est GFR (MDRD) Non-Af 76, BUN/Creatinine Ratio 24.8 H, Glucose 159 H, Calcium 8.1 L, Total Bilirubin 0.40, AST 18, ALT 20, Alkaline Phosphatase 65, Total Protein 5.3 L, Albumin 2.7 L, Globulin 2.6, Albumin/Globulin Ratio 1.0 10/23/24 16:20: Urine Color Straw, Urine Clarity Clear, Urine pH 6.5, Ur Specific [place] 1.010, Urine Protein 15 H, Urine Glucose (UA) Normal, Urine Ketones Negative, Urine Occult Blood 10 H, Urine Nitrite Negative, Urine Bilirubin Negative, Urine Urobilinogen Normal, Ur Leukocyte Esterase Negative, Urine RBC 0 SEEN, Urine WBC 0-5 SEEN, Ur Squamous Epith Cells 0-5 SEEN, Urine Bacteria 0 SEEN, Hyaline Casts 0-5 SEEN, Urine Mucus 0 SEEN Imaging Radiology Impression Chest X-Ray 10/23/24 15:20 IMPRESSION: There are no acute findings. Electronically Signed: Chivo Hernandez MD at 16:43 EST , Brain CT 10/23/24 16:16 IMPRESSION: There are no acute findings. Chronic involutional changes of the brain. Electronically Signed: Chivo Hernandez MD at 17:17 EST , Assessment & Plan Assessment/Plan (1) Scalp avulsion: (2) Fall: (3) Near syncope: (4) Hypokalemia: PLAN: Plan Presyncopal episode -Patient says she has been having these at least 1-2 times a week for the last several months -Primary marketing systems analyst is unaware -Patient has chronic pacer for what I suspect to be sick sinus syndrome -Will interrogate pacer -Orthostatic vitals were unremarkable -Monitor on telemetry -Check echocardiogram -Cycle cardiac enzymes Mechanical fall with closed head injury and contusion/laceration -CT of the brain was unremarkable -Patient has superficial laceration with goose egg due to edema -Monitor clinically -PT/OT consultation Hypokalemia -P.o. potassium replacement with 40 mEq -Check a.m. magnesium and phosphorus level -Check repeat BMP in a.m. DM-2 -Hold home oral agents -Use SSI -Accu-Cheks as ordered Essential hypertension/hyperlipidemia/ascending aortic aneurysm -Continue home aspirin -Continue home Lasix -Continue home losartan -Continue home statin -Continue home propranolol Aortic valve disease -Status post TAVR in 2019 -Outpatient follow-up with primary marketing systems analyst after discharge -Echocardiogram in a.m. as worsening aortic valve disease could be responsible for intermittent presyncopal episodes History of atrial fibrillation -Currently has pacemaker -Suspect has history of sick sinus syndrome however exact etiology for pacer placement is unclear as patient is not sure -Patient is not anticoagulated at baseline and currently in a paced rhythm -Continue home propranolol -Continue home sotalol -QTc is slightly prolonged on EKG -Avoid other QT prolonging agents Overactive bladder -Continue home oxybutynin History of breast cancer -Status post left mastectomy DVT prophylaxis -Subcu enoxaparin 40 mg daily CODE STATUS -DNR CCA okay for short-term intubation but no long-term mechanical ventilation is desired Charges/Coding Visit Charges Inpatient E&M: 47064 Init Hosp L2
[2024-10-23] MEDS: Potassium Chloride Oral Tablet 20 MEQ 40 MEQ PO (20:17)
[2024-10-23] MEDS: Acetaminophen 325 MG Tablet 650 MG PO (20:17)
[2024-10-23] MEDS: 0.9% Saline Lock 10 ML Syringe IV (20:17)
[2024-10-23 21:22] LABS: Troponin-I HS 10 pg/mL (3.0-54.0)
[2024-10-23] MEDS: Pravastatin 20 MG Tablet 10 MG PO (22:04)
[2024-10-23] MEDS: Losartan Potassium 50 MG Tablet PO (22:12)
[2024-10-23] MEDS: Oxybutynin 5 MG Tablet PO (22:12)
[2024-10-23] MEDS: Sotalol Hydrochloride 80 MG Tablet 120 MG PO (22:13)
[2024-10-23] MEDS: Propranolol LA 60 MG Capsule PO (22:32)
[2024-10-23 22:40] LABS: Bedside Glucose 160 mg/dL (74-106)
[2024-10-23 23:28] LABS: Troponin-I HS 10 pg/mL (3.0-54.0)
[2024-10-24 02:35] VITALS: BP 118/53; PULSE 62; RESP 18; TEMP 36.7; O2SAT 93
[2024-10-24] MEDS: Acetaminophen 325 MG Tablet 650 MG PO (02:38)
[2024-10-24 03:55] LABS: Absolute Neutrophil Count 2.4 X10^3/uL (2.0-7.7); Basophil# 0.03 X10^3/uL; Basophil% 0.6 % (0-1); Eosinophil# 0.09 X10^3/uL; Eosinophils% 1.9 % (0-5); Hematocrit 31.2 % (37-47); Hemoglobin 10.6 g/dL (12.0-15.0); Lymphocyte % 33.8 % (19-41); Mean Corpuscular Hgb 31.5 pg (27.0-32.0); Mean Corpuscular Volume 92.6 fL (81-99); Monocyte# 0.63 X10^3/uL; Monocyte% 13.3 % (0-10); NRBC Flagged by Analyzer 0 % (0-5); Neutrophil # 2.37 X10^3/uL (2.7-7.7); Platelet Count 222 K/mm3 (150-450); RBC Distribution Width CV 12.1 % (11.6-14.6); Red Blood Count 3.37 M/mm3 (4.2-5.4); White Blood Count 4.7 K/mm3 (4.4-11.0)
[2024-10-24 04:16] LABS: Troponin-I HS 5 pg/mL (3.0-54.0)
[2024-10-24 04:25] LABS: AST(SGOT) 11 U/L (15-37); Alanine Aminotransfer ALT/SGPT 19 U/L (13-56); Albumin, Serum 2.7 g/dL (3.2-5.0); Alkaline Phosphatase 67 U/L (45-117); Anion Gap 6 (5-15); BUN 18 mg/dL (7-18); BUN/Creat Ratio 25.8 RATIO (10-20); Calcium,Total 8.6 mg/dL (8.5-10.1); Chloride 105 mmol/L (98-107); EST Glomerular Filtration Rate 85 mL/min (>60); Est Glom Filt Rate - Afr Amer 103 mL/min (>60); Estimated Creatinine Clearance 39.92 ml/min; Globulin 2.7 g/dL (2.2-4.2); Glucose 122 mg/dL (74-106); Magnesium 1.5 mg/dL (1.6-2.6); Phosphorus 2.7 mg/dL (2.5-4.9); Potassium 3.8 mmol/L (3.5-5.1); Protein, Total 5.4 g/dL (6.4-8.2); Sodium Level 138 mmol/L (136-145); Thyroid Stim Hormone (TSH) 0.816 uIU/mL (0.358-3.740)
[2024-10-24 06:25] VITALS: BP 133/53; PULSE 64; RESP 18; TEMP 36.6; O2SAT 92
[2024-10-24 06:47] LABS: Bedside Glucose 125 mg/dL (74-106)
[2024-10-24 09:30] VITALS: BP 114/54; BP 121/57; BP 129/71; PULSE 60; PULSE 61; PULSE 63
[2024-10-24] MEDS: Aspirin 81 MG TAB.CHEW PO (10:48)
[2024-10-24] MEDS: Sotalol Hydrochloride 80 MG Tablet 120 MG PO (10:48)
[2024-10-24] MEDS: Lactobacillis Acidophilus 1 CAP PO (10:48)
[2024-10-24] MEDS: Multivitamins,Therapeutic Tablet 1 TABLET PO (10:48)
[2024-10-24] MEDS: Calcium Carb/Vitamin D 1 TABLET Tablet PO (10:48)
[2024-10-24] MEDS: Losartan Potassium 50 MG Tablet PO (10:49)
[2024-10-24] MEDS: Furosemide 20 MG Tablet PO (10:49)
[2024-10-24] MEDS: Omega-3 Acid Ethyl Esters 1 GM Capsule PO (10:49)
[2024-10-24] MEDS: Propranolol LA 60 MG Capsule PO (10:49)
[2024-10-24] MEDS: Magnesium Chloride 64 MG Delay Rel.Tablet 128 MG PO (10:50)
[2024-10-24] MEDS: Enoxaparin 40 MG/0.4 ML Syringe SC (10:50)
[2024-10-24] MEDS: Ascorbic Acid 500 MG Tablet 1000 MG PO (10:50)
[2024-10-24 11:27] LABS: Bedside Glucose 191 mg/dL (74-106)
[2024-10-24 12:20] VITALS: BP 117/59; PULSE 58; RESP 16; TEMP 36.3; O2SAT 96
[2024-10-24] MEDS: Insulin Lispro 100 UNIT/ML INSULN.PEN SC (13:17)
--- NOTE | 2024-10-24 14:59 | DCINST_ITS ---
Discharge Instructions Diet Discharge Diet: Low fat / Low cholesterol DC O2, CPAP, BIPAP needs Additional Home O2 Discharge instructions: No Dressing / Incision Discharge Activity: Return to Normal Activity Dressing / Incision Call your doctor if you observe: Fever of 101 or Higher, Shortness of breath, Dizziness, Fainting spells, Swelling in the ankles, Chest pain and Increased palpitations (irregular heartbeat) Follow Up Care Test Results: Test results from this visit will be discussed in further detail at your follow- up appointment, if applicable. Discharge Plan Admission Admit Date/Time: 10/23/24 17:41 Attending Provider: Robert Martin Primary Care Provider: Terence Kaur Consulting Providers: Geri Yuen Discharge Orders/Prescriptions Prescriptions: Continued calcium carbonate-vitamin D3 [Calcium 500 With D] 500 mg(1,250mg) -400 unit tablet 1 tab PO DAILY meclizine 12.5 mg tablet 12.5 mg PO TID PRN (Reason: dizziness or vertigo) tramadol 50 MG tablet 50 mg PO Q4H PRN PRN (Reason: Pain) magnesium oxide 400 MG tablet 400 mg PO DAILY aspirin 81 MG tablet,chewable 81 mg PO DAILY@0800 estradiol 42.5 GM cream 1 dose VAGINAL LOVE PRN (Reason: vaginal dryness) oxybutynin chloride 5 MG tablet 5 mg PO QHS dicyclomine 10 MG capsule 10 mg PO 4X/DAY PRN (Reason: Irritable Bowel Syndrome) multivitamin with folic acid 1 TABLET tablet 1 tab PO DAILY sotalol 120 MG tablet 120 mg PO BID potassium chloride 20 MEQ tablet,ER particles/crystals 20 tab PO DAILY pravastatin 10 MG tablet 10 mg PO QHS losartan 100 MG tablet 50 mg PO BID metformin 500 MG tablet 500 mg PO BID nateglinide 60 mg tablet 60 mg PO TID PRN (Reason: HIGH BLOOD SUGAR ) Rx Instructions: give before meal(s) omega-3 acid ethyl esters 1 gram capsule 1 cap PO DAILY propranolol 60 mg capsule,extended release 24 hr 60 mg PO BID Probiotic 10 billion cell capsule 10,000 mmu cells PO DAILY ascorbic acid (vitamin C) [C-500] 500 mg tablet 1 g PO DAILY cranberry 500 mg capsule 500 mg PO DAILY Rx Instructions: administer with a meal furosemide 20 mg tablet 20 mg PO DAILY Referrals / Follow Up: Kaur,Terence, MD [Primary Care Provider] - Within 1 Week Disposition Disposition (needs filled in before D/C Order can be placed): Home, Self Care
--- NOTE | 2024-10-24 15:11 | PCM.DC.SUM ---
Providers Date of Admission: 10/23/24 Primary Care Physician: Dr. Terence Kaur MD Reason For Visit: PRESYNCOPE Diagnosis Discharge Diagnosis (1) Scalp avulsion: Status: Acute Code(s): S08.0XXA - Avulsion of scalp, initial encounter (2) Fall: Status: Acute Code(s): W19.XXXA - Unspecified fall, initial encounter (3) Near syncope: Status: Acute Code(s): R55 - Syncope and collapse (4) Hypokalemia: Status: Acute Code(s): E87.6 - Hypokalemia Medications at Discharge Home Medications aspirin 81 mg chewable tablet 81 mg PO DAILY@0800 HEART HEALTH 10/03/17 dicyclomine 10 mg capsule 10 mg PO 4X/DAY PRN Irritable Bowel Syndrome 10/03/17 estradiol 0.01% (0.1 mg/gram) vaginal cream 1 dose vaginal LOVE PRN vaginal dryness 10/03/17 magnesium oxide 400 mg (241.3 mg magnesium) tablet 400 mg PO DAILY SUPPLEMENT 10/03/17 multivitamin with folic acid 400 mcg tablet 1 tab PO DAILY SUPPLEMENT 10/03/17 oxybutynin chloride 5 mg tablet 5 mg PO QHS BLADDER 10/03/17 tramadol 50 mg tablet 50 mg PO Q4H PRN PRN Pain 10/03/17 sotalol 120 mg tablet 120 mg PO BID HEART 12/25/18 potassium chloride 20 mEq tablet,extended release(part/cryst) 20 tab PO DAILY POTASSIUM 01/19/19 losartan 100 mg tablet 50 mg PO BID BP 03/11/19 metformin 500 mg tablet,extended release 24 hr 500 mg PO BID DM 03/11/19 pravastatin 10 mg tablet 10 mg PO QHS CHOLESTEROL 03/11/19 calcium 500 mg (as carbonate)-vitamin D3 10 mcg (400 unit) tablet (Calcium 500 With D) 1 tab PO DAILY supplement 10/17/19 meclizine 12.5 mg tablet 12.5 mg PO TID PRN dizziness or vertigo 03/23/23 nateglinide 60 mg tablet 60 mg PO TID PRN HIGH BLOOD SUGAR 09/28/23 Lactobacillus acidophilus 10 billion cell capsule (Probiotic) 10,000 mmu cells PO DAILY supplement 06/23/24 ascorbic acid (vitamin C) 500 mg tablet (C-500) 1 g PO DAILY vitamin 06/23/24 cranberry 500 mg capsule 500 mg PO DAILY 06/23/24 omega-3 acid ethyl esters 1 gram capsule 1 cap PO DAILY supplement 06/23/24 propranolol 60 mg capsule,24 hr,extended release 60 mg PO BID blood pressure 06/23/24 furosemide 20 mg tablet 20 mg PO DAILY diuretic 10/07/24 Hospital Course Operations None Procedures 2-D Echocardiogram Summary of Care Provided Minutes Spent on Discharge: 33 Hospital Course: Per HPI: TANISHA JULIAN, is a 84 F who presented to the emergency department at [facility] on 10/23/2024 after a presyncopal episode. Patient was out to dinner with her and ate a couple pieces of pizza and then after she ate felt lightheaded and woozy like there was a blackness that was narrowing in. Her indicates that she has been having episodes like this at home intermittently. He states it is probably having a couple times a week. She stated that when she felt like this today she put her head down and her symptoms resolved without any loss of consciousness. It does not sound like she has had a true syncopal episode but the seem to be presyncopal. She does have a pacemaker and follows at an outside hospital for cardiology. It sounds as if the pacemaker may be for sick sinus syndrome however she was unclear the exact etiology for requiring a pacemaker. She does have a history of atrial fibrillation and is on sotalol and propranolol. She is not anticoagulated. She did have an echocardiogram here done in 2022 at which time she was noted to have a normal EF of 55%, moderate concentric LVH, pulmonary systolic pressure 45 mmHg. She has a history of a TAVR which was performed in 2019. She does currently have a systolic murmur. Unfortunately, she got up to go to the bathroom here and had a mechanical fall. She stated she never lost consciousness but just stumbled backwards and fell backwards and hit her head. She does have a small laceration that did not not require closure and a goose egg present as well. CT of the brain was performed and unremarkable. Vital signs on presentation showed temperature of 97.6, heart rate 60 and paced, blood pressure was 133/53, respiratory rate is 12-18 and pulse ox is 96 to 100% on room air. Orthostatic vitals were done and were unremarkable. CBC is unremarkable. Chemistry panel shows mild hypokalemia potassium of 3.3. Liver functions normal. UA is not consistent with infection. Patient has had multiple recent UTIs that have been multidrug-resistant. She states her blood sugars have been running higher because of this. Current blood sugar on her lab is 159 and this is postprandial. EKG shows a paced rhythm with a left bundle branch block that is chronic with a prolonged QTc greater than [address]-T wave changes concerning for acute ischemia at this time however this would be difficult due to her chronic LBBB. Chest x-ray is unremarkable for acute findings. CT of the brain was performed after her fall and showed chronic involutional change of the brain with no acute findings. Hospital Course: 1. Near syncope with mechanical fall and closed head injury with contusion laceration on the right side of her scalp posteriorly?84-year-old female who has intermittent episodes of near syncope 1-2 times a week presents to the hospital with her more severe episodes so far. She states that she was at lunch with a group of friends when she noticed that her vision started going black. She put her head down on the table and her and a friend who used to be a nurse called 911. She did not have a syncopal episode. Blood pressures seem to be close to normal and she says that at home whenever she has these episodes where she will be sitting in her chair and will get dizzy, her blood pressures will not be significantly lower than her normal ER. Orthostatic vital signs on admission and today were normal. No seizure activity and no signs of arrhythmia that she does have a pacemaker in place that was interrogated in the ER. She does have a history of A-fib but is not on anticoagulation. Echo today is consistent with her previous echo with an EF of 65% stage II diastolic dysfunction and RVSP of 48 mmHg. She does have a bioprosthetic aortic stent in place with mild to moderate regurgitation. She does see a ui software developer down in [facility] and so I recommended to her and her that they call for an appointment, may need to have further evaluation of the pacemaker versus further testing for an arrhythmia or other etiologies of medication adjustment. I discussed with her and her the plan for discharge today they both expressed understanding of the risk benefits going home and would like to go home today. No changes were made to her medications. Of note on admission CT of the brain was negative for bleed. 2. Essential hypertension, hyperlipidemia, ascending aortic aneurysm, aortic valve disease status post TAVR, history of atrial fibrillation, overactive bladder, history of breast cancer, type 2 diabetes are all chronic medical conditions complicate her care. Her home medications were continued where appropriate Physical Exam Narrative General: Alert, Oriented x3, Cooperative, No apparent distress HEENT: Atraumatic, PERRLA, EOMI, Normocephalic, posterior occipital contusion on the right Oral: Moist Mucosa Neck: Supple, No JVD Lungs: Clear to auscultation, Normal air movement, No rhonchi, No wheeze, No rales Cardiovascular: Regular rate, Regular Rhythm, Normal S1, Normal S2, No murmurs Abdomen: Soft, Non Tender, Non-Distended, No Hepato-splenomegaly Extremities: No edema, Capillary Refill Less than 3 Seconds Skin: No rashes, No breakdown Musculoskeletal: No Tenderness to Palpation of Joints or Extremities Neurological: No focal neurological deficits, Motor Exam 5/5 strength throughout, Sensory exam intact to light touch and pain Psych/Mental Status: Normal Affect, Appropriate Weight / BMI Weight Weight: 121 lb 15.99 oz Body Mass Index (BMI) 22.3 ABG / Lab / Microbiology Data 10/24/24 03:35 10/24/24 03:35 Laboratory: Laboratory Results - last 24 hr 10/23/24 15:13: WBC 6.6, RBC 3.85 L, Hgb 12.1, Hct 37.0, MCV 96.1, MCH 31.4, MCHC 32.7, RDW Std Deviation 42.5, RDW Coeff of Celia 12.1, Plt Count 244, MPV 8.9, Immature Gran % (Auto) 0.500, Neut % (Auto) 68.2, Lymph % (Auto) 19.2, Gage % (Auto) 10.0, Eos % (Auto) 1.5, Baso % (Auto) 0.6, Absolute Neuts (auto) 4.5, Absolute Lymphs (auto) 1.27, Nucleated RBC % 0, Sodium 141, Potassium 3.3 L, Chloride 109 H, Carbon Dioxide 25.0, Anion Gap 7, BUN 19 H, Creatinine 0.77, Estim Creat Clear Calc 39.92, Est GFR (MDRD) Af Amer 92, Est GFR (MDRD) Non-Af 76, BUN/Creatinine Ratio 24.8 H, Glucose 159 H, Calcium 8.1 L, Total Bilirubin 0.40, AST 18, ALT 20, Alkaline Phosphatase 65, Total Protein 5.3 L, Albumin 2.7 L, Globulin 2.6, Albumin/Globulin Ratio 1.0 10/23/24 16:20: Urine Color Straw, Urine Clarity Clear, Urine pH 6.5, Ur Specific Muncy 1.010, Urine Protein 15 H, Urine Glucose (UA) Normal, Urine Ketones Negative, Urine Occult Blood 10 H, Urine Nitrite Negative, Urine Bilirubin Negative, Urine Urobilinogen Normal, Ur Leukocyte Esterase Negative, Urine RBC 0 SEEN, Urine WBC 0-5 SEEN, Ur Squamous Epith Cells 0-5 SEEN, Urine Bacteria 0 SEEN, Hyaline Casts 0-5 SEEN, Urine Mucus 0 SEEN 10/23/24 21:00: Troponin I High Sens 10 10/23/24 22:03: POC Glucose 160 H 10/23/24 23:03: Troponin I High Sens 10 10/24/24 03:35: WBC 4.7, RBC 3.37 L, Hgb 10.6 L, Hct 31.2 L, MCV 92.6, MCH 31.5, MCHC 34.0, RDW Std Deviation 41.0, RDW Coeff of Celia 12.1, Plt Count 222, MPV 9.0, Immature Gran % (Auto) 0.400, Neut % (Auto) 50.0, Lymph % (Auto) 33.8, Gage % (Auto) 13.3 H, Eos % (Auto) 1.9, Baso % (Auto) 0.6, Absolute Neuts (auto) 2.4, Absolute Lymphs (auto) 1.60, Nucleated RBC % 0, Sodium 138, Potassium 3.8, Chloride 105, Carbon Dioxide 26.0, Anion Gap 6, BUN 18, Creatinine 0.70, Estim Creat Clear Calc 39.92, Est GFR (MDRD) Af Amer 103, Est GFR (MDRD) Non-Af 85, BUN/Creatinine Ratio 25.8 H, Glucose 122 H, Calcium 8.6, Phosphorus 2.7, Magnesium 1.5 L, Total Bilirubin 0.50, AST 11 L, ALT 19, Alkaline Phosphatase 67, Troponin I High Sens 5, Total Protein 5.4 L, Albumin 2.7 L, Globulin 2.7, Albumin/Globulin Ratio 1.0, TSH 0.816 10/24/24 06:28: POC Glucose 125 H 10/24/24 11:05: POC Glucose 191 H Radiography Diagnostic Testing: Radiology Impression Chest X-Ray 10/23/24 15:20 IMPRESSION: There are no acute findings. Electronically Signed: Chivo Hernandez MD at 16:43 EST , Brain CT 10/23/24 16:16 IMPRESSION: There are no acute findings. Chronic involutional changes of the brain. Electronically Signed: Chivo Hernandez MD at 17:17 EST , Echocardiogram 10/23/24 17:46 Interpretation Summary Moderate concentric left ventricular hypertrophy. The left ventricular ejection fraction is 65 %. Stage 2 diastolic dysfunction. The left atrium is mildly enlarged. Mild (1+) mitral valve insufficiency. Mild to moderate (1-2+) tricuspid valve insufficiency. Right ventricular systolic pressure estimated to be 48 mmHg. Aortic stent bioprosthetic valve noted. Mild to moderate aortic valve regurgitation. The study was technically difficult. Ordering Physician: Geri Yuen Performed By: Jeffrey Welsh and Student D/C Instructions Discharge Diet: Low fat / Low cholesterol Call your doctor if you observe: Fever of 101 or Higher, Shortness of breath, Dizziness, Fainting spells, Swelling in the ankles, Chest pain and Increased palpitations (irregular heartbeat) DC O2, CPAP, BIPAP Needs Additional Home O2 Discharge instructions: No DC home with Oxygen: No Meaningful Use Info Meaningful Use Meaningful Use Diagnoses (Choose all that apply): None applicable Ischemic Stroke Statin Dosing Therapy Reference: STATIN DOSE THERAPY REFERENCE: * Patients > 75 years receive moderate or high dose statin therapy. * Patients 75 years or YOUNGER should receive HIGH intensity statin dose unless contraindicated. You will be required to document reason for non-treatment if statin daily dose does not meet guidelines. HIGH DOSE STATIN THERAPY DAILY Atorvastatin > than or = to 40 mg Rosuvastatin > than or = to 20 mg Amlodipine + Atorvastatin > than or = to 2.5/40 mg Ezetimibe + Simvastatin 10/80 mg Simvastatin 80mg Discharge Plan Admission Admit Date/Time: 10/23/24 17:41 Attending Provider: Robert Martin Primary Care Provider: Terence Kaur Consulting Providers: Geri Yuen Discharge Orders/Prescriptions Prescriptions: Continued calcium carbonate-vitamin D3 [Calcium 500 With D] 500 mg(1,250mg) -400 unit tablet 1 tab PO DAILY meclizine 12.5 mg tablet 12.5 mg PO TID PRN (Reason: dizziness or vertigo) tramadol 50 MG tablet 50 mg PO Q4H PRN PRN (Reason: Pain) magnesium oxide 400 MG tablet 400 mg PO DAILY aspirin 81 MG tablet,chewable 81 mg PO DAILY@0800 estradiol 42.5 GM cream 1 dose VAGINAL LOVE PRN (Reason: vaginal dryness) oxybutynin chloride 5 MG tablet 5 mg PO QHS dicyclomine 10 MG capsule 10 mg PO 4X/DAY PRN (Reason: Irritable Bowel Syndrome) multivitamin with folic acid 1 TABLET tablet 1 tab PO DAILY sotalol 120 MG tablet 120 mg PO BID potassium chloride 20 MEQ tablet,ER particles/crystals 20 tab PO DAILY pravastatin 10 MG tablet 10 mg PO QHS losartan 100 MG tablet 50 mg PO BID metformin 500 MG tablet 500 mg PO BID nateglinide 60 mg tablet 60 mg PO TID PRN (Reason: HIGH BLOOD SUGAR ) Rx Instructions: give before meal(s) omega-3 acid ethyl esters 1 gram capsule 1 cap PO DAILY propranolol 60 mg capsule,extended release 24 hr 60 mg PO BID Probiotic 10 billion cell capsule 10,000 mmu cells PO DAILY ascorbic acid (vitamin C) [C-500] 500 mg tablet 1 g PO DAILY cranberry 500 mg capsule 500 mg PO DAILY Rx Instructions: administer with a meal furosemide 20 mg tablet 20 mg PO DAILY Referrals / Follow Up: Terence Kaur MD [Primary Care Provider] - Within 1 Week Disposition Disposition (needs filled in before D/C Order can be placed): Home, Self Care Charges/Coding Visit Charges Inpatient E&M: 87812 Disch Hosp >30min
[2024-10-24 15:53] VITALS: BP 101/58; PULSE 61; RESP 18; TEMP 36.6; O2SAT 97
--- NOTE | 2024-10-24 15:53 | CHAPLAIN ---
Type of Pastoral Visit _x__ Initial Visit ___ Follow-up Visit ___ On-call Visit ___ General Patient Visit ___ Spiritual Assessment ___ Family Conference ___ Bereavement ___ Rapid Response ___ Code Blue ___ Other (describe below) Pastoral Care Referral From _x__ Patient ___ Family ___ Nurse ___ Physician ___ Loan Representative ___ Transportation Associate ___ Other (describe below) Sacrament/Intervention _x__ Active listening ___ Anointing ___ Druze ___ Bereavement ___ Communion ___ Amee exploration ___ _x__ Life review ___ Prayer ___ Reconciliation ___ Sacrament of Sick _x__ Supportive presence ___ Wedding ___ Other (describe below) Pastoral Comments patient gives a detailed understanding of her heart health issues over the years; pt believes that her tests have come back with good results; spouse of pt comes into the room at this time and joins in the conversation with more details and explanations; both speak of what might happen now for Thanksgiving and that becomes a topic of conversation;
[2024-10-24 16:07] LABS: Bedside Glucose 141 mg/dL (74-106)
--- NOTE | 2024-10-24 16:13 | CASEMGMT ---
Discharge Planning HH resumption referral sent to [facility]. Citlali Teixeira DC Planning Asst.
--- NOTE | 2024-10-24 16:19 | CASEMGMT ---
Addendum entered by Leah Romero 10/24/24 16:23: Patient has no further questions or conerns. Discharge planning supervisor to update [facility] of discharge. Original Note: Patient has order for discharge. RN CM in to discuss needs at discharge, at bedside. Patient is active with [facility]. Patient plan is to return home with resumption of HHC with [facility]. Patient and denied further needs or help at discharge.
== END 2024-10-24 15:09 | disposition home health service (06) ==
LOC: ED 18:12 → PCU 18:24
PROVIDERS: Admitting Provider Internal Medicine; Emergency Provider Emergency Medicine; PCP Internal Medicine; Visit Provider Family Medicine
DX: R55 Syncope and collapse (principal); E11.9 Type 2 diabetes mellitus without complications; E87.6 Hypokalemia; R42 Dizziness and giddiness; I08.1 Rheumatic disorders of both mitral and tricuspid valves; I71.21 Aneurysm of the ascending aorta, without rupture; I44.7 Left bundle-branch block, unspecified; W01.198A Fall on same level from slipping, tripping and stumbling with subsequent striking against other object, initial encounter; S08.0XXA Avulsion of scalp, initial encounter; Z79.84 Long term (current) use of oral hypoglycemic drugs; G89.29 Other chronic pain; Z95.0 Presence of cardiac pacemaker; E78.5 Hyperlipidemia, unspecified; I10 Essential (primary) hypertension; Z79.82 Long term (current) use of aspirin; Z95.3 Presence of xenogenic heart valve; J45.909 Unspecified asthma, uncomplicated; I36.1 Nonrheumatic tricuspid (valve) insufficiency; Y93.89 Activity, other specified; Y92.238 Other place in hospital as the place of occurrence of the external cause; Z79.899 Other long term (current) drug therapy
CPT/HCPCS: 36415; 70450; 71045; 80053; 81001; 82962; 83735; 84100; 84443; 84484; 85025; 93005; 93288; 93306; 94668; 96372; 97162; 97166; 97802; 99221; 99285; A4216; G0378

== ENCOUNTER 2025-01-17 09:44 | Emergency (ER) | payer MEDICARE, BC, SELFPAY ==
[2025-01-17 09:46] VITALS: BP 222/95; PULSE 61; RESP 18; TEMP 36.9; O2SAT 99; BMI 21.5
--- NOTE | 2025-01-17 10:03 | EX.ED.DYSGE1 ---
HPI History of Present Illness Chief Complaint: Hypertension Informant: patient and spouse/S.O. Onset/Context/Timing Onset: Days Context: Gradual Onset Timing: Intermittent Current Severity: Mild Maximum Severity: Mild Narrative Narrative: 84-year-old female history of stroke, descending aneurysm, hypertension, diabetes, breast cancer and A-fib. States that she has had left lower jaw discomfort think she has a bad tooth. Was post to go see her dentist today. Blood pressure has been elevated in spite of her taking her blood pressure medication losartan once daily she typically takes in the morning already took it today. She came in the emergency department. Denies any chest or abdominal pain. Prior similar symptoms: Yes Recent Illness/Hospitalization: No [facility] Medical History ESBL (extended spectrum beta-lactamase) producing bacteria infection Hyponatremia Osteoporosis Asthma Stroke/cerebrovascular accident Near syncope Gastritis Chronic pain Non-smoker Pacemaker Other osteoporosis without current pathological fracture Atrophic vaginitis Cervicalgia Overactive bladder Essential tremor Degeneration of lumbar or lumbosacral intervertebral disc Generalized osteoarthrosis, unspecified site Type 2 diabetes mellitus without complication, without long-term current use of insulin IBS (irritable bowel syndrome) Migraine with aura Essential hypertension PVC (premature ventricular contraction) PAC (premature atrial contraction) Diverticulitis large intestine Family history of colon cancer in father Type 2 diabetes mellitus Breast cancer Ascending aortic aneurysm Hypertension Diabetes Migraine GERD (gastroesophageal reflux disease) HTN (hypertension) Home Medications ?Medication ?Instructions ?Recorded ?Last Taken ?Type aspirin 81 mg chewable tablet 81 mg PO DAILY@0800 HEART HEALTH 10/03/17 06/23/24 History dicyclomine 10 mg capsule 10 mg PO 4X/DAY PRN Irritable 10/03/17 12/25/18 History Bowel Syndrome estradiol 0.01% (0.1 mg/gram) 1 dose vaginal LOVE PRN vaginal 10/03/17 06/19/24 History vaginal cream dryness magnesium oxide 400 mg (241.3 mg 400 mg PO DAILY SUPPLEMENT 10/03/17 06/23/24 History magnesium) tablet multivitamin with folic acid 400 1 tab PO DAILY SUPPLEMENT 10/03/17 06/23/24 History mcg tablet oxybutynin chloride 5 mg tablet 5 mg PO QHS BLADDER 10/03/17 06/22/24 History tramadol 50 mg tablet 50 mg PO Q4H PRN PRN Pain 10/03/17 03/07/19 History sotalol 120 mg tablet 120 mg PO BID HEART 12/25/18 06/23/24 History potassium chloride 20 mEq 20 tab PO DAILY POTASSIUM 01/19/19 06/23/24 History tablet,extended release(part/cryst) losartan 100 mg tablet 50 mg PO BID BP 03/11/19 06/23/24 History metformin 500 mg tablet,extended 500 mg PO BID DM 03/11/19 06/23/24 History release 24 hr pravastatin 10 mg tablet 10 mg PO QHS CHOLESTEROL 03/11/19 06/22/24 History calcium 500 mg (as 1 tab PO DAILY supplement 10/17/19 06/23/24 History carbonate)-vitamin D3 10 mcg (400 unit) tablet (Calcium 500 With D) meclizine 12.5 mg tablet 12.5 mg PO TID PRN dizziness or 03/23/23 Unknown History vertigo nateglinide 60 mg tablet 60 mg PO TID PRN HIGH BLOOD SUGAR 09/28/23 06/23/24 History Lactobacillus acidophilus 10 10,000 mmu cells PO DAILY 06/23/24 Unknown History billion cell capsule (Probiotic) supplement ascorbic acid (vitamin C) 500 mg 1 g PO DAILY vitamin 06/23/24 Unknown History tablet (C-500) cranberry 500 mg capsule 500 mg PO DAILY 06/23/24 Unknown History omega-3 acid ethyl esters 1 gram 1 cap PO DAILY supplement 06/23/24 06/23/24 History capsule propranolol 60 mg capsule,24 60 mg PO BID blood pressure 06/23/24 06/23/24 History hr,extended release furosemide 20 mg tablet 20 mg PO DAILY diuretic 10/07/24 Unknown History penicillin V potassium 500 mg 500 mg PO 4X/DAY #40 tabs 01/17/25 Unknown Rx tablet Allergy/AdvReac Type Severity Reaction Status Date / Time procaine HCl (From Novocain) Allergy Anaphylaxis Verified 01/17/25 09:45 albuterol AdvReac Tachycardia Verified 01/17/25 09:45 cetirizine AdvReac Other Verified 01/17/25 09:45 codeine AdvReac Vomiting Verified 01/17/25 09:45 gabapentin AdvReac Mental Verified 01/17/25 09:45 Status Change/Fatigue hydrochlorothiazide AdvReac Other Verified 01/17/25 09:45 lisinopril AdvReac Cough Verified 01/17/25 09:45 morphine AdvReac Vomiting Verified 01/17/25 09:45 pregabalin AdvReac Other Verified 01/17/25 09:45 Sulfa (Sulfonamide AdvReac Other Verified 01/17/25 09:45 Antibiotics) Family History Mother Diabetes Ovarian cancer Father Cancer bladder thyroid Colon cancer Hypertension Surgical History S/P TAVR (transcatheter aortic valve replacement) H/O left mastectomy History of open heart surgery H/O elbow surgery Hx of appendectomy S/P CODIE (total abdominal hysterectomy) femoral hernia repair H/O aortic valve replacement Social History household members: spouse Smoking Status: Never smoker alcohol intake: never substance use type: does not use caffeine: No what type of physical activity do you participate in: walking seatbelt use: always do you feel safe at home: Yes additional social history: Don- Retired Patient is retired ROS ROS ED ROS Narrative Left lower dental and jaw pain. No headache. No chest pain. No recent illness. Constitutional Constitutional ED: Denies fever(s) Eyes Eyes: Denies blurry vision ENT ENT ED: Denies ear pain Cardiovascular Cardiovascular: Denies chest pain Respiratory/Chest Respiratory/Chest: Denies cough or dyspnea Genitourinary Genitourinary ED: Denies dysuria or hematuria Musculoskeletal Musculoskeletal: Denies arthralgias Integumentary Denies abscess Neurologic Neurologic: Denies headache(s) Psychiatric Psychiatric: Denies anxiety Endocrine Endocrinology: Denies cold intolerance Hematologic/Lymphatic Hematologic/Lymphatic: Reports none Allergic/Immunologic Allergic/Immunologic ED: Denies mouth swelling, tongue swelling or urticaria EXAM Physical Exam Narrative Exam Narrative: Well-appearing 84-year-old female. Sitting upright in bed. at bedside. Vital signs are stable and her blood pressure of 222/95 when I am in the room it is 205/72. Patient does not look septic or toxic. She is in no acute distress. Normal speech. No facial droop. H EENT exam pupils round react light. Left lower jaw last molar tender to palpation. No gingival swelling. No abscess. No trismus. Able to easily open close her mouth. She has tenderness along that tooth. Neck nontender. No lymphadenopathy. No JVD. Lungs clear to auscultation bilaterally. Heart regular rate about 60. She is a 5/6 systolic ejection murmur. She does have a known pig valve. No chest wall tenderness. Well-healed sternotomy. Abdomen soft nontender. No peritoneal signs. Moving all 4 extremities. Nontender no edema. Normal strength. Neurologically she is awake and alert. Answering questions following commands. No focal motor deficits. Const Vital Signs: 01/17/25 09:46 01/17/25 10:00 01/17/25 10:07 Temperature 98.4 F Temperature Source Oral Pulse Rate 61 60 Respiratory Rate 18 15 Respiratory Effort Normal Non-Labored Blood Pressure 222/95 H 202/77 H Blood Pressure Mean 137 118 Pulse Ox 99 94 Oxygen Delivery Method Room Air 01/17/25 10:50 Temperature Temperature Source Pulse Rate Respiratory Rate Respiratory Effort Blood Pressure 198/78 H Blood Pressure Mean 118 Pulse Ox Oxygen Delivery Method Positive well nourished and well developed; Negative for obese, cachectic, contractures or unkempt General Appearance ED: well developed and NAD; Negative for unkempt, cachectic, contractures, cyanotic, diaphoretic or pallor Nutritional Appearance: Negative for cachectic or obese HEENT Reports moist mucous membranes HEENT Narrative: Left lower molar tenderness. No gingivitis. No abscess. No trismus. tenderness; Negative for trauma Eyes PERRL and EOMs intact bilaterally General Eye ED: Negative for pale conjunctiva or scleral icterus Neck no lymphadenopathy, supple and no JVD General: Negative for tenderness Chest Wall inspection of chest normal and palpation of chest normal Resp normal respiratory effort and clear to auscultation bilaterally Cardio regular rate, regular rhythm, S1 normal heart sound and S2 normal heart sound; Negative for no murmurs Rate: other Other Details: 5/6 systolic ejection murmur. GI normal to inspection, nondistended, normoactive bowel sounds, non-tender, non-distended and no masses Auscultation: normoactive bowel sounds Palpation: soft; Negative for tender, guarding, mass or rebound tenderness present Back/Spine no CVA tenderness Extremity normal to inspection General Extremety ED: Negative for edema or tenderness General Extremity: Negative for edema Neuro oriented x3 and CN's II-XII intact bilaterally Sensorium / Orientation: alert Motor Exam: strength 5/5 throughout Psych mental status grossly normal Appearance: Negative for unkempt Attitude: No agitated Mood & Affect: Negative for depressed, anxious or tearful Skin no rashes or lesions noted and no wounds General Skin Exam: Negative for jaundice or pallor Lesions: No lesion noted Rashes: No rashes noted Trauma: Negative for abrasion Wounds: Negative for wounds noted MDM MDM MDM Narrative Medical decision making narrative: 84-year-old female left lower jaw dental infection. Will be given a dose of penicillin here and placed on Pen-Vee K 4 times a day. She has an upcoming dentist appointment she did not go to today which she will follow-up. She is acute on chronic hypertension may be secondary to the pain. She will be given a dose of Lopressor here. I will check a chemistry panel just to evaluate her kidney function. Her last labs were in September that are on our system and her kidney function was good at that time. Patient doing well at 12:05 PM. Blood pressures improved. She is comfortably discharged home. I think this is primarily secondary to her dental infection. Cauterant Pen-Vee K. She was given a dose here. She also be given an Ultram prior to discharge. She takes at home. Her and her are comfortable with the plan. She will follow-up with her dentist. History & Record Review Discussion w/independent historian: Patient Additional record(s) reviewed:: Prior inpatient record, Prior outpatient record, Prior ED visit and Prior labs Lab Data Attestation: I reviewed the patient's lab results. Lab results narrative: BMP shows sodium 132. Gap 7. Normal BUN 15 creatinine 0.72. Glucose 188. Labs: Laboratory Results - last 24 hr 01/17/25 10:25 Sodium 132 L Potassium 3.6 Chloride 97 L Carbon Dioxide 28.0 Anion Gap 7 BUN 15 Creatinine 0.72 Estim Creat Clear Calc 39.92 Est GFR (MDRD) Af Amer 98 Est GFR (MDRD) Non-Af 81 BUN/Creatinine Ratio 20.7 H Glucose 188 H Calcium 9.2 Discharge Plan Triage Chief Complaint: Hypertension ED Provider: [place] Baez Dx/Rx/DC Orders Clinical Impression: Dental infection, Hypertension Instructions: ED Hypertension, Established, ED Tooth Abscess Prescriptions: New penicillin V potassium 500 mg tablet 500 mg PO 4X/DAY Qty: 40 0RF No Action calcium carbonate-vitamin D3 [Calcium 500 With D] 500 mg(1,250mg) -400 unit tablet 1 tab PO DAILY meclizine 12.5 mg tablet 12.5 mg PO TID PRN (Reason: dizziness or vertigo) tramadol 50 MG tablet 50 mg PO Q4H PRN PRN (Reason: Pain) magnesium oxide 400 MG tablet 400 mg PO DAILY aspirin 81 MG tablet,chewable 81 mg PO DAILY@0800 estradiol 42.5 GM cream 1 dose VAGINAL LOVE PRN (Reason: vaginal dryness) oxybutynin chloride 5 MG tablet 5 mg PO QHS dicyclomine 10 MG capsule 10 mg PO 4X/DAY PRN (Reason: Irritable Bowel Syndrome) multivitamin with folic acid 1 TABLET tablet 1 tab PO DAILY sotalol 120 MG tablet 120 mg PO BID potassium chloride 20 MEQ tablet,ER particles/crystals 20 tab PO DAILY pravastatin 10 MG tablet 10 mg PO QHS losartan 100 MG tablet 50 mg PO BID metformin 500 MG tablet 500 mg PO BID nateglinide 60 mg tablet 60 mg PO TID PRN (Reason: HIGH BLOOD SUGAR ) Rx Instructions: give before meal(s) omega-3 acid ethyl esters 1 gram capsule 1 cap PO DAILY propranolol 60 mg capsule,extended release 24 hr 60 mg PO BID Probiotic 10 billion cell capsule 10,000 mmu cells PO DAILY ascorbic acid (vitamin C) [C-500] 500 mg tablet 1 g PO DAILY cranberry 500 mg capsule 500 mg PO DAILY Rx Instructions: administer with a meal furosemide 20 mg tablet 20 mg PO DAILY Primary Care Provider: Terence Kaur Referrals: Terence Kaur MD [Primary Care Provider] - 3-5 Days if not improving Activity Restrictions/Additional Instructions: Call and follow-up with your dentist for your dental infection. For the dental infection we will start you on the antibiotic penicillin 4 times a day. Tylenol for pain. Your blood pressure may be up from the dental pain. Continue your normal blood pressure medication. If needed you could take your losartan twice a day. I would log your blood pressures twice daily. See how they are running. They continue to be elevated follow-up with your primary care physician so they can decide if they need to adjust or change her blood pressure medication. Print Language: [place] Disposition Disposition: Home, Self Care
[2025-01-17 10:07] VITALS: BP 202/77; PULSE 60; RESP 15; O2SAT 94
[2025-01-17] MEDS: Metoprolol Tartrate 5 MG/5 ML Vial IV (10:23)
[2025-01-17] MEDS: Penicillin Vk 250 MG Tablet 500 MG PO (10:26)
[2025-01-17 10:50] VITALS: BP 198/78
[2025-01-17 10:51] LABS: Anion Gap 7 (5-15); BUN 15 mg/dL (7-18); BUN/Creat Ratio 20.7 RATIO (10-20); Calcium,Total 9.2 mg/dL (8.5-10.1); Chloride 97 mmol/L (98-107); Creatinine, Serum 0.72 mg/dL (0.55-1.02); EST Glomerular Filtration Rate 81 mL/min (>60); Est Glom Filt Rate - Afr Amer 98 mL/min (>60); Estimated Creatinine Clearance 39.92 ml/min; Glucose 188 mg/dL (74-106); Potassium 3.6 mmol/L (3.5-5.1); Sodium Level 132 mmol/L (136-145)
[2025-01-17 12:00] VITALS: BP 194/74; PULSE 60; RESP 16; O2SAT 95
[2025-01-17 12:16] VITALS: BP 194/74; PULSE 60; RESP 16; TEMP 36.9; O2SAT 95
[2025-01-17] MEDS: traMADol 50 MG Tablet PO (12:19)
== END 2025-01-17 12:37 | disposition home or self-care (01) ==
LOC: ED 10:14
PROVIDERS: Emergency Provider Emergency Medicine; PCP Internal Medicine; Visit Provider Emergency Medicine
DX: K04.7 Periapical abscess without sinus (principal); I48.91 Unspecified atrial fibrillation; E11.9 Type 2 diabetes mellitus without complications; I10 Essential (primary) hypertension; K21.9 Gastro-esophageal reflux disease without esophagitis; K58.9 Irritable bowel syndrome, unspecified; I71.21 Aneurysm of the ascending aorta, without rupture; M81.8 Other osteoporosis without current pathological fracture; N32.81 Overactive bladder; Z85.3 Personal history of malignant neoplasm of breast; Z88.2 Allergy status to sulfonamides; Z95.2 Presence of prosthetic heart valve; Z90.12 Acquired absence of left breast and nipple; Z86.73 Personal history of transient ischemic attack (TIA), and cerebral infarction without residual deficits; Z79.82 Long term (current) use of aspirin; Z79.84 Long term (current) use of oral hypoglycemic drugs; Z79.899 Other long term (current) drug therapy
CPT/HCPCS: 80048; 96374; 99284; A4216

== ENCOUNTER → 2025-02-10 | Outpatient (CLI) | payer MEDICARE, BC, SELFPAY ==
[2025-02-13 15:08] LABS: Giardia Lamblia, Stool EIA Negative (Negative); Pancreatic Elastase, Fecal 410 (>200)
[2025-02-13 17:07] LABS: Calprotectin, Stool 46 ug/g (0-120)
== END | disposition home or self-care (01) ==
LOC: LABSPEC 11:24
PROVIDERS: PCP Internal Medicine; Referring Provider Student in an Organized Health Care Education/Training Program; Visit Provider Student in an Organized Health Care Education/Training Program
DX: R19.5 Other fecal abnormalities (principal); K58.9 Irritable bowel syndrome, unspecified
CPT/HCPCS: 82653; 83630; 83993; 87177; 87209; 87329; 87493

== ENCOUNTER → 2025-05-04 | Outpatient (CLI) | payer MEDICARE, BC, SELFPAY ==
[2025-05-04 14:21] LABS: Amphetamine Urine NEGATIVE (<1000 ng/mL); Barbiturate Urine NEGATIVE (< 200 ng/mL); Benzodiazepine Urine NEGATIVE (< 200 ng/mL); Buprenorphine Urine NEGATIVE (< 200 ng/mL); Cocaine Urine NEGATIVE (< 300 ng/mL); Fentanyl, Urine NEGATIVE; Methadone Urine NEGATIVE (< 300 ng/mL); Opiates Urine NEGATIVE (< 300 ng/mL); Oxycodone, Urine NEGATIVE (< 100 ng/mL); PCP Urine NEGATIVE (< 25 ng/mL); THC Urine NEGATIVE (< 50 ng/mL)
== END | disposition home or self-care (01) ==
LOC: LAB 11:58
PROVIDERS: PCP Internal Medicine; Referring Provider Anesthesiology Pain Medicine; Visit Provider Anesthesiology Pain Medicine
DX: F11.20 Opioid dependence, uncomplicated (principal)
CPT/HCPCS: 80307